=== PATIENT | male | born 1945 | race Caucasian/White ===

== ENCOUNTER → 2016-06-19 | Outpatient (CLI) | payer MEDICARE ==
--- NOTE | 2016-06-19 08:22 | US ---
EXAMINATION TYPE: US carotid duplex BILAT DATE OF EXAM: 06/19/2016 7:46 AM COMPARISON: NONE CLINICAL HISTORY: R55 Near Syncope. Patient states left neck pain EXAM MEASUREMENTS: RIGHT: Peak Systolic Velocity (PSV) cm/sec ----- Right CCA: 83.1 ----- Right ICA: 112.1 ----- Right ECA: 182.5* ICA/CCA ratio: 1.3 RIGHT: End Diastole cm/sec ----- Right CCA: 25.9 ----- Right ICA: 44.8 ----- Right ECA: 30.7 LEFT: Peak Systolic Velocity (PSV) cm/sec ----- Left CCA: 103.0 ----- Left ICA: 110.8 ----- Left ECA: 124.5 ICA/CCA ratio: 1.1 LEFT: End Diastole cm/sec ----- Left CCA: 31.8 ----- Left ICA: 31.8 ----- Left ECA: 27.0 VERTEBRALS (direction of flow): Right Vertebral: Antegrade Left Vertebral: Antegrade TECHNOLOGIST IMPRESSION: No significant stenosis seen, elevated right ECA velocity. Left sided nodes noted. Grayscale images show moderate eccentric plaque at right carotid bulb. There is mild eccentric plaque is seen at left carotid bulb. Velocity measurements and ratios in visualized portion of both interna l carotid arteries is within normal limits. IMPRESSION: Mild to moderate atherosclerotic change in carotid arteries, right greater than left wit hout hemodynamically significant stenosis clearly seen in either internal carotid artery Criteria for Assigning % of Stenosis / Diameter reduction (Estimation based on the indirect measurements of the internal carotid artery velocities (ICA PSV). 2. Less than 50% stenosis=ICA PSV < 125 cm/s: ratio < 2.0: ICA EDV<40 cm/s.
== END | disposition home or self-care (01) ==
LOC: RADUSWWP 07:21
PROVIDERS: ATTEND Family Medicine
DX: I65.23 Occlusion and stenosis of bilateral carotid arteries (principal)
CPT/HCPCS: 93880

== ENCOUNTER → 2016-06-22 | Outpatient (CLI) | payer MEDICARE ==
[2016-06-22 10:41] LABS: Blood Urea Nitrogen 18 mg/dL (9-20); Non-African American GFR(MDRD) >60 (>60 ml/min/1.73 sqM)
--- NOTE | 2016-06-22 13:18 | CT ---
EXAMINATION TYPE: CT chest w con DATE OF EXAM: 06/22/2016 11:48 AM COMPARISON: 03/19/2016, 09/14/2015, 06/24/2015 HISTORY: 70-year-old male solitary pulmonary nodule Solitary pulmonary nodule TECHNIQUE: Contiguous axial scanning of the chest after the administration of 100 ml mL of Omnipaque 300. Coronal/sagittal reconstructions performed. CT DLP: 519.50mGycm. Automatic exposure control utilized for a dose reduction. FINDINGS: The heart is normal size without pericardial effusion. Median sternotomy wires with post-CABG changes are present. Ascending aorta is ectatic at 3.7 cm. There is conventional arch vessel branching anatomy. Right tracheobronchial angle lymph node measures 1.0 cm versus 1.1 cm previously and 1.4 cm on 09/14/19 16. Right hilar lymph node measures 1.8 cm versus 2.1 cm on 03/19/2016; no new or progressive thoracic lymphadenopathy. Residual groundglass right perihilar midlung suggestive of scarring. 7 mm anterior right midlung pulm onary nodule axial image 23 and adjacent 5 mm pulmonary nodule are unchanged from 09/14/2015. There is mild centrilobular emphysema and some stable linear thickening along the posterior left base as niki red to 09/14/2015 suggestive of scarring. No consolidation or pleural effusion. Small hiatal hernia. Partially visualized cyst medial right kidney. Cholecystectomy clips. Bones: Endplate spondylosis midthoracic spine area no osseous destructive process. IMPRESSION: 1. A couple mildly enlarged mediastinal and right hilar lymph nodes measuring up to 1.8 cm show inter karina decreasing size suggesting a benign post infectious/inflammatory etiology. 2. A couple right-sided pulmonary nodules measuring up to 7 mm are stable from 09/14/2015. Continued fo llow-up to document 2 years of stability which would support a benign etiology is recommended. 3. COPD with mild emphysema and a small hiatal hernia.
== END | disposition home or self-care (01) ==
LOC: RADCTMAIN 10:13
PROVIDERS: ATTEND Internal Medicine Sleep Medicine
DX: R91.1 Solitary pulmonary nodule (principal); J43.9 Emphysema, unspecified; K44.9 Diaphragmatic hernia without obstruction or gangrene
CPT/HCPCS: 82565; 84520; 71260; 36415; Q9967

== ENCOUNTER 2017-06-09 12:16 | Inpatient (IN) | payer MEDICARE ==
--- NOTE | 2017-06-09 12:31 | ED ---
Chest Pain HPI - General Stated Complaint: PETER Time Seen by Provider: 06/09/17 12:16 Source: patient, EMS, RN notes reviewed Mode of arrival: EMS - History of Present Illness Initial Comments: This is a 71-year-old male who states he had the onset of shortness of breath when he woke up this morning his been having cold symptoms for last day or so he also had several episodes of sharp left-sided chest pain it lasted for perhaps 10-15 seconds each he denies any fevers chills nausea vomiting sweats she has had rhinorrhea and congestion however. Patient does have a history of a two-way coronary artery bypass 1997 she be thyroid disease and high cholesterol. Currently he is asymptomatic he has any chest pain or shortness of breath. MD Complaint: chest pain, other - Related Data Home Medications Medication Instructions Recorded Confirmed Aspirin 325 mg PO DAILY 01/05/14 06/09/17 Furosemide [Lasix] 20 mg PO DAILY 01/05/14 06/09/17 Quinapril HCl 40 mg PO DAILY 01/05/14 06/09/17 glipiZIDE [Glucotrol] 5 mg PO AC-BID 01/05/14 06/09/17 Levothyroxine Sodium [Synthroid] 75 mcg PO DAILY 06/09/17 06/09/17 Omeprazole 20 mg PO BID 06/09/17 06/09/17 Potassium Chloride [K-Tab ER] 10 meq PO DAILY 06/09/17 06/09/17 Repaglinide [Prandin] 1 mg PO TID 06/09/17 06/09/17 Simvastatin [Zocor] 20 mg PO HS 06/09/17 06/09/17 Tamsulosin HCl [Flomax] 0.4 mg PO DAILY 06/09/17 06/09/17 sitaGLIPtin [Januvia] 100 mg PO HS 06/09/17 06/09/17 Allergies Allergy/AdvReac Type Severity Reaction Status Date / Time levofloxacin [From Levaquin] Allergy Anaphylaxis Verified 06/09/17 12:41 Review of Systems ROS Statement: Those systems with pertinent positive or pertinent negative responses have been documented in the HPI. ROS Other: All systems not noted in ROS Statement are negative. EKG Findings - EKG Results: EKG: interpreted by RODRIGO, sinus rhythm (Sinus rhythm rate of 86. Interval 170 QRS duration 96 QT since QTC of 344/411 old inferior changes no acute ST-T wave changes nonspecific anterior changes.) Past Medical History Past Medical History: Coronary Artery Disease (CAD), Diabetes Mellitus, GERD/ Reflux, Hyperlipidemia, Hypertension, Osteoarthritis (OA), Pneumonia, Pulmonary Embolus (PE), Thyroid Disorder Additional Past Medical History / Comment(s): fx rt hand, carpal tunnel kisha. ? 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 Smoking Status: Former smoker (Quit 1996 at 3-1/2 packs per day since age 12) Past Alcohol Use History: Occasional Additional Past Alcohol Use History / Comment(s): started smoking age 12 worked up 3.5 ppd quit 1996 Past Drug Use History: None Reported - Past Family History Father Family Medical History: Myocardial Infarction ([place]) Additional Family Medical History / Comment(s): from [place] age 44 Mother Additional Family Medical History / Comment(s): age 86 from [facility] General Exam - General Exam Comments Initial Comments: This is a well-developed well-nourished awake alert oriented times 3 male General appearance: alert, in no apparent distress Head exam: Present: atraumatic, normocephalic, normal inspection Eye exam: Present: normal appearance, PERRL, EOMI. Absent: scleral icterus, conjunctival injection, periorbital swelling ENT exam: Present: normal exam, mucous membranes moist Neck exam: Present: normal inspection. Absent: tenderness, meningismus, lymphadenopathy Respiratory exam: Present: normal lung sounds bilaterally, chest wall tenderness (Some reproducible tenderness palpation along the left costochondral margin. No step-off no crepitation.). Absent: respiratory distress, wheezes, rales, rhonchi, stridor Cardiovascular Exam: Present: regular rate, normal rhythm, normal heart sounds. Absent: systolic murmur, diastolic murmur, rubs, gallop, clicks GI/Abdominal exam: Present: soft, normal bowel sounds. Absent: distended, tenderness, guarding, rebound, rigid Extremities exam: Present: normal inspection, full ROM, normal capillary refill. Absent: tenderness, pedal edema, joint swelling, calf tenderness Back exam: Present: normal inspection Neurological exam: Present: alert, oriented X3, CN II-XII intact Psychiatric exam: Present: normal affect, normal mood Skin exam: Present: warm, dry, intact, normal color. Absent: rash Course Vital Signs 06/09/17 06/09/17 06/09/17 12:22 12:27 13:10 Temperature 97.3 F L 101.3 F H Pulse Rate 89 85 Respiratory 20 24 22 Rate Blood Pressure 182/74 157/84 O2 Sat by Pulse 97 97 Oximetry 06/09/17 06/09/17 06/09/17 13:15 13:25 14:45 Temperature 100.5 F H Pulse Rate 95 94 90 Respiratory 18 Rate Blood Pressure 112/56 O2 Sat by Pulse 93 L Oximetry 06/09/17 06/09/17 15:35 16:35 Temperature 100.3 F H 97.8 F Pulse Rate 93 88 Respiratory 18 18 Rate Blood Pressure 148/78 126/56 O2 Sat by Pulse 96 97 Oximetry Chest Pain MDM - MDM I did evaluate the patient's imaging showing no evidence of acute findings. Patient was feeling better with respect to his breathing no more chest pain he has however been noted to be an out of bigeminy on his heart rhythm. He does not really feel lightheaded or dizzy with this is apparently a new event for him. I did discuss the case with him and family members as well as with Dr. Valle the patient will be admitted with cardiology consultation. Disposition Clinical Impression: Bigeminy, Acute exacerbation of chronic obstructive airways disease, Chest pain Disposition: ADMITTED IP TO THIS HOSP Condition: Stable Referrals: Osei Carcamo DO [Primary Care Provider] - 1-2 days
[2017-06-09] MEDS ORDERED: ACETAMINOPHEN TAB 325 MG TAB PO STA (13:01)
[2017-06-09] MEDS ORDERED: IPRATROPIUM-ALBUTEROL 3 ML NEB INHALATION STA (13:01)
[2017-06-09 13:29] LABS: Basophils % (A) 1 %; Eosinophils # (A) 0.2 k/uL (0-0.7); Eosinophils % (A) 3 %; HCT 40.8 % (39.0-53.0); HGB 13.6 gm/dL (13.0-17.5); Lymphocytes # (A) 0.2 k/uL (1.0-4.8); Lymphocytes % (A) 3 %; MCH 31.4 pg (25.0-35.0); MCHC 33.3 g/dL (31.0-37.0); MCV 94.4 fL (80.0-100.0); Mean Platelet Volume 8.3; Monocytes # (A) 0.2 k/uL (0-1.0); Monocytes % (A) 3 %; Neutrophils # (A) 5.7 k/uL (1.3-7.7); Neutrophils % (A) 90 %; Platelet Count 125 k/uL (150-450); RBC 4.32 m/uL (4.30-5.90); RDW 12.7 % (11.5-15.5); WBC 6.3 k/uL (3.8-10.6)
[2017-06-09 13:51] LABS: Creatine Kinase 98 U/L (55-170)
--- NOTE | 2017-06-09 13:55 | XR ---
EXAMINATION TYPE: XR chest 2V DATE OF EXAM: 06/09/2017 HISTORY: Chest Pain. REFERENCE: Previous study dated 07/21/2015. FINDINGS: There has been a midline sternotomy. The lungs are mildly overinflated. The lungs are clear . Pleural spaces are clear. The heart is not enlarged. IMPRESSION: COPD.
[2017-06-09 14:03] LABS: Creatine Kinase MB 1.1 ng/mL (0.0-2.4)
[2017-06-09 14:04] LABS: Troponin I <0.012 ng/mL (0.000-0.034)
[2017-06-09 14:05] LABS: D-Dimer 1.26 mg/L FEU (<0.60); Partial Thromboplastin Time 21.5 sec (22.0-30.0); Prothrombin Time 9.6 sec (9.0-12.0)
[2017-06-09 14:56] LABS: ALT 49 U/L (21-72); AST 42 U/L (17-59); Albumin 3.6 g/dL (3.5-5.0); Alkaline Phosphatase 76 U/L (38-126); Amylase 62 U/L (30-110); Anion Gap 11 mmol/L; Blood Urea Nitrogen 20 mg/dL (9-20); Calcium 8.6 mg/dL (8.4-10.2); Carbon Dioxide 20 mmol/L (22-30); Chloride 106 mmol/L (98-107); Glucose 207 mg/dL (74-99); Lipase 313 U/L (23-300); Magnesium 1.3 mg/dL (1.6-2.3); Sodium 137 mmol/L (137-145); Total Bilirubin 0.4 mg/dL (0.2-1.3); Total Protein 6.3 g/dL (6.3-8.2)
[2017-06-09] MEDS ORDERED: RX INFO: IV CONTRAST WAS GIVEN 1 EACH MISC MISCELLANE PRN (15:00)
--- NOTE | 2017-06-09 16:29 | CT ---
EXAMINATION TYPE: CT angio chest DATE OF EXAM: 06/09/2017 COMPARISON: NONE HISTORY: Left sided chest pain with shortness of breath CT DLP: 569.5 mGycm. Automated Exposure Control for Dose Reduction was Utilized. CONTRAST: CTA scan of the thorax is performed with IV Contrast, patient injected with 100 mL of Omnipaque 350, pulmonary embolism protocol. MIP Images are created on CT scanner and reviewed. FINDINGS: LUNGS: There is redemonstration of both a 7 and 5 mm right upper lobe pulmonary nodule. That are both unchanged from the exam of 09/14/2015. These are superimposed upon mild centrilobular background emphy sema. Probable area of scarring is also stable along the left lung base that is linear and elongated. Scattered subpleural blebs are also noted. Groundglass opacity along the interlobar fissure in the r ight upper lobe is also stable. No new focal consolidation or pleural effusion. No pneumothorax is se en. The tracheobronchial tree is patent. MEDIASTINUM: The exam is slightly suboptimal given bolus timing, however there is no central or segme ntal pulmonary bolus bilaterally and no suspected subsegmental emboli. Conglomeration of right hilar lymph nodes measures 3.6 x 1.8 cm and previously measured 1.8 cm on the exam of 06/22/2016. Right trac heobronchial angle node measures 1.1 cm in short axis as intervertebral 1.0 cm. These are similar. Ag ain the ascending thoracic aorta is upper limits of normal measuring 3.7 cm but does not measure crit eria for aneurysm. No cardiomegaly or pericardial effusion is seen. OTHER: Cholecystectomy clips are noted within the right upper quadrant. There is generalized hypoatte nuation of the hepatic parenchyma most commonly related to underlying hepatic steatosis. Left upper p ole probable renal cyst is again partially visualized. There is redemonstration of multilevel moderat e degenerative changes of the thoracic spine and an exaggerated thoracic kyphosis. There is a small h iatal hernia. IMPRESSION: 1. No evidence of central or segmental pulmonary embolus. No suspicion for subsegmental pulmonary emb olus although there is slightly suboptimal bolus timing. 2. Stable mediastinal adenopathy in comparison to exam of 06/22/2016 that it slightly decreased from t he prior exam of 03/19/2016. 3. Mild centrilobular emphysema. 4. Stable right sided pulmonary nodules dating back to 09/14/2015. Again continued follow-up is recomme nded to determine 2 years of stability. 5. Hepatic steatosis and small hiatal hernia.
[2017-06-09] MEDS ORDERED: MAGNESIUM SULFATE-D5W PMX 1 GM in DEXTROSE/WATER 1 100ML.BAG IVPB ONE (16:53)
[2017-06-09] MEDS ORDERED: NITROGLYCERIN SL TABS 0.4 MG TAB SUBLINGUAL PRN (17:03)
[2017-06-09] MEDS: SODIUM CHLORIDE 0.9% 1,000 ML IV SCH (18:00)
[2017-06-09] MEDS ORDERED: ACETAMINOPHEN TAB 325 MG TAB PO PRN (18:09)
[2017-06-09] MEDS: methylPREDNISolone SOD SUCCI 125 MG/2 ML VIAL IV SCH ×2 (18:42→23:28)
[2017-06-09] MEDS: glipiZIDE 5 MG TAB PO SCH (18:42)
[2017-06-09 18:51] LABS: Glucose,Whole Blood 177 mg/dL (75-99)
[2017-06-09] MEDS ORDERED: IPRATROPIUM-ALBUTEROL 3 ML NEB INHALATION SCH (20:00)
[2017-06-09 20:38] LABS: Creatine Kinase MB 0.5 ng/mL (0.0-2.4); Troponin I 0.014 ng/mL (0.000-0.034)
[2017-06-09] MEDS ORDERED: IPRATROPIUM-ALBUTEROL 3 ML NEB INHALATION PRN (20:56)
[2017-06-09] MEDS ORDERED: LINAGLIPTIN 5 MG TABLET PO SCH (21:00)
[2017-06-09 21:01] LABS: Glucose,Whole Blood 278 mg/dL (75-99)
[2017-06-09] MEDS: ATORVASTATIN 10 MG TAB PO SCH (23:27)
[2017-06-09] MEDS: REPAGLINIDE 1 MG TAB PO SCH (23:27)
[2017-06-09] MEDS: PANTOPRAZOLE 40 MG TABLET PO SCH (23:28)
[2017-06-10 02:38] LABS: Creatine Kinase 114 U/L (55-170)
[2017-06-10 02:52] LABS: Creatine Kinase MB 1.2 ng/mL (0.0-2.4); Troponin I <0.012 ng/mL (0.000-0.034)
[2017-06-10 06:10] LABS: Glucose,Whole Blood 478 mg/dL (75-99)
[2017-06-10] MEDS ORDERED: INSULIN ASPART 100 UNIT/ML 1 ML 10 ML VIAL SQ ONE (06:17)
[2017-06-10] MEDS: glipiZIDE 5 MG TAB PO SCH (06:27)
[2017-06-10] MEDS: methylPREDNISolone SOD SUCCI 125 MG/2 ML VIAL IV SCH ×2 (06:27→12:48)
[2017-06-10] MEDS: LEVOTHYROXINE 75 MCG TAB PO SCH (06:28)
[2017-06-10 06:49] LABS: ALT 68 U/L (21-72); AST 51 U/L (17-59); Albumin 3.7 g/dL (3.5-5.0); Alkaline Phosphatase 63 U/L (38-126); Anion Gap 16 mmol/L; Blood Urea Nitrogen 20 mg/dL (9-20); Calcium 8.8 mg/dL (8.4-10.2); Carbon Dioxide 18 mmol/L (22-30); Chloride 104 mmol/L (98-107); Cholesterol 170 mg/dL (<200); HDL Cholesterol 40 mg/dL (40-60); LDL Cholesterol,Calculated 97 mg/dL (0-99); Magnesium 1.8 mg/dL (1.6-2.3); Potassium 4.4 mmol/L (3.5-5.1); Sodium 138 mmol/L (137-145); Total Bilirubin 0.7 mg/dL (0.2-1.3); Total Protein 6.1 g/dL (6.3-8.2); Triglycerides 164 mg/dL (<150)
[2017-06-10 06:59] LABS: Glucose 458 mg/dL (74-99)
[2017-06-10] MEDS ORDERED: INSULIN ASPART 100 UNIT/ML 1 ML 10 ML VIAL SQ SCH (07:30)
[2017-06-10] MEDS: IPRATROPIUM-ALBUTEROL 3 ML NEB INHALATION SCH ×4 (08:05→19:32)
--- NOTE | 2017-06-10 08:20 | P.CRDCN ---
History of Present Illness Consult date: 06/10/17 Requesting physician: Varsha Valle Consult reason: chest pain, shortness of breath Chief complaint: Shortness of breath History of present illness: This is a 71-year-old gentleman with history of diabetes, hyperlipidemia, hypothyroidism, hypertension, coronary artery disease and prior bypass surgery, sleep apnea, nonsmoker, who presented to the hospital with a fairly sudden onset of shortness of breath. The patient he's been doing overall fairly well at home, he denies any fever or chills at home, no cough. He states that he went in to have a shower, became suddenly short of breath, he states he had a sharp pain in the center of his chest which lasted approximately 15 seconds, this did recur on one occasion following that, he had no other episodes of chest discomfort. The EMS was called and patient was brought to the emergency room for further evaluation. Temperature on arrival here 101.3. Afebrile this morning, blood pressure 112/50 with a heart rate in the 60s. White blood cell count 6.3, hemoglobin 13.6, platelet count 125. D- dimer 1.26, sodium 138, potassium 4.4, BUN 20, creatinine 0.8. Glucose on arrival 207, for 58 this morning. Magnesium level on arrival 1.3, 1.8 this morning. Opponents 0.012, 0.014, 0.012. Influenza A and B were negative. TSH normal. EKG on arrival here shows a normal sinus rhythm with inferior Q waves. Chest x-ray shows COPD. CTA of the chest was performed which did not reveal evidence of pulmonary embolism. Stable mediastinal adenopathy in comparison with prior exam from last year. Mild central lobar emphysema. Stable right sided pulmonary nodules. At the time of my examination this morning, patient is sitting up in bed, denies any shortness of breath, no chest discomfort, no cough. Past Medical History Past Medical History: Coronary Artery Disease (CAD), Diabetes Mellitus, GERD/ Reflux, Hyperlipidemia, Hypertension, Osteoarthritis (OA), Pneumonia, Pulmonary Embolus (PE), Thyroid Disorder Additional Past Medical History / Comment(s): fx rt hand, carpal tunnel kisha. ? 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 Smoking Status: Former smoker Past Alcohol Use History: Occasional Additional Past Alcohol Use History / Comment(s): started smoking age 12 worked up 3.5 ppd quit 1996 Past Drug Use History: None Reported - Past Family History Father Family Medical History: Myocardial Infarction ([place]) Additional Family Medical History / Comment(s): from [place] age 44 Mother Additional Family Medical History / Comment(s): age 86 from [facility] Medications and Allergies Home Medications Medication Instructions Recorded Confirmed Type Aspirin 325 mg PO DAILY 01/05/14 06/09/17 History Furosemide [Lasix] 20 mg PO DAILY 01/05/14 06/09/17 History Quinapril HCl 40 mg PO DAILY 01/05/14 06/09/17 History glipiZIDE [Glucotrol] 5 mg PO AC-BID 01/05/14 06/09/17 History Levothyroxine Sodium [Synthroid] 75 mcg PO DAILY 06/09/17 06/09/17 History Omeprazole 20 mg PO BID 06/09/17 06/09/17 History Potassium Chloride [K-Tab ER] 10 meq PO DAILY 06/09/17 06/09/17 History Repaglinide [Prandin] 1 mg PO TID 06/09/17 06/09/17 History Simvastatin [Zocor] 20 mg PO HS 06/09/17 06/09/17 History Tamsulosin HCl [Flomax] 0.4 mg PO DAILY 06/09/17 06/09/17 History sitaGLIPtin [Januvia] 100 mg PO HS 06/09/17 06/09/17 History Allergies Allergy/AdvReac Type Severity Reaction Status Date / Time levofloxacin [From Levaquin] Allergy Anaphylaxis Verified 06/09/17 12:41 Physical Exam Vitals: Vital Signs Temp Pulse Pulse Resp BP BP Pulse Ox 06/10/17 04:00 97.0 F L 63 18 112/56 96 06/10/17 00:00 97.2 F L 82 18 172/82 98 06/09/17 21:03 96 06/09/17 20:53 98 06/09/17 20:00 97.9 F 80 18 143/87 97 06/09/17 19:35 98.7 F 88 18 127/61 96 06/09/17 18:00 90 18 132/63 95 06/09/17 17:40 98.8 F 89 18 137/55 97 06/09/17 17:00 81 18 130/60 97 06/09/17 16:35 97.8 F 88 18 126/56 97 06/09/17 15:35 100.3 F H 93 18 148/78 96 06/09/17 14:45 100.5 F H 90 18 112/56 93 L 06/09/17 13:25 94 06/09/17 13:15 95 06/09/17 13:10 101.3 F H 85 22 157/84 97 06/09/17 12:27 24 06/09/17 12:22 97.3 F L 89 20 182/74 97 Intake and Output 06/09/17 06/10/17 06/10/17 22:59 06:59 14:59 Intake Total 200 Output Total 601 Balance 200 -601 Intake: Amount of Fluid Infused ( 200 ml) Output: Urine 601 Other: Voiding Method Urinal Urinal # Voids 1 450 Weight 108.86 kg 110.9 kg PHYSICAL EXAMINATION: HEENT: Head is atraumatic, normocephalic. Pupils equal, round. Neck is supple. There is no elevated jugular venous pressure. HEART EXAMINATION: Heart S1 S2 1 systolic murmur is heard. CHEST EXAMINATION: Lungs are clear to auscultation and precussion. No chest wall tenderness is noted on palpation or with deep breathing. ABDOMEN: Soft, obese, nontender. Bowel sounds are heard. No organomegaly noted. EXTREMITIES: 2+ peripheral pulses with trace evidence of peripheral edema and no calf tenderness noted. NEUROLOGIC patient is awake, alert and oriented -3. . Results 06/09/17 13:00 06/10/17 06:03 Cardiac Enzymes 06/09/17 06/09/17 06/09/17 Range/Units 13:00 14:13 19:37 AST 42 (17-59) U/L CK-MB (CK-2) 1.1 0.5 (0.0-2.4) ng/mL Troponin I <0.012 0.014 (0.000-0.034) ng/mL 06/10/17 06/10/17 Range/Units 01:52 06:03 AST 51 (17-59) U/L CK-MB (CK-2) 1.2 (0.0-2.4) ng/mL Troponin I <0.012 (0.000-0.034) ng/mL Coagulation 06/09/17 Range/Units 13:00 PT 9.6 (9.0-12.0) sec APTT 21.5 L (22.0-30.0) sec Lipids 06/10/17 Range/Units 06:03 Triglycerides 164 H (<150) mg/dL Cholesterol 170 (<200) mg/dL HDL Cholesterol 40 (40-60) mg/dL CBC 06/09/17 Range/Units 13:00 WBC 6.3 (3.8-10.6) k/uL RBC 4.32 (4.30-5.90) m/uL Hgb 13.6 (13.0-17.5) gm/dL Hct 40.8 (39.0-53.0) % Plt Count 125 L (150-450) k/uL Comprehensive Metabolic Panel 06/09/17 06/10/17 Range/Units 14:13 06:03 Sodium 137 138 (137-145) mmol/L Potassium 4.0 4.4 (3.5-5.1) mmol/L Chloride 106 104 (98-107) mmol/L Carbon Dioxide 20 L 18 L (22-30) mmol/L BUN 20 20 (9-20) mg/dL Creatinine 0.86 0.80 (0.66-1.25) mg/dL Glucose 207 H 458 H* (74-99) mg/dL Calcium 8.6 8.8 (8.4-10.2) mg/dL AST 42 51 (17-59) U/L ALT 49 68 (21-72) U/L Alkaline Phosphatase 76 63 (38-126) U/L Total Protein 6.3 6.1 L (6.3-8.2) g/dL Albumin 3.6 3.7 (3.5-5.0) g/dL Current Medications Generic Name Dose Route Start Last Admin Trade Name Freq PRN Reason Stop Dose Admin Acetaminophen 650 mg 06/09/17 18:09 06/09/17 18:42 Tylenol Tab PO 650 mg Q4HR PRN Administration Fever and/ or MILD Pain Albuterol/Ipratropium 3 ml 06/10/17 08:00 06/10/17 08:05 Duoneb 0.5 Mg-3 Mg/3 Ml Soln INHALATION 3 ml RT-QID MADDISON Administration Albuterol/Ipratropium 3 ml 06/09/17 20:56 Duoneb 0.5 Mg-3 Mg/3 Ml Soln INHALATION RT-Q2H PRN Shortness Of Breath Or Wheezing Aspirin 325 mg 06/10/17 09:00 Aspirin PO DAILY MADDISON Atorvastatin Calcium 10 mg 06/09/17 21:00 06/09/17 23:27 Lipitor PO 10 mg HS MADDISON Administration Furosemide 20 mg 06/10/17 09:00 Lasix PO DAILY MADDISON Glipizide 5 mg 06/09/17 17:30 06/10/17 06:27 Glucotrol PO 5 mg AC-BID MADDISON Administration Sodium Chloride 1,000 mls @ 20 mls/hr 06/09/17 17:00 06/09/17 18:00 Saline 0.9% IV 20 mls/hr .Q24H MADDISON Administration Insulin Aspart 0 unit 06/10/17 07:30 06/10/17 06:26 Novolog SQ 8 unit ACHS MADDISON Administration Protocol Levothyroxine Sodium 75 mcg 06/10/17 06:30 06/10/17 06:28 Synthroid PO 75 mcg 0630 MADDISON Administration Linagliptin 5 mg 06/09/17 21:00 06/09/17 23:28 Tradjenta PO 5 mg HS MADDISON Administration Lisinopril 40 mg 06/10/17 09:00 Zestril PO DAILY MADDISON Methylprednisolone Sodium Succinate 60 mg 06/09/17 18:00 06/10/17 06:27 Solu-Medrol IV 60 mg Q6HR MADDISON Administration Miscellaneous Information 1 each 06/09/17 15:00 06/09/17 16:26 Rx Info: Iv Contrast Was Given MISCELLANE 06/11/17 15:00 1 each DAILY PRN Administration Per Protocol Nitroglycerin 0.4 mg 02/25/18 17:03 Nitrostat SUBLINGUAL Q5M PRN Chest Pain Pantoprazole Sodium 40 mg 06/09/17 21:00 06/09/17 23:28 Protonix PO 40 mg BID MADDISON Administration Potassium Chloride 10 meq 06/10/17 09:00 K-Dur 10 PO DAILY MADDISON Repaglinide 1 mg 06/09/17 22:00 06/09/17 23:27 Prandin PO 1 mg TID MADDISON Administration Tamsulosin HCl 0.4 mg 06/10/17 09:00 Flomax PO DAILY MADDISON Intake and Output 06/09/17 06/10/17 06/10/17 22:59 06:59 14:59 Intake Total 200 Output Total 601 Balance 200 -601 Intake: Amount of Fluid Infused ( 200 ml) Output: Urine 601 Other: Voiding Method Urinal Urinal # Voids 1 450 Weight 108.86 kg 110.9 kg 06/09/17 13:00 06/10/17 06:03 EKG Interpretations (text) EKG shows a normal sinus rhythm with inferior Q waves, no acute changes noted. Assessment and Plan Plan: Assessment and plan #1 symptoms of sudden onset of shortness of breath, fever of 101.3 on admission. Chest x-ray shows COPD. BNP 419. Elevated d-dimer 1.26, CT of the chest does not reveal any pulmonary embolism. #2 atypical chest pain, troponins 0.012, 0.014, 0.012. EKG shows normal sinus rhythm with inferior Q waves, no acute changes noted. #3 known history of coronary artery disease with prior bypass surgery #4 hypertension #5 hyperlipidemia #6 diabetes #7 sleep apnea #8 hypothyroidism, TSH normal #9 hypomagnesemia Plan There is no evidence of congestive cardiac failure, BNP level is normal. Chest pain very atypical in nature. We will replace the magnesium. We will repeat an echocardiogram with Doppler study. Decrease aspirin to 81 mg daily, continue statin, DENISE inhibitor, further recommendations to follow. DNP note has been reviewed, I agree with a documented findings and plan of care. Patient was seen and examined.
[2017-06-10] MEDS ORDERED: ASPIRIN 325 MG TAB PO SCH (09:00)
[2017-06-10] MEDS: REPAGLINIDE 1 MG TAB PO SCH (10:21)
[2017-06-10] MEDS: ASPIRIN 81 MG PO SCH (10:21)
[2017-06-10] MEDS: PANTOPRAZOLE 40 MG TABLET PO SCH ×2 (10:22→21:07)
[2017-06-10] MEDS: LISINOPRIL 20 MG TAB PO SCH (10:22)
[2017-06-10] MEDS: POTASSIUM CHLORIDE ER 10 MEQ TAB.ER.PRT PO SCH (10:23)
[2017-06-10] MEDS: FUROSEMIDE 20 MG TAB PO SCH (10:23)
[2017-06-10] MEDS: TAMSULOSIN 0.4 MG CAP.ER.24H PO SCH (10:23)
--- NOTE | 2017-06-10 11:31 | ECHOF ---
Referral Reason:Chest pain, dyspnea, dysrhythmia MEASUREMENTS -------- HEIGHT: 175.3 cm WEIGHT: 110.7 kg BP: 112/56 RVIDd: 4.1 cm (< 3.3) IVSd: 1.5 cm (0.6 - 1.1) LVIDd: 4.2 cm (3.9 - 5.3) LVPWd: 1.2 cm (0.6 - 1.1) IVSs: 2.1 cm LVIDs: 3.1 cm LVPWs: 1.7 cm LAESV Index (A-L): 36.47 ml/m Ao Diam: 3.5 cm (2.0 - 3.7) AV Cusp: 2.3 cm (1.5 - 2.6) LA Diam: 4.3 cm (2.7 - 3.8) MV EXCURSION: 8.243 mm (> 18.000) MV EF SLOPE: 45 mm/s (70 - 150) EPSS: 1.5 cm MV E Herminio: 0.79 m/s MV DecT: 212 ms MV A Herminio: 0.83 m/s MV E/A Ratio: 0.96 RAP: 5.00 mmHg RVSP: 18.58 mmHg FINDINGS -------- Sinus rhythm with extra systolic beats. This was a technically adequate study. The left ventricular size is normal. There is moderate concentric left ventricular hypertrophy. O verall left ventricular systolic function is normal with, an EF between 55 - 60 %. The right ventricle is moderately enlarged. LA is moderately dilated 34-39 ml/m2 The right atrium was not well visualized. The aortic valve is trileaflet, and appears structurally normal. No aortic stenosis or regurgitation. The mitral valve is normal. Mild mitral regurgitation is present. Mild tricuspid regurgitation present. There is no evidence of pulmonary hypertension. The right v entricular systolic pressure, as measured by Doppler, is 18.58mmHg. Trace/mild (physiologic) pulmonic regurgitation. The aortic root size is normal. There is no pericardial effusion. CONCLUSIONS -------- 1. Sinus rhythm with extra systolic beats. 2. This was a technically adequate study. 3. The left ventricular size is normal. 4. There is moderate concentric left ventricular hypertrophy. 5. Overall left ventricular systolic function is normal with, an EF between 55 - 60 %. 6. The right ventricle is moderately enlarged. 7. LA is moderately dilated 34-39 ml/m2 8. The right atrium was not well visualized. 9. The aortic valve is trileaflet, and appears structurally normal. No aortic stenosis or regurgitati on. 10. Mild mitral regurgitation is present. 11. Mild tricuspid regurgitation present. 12. There is no evidence of pulmonary hypertension. 13. Trace/mild (physiologic) pulmonic regurgitation. 14. The aortic root size is normal. 15. There is no pericardial effusion. HAND I BLOCKER: Kaylee Burnham RDCS
[2017-06-10 12:01] LABS: Glucose,Whole Blood 510 mg/dL (75-99)
[2017-06-10 12:01] LABS: Glucose,Whole Blood 499 mg/dL (75-99)
[2017-06-10] MEDS ORDERED: INSULIN REGULAR BOLUS (FROM DRIP BAG) IV ONE (12:10)
[2017-06-10] MEDS: INSULIN ASPART 100 UNIT/ML 1 ML 10 ML VIAL SQ SCH ×2 (12:47→17:34)
[2017-06-10] MEDS: INSULIN REGULAR 100 UNIT in SODIUM CHLORIDE 0.9% 100 ML IV SCH ×3 (13:15→23:54)
[2017-06-10 14:12] LABS: Glucose,Whole Blood 503 mg/dL (75-99)
[2017-06-10 14:26] LABS: Glucose,Whole Blood 478 mg/dL (75-99)
[2017-06-10 14:49] LABS: Glucose,Whole Blood 420 mg/dL (75-99)
[2017-06-10 15:28] LABS: Glucose,Whole Blood 401 mg/dL (75-99)
[2017-06-10 15:48] LABS: Glucose,Whole Blood 372 mg/dL (75-99)
--- NOTE | 2017-06-10 16:26 | P.HPIM ---
History of Present Illness H&P Date: 06/10/17 Chief Complaint: SOB 71 years old male patient of Dr. Carcamo with past medical history of type 2 diabetes, coronary artery disease requiring CABG two-vessel disease in 1996, history of pulmonary embolism and subdural hematoma 1960 also has history of hyperlipidemia, hypertension, osteoarthritis, hypothyroidism, pulmonary nodule and mediastinal lymphadenopathy presents in with sudden onset of shortness of breath associated with substernal chest pain that started when he went for a shower. Chest pain lasted 15 seconds but improved by itself. Patient had a fever of 101 on arrival but otherwise vitals are stable. Labs done in the ER suggestive of CBC 6.3, d-dimer 1.26, UN creatinine 20/0.8, troponin 2 negative, influenza AB- chest x-ray was done which showed COPD. CTA was done for elevated d-dimer which was negative for pulmonary embolism but redemonstrated the stable mediastinal lymphadenopathy as well as pulmonary nodules stable since last year. On my evaluation patient was lying comfortably in bed without any significant shortness of breath or chest pain. Cardiology had already evaluated the patient and think patient's chest pain was atypical of cardiac nature. Pulmonary consulted for evaluation of COPD. Patient was placed on insulin drip for elevated glucose. Review of Systems Constitutional: Denies chills, Denies fever, Denies lethargy, Denies malaise, Denies poor appetite, Denies weakness, Denies weight loss Eyes: denies decreased vision, denies diplopia, denies discharge, denies pain Ears: deny: decreased hearing Ears, nose, mouth and throat: Denies dental pain, Denies headache, Denies nasal discharge, Denies nose pain Cardiovascular: Denies chest pain, Denies decreased exercise tolerance, Denies edema, Denies high blood pressure, Denies irregular heart beat, Denies palpitations, Denies paroxysmal nocturnal dyspnea, Denies rapid heart beat, Denies shortness of breath Respiratory: Denies congestion, Denies cough, Denies cough with sputum, Denies dyspnea, Denies home oxygen, Denies wheezing Gastrointestinal: Denies abdominal pain, Denies change in bowel habits, Denies coffee ground emesis, Denies early satiety, Denies excessive gas, Denies heartburn, Denies hematemesis, Denies hematochezia, Denies loss of appetite, Denies nausea, Denies vomiting Genitourinary: Denies dysuria, Denies flank pain, Denies kidney stones, Denies menorrhagia, Denies urgency, Denies urinary frequency Musculoskeletal: Denies gait dysfunction, Denies limitation of motion, Denies morning stiffness, Denies muscle cramps Integumentary: Denies rash, Denies wounds, Denies brittle nails, Denies change in hair/nails, Denies darkening of skin Neurological: Denies balance difficulties, Denies change in speech, Denies double vision, Denies gait dysfunction, Denies loss of vision, Denies motor disturbance, Denies numbness, Denies paralysis, Denies paresthesias, Denies seizures Psychiatric: Denies anxiety, Denies depression Endocrine: Denies excessive sweating, Denies excessive thirst, Denies high blood sugars, Denies palpitations Hematologic/Lymphatic: Denies easy bruising, Denies lymphadenopathy Past Medical History Past Medical History: Coronary Artery Disease (CAD), Diabetes Mellitus, GERD/ Reflux, Hyperlipidemia, Hypertension, Osteoarthritis (OA), Pneumonia, Thyroid Disorder Additional Past Medical History / Comment(s): fx rt hand, carpal tunnel kisha. ? murmur, sinus, kidney stone History of Any Multi-Drug Resistant Organisms: None Reported Past Surgical History: Appendectomy, Cholecystectomy, Coronary Bypass/CABG, Heart Catheterization, Hernia Repair Additional Past Surgical History / Comment(s): triple vessel cabg in 1996, hernia repair(triple per old hx) in 1959, ventral hernia 2006, colonoscopy.kisha cataracts-lens implants Past Anesthesia/Blood Transfusion Reactions: No Reported Reaction Past Psychological History: No Psychological Hx Reported Additional Psychological History / Comment(s): lives withh his , is indepenant. 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 Smoking Status: Former smoker Past Alcohol Use History: Occasional Additional Past Alcohol Use History / Comment(s): started smoking age 12 worked up 3.5 ppd quit 1996 Past Drug Use History: None Reported - Past Family History Father Family Medical History: Myocardial Infarction ([place]) Additional Family Medical History / Comment(s): from [place] age 44 Mother Additional Family Medical History / Comment(s): age 86 from [place] Medications and Allergies Home Medications Medication Instructions Recorded Confirmed Type Aspirin 325 mg PO DAILY 01/05/14 06/09/17 History Furosemide [Lasix] 20 mg PO DAILY 01/05/14 06/09/17 History Quinapril HCl 40 mg PO DAILY 01/05/14 06/09/17 History glipiZIDE [Glucotrol] 5 mg PO AC-BID 01/05/14 06/09/17 History Levothyroxine Sodium [Synthroid] 75 mcg PO DAILY 06/09/17 06/09/17 History Omeprazole 20 mg PO BID 06/09/17 06/09/17 History Potassium Chloride [K-Tab ER] 10 meq PO DAILY 06/09/17 06/09/17 History Repaglinide [Prandin] 1 mg PO TID 06/09/17 06/09/17 History Simvastatin [Zocor] 20 mg PO HS 06/09/17 06/09/17 History Tamsulosin HCl [Flomax] 0.4 mg PO DAILY 06/09/17 06/09/17 History sitaGLIPtin [Januvia] 100 mg PO HS 06/09/17 06/09/17 History Allergies Allergy/AdvReac Type Severity Reaction Status Date / Time levofloxacin [From Levaquin] Allergy Anaphylaxis Verified 06/09/17 12:41 Physical Exam Vitals: Vital Signs Temp Pulse Pulse Resp BP BP Pulse Ox 06/10/17 15:57 80 06/10/17 15:00 96.7 F L 78 18 129/68 95 06/10/17 12:50 81 18 144/81 97 06/10/17 12:08 80 06/10/17 11:58 86 06/10/17 08:30 97.6 F 63 18 145/66 97 06/10/17 08:26 84 06/10/17 08:18 80 97 06/10/17 04:00 97.0 F L 63 18 112/56 96 06/10/17 00:00 97.2 F L 82 18 172/82 98 06/09/17 21:03 96 06/09/17 20:53 98 06/09/17 20:00 97.9 F 80 18 143/87 97 06/09/17 19:35 98.7 F 88 18 127/61 96 06/09/17 18:00 90 18 132/63 95 06/09/17 17:40 98.8 F 89 18 137/55 97 06/09/17 17:00 81 18 130/60 97 06/09/17 16:35 97.8 F 88 18 126/56 97 Intake and Output 06/10/17 06/10/17 06/10/17 06:59 14:59 22:59 Intake Total 817.5 Output Total 601 Balance -601 817.5 Intake: Intake, IV Titration 217.5 Amount Insulin Regular 100 unit 17.5 In Sodium Chloride 0.9% 100 ml @ Titrate IV .Q0M MADDISON Rx#:[id number] Sodium Chloride 0.9% 1, 200 000 ml @ 20 mls/hr IV . Q24H MADDISON Rx#:[id number] Oral 600 Output: Urine 601 Other: Voiding Method Urinal # Voids 450 Weight 110.9 kg - Constitutional General appearance: cooperative, no acute distress, obese - EENT Eyes: anicteric sclerae, PERRLA, normal appearance ENT: hearing grossly normal - Neck Neck: no lymphadenopathy, normal ROM, no other, no rigidity, no stridor, no thyromegaly - Respiratory Respiratory: bilateral: diminished, negative for dullness, rales, rhonchi - Cardiovascular Rhythm: regular Heart sounds: normal: S1, S2 Abnormal Heart Sounds: no systolic murmur, no diastolic murmur, no rub, no S3 Gallop, no S4 Gallop, no click, no other - Gastrointestinal General gastrointestinal: normal bowel sounds, soft - Integumentary Integumentary: no rash - Neurologic Neurologic: CNII-XII intact - Musculoskeletal Musculoskeletal: gait normal, strength equal bilaterally - Psychiatric Psychiatric: A&O x's 3, appropriate affect Results CBC & Chem 7: 06/09/17 13:00 06/10/17 06:03 Labs: Abnormal Lab Results - Last 24 Hours (Table) 06/09/17 06/09/17 06/10/17 Range/Units 18:41 20:40 06:03 Carbon Dioxide 18 L (22-30) mmol/L Glucose 458 H* (74-99) mg/dL POC Glucose (mg/dL) 177 H 278 H (75-99) mg/dL Total Protein 6.1 L (6.3-8.2) g/dL Triglycerides 164 H (<150) mg/dL 06/10/17 06/10/17 06/10/17 Range/Units 06:09 11:43 11:45 Carbon Dioxide (22-30) mmol/L Glucose (74-99) mg/dL POC Glucose (mg/dL) 478 H 499 H 510 H (75-99) mg/dL Total Protein (6.3-8.2) g/dL Triglycerides (<150) mg/dL 06/10/17 06/10/17 06/10/17 Range/Units 13:49 14:16 14:47 Carbon Dioxide (22-30) mmol/L Glucose (74-99) mg/dL POC Glucose (mg/dL) 503 H 478 H 420 H (75-99) mg/dL Total Protein (6.3-8.2) g/dL Triglycerides (<150) mg/dL 06/10/17 06/10/17 Range/Units 15:27 15:46 Carbon Dioxide (22-30) mmol/L Glucose (74-99) mg/dL POC Glucose (mg/dL) 401 H 372 H (75-99) mg/dL Total Protein (6.3-8.2) g/dL Triglycerides (<150) mg/dL Microbiology - Last 24 Hours (Table) 06/09/17 13:00 Blood Culture - Preliminary Blood No Growth after 24 hours Thrombosis Risk Factor Assmnt - DVT/VTE Prophylaxis DVT/VTE Prophylaxis: Pharmacologic Prophylaxis ordered - Choose All That Apply Each Factor Represents 1 point: Abnormal pulmonary function (COPD) Each Risk Factor Represents 2 Points: Age 61-74 years Each Risk Factor Represents 3 Points: History of DVT/PE Thrombosis Risk Factor Assessment Total Risk Factor Score: 6 Thrombosis Risk Factor Assessment Level: High Risk Assessment and Plan Plan: 1. Sudden onset of shortness of breath likely secondary to COPD exacerbation, patient was placed on IV Solu-Medrol in the ER switch to prednisone due to improvement in breathing since yesterday. Continue Pulmicort 1 mg twice daily. Continue DuoNeb as needed for shortness of breath. Incentive spirometry 2. Acute atypical chest pain, resolved. Troponin negative 2. Q waves seen in the inferior leads but no acute changes seen. Continue aspirin, statin, lisinopril. Echo ordered. 3. CAD with prior CABG in 1996 2 vessel disease patient not on beta mayra due to history of bradycardia in the past. Continue quinapril, aspirin 81 mg daily 4. History of pulmonary emboli in 1959 5. Diabetes mellitus type 2 with hyperglycemia. Continues to be hyperglycemic due to ongoing steroids, patient to be placed on insulin drip for 24 hours . Home Glucotrol, prandin 1mg twice a day, Januvia on hold, willresume tomorrow 6. H/o Frequent PVCs with prolonged QT interval 7. Hypothyroidism on levothyroxine 75 mg po daily 8. Hyperlipidemia on Crestor 20 9. DVT prophylaxis and GI prophylaxis provided Protonix IV and subcutaneous heparin CODE STATUS full code Disposition patient may need an inpatient 1-2 nights.
[2017-06-10 16:38] LABS: Glucose,Whole Blood 376 mg/dL (75-99)
[2017-06-10 17:10] LABS: Glucose,Whole Blood 302 mg/dL (75-99)
[2017-06-10 17:30] LABS: Glucose,Whole Blood 297 mg/dL (75-99)
[2017-06-10] MEDS: SODIUM CHLORIDE 0.9% 1,000 ML IV SCH (17:34)
[2017-06-10 18:06] LABS: Glucose,Whole Blood 254 mg/dL (75-99)
[2017-06-10 18:14] LABS: Glucose,Whole Blood 261 mg/dL (75-99)
[2017-06-10 18:53] LABS: Glucose,Whole Blood 214 mg/dL (75-99)
[2017-06-10] MEDS: BUDESONIDE 1 MG/2 ML NEBU INHALATION SCH (20:16)
[2017-06-10 21:00] LABS: Glucose,Whole Blood 255 mg/dL (75-99)
[2017-06-10] MEDS: ATORVASTATIN 10 MG TAB PO SCH (21:07)
[2017-06-10] MEDS: HEPARIN SODIUM,PORCINE 5,000 UNIT/ML 1 ML VIAL SQ SCH (21:07)
[2017-06-10 21:17] LABS: Hemoglobin A1C 9.5 % (4.0-6.0)
[2017-06-10] MEDS: guaiFENesin 600 MG TABLET.ER PO SCH (21:54)
[2017-06-10 23:10] LABS: Glucose,Whole Blood 237 mg/dL (75-99)
[2017-06-11 01:00] LABS: Glucose,Whole Blood 220 mg/dL (75-99)
[2017-06-11 02:59] LABS: Glucose,Whole Blood 220 mg/dL (75-99)
[2017-06-11 05:08] LABS: Glucose,Whole Blood 252 mg/dL (75-99)
[2017-06-11] MEDS: LEVOTHYROXINE 75 MCG TAB PO SCH (06:30)
[2017-06-11 06:59] LABS: Glucose,Whole Blood 210 mg/dL (75-99)
[2017-06-11] MEDS ORDERED: PANTOPRAZOLE 40 MG TABLET PO SCH (07:30)
[2017-06-11] MEDS: IPRATROPIUM-ALBUTEROL 3 ML NEB INHALATION SCH ×4 (07:47→20:30)
[2017-06-11] MEDS: BUDESONIDE 1 MG/2 ML NEBU INHALATION SCH ×2 (07:47→20:30)
[2017-06-11] MEDS: FUROSEMIDE 20 MG TAB PO SCH (08:06)
[2017-06-11] MEDS: HEPARIN SODIUM,PORCINE 5,000 UNIT/ML 1 ML VIAL SQ SCH ×2 (08:06→21:24)
[2017-06-11] MEDS: POTASSIUM CHLORIDE ER 10 MEQ TAB.ER.PRT PO SCH (08:06)
[2017-06-11] MEDS: INSULIN ASPART 100 UNIT/ML 1 ML 10 ML VIAL SQ SCH ×3 (08:06→18:06)
[2017-06-11] MEDS: LISINOPRIL 20 MG TAB PO SCH (08:06)
[2017-06-11] MEDS: PANTOPRAZOLE 40 MG TABLET PO SCH ×2 (08:06→21:24)
[2017-06-11] MEDS: guaiFENesin 600 MG TABLET.ER PO SCH ×2 (08:06→21:24)
[2017-06-11] MEDS: ASPIRIN 81 MG PO SCH (08:06)
[2017-06-11] MEDS: predniSONE 50 MG TAB PO SCH (08:06)
[2017-06-11] MEDS: TAMSULOSIN 0.4 MG CAP.ER.24H PO SCH (08:12)
[2017-06-11 09:54] LABS: Glucose,Whole Blood 365 mg/dL (75-99)
[2017-06-11 11:18] LABS: Glucose,Whole Blood 302 mg/dL (75-99)
[2017-06-11 13:05] VITALS: BMI 35.1
[2017-06-11] MEDS: INSULIN REGULAR 100 UNIT in SODIUM CHLORIDE 0.9% 100 ML IV SCH (13:47)
[2017-06-11 14:14] LABS: Glucose,Whole Blood 213 mg/dL (75-99)
[2017-06-11 17:34] LABS: Glucose,Whole Blood 196 mg/dL (75-99)
[2017-06-11] MEDS: REPAGLINIDE 1 MG TAB PO SCH (18:07)
[2017-06-11] MEDS: SODIUM CHLORIDE 0.9% 1,000 ML IV SCH (18:09)
[2017-06-11 20:52] LABS: Glucose,Whole Blood 276 mg/dL (75-99)
[2017-06-11] MEDS: ATORVASTATIN 10 MG TAB PO SCH (21:24)
--- NOTE | 2017-06-11 22:26 | CONS ---
CONSULTATION DATE OF SERVICE: 06/11/2017 REASON FOR CONSULT: COPD. HISTORY OF PRESENTING ILLNESS: Mr. Rafat Mar is a 71-year-old male who was seen, evaluated and examined on the 4th floor. This patient has been admitted to the hospital from the emergency department with problems associated with chest tightness and pain which started one day prior to coming into the hospital. The pain was sharp, predominantly on the left side, with increased difficulty in breathing. The patient had initial relief, but due to recurrence of the symptoms, patient decided to come into the emergency department for further evaluation and subsequently was seen and evaluated in the emergency department. He has been admitted to the hospital. The patient was evaluated with a chest x-ray in the emergency department which is consistent with COPD. CT scan of the chest was performed on the same day at a later time to rule out pulmonary embolism. No central pulmonary embolism was seen; however, enlarged lymph nodes were noted. The right hilar lymph nodes measured about 3.8 x 1.8 cm; used to be 1.8 cm in size back in June 2016. Right tracheobronchial node was 1.1 cm. Overall, compared to prior CT scan, size of lymph node has improved. Extensive centrilobular emphysema is seen with stable right-sided pulmonary nodules. The patient was evaluated by Cardiovascular Service, who recommended an echocardiogram, which revealed ejection fraction of 55% to 60% with LVH of moderate size. Mild MR and TR were noted. MEDICATIONS: Medications while in the hospital include: 1. Tylenol as needed. 2. DuoNeb updraft 4 times a day and as needed. 3. Aspirin 81 mg daily. 4. Lipitor 10 mg daily. 5. Pulmicort 2 times a day via nebulizer. 6. Lasix 20 mg daily. 7. Glipizide 7.5 mg 2 times a day. 8. Guaifenesin as needed. 9. Heparin 5000 units. 10.Sliding scale insulin. 11.Synthroid. 12.Zestril. 13.Protonix. 14.Prednisone 50 mg daily. 15.Prandin 2 mg daily. 16.Flomax 0.4 mg daily. PAST SURGICAL HISTORY: 1. Fracture of right hand. 2. Carpal tunnel surgery. 3. History of renal calculi. 4. History of appendectomy. 5. Cholecystectomy. 6. CABG. 7. Heart catheterization. 8. Hernia repair. The patient had some fever up to 101; however, eventually it stabilized. LABORATORY DATA: Significant for hypomagnesemia. Blood cultures have been no growth so far. PHYSICAL EXAMINATION: Most recent vitals include blood pressure 121/51, respiratory rate 18, pulse 63, temperature 97, saturation 96% on room air. HEENT EXAMINATION: Atraumatic, normocephalic. Anicteric sclerae. Narrow pharyngeal opening is present. NECK: Supple without lymphadenopathy, jugular venous distention or carotid bruit. LUNGS: Bilateral good air entry is present without significant rales, rhonchi or rub. HEART: Regular rate, rhythm. S1, S2 audible. ABDOMEN: Soft. No rebound, rigidity. EXTREMITIES: Plus one peripheral pulses. NEUROLOGICAL EXAMINATION: Otherwise awake and alert. LABS: Reviewed. Medications reviewed. White cell count 6300. Rest of the CBC is normal except platelet count 125,000. PT/INR normal. D-dimer is 1.26. Chemistry normal. Glucose 207; went up to 458. Rest of the chemistry is normal. Lipase is 313, amylase 62, TSH 0.7. Influenza A and B negative. IMPRESSION: 1. SIRS-like process with unclear source. Suspect tracheobronchitis and COPD exacerbation. Low-grade pancreatitis cannot be excluded as well. I agree with steroids, breathing treatments and supportive care. Patient has been afebrile with stable white cell count. 2. Chest pain on the left side; appears to be atypical. Cardiovascular Service following. Cardiac enzymes are normal. 3. Mediastinal lymphadenopathy, chronic in nature. Overall stable. Will monitor and observe in outpatient setting. 4. Premature ventricular contractions with prolonged QT interval. 5. Electrolyte imbalance with hypomagnesemia. 6. History of hypothyroidism. 7. History of dyslipidemia. 8. History of coronary artery disease. PLAN: As above. Continue breathing treatment and steroids. Follow clinical course closely. Monitor the patient off of antibiotics for now. Further recommendations pending. Plan of care as per clinical response of the patient. Will follow. MMODL / IJN: [id number] /
[2017-06-12] MEDS: LEVOTHYROXINE 75 MCG TAB PO SCH (07:01)
[2017-06-12 07:12] LABS: Glucose,Whole Blood 164 mg/dL (75-99)
[2017-06-12] MEDS: INSULIN ASPART 100 UNIT/ML 1 ML 10 ML VIAL SQ SCH ×4 (07:50→12:19)
[2017-06-12] MEDS: IPRATROPIUM-ALBUTEROL 3 ML NEB INHALATION SCH ×2 (08:14→11:53)
[2017-06-12] MEDS: BUDESONIDE 1 MG/2 ML NEBU INHALATION SCH (08:14)
[2017-06-12] MEDS: HEPARIN SODIUM,PORCINE 5,000 UNIT/ML 1 ML VIAL SQ SCH (08:21)
[2017-06-12] MEDS: FUROSEMIDE 20 MG TAB PO SCH (08:22)
[2017-06-12] MEDS: REPAGLINIDE 1 MG TAB PO SCH ×2 (08:22→12:24)
[2017-06-12] MEDS: PANTOPRAZOLE 40 MG TABLET PO SCH (08:22)
[2017-06-12] MEDS: TAMSULOSIN 0.4 MG CAP.ER.24H PO SCH (08:22)
[2017-06-12] MEDS: LISINOPRIL 20 MG TAB PO SCH (08:23)
[2017-06-12] MEDS: predniSONE 50 MG TAB PO SCH (08:23)
[2017-06-12] MEDS: guaiFENesin 600 MG TABLET.ER PO SCH (08:23)
[2017-06-12] MEDS: POTASSIUM CHLORIDE ER 10 MEQ TAB.ER.PRT PO SCH (08:23)
[2017-06-12] MEDS: ASPIRIN 81 MG PO SCH (08:23)
[2017-06-12 11:47] LABS: Glucose,Whole Blood 266 mg/dL (75-99)
[2017-06-12] MEDS ORDERED: LINAGLIPTIN 5 MG TABLET PO SCH (12:45)
--- NOTE | 2017-06-12 12:49 | P.PN ---
Subjective Progress Note Date: 06/11/17 71 year old male patient of Dr. Carcamo with past medical history of type 2 diabetes, coronary artery disease requiring CABG two-vessel disease in 1996, history of pulmonary embolism and subdural hematoma 1960 also has history of hyperlipidemia, hypertension, osteoarthritis, hypothyroidism, pulmonary nodule and mediastinal lymphadenopathy presents in with sudden onset of shortness of breath associated with substernal chest pain that started when he went for a shower. Chest pain lasted 15 seconds but improved by itself. Patient had a fever of 101 on arrival but otherwise vitals are stable. Labs done in the ER suggestive of CBC 6.3, d-dimer 1.26, UN creatinine 20/0.8, troponin 2 negative, influenza AB- chest x-ray was done which showed COPD. CTA was done for elevated d-dimer which was negative for pulmonary embolism but redemonstrated the stable mediastinal lymphadenopathy as well as pulmonary nodules stable since last year. On my evaluation patient was lying comfortably in bed without any significant shortness of breath or chest pain. Cardiology had already evaluated the patient and think patient's chest pain was atypical of cardiac nature. Pulmonary consulted for evaluation of COPD. Patient was placed on insulin drip for elevated glucose. 06/11: Echocardiogram reveals EF between 55 and 60%, moderate concentric left ventricle hypertrophy, right ventricle moderately enlarged, LA 34-39, mild mitral regurgitation, mild tricuspid regurgitation, no pulmonary hypertension. Patient was started on insulin drip yesterday for blood sugar of 500. Patient is currently running in the 300s. He is now on prednisone 50 mg daily. Hemoglobin A1c is 9.5. Patient will be transitioned over to his oral diabetic medications but glipizide increased to 7.5 mg twice daily and Prandin was increased from 1 mg to 2 mg [address] Robertson is on consult. Objective - Vital Signs Vital signs: Vital Signs Temp 96.7 F L 06/11/17 07:00 Pulse 78 06/11/17 11:56 Resp 16 06/11/17 11:46 BP 112/53 06/11/17 07:00 Pulse Ox 94 L 06/11/17 07:00 Intake & Output 06/10/17 06/11/17 06/11/17 18:59 06:59 18:59 Intake Total 917.400 64.841 50.100 Output Total 650 Balance 917.400 -585.159 50.100 Weight 107.8 kg Intake: Intake, IV Titration 317.400 64.841 50.100 Amount Insulin Regular 100 unit 117.400 64.841 50.100 In Sodium Chloride 0.9% 100 ml @ Titrate IV .Q0M [facility]DISON Rx#:[id number] Sodium Chloride 0.9% 1, 200 000 ml @ 20 mls/hr IV . Q24H [facility]DISON Rx#:[id number] Oral 600 Output: Urine 650 Other: Voiding Method Urinal # Voids 1 - Exam General appearance: cooperative, no acute distress, obese - EENT Eyes: anicteric sclerae, PERRLA, normal appearance ENT: hearing grossly normal - Neck Neck: no lymphadenopathy, normal ROM, no other, no rigidity, no stridor, no thyromegaly - Respiratory Respiratory: bilateral: diminished, negative for dullness, rales, rhonchi - Cardiovascular Rhythm: regular Heart sounds: normal: S1, S2 Abnormal Heart Sounds: no systolic murmur, no diastolic murmur, no rub, no S3 Gallop, no S4 Gallop, no click, no other - Gastrointestinal General gastrointestinal: normal bowel sounds, soft - Integumentary Integumentary: no rash - Neurologic Neurologic: CNII-XII intact - Musculoskeletal Musculoskeletal: gait normal, strength equal bilaterally - Psychiatric Psychiatric: A&O x's 3, appropriate affect - Labs CBC & Chem 7: 06/09/17 13:00 06/10/17 06:03 Labs: Abnormal Lab Results - Last 24 Hours (Table) 06/10/17 06/10/17 06/10/17 Range/Units 06:03 13:49 14:16 POC Glucose (mg/dL) 503 H 478 H (75-99) mg/dL Hemoglobin A1c 9.5 H (4.0-6.0) % 06/10/17 06/10/17 06/10/17 Range/Units 14:47 15:27 15:46 POC Glucose (mg/dL) 420 H 401 H 372 H (75-99) mg/dL Hemoglobin A1c (4.0-6.0) % 06/10/17 06/10/17 06/10/17 Range/Units 16:19 16:49 17:13 POC Glucose (mg/dL) 376 H 302 H 297 H (75-99) mg/dL Hemoglobin A1c (4.0-6.0) % 06/10/17 06/10/17 06/10/17 Range/Units 17:45 18:12 18:50 POC Glucose (mg/dL) 254 H 261 H 214 H (75-99) mg/dL Hemoglobin A1c (4.0-6.0) % 06/10/17 06/10/17 06/11/17 Range/Units 20:58 23:09 00:57 POC Glucose (mg/dL) 255 H 237 H 220 H (75-99) mg/dL Hemoglobin A1c (4.0-6.0) % 06/11/17 06/11/17 06/11/17 Range/Units 02:56 05:04 06:55 POC Glucose (mg/dL) 220 H 252 H 210 H (75-99) mg/dL Hemoglobin A1c (4.0-6.0) % 06/11/17 06/11/17 Range/Units 09:53 11:17 POC Glucose (mg/dL) 365 H 302 H (75-99) mg/dL Hemoglobin A1c (4.0-6.0) % Microbiology - Last 24 Hours (Table) 06/09/17 13:00 Blood Culture - Preliminary Blood No Growth after 24 hours Assessment and Plan Plan: 1. Sudden onset of shortness of breath likely secondary to COPD exacerbation, patient was placed on IV Solu-Medrol in the ER switch to prednisone due to improvement in breathing since yesterday. Continue Pulmicort 1 mg twice daily. Continue DuoNeb as needed for shortness of breath. Incentive spirometry 2. Acute atypical chest pain, resolved. Troponin negative 2. Q waves seen in the inferior leads but no acute changes seen. Continue aspirin, statin, lisinopril. Echo ordered. 3. CAD with prior CABG in 1996 2 vessel disease patient not on beta mayra due to history of bradycardia in the past. Continue quinapril, aspirin 81 mg daily 4. History of pulmonary emboli in 1959 5. Diabetes mellitus type 2 with hyperglycemia. Continues to be hyperglycemic due to ongoing steroids, off insulin drip and home medications will be resumed at higher dosing. 6. H/o Frequent PVCs with prolonged QT interval 7. Hypothyroidism on levothyroxine 75 mg po daily 8. Hyperlipidemia on Crestor 20 9. DVT prophylaxis and GI prophylaxis provided Protonix IV and subcutaneous heparin CODE STATUS full code Discharge plan: Home Impression and plan of care have been directed as dictated by the signing physician. Greta Nava nurse practitioner acting as scribe for signing physician.
[2017-06-12 15:07] VITALS: BP 142/63; PULSE 67; RESP 16; TEMP 96.9
--- NOTE | 2017-06-12 15:21 | P.DS ---
Providers Date of admission: 06/09/17 16:57 Expected date of discharge: 06/12/17 Attending physician: Varsha Valle Consults: 06/09/17 17:03 Consult Physician Urgent Consulting Provider: Cornell Muñiz Consult Reason/Comments: Bigeminy, hypomagnesemia, chest pain Do you want consulting provider notified?: Yes 06/10/17 13:29 Consult Physician Routine Consulting Provider: Wes Robertson Consult Reason/Comments: COPD Do you want consulting provider notified?: Yes Primary care physician: Osei Carcamo [facility] Course: 71 year old male patient of Dr. Carcamo with past medical history of type 2 diabetes, coronary artery disease requiring CABG two-vessel disease in 1996, history of pulmonary embolism and subdural hematoma 1960 also has history of hyperlipidemia, hypertension, osteoarthritis, hypothyroidism, pulmonary nodule and mediastinal lymphadenopathy presents in with sudden onset of shortness of breath associated with substernal chest pain that started when he went for a shower. Chest pain lasted 15 seconds but improved by itself. Patient had a fever of 101 on arrival but otherwise vitals are stable. Labs done in the ER suggestive of CBC 6.3, d-dimer 1.26, UN creatinine 20/0.8, troponin 2 negative, influenza AB- chest x-ray was done which showed COPD. CTA was done for elevated d-dimer which was negative for pulmonary embolism but redemonstrated the stable mediastinal lymphadenopathy as well as pulmonary nodules stable since last year. On my evaluation patient was lying comfortably in bed without any significant shortness of breath or chest pain. Cardiology had already evaluated the patient and think patient's chest pain was atypical of cardiac nature. Pulmonary consulted for evaluation of COPD. Patient was placed on insulin drip for elevated glucose. 06/11: Echocardiogram reveals EF between 55 and 60%, moderate concentric left ventricle hypertrophy, right ventricle moderately enlarged, LA 34-39, mild mitral regurgitation, mild tricuspid regurgitation, no pulmonary hypertension. Patient was started on insulin drip yesterday for blood sugar of 500. Patient is currently running in the 300s. He is now on prednisone 50 mg daily. Hemoglobin A1c is 9.5. Patient will be transitioned over to his oral diabetic medications but glipizide increased to 7.5 mg twice daily and Prandin was increased from 1 mg to 2 mg [address] Robertson is on consult. 06/12: Patient's breathing status is improved and blood sugars are improved today as well. Patient will be discharged home in stable condition. Diabetic medications have been increased for home. Discharge diagnoses: 1. Sudden onset of shortness of breath likely secondary to COPD exacerbation 2. Acute atypical chest pain, resolved. 3. CAD with prior CABG in 1996 2 vessel disease 4. History of pulmonary emboli in 1959 5. Diabetes mellitus type 2 with hyperglycemia 6. H/o Frequent PVCs with prolonged QT interval 7. Hypothyroidism 8. Hyperlipidemia Discharge plan: Home Impression and plan of care have been directed as dictated by the signing physician. Greta Nava nurse practitioner acting as scribe for signing physician. Patient Condition at Discharge: Good Plan - Discharge Summary Discharge Rx Participant: No New Discharge Prescriptions: New glipiZIDE [Glucotrol] 7.5 mg PO AC-BID #180 tab guaiFENesin [Mucinex] 600 mg PO Q12HR tablet.er predniSONE 0 mg PO DIRECTED #30 tab Repaglinide [Prandin] 2 mg PO TID #90 tablet Furosemide [Lasix] 30 mg PO DAILY #45 tab Continue Quinapril HCl 40 mg PO DAILY Aspirin 325 mg PO DAILY sitaGLIPtin [Januvia] 100 mg PO HS Tamsulosin HCl [Flomax] 0.4 mg PO DAILY Simvastatin [Zocor] 20 mg PO HS Levothyroxine Sodium [Synthroid] 75 mcg PO DAILY Omeprazole 20 mg PO BID Changed Potassium Chloride [K-Tab ER] 10 meq PO BID #60 tablet.er Discontinued glipiZIDE [Glucotrol] 5 mg PO AC-BID Furosemide [Lasix] 20 mg PO DAILY Repaglinide [Prandin] 1 mg PO TID Discharge Medication List Aspirin 325 mg PO DAILY 01/05/14 [History] Quinapril HCl 40 mg PO DAILY 01/05/14 [History] Levothyroxine Sodium [Synthroid] 75 mcg PO DAILY 06/09/17 [History] Omeprazole 20 mg PO BID 06/09/17 [History] Simvastatin [Zocor] 20 mg PO HS 06/09/17 [History] Tamsulosin HCl [Flomax] 0.4 mg PO DAILY 06/09/17 [History] sitaGLIPtin [Januvia] 100 mg PO HS 06/09/17 [History] Furosemide [Lasix] 30 mg PO DAILY #45 tab 06/12/17 [Rx] Potassium Chloride [K-Tab ER] 10 meq PO BID #60 tablet.er 06/12/17 [Rx] Repaglinide [Prandin] 2 mg PO TID #90 tablet 06/12/17 [Rx] glipiZIDE [Glucotrol] 7.5 mg PO AC-BID #180 tab 06/12/17 [Rx] guaiFENesin [Mucinex] 600 mg PO Q12HR tablet.er 06/12/17 [Rx] predniSONE 0 mg PO DIRECTED #30 tab 06/12/17 [Rx] Follow up Appointment(s)/Referral(s): Osei Carcamo DO [Primary Care Provider] - 06/17/17 (Office currently closed , please call to schedule appointment. ) Wes Robertson MD [STAFF PHYSICIAN] - 1 Week (Office closed on Wednesdays, please call to schedule appointment. ) Patient Instructions/Handouts: Chronic Lung Disease and Infection Prevention ( [place]) Activity/Diet/Wound Care/Special Instructions: Cardiac, diabetic diet. Activity as tolerated.
--- NOTE | 2017-06-12 19:49 | P.PN ---
Subjective Progress Note Date: 06/12/17 Principal diagnosis: Acute COPD exacerbation, tracheobronchitis, low-grade pancreatitis, left-sided atypical chest pain, mediastinal lymphadenopathy chronic in nature, electrolyte imbalance with hypomagnesemia, hypothyroidism, dyslipidemia, coronary artery disease 06/12/2017, patient seen eval reexamined during the rounds overall respiratory status stable patient is breathing comfortably denies any chest pain denies any cough or sputum production breathing difficulty has improved significantly on the steroids and antibiotics Objective - Vital Signs Vital signs: Vital Signs Temp 96.9 F L 06/12/17 15:00 Pulse 67 06/12/17 15:00 Resp 16 06/12/17 15:00 BP 142/63 06/12/17 15:00 Pulse Ox 95 06/12/17 15:00 Intake & Output 06/12/17 06/12/17 06/13/17 06:59 18:59 06:59 Intake Total 1680 Balance 1680 Weight 107 kg Intake: Oral 1680 Other: Voiding Method Urinal Urinal # Voids 2 2 - Exam General appearance: cooperative, no acute distress, obese - EENT Eyes: anicteric sclerae, PERRLA, normal appearance ENT: hearing grossly normal - Neck Neck: no lymphadenopathy, normal ROM, no other, no rigidity, no stridor, no thyromegaly - Respiratory Respiratory: bilateral: diminished, negative for dullness, rales, rhonchi my improved significantly compared to yesterday exam - Cardiovascular Rhythm: regular Heart sounds: normal: S1, S2 Abnormal Heart Sounds: no systolic murmur, no diastolic murmur, no rub, no S3 Gallop, no S4 Gallop, no click, no other - Gastrointestinal General gastrointestinal: normal bowel sounds, soft - Integumentary Integumentary: no rash - Neurologic Neurologic: CNII-XII intact - Musculoskeletal Musculoskeletal: gait normal, strength equal bilaterally - Psychiatric Psychiatric: A&O x's 3, appropriate affect - Labs CBC & Chem 7: 06/09/17 13:00 06/10/17 06:03 Labs: Abnormal Lab Results - Last 24 Hours (Table) 06/11/17 06/12/17 06/12/17 Range/Units 20:50 07:09 11:45 POC Glucose (mg/dL) 276 H 164 H 266 H (75-99) mg/dL Microbiology - Last 24 Hours (Table) 06/09/17 13:00 Blood Culture - Preliminary Blood No Growth after 72 hours Assessment and Plan Assessment: Acute COPD exacerbation Mediastinal lymphadenopathy of unclear etiology further evaluation outpatient setting Atypical chest pain Uncontrolled diabetes and hyperglycemia Electrolyte imbalance with hypomagnesemia Dyslipidemia with hypertension hypertensive cardiovascular disease Coronary artery disease with history of prior CABG Plan: Continue antibiotics breathing treatments and steroids however can be switched to oral increase activity as tolerated patient can be discharged home from [facility] standpoint with follow-up in outpatient setting Time with Patient: Greater than 30
== END 2017-06-12 15:54 | disposition home or self-care (01) | DRG 190 ==
LOC: EC 12:16 → 6SEL 16:57 → 4MS4W 06-10 16:11
PROVIDERS: ADMIT Family Medicine; ATTEND Family Medicine
DX: J44.0 Chronic obstructive pulmonary disease with (acute) lower respiratory infection (principal); K85.90 Acute pancreatitis without necrosis or infection, unspecified; R65.10 Systemic inflammatory response syndrome (SIRS) of non-infectious origin without acute organ dysfunction; E11.65 Type 2 diabetes mellitus with hyperglycemia; I08.1 Rheumatic disorders of both mitral and tricuspid valves; E83.42 Hypomagnesemia; I11.9 Hypertensive heart disease without heart failure; J20.9 Acute bronchitis, unspecified; J44.1 Chronic obstructive pulmonary disease with (acute) exacerbation; R07.89 Other chest pain; E03.9 Hypothyroidism, unspecified; E78.5 Hyperlipidemia, unspecified; G47.30 Sleep apnea, unspecified; R91.1 Solitary pulmonary nodule; R59.0 Localized enlarged lymph nodes; I25.10 Atherosclerotic heart disease of native coronary artery without angina pectoris; M19.91 Primary osteoarthritis, unspecified site; K21.9 Gastro-esophageal reflux disease without esophagitis; Z79.82 Long term (current) use of aspirin; Z79.84 Long term (current) use of oral hypoglycemic drugs; Z79.899 Other long term (current) drug therapy; Z87.891 Personal history of nicotine dependence; Z87.820 Personal history of traumatic brain injury; Z95.1 Presence of aortocoronary bypass graft; Z87.442 Personal history of urinary calculi; Z90.49 Acquired absence of other specified parts of digestive tract; Z98.42 Cataract extraction status, left eye; Z86.711 Personal history of pulmonary embolism; Z98.41 Cataract extraction status, right eye; Z87.01 Personal history of pneumonia (recurrent); Z96.1 Presence of intraocular lens; Z88.1 Allergy status to other antibiotic agents
CPT/HCPCS: 36415; 71046; 71275; 80053; 80061; 82150; 82550; 82553; 83036; 83690; 83735; 83880; 84443; 84484; 85025; 85379; 85610; 85730; 87040; 87502; 93005; 93306; 94640; 94760; 96365; 96375; 99285

== ENCOUNTER → 2017-11-20 | Outpatient (CLI) | payer MEDICARE ==
--- NOTE | 2017-11-20 15:59 | XR ---
Lumbosacral spine HISTORY: Low back pain 5 views of lumbosacral spine, comparison prior exam 04/12/2011. Lumbar vertebral bodies show preserved height and bone mineralization. There are vascular calcificati ons noted in aortoiliac distribution. Minimal anterolisthesis grade 1 L4-5, retrolisthesis grade 1 L3 -4 Sclerosis present in the posterior elements of the lower lumbar spine. There is some mild disc hei ght loss at L4-5 and L5-S1. There is multilevel spondylosis. Surgical clips present in the right uppe r quadrant. No evident spondylolysis. IMPRESSION: Degenerative disc disease. Facet arthropathy. Lumbar MRI may be of benefit.
== END | disposition home or self-care (01) ==
LOC: RADXRMAIN 14:18
PROVIDERS: ATTEND Family Medicine
DX: M51.36 Other intervertebral disc degeneration, lumbar region (principal); M46.96 Unspecified inflammatory spondylopathy, lumbar region; M54.5 Low back pain; M79.661 Pain in right lower leg; M79.662 Pain in left lower leg
CPT/HCPCS: 36415; 72110; 85379

== ENCOUNTER → 2017-12-06 | Outpatient (CLI) | payer MEDICARE ==
--- NOTE | 2017-12-06 15:56 | EST ---
EXERCISE STRESS DATE OF SERVICE: 12/06/2017 AGE: 71 SEX: Male HT: 5'9" WT: 250 PROTOCOL: Donnie STAGE: I DURATION OF EXERCISE: 1 minutes 40 seconds HEART RATE REST: 54 BLOOD PRESSURE REST: 124/89 MAXIMUM HEART RATE ACHIEVED: 109 MAXIMUM BLOOD PRESSURE: 160/82 85% MPHR: 127 100% MPHR: 149 METS: 2.5 INDICATIONS: Abnormal EKG. CLINICAL INFORMATION: Baseline rhythm is sinus mechanism, rate of 54, normal axis and intervals, poor R progression. Baseline blood pressure 124/89 mmHg. Patient exercised on Donnie protocol for 1 minute 40 seconds reaching a peak rate of 109 beats per minute which is equal to 73% maximum predicted heart rate. Peak blood pressure 160/82 mmHg. Test was terminated secondary to fatigue. There was no chest pain. Electrocardiograph monitoring revealed occasional PVCs. There was no evidence of diagnostic ischemic ST deviation. CONCLUSION: 1. Poor exercise tolerance. 2. Nondiagnostic electrocardiograph stress testing secondary to inability to achieve 85% maximum predicted heart rate. 3. If clinically indicated a pharmacological stress testing will be helpful in further evaluating the coronary perfusion. MMODL / IJN: [id number] /
== END | disposition home or self-care (01) ==
LOC: RADNMMAIN 10:11
PROVIDERS: ATTEND Family Medicine
DX: R94.39 Abnormal result of other cardiovascular function study (principal); I82.409 Acute embolism and thrombosis of unspecified deep veins of unspecified lower extremity
CPT/HCPCS: 93017

== ENCOUNTER → 2017-12-19 | Outpatient (CLI) | payer MEDICARE ==
--- NOTE | 2017-12-20 09:58 | ECHOF ---
Referral Reason:I82.49 Deep vein thrombosis MEASUREMENTS -------- HEIGHT: 175.3 cm WEIGHT: 113.4 kg BP: RVIDd: 4.4 cm (< 3.3) IVSd: 1.2 cm (0.6 - 1.1) LVIDd: 3.2 cm (3.9 - 5.3) LVPWd: 1.3 cm (0.6 - 1.1) IVSs: 1.6 cm LVIDs: 2.3 cm LVPWs: 2.1 cm Ao Diam: 3.3 cm (2.0 - 3.7) AV Cusp: 1.7 cm (1.5 - 2.6) LA Diam: 4.7 cm (2.7 - 3.8) MV EXCURSION: 18.742 mm (> 18.000) MV EF SLOPE: 45 mm/s (70 - 150) EPSS: 1.1 cm MV E Herminio: 0.78 m/s MV DecT: 261 ms MV A Herminio: 0.80 m/s MV E/A Ratio: 0.97 RAP: 5.00 mmHg RVSP: 32.45 mmHg FINDINGS -------- Sinus rhythm. This was a technically difficult study with suboptimal views. The left ventricular size is normal. There is mild concentric left ventricular hypertrophy. Overa ll left ventricular systolic function is low-normal with, an EF between 50 - 55 %. The right ventricle is moderate to severely enlarged. The left atrium is normal in size. The right atrium is normal in size. Lumason was utilized for enhancement of images. The aortic valve is trileaflet, and appears structurally normal. No aortic stenosis or regurgitation. Mild mitral regurgitation is present. Mild tricuspid regurgitation present. The right ventricular systolic pressure, as measured by Doppl er, is 32.45mmHg. Pulmonic valve appears structurally normal. The aortic root size is normal. The pericardium is normal. CONCLUSIONS -------- 1. Sinus rhythm. 2. This was a technically difficult study with suboptimal views. 3. The left ventricular size is normal. 4. There is mild concentric left ventricular hypertrophy. 5. Overall left ventricular systolic function is low-normal with, an EF between 50 - 55 %. 6. The right ventricle is moderate to severely enlarged. 7. The left atrium is normal in size. 8. The right atrium is normal in size. 9. Lumason was utilized for enhancement of images. 10. The aortic valve is trileaflet, and appears structurally normal. No aortic stenosis or regurgitat ion. 11. Mild mitral regurgitation is present. 12. Mild tricuspid regurgitation present. 13. The right ventricular systolic pressure, as measured by Doppler, is 32.45mmHg. 14. Pulmonic valve appears structurally normal. 15. The aortic root size is normal. 16. The pericardium is normal. TOUCH UP CARVER: Kaylee Burnham RDCS
== END | disposition home or self-care (01) ==
LOC: RADECHMAIN 14:21
PROVIDERS: ATTEND Family Medicine
DX: I08.1 Rheumatic disorders of both mitral and tricuspid valves (principal)
CPT/HCPCS: 93306

== ENCOUNTER → 2018-01-02 | Outpatient (CLI) | payer MEDICARE ==
[~2018-01-02] MED LIST: REGADENOSON 0.4 MG/5 ML SYRINGE IV ONE
--- NOTE | 2018-01-02 11:35 | NM ---
EXAMINATION TYPE: NM stress lexiscan cardiolite DATE OF EXAM: 01/02/2018 COMPARISON: NONE HISTORY: Chest pain TECHNIQUE: After the intravenous administration of 10.87 mCi Tc 99m Sestamibi - Cardiolite resting S PECT images acquired 45 minutes post injection. The patient received 0.4mg Lexiscan, 25.2 mCi Tc 99m Sestamibi - Stress images obtained [address] injection FINDINGS: Review of stress and rest SPECT images demonstrates small khadijah- apical area of perfusion defect on stress images larger than perfusion images.. Gated analysis shows normal wall motion with an estimat ed left ventricular ejection fraction of 43 %. IMPRESSION: 1. Small area of stress-induced reversibility involving the anteroapical of the myocardium could be a rtifactual correlate clinically to assess for stress-induced ischemia in this distribution. 2. Ejection fraction 43%.
--- NOTE | 2018-01-02 13:26 | P.STRESS ---
- Stress Test Note Stress Test Results/Findings: Exam Performed: NM stress lexiscan cardiolite Exam Date: 01/02/18 Reason for Exam: SOB / ABNORMAL EKG Height: 5 ft 9 in Weight: 116.573 kg Protocol: LEXISCAN Stage: NA Duration of Exercise: NA Resting Heart Rate: 56 Resting Blood Pressure: 133/64 Maximum Achieved Heart Rate: 72 Maximum Achieved Blood Pressure: 133/64 85% PMHR: NA 100% PMHR: NA METS: NA Technologist Comment: Stress Test Results/Findings: This is a 72-year-old gentleman with history of hypertension, diabetes and family history of ischemic heart disease and hypercholesteremia being evaluated for cardiac status.. Stress data: Baseline EKG showed sinus rhythm with when necessary for constipation. Occasional PVCs were noted. A standard dose of Lexiscan was infused. EKGs taken during and after infusion did not reveal any changes of ischemia. Final impression: #1 negative elect scan stress test #2. Report of an echo images to be given by the radiologist
== END | disposition home or self-care (01) ==
LOC: RADNMMAIN 07:18
PROVIDERS: ATTEND Family Medicine
DX: R93.1 Abnormal findings on diagnostic imaging of heart and coronary circulation (principal)
CPT/HCPCS: 93017; 78452; A9500; J2785

== ENCOUNTER → 2018-08-14 | Outpatient (CLI) | payer MEDICARE ==
--- NOTE | 2018-08-14 16:36 | CT ---
EXAMINATION TYPE: CT brain wo/w con DATE OF EXAM: 08/14/2018 COMPARISON: None INDICATION: Vertigo and peripheral vascular disease DLP: 2380 mGycm, Automated exposure control for dose reduction was used. CONTRAST: 100 mL Isovue-300 CT of the brain is performed utilizing 3 mm thick sections through the posterior fossa and 3 mm thick sections through the remaining calvarium. Study is performed within 24 hours of arrival to the hosp [facility]. No abnormal hyperdensity is present to suggest an acute intracranial hemorrhage. No mass lesion is evident. No acute infarcts are evident. Ventricles and sulci are appropriate for the patient age. Following contrast administration, no abnormal enhancement is evident Paranasal sinuses and mastoid air cells within the [id number] are clear. IMPRESSIONS: 1. No suspicious acute changes pre and postcontrast CT brain.
== END ==
LOC: RADCTMAIN 14:49
PROVIDERS: ATTEND Family Medicine
DX: R42 Dizziness and giddiness (principal)
CPT/HCPCS: 82565; 84520; 70470; 36415; Q9967

== ENCOUNTER → 2018-08-15 | Outpatient (CLI) | payer MEDICARE ==
--- NOTE | 2018-08-15 10:11 | US ---
EXAMINATION TYPE: US venous doppler duplex LE DATE OF EXAM: 08/15/2018 9:06 AM COMPARISON: NONE CLINICAL HISTORY: R42 Vertigo, I73.9 Peripheral vascular disease. numbness in bilateral legs for year s, no h/o dvt SIDE PERFORMED: TECHNIQUE: The lower extremity deep venous system is examined utilizing real time linear array sonog selvin with graded compression, doppler sonography and color-flow sonography. VESSELS IMAGED: External Iliac Vein (EIV) Common Femoral Vein Deep Femoral Vein Greater Saphenous Vein * Femoral Vein Popliteal Vein Small Saphenous Vein * Proximal Calf Veins (* superficial vessels) Right Leg: Appears negative for dvt Left Leg: Appears negative for dvt IMPRESSION: No evidence for DVT at this time.
== END | disposition home or self-care (01) ==
LOC: RADUSWWP 08:21
PROVIDERS: ATTEND Family Medicine
DX: I73.9 Peripheral vascular disease, unspecified (principal)
CPT/HCPCS: 93923; 93970

== ENCOUNTER → 2018-10-27 | Outpatient (CLI) | payer MEDICARE ==
--- NOTE | 2018-10-27 18:26 | MR ---
EXAMINATION TYPE: MR lumbar spine wo con DATE OF EXAM: 10/27/2018 COMPARISON: None HISTORY: Low back pain CONTRAST: 0 mL intravenous Gadavist. TECHNIQUE: Multiplanar, multisequence images of the lumbar spine were acquired. FINDINGS: L5-S1: Mild disc bulge has anterior thecal sac contact. No spinal canal stenosis or neural foraminal stenosis is present. Minimal facet hypertrophy is present. L4-L5: There is severe spinal canal stenosis present due to mild facet hypertrophy with marked ligame ntum flavum laxity with posterior lateral thecal sac compression. Additionally, mild disc bulging has anterior thecal sac compression. Congenitally short pedicles are present. The residual AP diameter i s 0.4 cm. L3-L4: No significant disc bulge or disc herniation. No spinal canal stenosis. Facet hypertrophy is present. L2-L3: No significant disc bulge or disc herniation. No spinal canal stenosis. No foraminal stenosi s. . L1-L2: No significant disc bulge or disc herniation. No spinal canal stenosis. No foraminal stenosi s. . T12-L1: No significant disc bulge or disc herniation. No spinal canal stenosis. No foraminal stenos is. . There is a cyst on the left kidney. IMPRESSION: 1. 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 2. Mild disc bulge with anterior thecal sac contact L5-S1.
== END | disposition home or self-care (01) ==
LOC: RADMRIMAIN 13:06
PROVIDERS: ATTEND Family Medicine
DX: M48.061 Spinal stenosis, lumbar region without neurogenic claudication (principal); M51.16 Intervertebral disc disorders with radiculopathy, lumbar region; M24.28 Disorder of ligament, vertebrae; M53.3 Sacrococcygeal disorders, not elsewhere classified
CPT/HCPCS: 72148

== ENCOUNTER → 2018-11-04 | Outpatient (CLI) | payer MEDICARE ==
[2018-11-04 15:39] LABS: African American GFR (CKD) 77.3 (60.0-200.0); Albumin 4.5 g/dL (3.80-4.90); Albumin/Globulin Ratio 2.25 (1.60-3.17); Anion Gap 7.9 mmol/L (4.00-12.00); BUN/Creat Ratio 15.45 Ratio (12.00-20.00); Carbon Dioxide 27.1 mmol/L (21.6-31.8); Potassium 4.6 mmol/L (3.5-5.5); Total Bilirubin 0.4 mg/dL (0.3-1.2); Total Protein 6.5 g/dL (6.2-8.2)
[2018-11-04 16:43] LABS: Hemoglobin A1C 7.3 % (4.0-6.0)
== END | disposition home or self-care (01) ==
LOC: LABWHC1 11:26
PROVIDERS: ATTEND Internal Medicine Endocrinology, Diabetes & Metabolism
DX: E11.65 Type 2 diabetes mellitus with hyperglycemia (principal)
CPT/HCPCS: 36415; 80053; 80061; 82043; 82570; 83036; 84443

== ENCOUNTER → 2018-11-11 | Outpatient (CLI) | payer MEDICARE ==
[2018-11-11 16:00] LABS: Potassium 5.1 mmol/L (3.5-5.1)
[2018-11-11 16:19] LABS: Basophils # (A) 0.1 k/uL (0-0.2); Basophils % (A) 1 %; Eosinophils # (A) 0.3 k/uL (0-0.7); Eosinophils % (A) 4 %; HCT 41.7 % (39.0-53.0); HGB 13.7 gm/dL (13.0-17.5); Lymphocytes # (A) 1.6 k/uL (1.0-4.8); Lymphocytes % (A) 20 %; MCH 31.2 pg (25.0-35.0); MCV 94.7 fL (80.0-100.0); Mean Platelet Volume 8.4; Monocytes # (A) 0.4 k/uL (0-1.0); Monocytes % (A) 5 %; Neutrophils # (A) 5.3 k/uL (1.3-7.7); Neutrophils % (A) 68 %; Platelet Count 183 k/uL (150-450); RDW 14.2 % (11.5-15.5); WBC 7.8 k/uL (3.8-10.6)
== END | disposition home or self-care (01) ==
LOC: LABWHC1 14:41
PROVIDERS: ATTEND Surgery
DX: Z01.812 Encounter for preprocedural laboratory examination (principal); I74.3 Embolism and thrombosis of arteries of the lower extremities
CPT/HCPCS: 36415; 80051; 82565; 84520; 85025

== ENCOUNTER 2018-11-25 07:32 | Day surgery (SDC) | payer MEDICARE ==
[2018-11-19 14:03] VITALS: BMI 39.4
[~2018-11-25 07:32] MED LIST changes: +ALPRAZolam 0.25 MG TAB PO PRN; +ASPIRIN 325 MG TAB PO STA; -REGADENOSON 0.4 MG/5 ML SYRINGE IV ONE; +SODIUM CHLORIDE 0.9% 1,000 ML in EMPTY BAG 1 BAG IV ONE
[2018-11-25 08:02] LABS: Glucose,Whole Blood 150 mg/dL (75-99)
[2018-11-25 08:09] VITALS: PULSE 66; TEMP 97.5
[2018-11-25] MEDS ORDERED: fentaNYL (PF) 50 MCG/ML 2 ML AMP IV ONE (09:02)
[2018-11-25] MEDS ORDERED: MIDAZOLAM (PF) 2 MG/2 ML VIAL IV ONE (09:02)
[2018-11-25] MEDS ORDERED: LIDOCAINE 1% INJ 10MG/ML (20 ML MDV) SQ ONE (09:03)
[2018-11-25] MEDS ORDERED: IOPAMIDOL-250 100ML BTL INTRAARTER ONE (09:28)
--- NOTE | 2018-11-25 09:46 | P.OP ---
Date of Procedure: 11/25/18 Indications for Procedure: 72-year-old gentleman who presented to the office secondary to complaints of lower extremity pain with ambulation. Patient states he can ambulate approximately 60 feet before significant pain in his right thigh and calf region. He also complains of left lower extremity calf pain with ambulation usually around 60 feet. His arterial Dopplers demonstrated ABIs of 0.67 on the right and 0.70 on the left. He presents today for aortogram with runoff. 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 Bilateral renal arteries are patent without stenosis Iliacs: Bilateral common iliac, external iliac arteries are patent without significant Atherosclerotic disease or calcification or stenosis. The internal iliac artery on the right has approximately 60% stenosis. Femorals: Bilateral common femoral, profundus and superficial femoral arteries are patent. There are calcific atherosclerotic disease noted throughout the superficial femoral artery bilaterally with intermittent areas of stenosis with the worst being 50% on the right just after Jorje's canal. Popliteal: Patent with out significant atherosclerotic disease and no stenosis. Tibials: Bilateral tibioperoneal trunk is patent with atherosclerotic disease noted. The right anterior tibial artery is diseased with what appears to be occlusive areas with reconstitution with two-vessel runoff to the ankle. The left tibioperoneal trunk is also diseased with occlusion of the anterior tibial artery with reconstitution from the peroneal and posterior tibial artery. There is two-vessel runoff to the foot. Operative narrative: After written informed consent was obtained the patient all risks benefits competitions were described the patient is brought to the Proof Reader and laid in a supine position. The area of the left groin was prepped and draped in the usual sterile fashion. Local anesthesia with moderate sedation was performed with continuous pulse ox monitoring and EKG monitoring. Utilizing ultrasound the left common femoral artery was visualized and shown to be patent without any significant plaque. Utilizing a multipurpose needle under ultrasound guidance the artery was accessed. Guidewire was placed followed by 5-Azeri sheath. 035 Glidewire was then placed into the aorta followed by pigtail catheter. Angiogram was then obtained of the aorta. Catheter was then placed at the bifurcation and lower extremity runoffs were obtained. Once completed all guidewires, catheters and sheaths were removed and pressure was placed for hemostasis. Patient tolerated procedure well was sent to PACU for recovery. At this time we will continue medical management for his below knee occlusive disease. He will be continued on his walking program and aspirin, statin therapy. We will also discussed possible Pletal to help with his pain. Plan - Discharge Summary Discharge Rx Participant: No New Discharge Prescriptions: No Action Quinapril HCl 40 mg PO DAILY Levothyroxine Sodium [Synthroid] 75 mcg PO DAILY Omeprazole 20 mg PO BID Tamsulosin [Flomax] 0.4 mg PO DAILY Pioglitazone [Actos] 30 mg PO HS Insulin Glargine [Lantus] 18 unit SQ DAILY Aspirin [Adult Low Dose Aspirin EC] 81 mg PO DAILY Rosuvastatin [Crestor] 5 mg PO SUWESA glipiZIDE [Glucotrol] 15 mg PO AC-BID Potassium Chloride [K-Tab ER] 20 meq PO BID Furosemide [Lasix] 40 mg PO BID Discharge Medication List Quinapril HCl 40 mg PO DAILY 01/05/14 [History] Levothyroxine Sodium [Synthroid] 75 mcg PO DAILY 06/09/17 [History] Omeprazole 20 mg PO BID 06/09/17 [History] Aspirin [Adult Low Dose Aspirin EC] 81 mg PO DAILY 11/19/18 [History] Furosemide [Lasix] 40 mg PO BID 11/19/18 [History] Insulin Glargine [Lantus] 18 unit SQ DAILY 11/19/18 [History] Pioglitazone [Actos] 30 mg PO HS 11/19/18 [History] Potassium Chloride [K-Tab ER] 20 meq PO BID 11/19/18 [History] Rosuvastatin [Crestor] 5 mg PO SUWESA 11/19/18 [History] Tamsulosin [Flomax] 0.4 mg PO DAILY 11/19/18 [History] glipiZIDE [Glucotrol] 15 mg PO AC-BID 11/19/18 [History] Follow up Appointment(s)/Referral(s): Denny Torres DO [STAFF PHYSICIAN] - 2 Weeks Discharge Disposition: HOME SELF-CARE
[2018-11-25] MEDS ORDERED: ACETAMINOPHEN TAB 325 MG TAB ONE (10:04)
[2018-11-25 10:12] LABS: Glucose,Whole Blood 145 mg/dL (75-99)
[2018-11-25 17:19] VITALS: BP 107/68; RESP 20
== END 2018-11-25 17:15 | disposition home or self-care (01) ==
LOC: CATHCVL 07:32
PROVIDERS: ATTEND Surgery
DX: I70.213 Atherosclerosis of native arteries of extremities with intermittent claudication, bilateral legs (principal); I87.2 Venous insufficiency (chronic) (peripheral); I25.10 Atherosclerotic heart disease of native coronary artery without angina pectoris; Z87.891 Personal history of nicotine dependence; Z79.4 Long term (current) use of insulin; Z79.82 Long term (current) use of aspirin; Z79.890 Hormone replacement therapy; Z79.899 Other long term (current) drug therapy; Z90.49 Acquired absence of other specified parts of digestive tract; Z98.49 Cataract extraction status, unspecified eye; Z97.3 Presence of spectacles and contact lenses
CPT/HCPCS: 36200; 75625; 75716; 76937; C1769 ×3; C1894; J2001; J3010; Q9966; J2250

== ENCOUNTER → 2019-06-04 | Outpatient (CLI) | payer MEDICARE ==
[2019-06-04 16:00] LABS: African American GFR (CKD) 69.1 (60.0-200.0); Albumin 4.5 g/dL (3.80-4.90); Albumin/Globulin Ratio 2.65 (1.60-3.17); Anion Gap 6.1 mmol/L (4.00-12.00); BUN/Creat Ratio 16.67 Ratio (12.00-20.00); Calcium 9.1 mg/dL (8.7-10.3); Carbon Dioxide 25.9 mmol/L (21.6-31.8); Chol/HDL Ratio 6.13; Globulin 1.7 g/dL (1.6-3.3); LDL Cholesterol,Calculated 87.8 mg/dL (0.0-131.0); Non-African American GFR(CKD) 59.6 (60.0-200.0); Potassium 5.1 mmol/L (3.5-5.5); Total Bilirubin 0.5 mg/dL (0.3-1.2); Total Protein 6.2 g/dL (6.2-8.2); VLDL Calculation 76.2 mg/dL (5.00-40.00)
[2019-06-04 17:34] LABS: Hemoglobin A1C 7.1 % (4.0-6.0)
[2019-06-04 18:00] LABS: Microalbumin Creatinine Ratio <30 mg/g Creat (0-30); Urine Creatinine 16.4 mg/dL
== END | disposition home or self-care (01) ==
LOC: LABWHC1 10:42
PROVIDERS: ATTEND Internal Medicine Endocrinology, Diabetes & Metabolism
DX: E11.65 Type 2 diabetes mellitus with hyperglycemia (principal)
CPT/HCPCS: 36415; 80053; 80061; 82043; 82570; 83036; 84443

== ENCOUNTER → 2019-12-29 | Outpatient (CLI) | payer MEDICARE ==
[2019-12-29 12:41] LABS: HCT 41.4 % (39.0-53.0); HGB 13.1 gm/dL (13.0-17.5); Hypochromasia Slight; MCHC 31.6 g/dL (31.0-37.0); MCV 97.9 fL (80.0-100.0); Mean Platelet Volume 8.3; Platelet Count 207 k/uL (150-450); RBC 4.23 m/uL (4.30-5.90); RDW 13.3 % (11.5-15.5)
[2019-12-29 18:53] LABS: Anion Gap 8.7 mmol/L (4.00-12.00); BUN/Creat Ratio 20.91 Ratio (12.00-20.00); Carbon Dioxide 27.3 mmol/L (21.6-31.8); Non-African American GFR(CKD) 65.8 (60.0-200.0); Potassium 4.7 mmol/L (3.5-5.5)
[2019-12-29 18:54] LABS: African American GFR (CKD) 76.2 (60.0-200.0); Calcium 9.2 mg/dL (8.7-10.3)
== END | disposition home or self-care (01) ==
LOC: LABWHC1 10:21
PROVIDERS: ATTEND Internal Medicine Interventional Cardiology
DX: I10 Essential (primary) hypertension (principal); E11.9 Type 2 diabetes mellitus without complications; I25.10 Atherosclerotic heart disease of native coronary artery without angina pectoris
CPT/HCPCS: 36415; 80048; 85027

== ENCOUNTER 2020-01-04 05:52 | Inpatient (IN) | payer MEDICARE ==
[2019-12-30 16:27] VITALS: BMI 41.3
[2020-01-04] MEDS ORDERED: SODIUM CHLORIDE 0.9% 1,000 ML in EMPTY BAG 1 BAG IV ONE (05:57)
[2020-01-04] MEDS ORDERED: NITROGLYCERIN SL TABS 0.4 MG TAB SUBLINGUAL PRN (05:57)
[2020-01-04] MEDS ORDERED: ALPRAZolam 0.25 MG TAB PO PRN (05:57)
[2020-01-04] MEDS ORDERED: ALPRAZolam 0.5 MG TAB PO PRN (05:57)
[2020-01-04] MEDS ORDERED: SODIUM CHLORIDE 0.9% 1,000 ML IV ONE (06:18)
[2020-01-04] MEDS ORDERED: ASPIRIN 81 MG ONE (06:20)
[2020-01-04 06:41] LABS: Glucose,Whole Blood 130 mg/dL (75-99)
[2020-01-04] MEDS ORDERED: ATORVASTATIN 80 MG TAB PO ONE (07:00)
[2020-01-04] MEDS ORDERED: ASPIRIN 325 MG TAB PO ONE (07:00)
[2020-01-04] MEDS: MIDAZOLAM 2 MG/2 ML VIAL IV ONE ×2 (07:47→09:18)
[2020-01-04] MEDS ORDERED: LIDOCAINE 1% INJ 10MG/ML (20 ML MDV) SQ ONE (07:47)
[2020-01-04] MEDS: fentaNYL (PF) 50 MCG/ML 2 ML AMP IV ONE ×3 (08:40→09:18)
[2020-01-04] MEDS ORDERED: IOPAMIDOL-370 100ML BTL INJ ONE ×2 (08:55→09:21)
[2020-01-04] MEDS ORDERED: IOPAMIDOL-250 100ML BTL INTRAARTER ONE (09:42)
[2020-01-04] MEDS ORDERED: CLOPIDOGREL 75 MG TAB PO ONE (10:10)
[2020-01-04] MEDS ORDERED: PROTAMINE SULFATE 10 MG/ML 5 ML VIAL IV ONE (10:10)
[2020-01-04 10:43] LABS: Glucose,Whole Blood 242 mg/dL (75-99)
[2020-01-04] MEDS ORDERED: NALOXONE 0.4 MG/ML 1 ML VIAL IV PRN (11:09)
[2020-01-04 12:22] LABS: Basophils % (A) 0 %; Eosinophils # (A) 0.1 k/uL (0-0.7); Eosinophils % (A) 1 %; HCT 35.9 % (39.0-53.0); HGB 10.9 gm/dL (13.0-17.5); Lymphocytes # (A) 0.9 k/uL (1.0-4.8); Lymphocytes % (A) 8 %; MCH 29.4 pg (25.0-35.0); MCHC 30.5 g/dL (31.0-37.0); MCV 96.5 fL (80.0-100.0); Mean Platelet Volume 8.5; Monocytes # (A) 0.5 k/uL (0-1.0); Monocytes % (A) 4 %; Neutrophils % (A) 86 %; Platelet Count 208 k/uL (150-450); RBC 3.72 m/uL (4.30-5.90); RDW 13.5 % (11.5-15.5); WBC 11.6 k/uL (3.8-10.6)
--- NOTE | 2020-01-04 12:32 | P.GSCN ---
<Sharon Bautista - Last Filed: 01/04/20 14:29> History of Present Illness Consult date: 01/04/20 Reason for Consult: PAD, unable to obtain doppler right foot s/p stent placement History of present illness: This is a 74-year-old pleasant male with a past medical history that includes coronary artery disease, peripheral arterial disease, hypertension, hyperlipidemia, diabetes mellitus, hypothyroidism and history of PE. He was scheduled today for a cardiac stent, he is status post Impella stent via right femoral access. Vascular surgery was consulted regarding increased bleeding and hematoma, requiring FemoStop as well as unable to obtain Doppler signals of the PT and DP of the right foot. The patient also has a history of peripheral arterial disease of bilateral lower extremity with disabling claudication and [place] classification 3. He is status post aortogram with bilateral lower extremity runoffs in November [address] Torres. He had bilateral lower extremity [id number] tibial occlusive disease. The patient states he's seeing Dr. Torres in the office last week and had further arterial studies which he states he had up to 50% of his blood flow to bilateral lower extremities. He currently denies any shortness of breath or chest pain, he denies any pain to the right lower extremity however he does state he is having a difficult time moving his right foot and toes. Review of Systems 14 point review systems was completed and all pertinent positives and negatives as stated in the HPI. Past Medical History Past Medical History: Coronary Artery Disease (CAD), Diabetes Mellitus, GERD/Reflux, Hyperlipidemia, Hypertension, Osteoarthritis (OA), Pneumonia, Pulmonary Embolus (PE), Thyroid Disorder Additional Past Medical History / Comment(s): carpal tunnel kisha. hx kidney stone. 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 History of Any Multi-Drug Resistant Organisms: None Reported Past Surgical History: Appendectomy, Cholecystectomy, Coronary Bypass/CABG, Heart Catheterization, Hernia Repair Additional Past Surgical History / Comment(s): triple vessel cabg in 1996, hernia repair(triple per old hx) in 1959, ventral hernia 2006, colonoscopy.kisha cataracts-lens implants Past Anesthesia/Blood Transfusion Reactions: No Reported Reaction Smoking Status: Former smoker - Past Family History Father Family Medical History: Myocardial Infarction ([place]) Additional Family Medical History / Comment(s): from [place] age 44 Mother Additional Family Medical History / Comment(s): age 86 from [facility] Medications and Allergies Home Medications Medication Instructions Recorded Confirmed Type Quinapril HCl 40 mg PO DAILY 01/05/14 01/04/20 History Levothyroxine Sodium [Synthroid] 75 mcg PO DAILY 06/09/17 01/04/20 History Omeprazole 20 mg PO BID 06/09/17 01/04/20 History Aspirin [Adult Low Dose Aspirin EC] 81 mg PO DAILY 11/19/18 01/04/20 History Furosemide [Lasix] 40 mg PO QAM 11/19/18 01/04/20 History Insulin Glargine [Lantus] 24 unit SQ QAM 11/19/18 01/04/20 History Pioglitazone [Actos] 30 mg PO HS 11/19/18 01/04/20 History Rosuvastatin [Crestor] 5 mg PO SUWESA 11/19/18 01/04/20 History Tamsulosin [Flomax] 0.4 mg PO DAILY 11/19/18 01/04/20 History glipiZIDE [Glucotrol] 15 mg PO AC-BID 11/19/18 01/04/20 History Acetaminophen/Diphenhydramine 1 tab PO HS PRN 12/30/19 01/04/20 History [Tylenol Pm Ex-Strength Caplet] Furosemide [Lasix] 20 mg PO PC-LUNCH 12/30/19 01/04/20 History Isosorbide Mononitrate ER [Imdur] 30 mg PO DAILY 12/30/19 01/04/20 History Metoprolol Tartrate 25 mg PO QAM 12/30/19 01/04/20 History Allergies Allergy/AdvReac Type Severity Reaction Status Date / Time levofloxacin [From Levaquin] Allergy Anaphylaxis Verified 01/04/20 06:19 metformin Allergy Rash/Hives Verified 01/04/20 06:19 Surgical - Exam Vital Signs Temp Pulse 98.4 F 68 01/04/20 06:45 01/04/20 06:45 General appearance: The patient is alert, oriented, in no acute distress. Lying flat 30 incline. HET: Head is normocephalic and atraumatic. Neck: Supple without lymphadenopathy. Trachea midline. Heart: S1 S2. Regular rate and rhythm. Lungs: No crackles or wheezes are heard. Abdomen: Soft, nontender, nondistended with bowel sounds. No palpable organomegaly or masses. Extremities: Right groin with them stop in place, no active bleeding seen. No palpable PT or DP pulses. Unable to obtain any DP or PT Doppler signal. Right lower extremity cool to the touch, foot is mottled. Left lower extremity with palpable DP, warm to the touch. Able to wiggle bilateral toes. Neurological: No focal deficits. Sensory-motor intact bilaterally Results - Labs 01/04/20 11:58 Abnormal Lab Results - Last 24 Hours (Table) 01/04/20 01/04/20 Range/Units 06:30 10:42 POC Glucose (mg/dL) 130 H 242 H (75-99) mg/dL Assessment and Plan Assessment: 1. Cold foot right lower extremity 2. Coronary artery disease, status post stent placement today 3. Peripheral arterial disease, yan[place] classification 3 status post aortogram with bilateral runoff 11/2018 4. Diabetes mellitus 5. Hypertension 6. Hyperlipidemia 7. History of pulmonary embolism 8. Hypothyroid Plan: Dr. Torres notified and aware of patient, he was actually evaluated by Dr. Torres in the research lab assistant status post stent placement. Agree hold anticoagulation at this time. Keep patient flat with a more than a 30 head of bed elevation. Monitor CBC and vital signs closely. ICU for medical management. Recommend discontinuation of Fem-stop. Further recommendations to follow. Thank you for this kind referral and the opportunity to participate in the care of your patient. This consultation was discussed with Dr. Torres. The impression and plan of care have been directed as dictated. <Denny Torres - Last Filed: 01/04/20 16:47> Surgical - Exam Vital Signs Temp Pulse 98.4 F 68 01/04/20 06:45 01/04/20 06:45 Results - Labs 01/04/20 11:58 Abnormal Lab Results - Last 24 Hours (Table) 01/04/20 01/04/20 01/04/20 Range/Units 06:30 10:42 11:58 WBC 11.6 H (3.8-10.6) k/uL RBC 3.72 L (4.30-5.90) m/uL Hgb 10.9 L (13.0-17.5) gm/dL Hct 35.9 L (39.0-53.0) % MCHC 30.5 L (31.0-37.0) g/dL Neutrophils # 10.0 H (1.3-7.7) k/uL Lymphocytes # 0.9 L (1.0-4.8) k/uL POC Glucose (mg/dL) 130 H 242 H (75-99) mg/dL 01/04/20 Range/Units 12:33 WBC (3.8-10.6) k/uL RBC (4.30-5.90) m/uL Hgb (13.0-17.5) gm/dL Hct (39.0-53.0) % MCHC (31.0-37.0) g/dL Neutrophils # (1.3-7.7) k/uL Lymphocytes # (1.0-4.8) k/uL POC Glucose (mg/dL) 198 H (75-99) mg/dL Assessment and Plan Plan: Patient states pain is similar to prior to heart cath and still can move his foot and ankle. There is capillary refill but it is slowed. Femstop is in place and was decreased to 40mmHg. We will continue to monitor the foot and motor function.
[2020-01-04 12:34] LABS: Glucose,Whole Blood 198 mg/dL (75-99)
[2020-01-04] MEDS: INSULIN ASPART (NovoLOG) 100 UNIT/ML VIAL SQ SCH ×3 (12:58→20:07)
[2020-01-04] MEDS: SODIUM CHLORIDE 0.9% 1,000 ML IV SCH (13:00)
--- NOTE | 2020-01-04 14:43 | P.CNPUL ---
History of Present Illness Consult date: 01/04/20 Requesting physician: Cornell Muñiz Reason for consult: other (ICU management) Chief complaint: cold right foot History of present illness: This is a 74-year-old white male with history of multiple medical problems including coronary artery disease, previous CABG in 1996, history of type 2 d iabetes, hypertension, degenerative joint disease, history of pulmonary embolism, peripheral vessel occlusive disease, hypothyroidism, patient underwent cardiac stenting by cardiology today, and at the end of the procedure the patient developed a right groin hematoma, patient was also noted to have right cold foot, and lost pulses in the right foot. 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 Patient was seen by vascular surgery for his cold right foot, transferred to the ICU with FemoStop placed in the right groin, and he will be reevaluated again by vascular surgery may require surgical intervention. In the meantime I saw the patient in the ICU, he is on room air, denies any shortness of breath, denies any chest pain, no cough, no wheezing, no nausea, no vomiting, and no abdominal pain. Review of Systems Constitutional: Negative Ears, nose, mouth and throat: Negative Cardiovascular: Negative Integumentary: Negative Neurological: Negative Hematologic/Lymphatic: Negative Allergic/Immunologic: Negative Pulmonary: Denies any cough wheezing shortness of breath Psychiatric: Denies any symptoms of active depression. Endocrine: Negative GI: Negative Genitourinary: Negative Past Medical History Past Medical History: Coronary Artery Disease (CAD), Diabetes Mellitus, AYE D/Reflux, Hyperlipidemia, Hypertension, Osteoarthritis (OA), Pneumonia, Pulmonary Embolus (PE), Thyroid Disorder Additional Past Medical History / Comment(s): carpal tunnel kisha. hx kidney stone. 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 History of Any Multi-Drug Resistant Organisms: None Reported Past Surgical History: Appendectomy, Cholecystectomy, Coronary Bypass/CABG, Heart Catheterization, Hernia Repair Additional Past Surgical History / Comment(s): triple vessel cabg in 1996, hernia repair(triple per old hx) in 1959, ventral hernia 2006, colonoscopy.kisha cataracts-lens implants Past Anesthesia/Blood Transfusion Reactions: No Reported Reaction Smoking Status: Former smoker - Past Family History Father Family Medical History: Myocardial Infarction ([place]) Additional Family Medical History / Comment(s): from [place] age 44 Mother Additional Family Medical History / Comment(s): age 86 from [facility] Medications and Allergies Home Medications Medication Instructions Recorded Confirmed Type Quinapril HCl 40 mg PO DAILY 01/05/14 01/04/20 History Levothyroxine Sodium [Synthroid] 75 mcg PO DAILY 06/09/17 01/04/20 History Omeprazole 20 mg PO BID 06/09/17 01/04/20 History Aspirin [Adult Low Dose Aspirin EC] 81 mg PO DAILY 11/19/18 01/04/20 History Furosemide [Lasix] 40 mg PO QAM 11/19/18 01/04/20 History Insulin Glargine [Lantus] 24 unit SQ QAM 11/19/18 01/04/20 History Pioglitazone [Actos] 30 mg PO HS 11/19/18 01/04/20 History Rosuvastatin [Crestor] 5 mg PO SUWESA 11/19/18 01/04/20 History Tamsulosin [Flomax] 0.4 mg PO DAILY 11/19/18 01/04/20 History glipiZIDE [Glucotrol] 15 mg PO AC-BID 11/19/18 01/04/20 History Acetaminophen/Diphenhydramine 1 tab PO HS PRN 12/30/19 01/04/20 History [Tylenol Pm Ex-Strength Caplet] Furosemide [Lasix] 20 mg PO PC-LUNCH 12/30/19 01/04/20 History Isosorbide Mononitrate ER [Imdur] 30 mg PO DAILY 12/30/19 01/04/20 History Metoprolol Tartrate 25 mg PO QAM 12/30/19 01/04/20 History Allergies Allergy/AdvReac Type Severity Reaction Status Date / Time levofloxacin [From Levaquin] Allergy Anaphylaxis Verified 01/04/20 06:19 metformin Allergy Rash/Hives Verified 01/04/20 06:19 Physical Exam Vitals: Vital Signs Temp Pulse Pulse Resp BP Pulse Ox 01/04/20 12:15 57 L 14 108/67 95 01/04/20 12:00 97.5 F L 58 L 10 L 111/61 94 L 01/04/20 11:45 49 L 16 113/56 97 01/04/20 11:30 51 L 13 102/65 96 01/04/20 11:15 49 L 16 102/65 97 01/04/20 11:00 53 L 16 102/65 97 01/04/20 10:45 48 L 12 102/65 01/04/20 06:45 98.4 F 68 Intake and Output 01/03/20 01/04/20 01/04/20 22:59 06:59 14:59 Intake Total 100 75 Balance 100 75 Intake: IV 100 75 Sodium Chloride 0.9% 1, 75 000 ml @ 75 mls/hr IV . [id number] [facility] Rx#:[id number] Other: Voiding Method Urinal Weight 125.8 kg - Constitutional Revealed 74-year-old white male, obese, in no distress. - EENT Eyes: anicteric sclerae, PERRLA, normal appearance ENT: hearing grossly normal - Neck Neck: no lymphadenopathy, normal ROM, no other, no rigidity, no stridor, no thyromegaly - Respiratory Respiratory: bilateral: diminished, negative for dullness, rales, rhonchi - Cardiovascular Rhythm: regular Heart sounds: normal: S1, S2 Abnormal Heart Sounds: no systolic murmur, no diastolic murmur, no rub, no S3 Gallop, no S4 Gallop, no click, no other - Gastrointestinal General gastrointestinal: normal bowel sounds, soft - Integumentary Integumentary: no rash - Neurologic Neurologic: CNII-XII intact - Musculoskeletal Musculoskeletal: gait normal, strength equal bilaterally - Psychiatric Psychiatric: A&O x's 3, appropriate affect Extremities A right groin femstop in place. No palpable posterior tibial or dorsalis pedis pulses right lower extremity is cool to touch. Foot is mottled.Left lower extremity with palpable DP, warm to the touch. Able to wiggle bilateral toes. Results - Laboratory Findings CBC and BMP: 01/04/20 11:58 Abnormal lab findings: Abnormal Labs 01/04/20 01/04/20 01/04/20 06:30 10:42 11:58 WBC 11.6 H RBC 3.72 L Hgb 10.9 L Hct 35.9 L MCHC 30.5 L Neutrophils # 10.0 H Lymphocytes # 0.9 L POC Glucose (mg/dL) 130 H 242 H 01/04/20 12:33 WBC RBC Hgb Hct MCHC Neutrophils # Lymphocytes # POC Glucose (mg/dL) 198 H Assessment and Plan Assessment: Impression: Cold right foot, ischemic in nature Iatrogenic right groin hematoma, status post cardiac catheterization and stent placement Coronary artery disease, status post stent placement today and previous CABG in 1996. History of peripheral vessel occlusive disease and previous aortogram with bilateral runoff 11/2018 Hypertension History of pulmonary embolism History of hypothyroidism Dyslipidemia Type 2 diabetes. History of mild COPD. Recommendation: Continue present supportive care measures. Continue femstop in place. Vascular surgery to reevaluate and possibly consider surgical intervention Resume home meds. Incentive spirometry. GI and DVT prophylaxis. We'll continue to follow. Time with Patient: Greater than 30
[2020-01-04 19:01] LABS: Basophils # (A) 0.1 k/uL (0-0.2); Basophils % (A) 0 %; Eosinophils # (A) 0.1 k/uL (0-0.7); Eosinophils % (A) 1 %; HCT 35.1 % (39.0-53.0); Hypochromasia Moderate; Lymphocytes % (A) 9 %; MCH 31.3 pg (25.0-35.0); MCHC 31.4 g/dL (31.0-37.0); MCV 99.6 fL (80.0-100.0); Mean Platelet Volume 8.2; Monocytes # (A) 0.5 k/uL (0-1.0); Monocytes % (A) 4 %; Neutrophils # (A) 9.6 k/uL (1.3-7.7); Neutrophils % (A) 85 %; Platelet Count 163 k/uL (150-450); RBC 3.53 m/uL (4.30-5.90); RDW 13.2 % (11.5-15.5); WBC 11.3 k/uL (3.8-10.6)
--- NOTE | 2020-01-04 19:58 | PN ---
PROGRESS NOTE Mr. Mar underwent a complex multivessel stenting with Impella support today from the right femoral approach using a single access technique with a 14-Macedonian introducer. Following the procedure, I had difficulty securing hemostasis with a Perclose and Angio- Seal combination. Manual compression was used to secure hemostasis. Femstop was applied and patient was brought to the ICU. He had transient hypotension, but he is doing remarkably well. Blood pressure is 108/60, pulse rate is 64 per minute. Right groin is clean and dry. There will be a hematoma, but at this time I do not see any large hematoma. Distal pulse is palpable by Doppler only. He has known peripheral artery disease with an OCTAVIO of 0.76 in the past on the right and much lower on the left. He has had previous aortogram by Dr. Torres, who also saw him in consultation after the procedure today. I am recommending that we watch him closely. Femstop has been taken off. There is good hemostasis. We will follow his hemoglobins closely. I expect the hemoglobin to drop significantly because of the bleeding after the procedure. He had excellent angiographic result. We will observe him closely and keep him in the hospital for 48 hours. Serial hemoglobins will be performed and electrolytes also will be checked. I saw the patient again this evening, reviewed with the patient and son the plan, which will include serial hemoglobins, continued observation and same medical regimen. Overall prognosis remains guarded for this patient. He has multiple comorbid conditions, including type 2 diabetes, obesity, hypertension, CAD with prior bypass surgery, hyperlipidemia, and also peripheral arterial disease. I also spoke to the patient's son at length today. We will follow him closely. MMODL / IJN: [id number] /
[2020-01-04 20:03] LABS: Glucose,Whole Blood 217 mg/dL (75-99)
--- NOTE | 2020-01-04 20:28 | PTCA ---
PERCUTANEOUSTRANS CORORONARY ANGIOGRAPHY DATE OF SERVICE: 01/04/2020. PROCEDURES: 1. Heart pump Impella placement from right femoral approach under fluoroscopic guidance. 2. Percutaneous transluminal coronary angioplasty and stenting of first obtuse marginal branch of circumflex with a drug-eluting stent. 3. Percutaneous transluminal coronary angioplasty and stenting of mid circumflex coronary artery with a drug-eluting stent. 4. Percutaneous transluminal coronary angioplasty and stenting of left anterior descending coronary artery beyond the insertion of the left internal mammary artery through the internal mammary artery with a drug-eluting stent. PERFORMED BY: Dr. Rudi Muñiz. Moderate conscious sedation time was 160 minutes. The patient was administered Versed and fentanyl. Oxygen saturation, hemodynamics and EKG were monitored closely. CLINICAL INFORMATION: Mr. Rafat Mar is a 74-year-old gentleman who underwent aortocoronary bypass surgery more than 20 years ago with a ALAS to LAD, a free radial artery graft to the PDA branch of RCA. His circumflex was not grafted. He has been having symptoms of angina with a positive stress test in the anterolateral wall of the left ventricle. He had a cardiac catheterization that was performed sometime in late November which revealed that he had a significant lesion in the LAD after the insertion of the ALAS, and the ALAS was quite tortuous. He also had a tight 80% to 90% lesion in the circumflex marginal as well as mid circumflex, which was a nondominant vessel. RCA was grafted and the free radial artery graft to the PDA of RCA was patent. He was advised intervention after seeking a surgical opinion. It was felt that he is better off to have percutaneous intervention, given the diffuse nature of disease in the LAD. Because of a significant amount of myocardium in jeopardy, and given his significant comorbid conditions, including LV dysfunction, mitral and tricuspid regurgitation, he was advised to have the procedure performed with Impella support. The patient also has peripheral arterial disease, and OCTAVIO in the right lower extremity was 0.76. It was explained to him and his son that the procedure would be high risk, and he was brought in for the procedure electively. PROCEDURE NOTE: Under local anesthesia and strict aseptic precautions, a 6-Mosotho introducer was placed in the right femoral artery just above the bifurcation. The common femoral as well as superficial femoral and profunda were fairly calcified. I placed a 6-Mosotho introducer and gradually advanced to an 8-Mosotho introducer. I placed two Perclose devices in the 2:00 and 10:00 positions as a pre-closing and had it ready. I then advanced under fluoroscopic guidance a 10-Mosotho introducer and then a 14-Mosotho sheath. Through the 14-Mosotho sheath under fluoroscopic guidance a pigtail catheter was advanced with a wire, and the pigtail catheter was left in the left ventricle, and this wire was exchanged for an 0.018 wire. Over the 0.018 wire Impella device was advanced and positioned. Good position and waveforms were obtained. Cardiac output was 2.4 to 2.5 L. The patient had a lot of calcification in the iliac artery system and I had to use a stiff Amplatz wire to be able to advance the sheath. After securing good functionality with the Impella, I used a left JL 3.5 guide catheter of 6-Mosotho caliber to cannulate the left coronary artery. A run-through wire was used to cross the lesion. Wire was kept in the distal portion of the obtuse marginal. A 2.5 caliber 12 mm NC balloon was used to pre-dilate the lesion and a 2.75 caliber 12 mm long Xience stent was deployed at 13 atmospheres. Excellent angiographic result was achieved. I tried to advance the same wire without success into the main circumflex artery. I then switched over to a Whisper wire with a steep curve. With this I kept the wire distally. Predilatation was performed with the same 2.5, 12 mm NC balloon, and then I deployed a 2.75 caliber 12 mm Xience stent at the lesion in the mid circumflex which was after the groove branch. The lesion started right at the groove branch, but I had the stent just below it. There was excellent flow noted. Excellent angiographic result was achieved. I then turned my attention to the ALAS. The JL3.5 catheter was taken out. The patient received heparin as required and his ACT was about 270 or so. The guide catheter was exchanged over a wire and I used a Raymon guide catheter. With this, I got access and got a decent guide support into the left internal mammary artery graft. I used a long 0.014 run-through wire, and this wire was kept in the distal aspect of the LAD. A 2.25 caliber 12 mm NC balloon was used to pre-dilate the lesion, which was within the LAD after the insertion of the graft. I then deployed a 23 mm long 2.5 caliber Xience stent at 13 atmospheres. Patient did not have any chest pain or new EKG changes. He had an excellent angiographic result at the site of the stent deployment but distal to it. The entire LAD has diffuse disease. I did not persist with further dilatation. There was an increase in flow noted. The diagonal branch was also very well perfused. I was happy with the revascularization. Under fluoroscopic guidance, the Impella was taken out. I then tried to pre-close by taking out the 14-Mosotho sheath, but both the Perclose sutures were broken and I was unable to advance an 8-Mosotho Angio-Seal successfully. I therefore held manual pressure for nearly 30 minutes. I gave 20 mg of protamine intravenously. Subsequently I used manual compression followed by Femstop, and hemostasis was secured. Patient had transient hypotension. However, excellent hemostasis was secured. Patient was hemodynamically stable. He was transferred to the ICU and will be observed very closely. Angiographically, result was excellent. I am, however, concerned about the right lower extremity vasculature. I requested consult from Dr. Torres, who came in and saw the patient and advised conservative management but to release the pressure of the Femstop a little sooner. Patient was sent to the ICU in stable condition. Findings and details of the procedural issues with the right femoral access and bleeding were discussed with the patient and his son in great detail. Patient will be observed very closely. Overall prognosis remains guarded. I will be seeing the patient very closely in the ICU as well. MMODL / IJN: [id number] /
--- NOTE | 2020-01-04 23:24 | P.HPIM ---
History of Present Illness H&P Date: 01/04/20 Chief Complaint: Cold right foot, post PCI and stent placement, CAD, GERD, h istory of PE and 74-year-old [place] overweight male one of Dr. Carcamo patient who apparently had an abnormal heart cath back in November showed 2 vessel disease require an angioplasty and stent placement of the first obtuse marginal branch of the circumflex with drug-eluting stent along with percutaneous transluminal coronary angioplasty and stenting of the mid circumflex coronary artery with drug-eluting stent also percutaneous transluminal coronary angioplasty and stenting of the LAD beyond the insertion of the left internal mammary artery through the internal mammary artery with drug-eluting stent. Toward the end of procedure has taken the catheter out patient developed to have large hematoma in the groin area also noted to have right cold foot and he lost the pulse. Patient is known to have significant PAD of the lower extremity. Patient was seen by vascular surgery was transferred to the ICU with FemoStop place of the right groin and he will be reevaluated again by vascular surgery over the next 24 hours. Otherwise patient is stable medically and pain is well controlled. Review of Systems CONSTITUTIONAL: Well-developed no acute respiratory distress. EYES: No icterus sclerae, no conjunctivitis. EARS, NOSE, MOUTH, THROAT, and FACE: No sore throat, lymphadenopathy, carotid bruits or deformity. RESPIRATORY: Mild shortness of breath no cough or wheezes. CARDIOVASCULAR: Positive PND orthopnea palpitations and angina. GASTROINTESTINAL: No Abd pain, Nausea or vomiting, no Diarrhea or constipation, No GI Bleed, no distention or masses. GENITOURINARY: Negative for Hematuria or UTI, no kidney stones. INTEGUMENT/BREAST: Significant discomfort in the right groin area with large hematoma from the catheter site. HEMATOLOGIC/LYMPHATIC: Negative for bleed or purpura. MUSCULOSKELTAL: Negative for Myalgia or arthralgia. NEURLOGICAL: No LOC, Sz or syncope, blurred vision dizziness or abnormality.. BEHAVIORAL/PSYCH: Negative. ENDOCRINE: Negative. Past Medical History Past Medical History: Coronary Artery Disease (CAD), Diabetes Mellitus, GERD/Reflux, Hyperlipidemia, Hypertension, Osteoarthritis (OA), Pneumonia, Pulmonary Embolus (PE), Thyroid Disorder Additional Past Medical History / Comment(s): carpal tunnel kisha. hx kidney stone. 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 History of Any Multi-Drug Resistant Organisms: None Reported Past Surgical History: Appendectomy, Cholecystectomy, Coronary Bypass/CABG, Heart Catheterization, Hernia Repair Additional Past Surgical History / Comment(s): triple vessel cabg in 1996, hernia repair(triple per old hx) in 1959, ventral hernia 2006, colonoscopy.kisha cataracts-lens implants Past Anesthesia/Blood Transfusion Reactions: No Reported Reaction Smoking Status: Former smoker - Past Family History Father Family Medical History: Myocardial Infarction ([place]) Additional Family Medical History / Comment(s): from [place] age 44 Mother Additional Family Medical History / Comment(s): age 86 from [facility] Medications and Allergies Home Medications Medication Instructions Recorded Confirmed Type Quinapril HCl 40 mg PO DAILY 01/05/14 01/04/20 History Levothyroxine Sodium [Synthroid] 75 mcg PO DAILY 06/09/17 01/04/20 History Omeprazole 20 mg PO BID 06/09/17 01/04/20 History Aspirin [Adult Low Dose Aspirin EC] 81 mg PO DAILY 11/19/18 01/04/20 History Furosemide [Lasix] 40 mg PO QAM 11/19/18 01/04/20 History Insulin Glargine [Lantus] 24 unit SQ QAM 11/19/18 01/04/20 History Pioglitazone [Actos] 30 mg PO HS 11/19/18 01/04/20 History Rosuvastatin [Crestor] 5 mg PO SUWESA 11/19/18 01/04/20 History Tamsulosin [Flomax] 0.4 mg PO DAILY 11/19/18 01/04/20 History glipiZIDE [Glucotrol] 15 mg PO AC-BID 11/19/18 01/04/20 History Acetaminophen/Diphenhydramine 1 tab PO HS PRN 12/30/19 01/04/20 History [Tylenol Pm Ex-Strength Caplet] Furosemide [Lasix] 20 mg PO PC-LUNCH 12/30/19 01/04/20 History Isosorbide Mononitrate ER [Imdur] 30 mg PO DAILY 12/30/19 01/04/20 History Metoprolol Tartrate 25 mg PO QAM 12/30/19 01/04/20 History Allergies Allergy/AdvReac Type Severity Reaction Status Date / Time levofloxacin [From Levaquin] Allergy Anaphylaxis Verified 01/04/20 06:19 metformin Allergy Rash/Hives Verified 01/04/20 06:19 Physical Exam Vitals: Vital Signs Temp Pulse Pulse Resp BP Pulse Ox 01/04/20 19:00 73 19 97/46 96 01/04/20 18:15 73 18 116/58 98 01/04/20 18:00 75 18 107/50 96 01/04/20 17:45 73 19 107/50 86 L 01/04/20 17:30 59 L 14 106/57 98 01/04/20 17:15 69 14 106/57 95 01/04/20 17:00 70 10 L 98 01/04/20 16:45 55 L 14 109/49 96 01/04/20 16:30 54 L 34 H 103/47 97 01/04/20 16:15 56 L 16 103/47 97 01/04/20 16:00 97.9 F 52 L 13 109/49 97 01/04/20 15:45 54 L 19 99/49 97 01/04/20 15:30 58 L 24 89/51 98 01/04/20 15:15 56 L 17 98/55 98 01/04/20 15:00 57 L 26 H 80/51 96 01/04/20 14:45 61 15 84/51 96 01/04/20 14:30 58 L 5 L 92/51 97 01/04/20 14:15 56 L 15 109/55 98 01/04/20 14:00 62 14 111/91 98 01/04/20 13:45 55 L 16 111/52 98 01/04/20 13:30 60 11 L 111/56 98 01/04/20 13:15 59 L 16 114/61 98 01/04/20 13:00 58 L 12 98/53 98 01/04/20 12:45 54 L 16 109/55 98 01/04/20 12:30 58 L 16 108/67 95 01/04/20 12:15 57 L 14 108/67 95 01/04/20 12:00 97.5 F L 58 L 10 L 111/61 94 L 01/04/20 11:45 49 L 16 113/56 97 01/04/20 11:30 51 L 13 102/65 96 01/04/20 11:15 49 L 16 102/65 97 01/04/20 11:00 53 L 16 102/65 97 01/04/20 10:45 48 L 12 102/65 01/04/20 06:45 98.4 F 68 Intake and Output 01/04/20 01/04/20 01/04/20 06:59 14:59 22:59 Intake Total 100 225 375 Output Total 225 150 Balance 100 0 225 Intake: IV 100 225 375 Sodium Chloride 0.9% 1, 225 375 000 ml @ 75 mls/hr IV . [id number] [facility] Rx#:[id number] Output: Urine 225 150 Other: Voiding Method Urinal Urinal Weight 125.8 kg General Appearance: Alert, cooperative, no distress, appears stated age. Significantly overweight Neck HEENT: Supple, no lymphadenopathy, no thyroid enlargement, no carotid bruits. Lungs: Decreased breath some bilaterally far on kind no crackles pulmonary expect wheezes. Chest Wall: Decrease expansion with deep inspiration no tenderness and no deformity was found on exam, no costochondral pain or discomfort. Heart: Regular rate and rhythm, S1, S2 normal, no murmur, rub or gallop. Back: Symmetric, no curvature, ROM normal, no CVA tenderness. Abdomen: Soft, non-tender, bowel sounds active all four quadrants, no masses, no organomegaly. Extremities: Extremities normal, atraumatic, no cyanosis or edema. Pulses: 2+ and symmetric. Skin: Skin color, texture, tugor normal, no rashes or lesions. Neurologic: Alert oriented x3 cranial nerves II through XII intact, no motor deficit, no abnormal balance or gait. Results CBC & Chem 7: 01/04/20 18:40 Labs: Abnormal Lab Results - Last 24 Hours (Table) 01/04/20 01/04/20 01/04/20 Range/Units 06:30 10:42 11:58 WBC 11.6 H (3.8-10.6) k/uL RBC 3.72 L (4.30-5.90) m/uL Hgb 10.9 L (13.0-17.5) gm/dL Hct 35.9 L (39.0-53.0) % MCHC 30.5 L (31.0-37.0) g/dL Neutrophils # 10.0 H (1.3-7.7) k/uL Lymphocytes # 0.9 L (1.0-4.8) k/uL POC Glucose (mg/dL) 130 H 242 H (75-99) mg/dL 01/04/20 01/04/20 Range/Units 12:33 18:40 WBC 11.3 H (3.8-10.6) k/uL RBC 3.53 L (4.30-5.90) m/uL Hgb 11.0 L (13.0-17.5) gm/dL Hct 35.1 L (39.0-53.0) % MCHC (31.0-37.0) g/dL Neutrophils # 9.6 H (1.3-7.7) k/uL Lymphocytes # (1.0-4.8) k/uL POC Glucose (mg/dL) 198 H (75-99) mg/dL Thrombosis Risk Factor Assmnt - DVT/VTE Prophylaxis DVT/VTE Prophylaxis: Mechanical Prophylaxis ordered Assessment and Plan Assessment: 1 advanced CAD: Post angioplasty and stent placement [address] Muñiz continue secondary prevention watch for any further complication after procedure. 2 large hematoma in the right groin area status post cardiac catheter and stent placement patient was seen vascular no need for any intervention at this point keep watching for any further bleed. 3 type 2 diabetes: Patient remain on Actos, glipizide, Lantus and NovoLog, continue Accu-Chek sliding scales coverage. 4 BPH: Watch for any urinary retention. 5 hypertension: Remain on a quinapril 40 mg a day along with metoprolol titrate 25 mg in a.m. and isosorbide 30 mg daily. 5 hypothyroidism: Continue patient on levothyroxine 75 g daily. 6 severe GERD: Still on omeprazole 20 mg twice a day. 7 hyperlipidemia: Remain on Crestor. 8 DVT prophylaxis: Knee-high BARRERA hose no anticoagulation at this point. 11 GI prophylaxis: Continue omeprazole. Admit patient to the inpatient service more than 2 night stay.
[2020-01-05 06:56] LABS: Glucose,Whole Blood 117 mg/dL (75-99)
[2020-01-05] MEDS: INSULIN ASPART (NovoLOG) 100 UNIT/ML VIAL SQ SCH ×4 (06:59→20:26)
[2020-01-05] MEDS: SODIUM CHLORIDE 0.9% 1,000 ML IV SCH (07:02)
[2020-01-05] MEDS: LEVOTHYROXINE 75 MCG TAB PO SCH (07:02)
[2020-01-05] MEDS: PANTOPRAZOLE 40 MG TABLET PO SCH (07:02)
[2020-01-05] MEDS: glipiZIDE 5 MG TAB PO SCH ×2 (07:02→17:09)
[2020-01-05 07:23] LABS: Basophils % (A) 0 %; Eosinophils # (A) 0.2 k/uL (0-0.7); Eosinophils % (A) 2 %; HCT 31.5 % (39.0-53.0); Lymphocytes # (A) 1.1 k/uL (1.0-4.8); Lymphocytes % (A) 14 %; MCH 30.3 pg (25.0-35.0); MCHC 31.7 g/dL (31.0-37.0); MCV 95.6 fL (80.0-100.0); Mean Platelet Volume 8.1; Monocytes # (A) 0.4 k/uL (0-1.0); Monocytes % (A) 5 %; Neutrophils # (A) 6.1 k/uL (1.3-7.7); Neutrophils % (A) 78 %; Platelet Count 146 k/uL (150-450); RBC 3.29 m/uL (4.30-5.90); RDW 13.2 % (11.5-15.5); WBC 7.8 k/uL (3.8-10.6)
[2020-01-05 07:29] LABS: ALT 14 U/L (4-49); AST 21 U/L (17-59); African American GFR (CKD) >90 (>60 ml/min/1.73 sqM); Albumin 3.1 g/dL (3.5-5.0); Alkaline Phosphatase 62 U/L (38-126); Anion Gap 5 mmol/L; Blood Urea Nitrogen 22 mg/dL (9-20); Calcium 8.1 mg/dL (8.4-10.2); Carbon Dioxide 25 mmol/L (22-30); Chloride 110 mmol/L (98-107); Glucose 108 mg/dL (74-99); Non-African American GFR(CKD) 82 (>60 ml/min/1.73 sqM); Potassium 4.1 mmol/L (3.5-5.1); Sodium 140 mmol/L (137-145); Total Bilirubin 0.6 mg/dL (0.2-1.3); Total Protein 5.5 g/dL (6.3-8.2)
--- NOTE | 2020-01-05 08:27 | P.PN ---
Subjective Progress Note Date: 01/05/20 Principal diagnosis: Coronary artery disease This is a 74-year-old gentleman who sees Dr. Muñiz in the office on regular basis with coronary artery disease as well as hypertension and dyslipidemia who underwent yesterday successful percutaneous coronary intervention of the LAD as well as left circumflex coronary artery with adjunctive use of Impella with the procedure was complicated with right groin hematoma required manual compression. Vascular surgery was consulted to see the patient as well. The patient was seen this morning. He is asymptomatic from a cardiovascular standpoint of view. The right groin is tender but there is a small discrete hematoma only. The right foot is warm and I can feel very diminished posterior tibial pulse. He is on dual antiplatelet therapy along with high intensity statin. Objective - Vital Signs Vital signs: Vital Signs Temp 97.8 F 01/05/20 04:00 Pulse 58 L 01/05/20 07:00 Resp 15 01/05/20 07:00 BP 131/61 01/05/20 07:00 Pulse Ox 96 01/05/20 07:00 Intake & Output 01/04/20 01/05/20 01/05/20 18:59 06:59 18:59 Intake Total 525 900 75 Output Total 375 615 Balance 150 285 75 Weight 130.8 kg Intake: IV 525 900 75 Sodium Chloride 0.9% 1, 525 900 75 000 ml @ 75 mls/hr IV . [id number] [facility] Rx#:[id number] Output: Urine 375 615 Other: Voiding Method Urinal Urinal # Bowel Movements 1 - Constitutional General appearance: Present: no acute distress - Respiratory Respiratory: bilateral: CTA - Cardiovascular Rhythm: regular Heart sounds: normal: S1, S2 - Labs CBC & Chem 7: 01/05/20 06:26 01/05/20 06:26 Labs: Abnormal Lab Results - Last 24 Hours (Table) 01/04/20 01/04/20 01/04/20 Range/Units 10:42 11:58 12:33 WBC 11.6 H (3.8-10.6) k/uL RBC 3.72 L (4.30-5.90) m/uL Hgb 10.9 L (13.0-17.5) gm/dL Hct 35.9 L (39.0-53.0) % MCHC 30.5 L (31.0-37.0) g/dL Plt Count (150-450) k/uL Neutrophils # 10.0 H (1.3-7.7) k/uL Lymphocytes # 0.9 L (1.0-4.8) k/uL Chloride (98-107) mmol/L BUN (9-20) mg/dL Glucose (74-99) mg/dL POC Glucose (mg/dL) 242 H 198 H (75-99) mg/dL Calcium (8.4-10.2) mg/dL Total Protein (6.3-8.2) g/dL Albumin (3.5-5.0) g/dL 01/04/20 01/04/20 01/05/20 Range/Units 18:40 20:01 06:26 WBC 11.3 H (3.8-10.6) k/uL RBC 3.53 L 3.29 L (4.30-5.90) m/uL Hgb 11.0 L 10.0 L (13.0-17.5) gm/dL Hct 35.1 L 31.5 L (39.0-53.0) % MCHC (31.0-37.0) g/dL Plt Count 146 L (150-450) k/uL Neutrophils # 9.6 H (1.3-7.7) k/uL Lymphocytes # (1.0-4.8) k/uL Chloride (98-107) mmol/L BUN (9-20) mg/dL Glucose (74-99) mg/dL POC Glucose (mg/dL) 217 H (75-99) mg/dL Calcium (8.4-10.2) mg/dL Total Protein (6.3-8.2) g/dL Albumin (3.5-5.0) g/dL 01/05/20 01/05/20 Range/Units 06:26 06:54 WBC (3.8-10.6) k/uL RBC (4.30-5.90) m/uL Hgb (13.0-17.5) gm/dL Hct (39.0-53.0) % MCHC (31.0-37.0) g/dL Plt Count (150-450) k/uL Neutrophils # (1.3-7.7) k/uL Lymphocytes # (1.0-4.8) k/uL Chloride 110 H (98-107) mmol/L BUN 22 H (9-20) mg/dL Glucose 108 H (74-99) mg/dL POC Glucose (mg/dL) 117 H (75-99) mg/dL Calcium 8.1 L (8.4-10.2) mg/dL Total Protein 5.5 L (6.3-8.2) g/dL Albumin 3.1 L (3.5-5.0) g/dL Assessment and Plan Assessment: Assessment #1 coronary artery disease and status post PCI of the LAD and LCx #2 right groin hematoma which has resolved #3 severe peripheral arterial disease #4 multiple comorbid conditions Plan #1 continue the current medical regimen #2 continue dual antiplatelet therapy #3 continue monitor the groin #4 continue monitor the hemoglobin #5 follow-up with the patient
[2020-01-05] MEDS ORDERED: METOPROLOL TARTRATE 25 MG TAB PO SCH (09:00)
[2020-01-05] MEDS ORDERED: lisinopriL 20 MG TAB PO SCH (09:00)
[2020-01-05] MEDS ORDERED: LEVOTHYROXINE 75 MCG TAB PO SCH (09:00)
[2020-01-05] MEDS: ATORVASTATIN 80 MG TAB PO SCH (10:01)
[2020-01-05] MEDS: ASPIRIN 81 MG PO SCH (10:01)
[2020-01-05] MEDS: CLOPIDOGREL 75 MG TAB PO SCH (10:01)
[2020-01-05] MEDS: INSULIN DETEMIR (LEVEMIR) 100 UNIT/ML SYR SQ SCH (10:02)
[2020-01-05] MEDS: METOPROLOL TARTRATE 25 MG TAB PO SCH (10:02)
[2020-01-05] MEDS: ISOSORBIDE MONONITRATE ER 30 MG TAB.ER.24H PO SCH (10:02)
[2020-01-05] MEDS: lisinopriL 5 MG TAB PO SCH (10:02)
[2020-01-05] MEDS: FUROSEMIDE 40 MG TAB PO SCH (10:02)
[2020-01-05] MEDS: TAMSULOSIN 0.4 MG CAP.ER.24H PO SCH (10:03)
--- NOTE | 2020-01-05 10:28 | P.PN ---
Subjective Progress Note Date: 01/05/20 The patient was seen and examined at the bedside in the ICU. He is status post stent placement with access through the right groin. Patient is able to move bilateral lower extremities. He denies any pain to the lower extremities. Patient states he is currently without shortness of breath or chest pain. He is tolerating a regular breakfast and voiding without difficulty. He denies any fevers through the night or active bleeding from the right groin. His hemoglobin is stable this morning at 10.0. Objective - Vital Signs Vital signs: Vital Signs Temp 97.8 F 01/05/20 04:00 Pulse 58 L 01/05/20 07:00 Resp 15 01/05/20 07:00 BP 131/61 01/05/20 07:00 Pulse Ox 96 01/05/20 07:00 Intake & Output 01/04/20 01/05/20 01/05/20 18:59 06:59 18:59 Intake Total 525 900 75 Output Total 375 615 Balance 150 285 75 Weight 130.8 kg Intake: IV 525 900 75 Sodium Chloride 0.9% 1, 525 900 75 000 ml @ 75 mls/hr IV . [id number] [facility] Rx#:[id number] Output: Urine 375 615 Other: Voiding Method Urinal Urinal # Bowel Movements 1 - Exam General appearance: The patient is alert, oriented, in no acute distress. HET: Head is normocephalic and atraumatic. Neck: Supple without lymphadenopathy. Trachea midline. Heart: S1 S2. Regular rate and rhythm. Lungs: No crackles or wheezes are heard. Abdomen: Soft, nontender, nondistended with bowel sounds. Extremities: Ecchymosis noted at the right groin which wraps around to the right flank. No active bleeding noted. Right lower extremity cool to touch however warm within yesterday. No mottling noted. Monophasic Doppler signal obtained. Patient able to freely move bilateral lower extremities. Neurological: No focal deficits. Strength and sensation are grossly intact. - Labs CBC & Chem 7: 01/05/20 06:26 01/05/20 06:26 Labs: Abnormal Lab Results - Last 24 Hours (Table) 01/04/20 01/04/20 01/04/20 Range/Units 10:42 11:58 12:33 WBC 11.6 H (3.8-10.6) k/uL RBC 3.72 L (4.30-5.90) m/uL Hgb 10.9 L (13.0-17.5) gm/dL Hct 35.9 L (39.0-53.0) % MCHC 30.5 L (31.0-37.0) g/dL Plt Count (150-450) k/uL Neutrophils # 10.0 H (1.3-7.7) k/uL Lymphocytes # 0.9 L (1.0-4.8) k/uL Chloride (98-107) mmol/L BUN (9-20) mg/dL Glucose (74-99) mg/dL POC Glucose (mg/dL) 242 H 198 H (75-99) mg/dL Calcium (8.4-10.2) mg/dL Total Protein (6.3-8.2) g/dL Albumin (3.5-5.0) g/dL 01/04/20 01/04/20 01/05/20 Range/Units 18:40 20:01 06:26 WBC 11.3 H (3.8-10.6) k/uL RBC 3.53 L 3.29 L (4.30-5.90) m/uL Hgb 11.0 L 10.0 L (13.0-17.5) gm/dL Hct 35.1 L 31.5 L (39.0-53.0) % MCHC (31.0-37.0) g/dL Plt Count 146 L (150-450) k/uL Neutrophils # 9.6 H (1.3-7.7) k/uL Lymphocytes # (1.0-4.8) k/uL Chloride (98-107) mmol/L BUN (9-20) mg/dL Glucose (74-99) mg/dL POC Glucose (mg/dL) 217 H (75-99) mg/dL Calcium (8.4-10.2) mg/dL Total Protein (6.3-8.2) g/dL Albumin (3.5-5.0) g/dL 01/05/20 01/05/20 Range/Units 06:26 06:54 WBC (3.8-10.6) k/uL RBC (4.30-5.90) m/uL Hgb (13.0-17.5) gm/dL Hct (39.0-53.0) % MCHC (31.0-37.0) g/dL Plt Count (150-450) k/uL Neutrophils # (1.3-7.7) k/uL Lymphocytes # (1.0-4.8) k/uL Chloride 110 H (98-107) mmol/L BUN 22 H (9-20) mg/dL Glucose 108 H (74-99) mg/dL POC Glucose (mg/dL) 117 H (75-99) mg/dL Calcium 8.1 L (8.4-10.2) mg/dL Total Protein 5.5 L (6.3-8.2) g/dL Albumin 3.1 L (3.5-5.0) g/dL Assessment and Plan Assessment: 1. Cold foot right lower extremity 2. Coronary artery disease, status post stent placement today 3. Peripheral arterial disease, yanely classification 3 status post aortogram with bilateral runoff 11/2018 4. Diabetes mellitus 5. Hypertension 6. Hyperlipidemia 7. History of pulmonary embolism 8. Hypothyroid Plan: Continue to monitor daily CBC. Continue to monitor for bleeding and hematoma in right groin. Recommend compression stockings to bilateral lower extremities. Patient to follow-up as an outpatient with Dr. Torres in 4 weeks. We will sign off at this time, please don't hesitate to callus with any questions or concerns. The above dictated assessment and findings were discussed with Dr. Torres. The impression and plan of care have been directed as dictated.
[2020-01-05] MEDS ORDERED: Magnesium Replacement Protocol 1 EACH MISC MISCELLANE PRN (10:48)
[2020-01-05] MEDS: MAGNESIUM SULFATE-D5W PMX 1 GM in DEXTROSE/WATER 1 100ML.BAG IVPB SCH ×2 (11:21→12:35)
[2020-01-05 12:03] LABS: Glucose,Whole Blood 136 mg/dL (75-99)
--- NOTE | 2020-01-05 13:20 | P.PN ---
Subjective Progress Note Date: 01/05/20 HISTORY OF PRESENT ILLNESS 74-year-old morbidly obese male patient of Dr. Carcamo patient who apparently had an abnormal heart cath back in November showed 2 vessel disease require an angioplasty and stent placement of the first obtuse marginal branch of the circumflex with drug-eluting stent along with percutaneous transluminal coronary angioplasty and stenting of the mid circumflex coronary artery with drug-eluting stent also percutaneous transluminal coronary angioplasty and stenting of the LAD beyond the insertion of the left internal mammary artery through the internal mammary artery with drug-eluting stent. Toward the end of procedure has taken the catheter out patient developed to have large hematoma in the groin area also noted to have right cold foot and he lost the pulse. Patient is known to have significant PAD of the lower extremity. Patient was seen by vascular surgery was transferred to the ICU with FemoStop place of the right groin and he will be reevaluated again by vascular surgery over the next 24 hours. Otherwise patient is stable medically and pain is well controlled. 01/04: shunt is seen again today in the intensive care unit and has been cleared for transfer to the cardiac stepdown unit. he denies any chest pain or shortness of breath. Mild lower extremity edema and BARRERA hose added. Physical therapy added. Patient states his son Eduardo lives with them and helps.discharge plan will be to return home with homecare. Repeat hemoglobin this morning is 10. Blood sugars running between 108 and 217. Patient has been afebrile, heart rate 53, blood pressure 116/45, pulse ox 92% on room air. REVIEW OF SYSTEMS Constitutional: No fever, no chills, no night sweats. No weakness, fatigue or lethargy. EENT: No headache. No blurred vision no dizziness. No nasal drainage or congestion. No epistaxis. No sore throat. Lungs: No shortness of breath, cough, no sputum production. No wheezing. Cardiovascular: No chest pain, no lower extremity edema. No palpitations. No paroxysmal nocturnal dyspnea. No orthopnea. No lightheadedness or dizziness. Abdominal: No abdominal pain. No nausea, vomiting. No diarrhea. No constipation. No bloody or tarry stools. No loss of appetite. Genitourinary: No dysuria, increased frequency, urgency. No urinary retention. Musculoskeletal: No myalgias. No muscle weakness, no gait dysfunction, no frequent falls. No back pain. No neck pain. Integumentary: right groin hematoma. No rash or pruritus. No unusual bruising. No change in hair or nails. Neurologic: No aphasia. No facial droop. No change in mentation. No head injury. No headache. No paralysis. No paresthesia. Psychiatric: No depression. No anxiety. No mood swings. Endocrine: No abnormal blood sugars. No weight change. No excessive sweating or thirst. No cold intolerance. PHYSICAL EXAMINATION Gen: This is morbidly obese 74-year-old male. He is resting in ICU bed and appears to be comfortable and in no acute distress. HEENT: Head is atraumatic, normocephalic. Pupils equal, round. Sclerae is anicteric. NECK: Supple. No JVD. No lymphadenopathy. No thyromegaly. LUNGS: Clear to auscultation. No wheezes or rhonchi. No intercostal retractions. HEART: Regular rate and rhythm. No murmur. ABDOMEN: Soft. Bowel sounds are present. No masses. No tenderness. EXTREMITIES: No pedal edema. No calf tenderness. NEUROLOGICAL: Patient is awake, alert and oriented x3. Cranial nerves 2 through 12 are grossly intact. ASSESSMENT AND PLAN 1. Advance coronary artery disease status post angioplasty and stent placement [address] Muñiz. Continue secondary prevention. continue aspirin 81 mg daily, Lipitor 80 mg daily, Plavix 75 mg daily, Lopressor 25 mg daily, Imdur 30 mg daily. Transfer to cardiac stepdown unit. 2. Large hematoma to the right groin status post cardiac catheterization stent placement. Vascular surgery has signed off. 3. Diabetes mellitus type 2. Continue Levemir 24 units in the morning and NovoLog scale, glipizide 15 mg twice daily. 4. Benign prostatic hypertrophy. Continue Flomax 0.4 mg daily. 5. Hypertension. continue Lasix 40 mg in the morning, 20 at lunch, lisinopril 5 mg daily, Lopressor. 6. Hyperlipidemia. Continue statin. 7. Hypothyroidism. Continue levothyroxine 75 g daily. 8. GERD. Continue omeprazole. 9. DVT prophylaxis. Barrera garcia. Discharge plan: home with [facility]. Home on Saturday. Impression and plan of care have been directed as dictated by the signing physician. Greta Nava nurse practitioner acting as scribe for signing slick blanton. Objective - Vital Signs Vital signs: Vital Signs Temp 97.8 F 01/05/20 04:00 Pulse 58 L 01/05/20 07:00 Resp 15 01/05/20 07:00 BP 131/61 01/05/20 07:00 Pulse Ox 96 01/05/20 07:00 Intake & Output 01/04/20 01/05/20 01/05/20 18:59 06:59 18:59 Intake Total 525 900 75 Output Total 375 615 Balance 150 285 75 Weight 130.8 kg Intake: IV 525 900 75 Sodium Chloride 0.9% 1, 525 900 75 000 ml @ 75 mls/hr IV . [id number] [facility] Rx#:[id number] Output: Urine 375 615 Other: Voiding Method Urinal Urinal # Bowel Movements 1 - Labs CBC & Chem 7: 01/05/20 06:26 01/05/20 06:26 Labs: Abnormal Lab Results - Last 24 Hours (Table) 01/04/20 01/04/20 01/04/20 Range/Units 10:42 11:58 12:33 WBC 11.6 H (3.8-10.6) k/uL RBC 3.72 L (4.30-5.90) m/uL Hgb 10.9 L (13.0-17.5) gm/dL Hct 35.9 L (39.0-53.0) % MCHC 30.5 L (31.0-37.0) g/dL Plt Count (150-450) k/uL Neutrophils # 10.0 H (1.3-7.7) k/uL Lymphocytes # 0.9 L (1.0-4.8) k/uL Chloride (98-107) mmol/L BUN (9-20) mg/dL Glucose (74-99) mg/dL POC Glucose (mg/dL) 242 H 198 H (75-99) mg/dL Calcium (8.4-10.2) mg/dL Total Protein (6.3-8.2) g/dL Albumin (3.5-5.0) g/dL 01/04/20 01/04/20 01/05/20 Range/Units 18:40 20:01 06:26 WBC 11.3 H (3.8-10.6) k/uL RBC 3.53 L 3.29 L (4.30-5.90) m/uL Hgb 11.0 L 10.0 L (13.0-17.5) gm/dL Hct 35.1 L 31.5 L (39.0-53.0) % MCHC (31.0-37.0) g/dL Plt Count 146 L (150-450) k/uL Neutrophils # 9.6 H (1.3-7.7) k/uL Lymphocytes # (1.0-4.8) k/uL Chloride (98-107) mmol/L BUN (9-20) mg/dL Glucose (74-99) mg/dL POC Glucose (mg/dL) 217 H (75-99) mg/dL Calcium (8.4-10.2) mg/dL Total Protein (6.3-8.2) g/dL Albumin (3.5-5.0) g/dL 01/05/20 01/05/20 Range/Units 06:26 06:54 WBC (3.8-10.6) k/uL RBC (4.30-5.90) m/uL Hgb (13.0-17.5) gm/dL Hct (39.0-53.0) % MCHC (31.0-37.0) g/dL Plt Count (150-450) k/uL Neutrophils # (1.3-7.7) k/uL Lymphocytes # (1.0-4.8) k/uL Chloride 110 H (98-107) mmol/L BUN 22 H (9-20) mg/dL Glucose 108 H (74-99) mg/dL POC Glucose (mg/dL) 117 H (75-99) mg/dL Calcium 8.1 L (8.4-10.2) mg/dL Total Protein 5.5 L (6.3-8.2) g/dL Albumin 3.1 L (3.5-5.0) g/dL
[2020-01-05] MEDS ORDERED: FUROSEMIDE 20 MG TAB PO SCH (13:30)
--- NOTE | 2020-01-05 14:24 | P.PN ---
Subjective Progress Note Date: 01/05/20 Principal diagnosis: Right foot ischemia, post cardiac catheterization and stent placement This is a 74-year-old white male with history of multiple medical problems including coronary artery disease, previous CABG in 1996, history of type 2 diabetes, hypertension, degenerative joint disease, history of pulmonary embolism, peripheral vessel occlusive disease, hypothyroidism, patient underwent cardiac stenting by cardiology today, and at the end of the procedure the patient developed a right groin hematoma, patient was also noted to have right cold foot, and lost pulses in the right foot. 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 Patient was seen by vascular surgery for his cold right foot, transferred to the ICU with FemoStop placed in the right groin, and he will be reevaluated again by vascular surgery may require surgical intervention. In the meantime I saw the patient in the ICU, he is on room air, denies any shortness of breath, denies any chest pain, no cough, no wheezing, no nausea, no vomiting, and no abdominal pain. Patient was reevaluated today on 01/05/20, patient is feeling much better today, able to move bilateral lower extremities, denies any pain in both feet. Denies any shortness of breath denies any chest pain, and his hemoglobin is stable at 10.0 this morning. Patient is basically asymptomatic, continues to have tenderness in the right caballero and there is a small discrete hematoma. Right foot is warm, he had diminished posterior tibial pulse, and he is now on anti-platelet therapY, and on statins Objective - Vital Signs Vital signs: Vital Signs Temp 98.6 F 01/05/20 12:00 Pulse 53 L 01/05/20 12:00 Resp 17 01/05/20 12:00 BP 116/45 01/05/20 12:00 Pulse Ox 92 L 01/05/20 12:00 Intake & Output 01/04/20 01/05/20 01/05/20 18:59 06:59 18:59 Intake Total 900 467 7636 Output Total 375 615 550 Balance 150 285 450 Weight 130.8 kg Intake: IV 525 900 300 Sodium Chloride 0.9% 1, 525 900 300 000 ml @ 75 mls/hr IV . [id number] [facility] Rx#:[id number] Intake, IV Titration 200 Amount Magnesium Sulfate-D5w Pmx 200 1 gm In Dextrose/Water 1 100ml.bag @ 100 mls/hr IVPB Q1H [facility] Rx#: [id number] Oral 500 Output: Urine 375 615 550 Other: Voiding Method Urinal Urinal # Voids 1 # Bowel Movements 1 1 - Exam General appearance: Revealed a 74-year-old wHead is normocephalic and atrahite male, pleasant, in no distress. Head: Atraumatic, normocephalic. Neck: Supple without lymphadenopathy. No neck masses, no JVD, no stridor. Heart: Normal S1 and S2, no S3 gallop. Lungs: Diminished breath sounds at the bases no crackles or rhonchi or wheezes. Abdomen: Obese, soft, nontender, no megaly no rebound.. Extremities: Ecchymosis noted at the right groin. Right lower extremity warm to touch including warm foot, no evidence of cyanosis Neurological: No focal deficits. Strength and sensation are grossly intact. Psychiatric: Normal mood affect and normal mental status examination. Skin: No rashes - Labs CBC & Chem 7: 01/05/20 06:26 01/05/20 06:26 Labs: Abnormal Lab Results - Last 24 Hours (Table) 01/04/20 01/04/20 01/05/20 Range/Units 18:40 20:01 06:26 WBC 11.3 H (3.8-10.6) k/uL RBC 3.53 L 3.29 L (4.30-5.90) m/uL Hgb 11.0 L 10.0 L (13.0-17.5) gm/dL Hct 35.1 L 31.5 L (39.0-53.0) % Plt Count 146 L (150-450) k/uL Neutrophils # 9.6 H (1.3-7.7) k/uL Chloride (98-107) mmol/L BUN (9-20) mg/dL Glucose (74-99) mg/dL POC Glucose (mg/dL) 217 H (75-99) mg/dL Calcium (8.4-10.2) mg/dL Total Protein (6.3-8.2) g/dL Albumin (3.5-5.0) g/dL 01/05/20 01/05/20 01/05/20 Range/Units 06:26 06:54 12:02 WBC (3.8-10.6) k/uL RBC (4.30-5.90) m/uL Hgb (13.0-17.5) gm/dL Hct (39.0-53.0) % Plt Count (150-450) k/uL Neutrophils # (1.3-7.7) k/uL Chloride 110 H (98-107) mmol/L BUN 22 H (9-20) mg/dL Glucose 108 H (74-99) mg/dL POC Glucose (mg/dL) 117 H 136 H (75-99) mg/dL Calcium 8.1 L (8.4-10.2) mg/dL Total Protein 5.5 L (6.3-8.2) g/dL Albumin 3.1 L (3.5-5.0) g/dL Assessment and Plan Assessment: Impression: Cold right foot, ischemic in nature, resolved and significantly improved compared to yesterday. Iatrogenic right groin hematoma, status post cardiac catheterization and stent placement Coronary artery disease, status post stent placement today and previous CABG in 1996. History of peripheral vessel occlusive disease and previous aortogram with bilateral runoff 11/2018 Hypertension History of pulmonary embolism History of hypothyroidism Dyslipidemia Type 2 diabetes. History of mild COPD. Recommendation: Continue present supportive care measures. Resume home meds. Transfer to a monitor bed on selective Discharge home when cleared by cardiology and vascular surgery. Incentive spirometry. We'll continue to follow. Time with Patient: Less than 30
--- NOTE | 2020-01-05 14:24 | CDI ---
Documentation Clarification Form Date: 01/05/2020 CDS: Corina Chapa RN, CCDS Admit Date: 01/04/2020 Patient Name: ATTENTION: The Clinical Documentation Specialists (CDI) and [facility] Coding Staff appreciate your assistance in clarifying documentation. Please respond to the clarification below the line at the bottom and electronically sign. The CDI & [facility] Coding staff will review the response and follow-up if needed. Please note: Queries are made part of the Legal Health Record. If you have any questions, please contact the author of this message via ITS. Dr. Cornell Muñiz MD Iatrogenic right groin hematoma, status post cardiac catheterization and stent placement. Documented Critical Care consult 01/03 Patients Admitting Diagnosis: Coronary Artery Disease with symptoms of angina and positive stress test Post-Operative Diagnosis: Percutaneous transluminal coronary angioplasty and stenting of first obtuse marginal branch of circumflex with a drug eluting stent. Mid circumflex with a drug eluting stent. Left internal mammary artery through the internal mammary artery with a drug eluting stent. Procedure performed: PTCA with Impella support. History/Risk Factors: 74-year-old male presents to [facility] for elective PTCA after positive stress test. Medical History: HTN; DM2; Hypothyroidism; HLD, CAD and history of Triple vessel CABG in 1996 Clinical Indicators: Per procedure note Under fluoroscopic guidance, the Impella was taken out. I then tired to preclose by taking out the 14-Frenc sheath, but both the Perclose sutures were broken and I was unable to advance an 8-Czech Angio-Seal successfully. I therefore held manual pressure for nearly 30 minutes. I gave 20 mg of protamine intravenously. Subsequently I used manual compression followed by Femstop, and hemostasis was secured. Treatment: Portamine 20mg Iv 01/03 Vascular Sx consult: Hold anticoagulation at his time, recommend discontinuation of Fem-stop. In order to accurately reflect this patients severity of illness, please clarify if the Iatrogenic groin hematoma: -has been ruled out -is a complication of surgical procedure -is an expected outcome of the surgical procedure -is related to co-morbid condition(s) of -Other please specify -Unable to determine (Last Revision: May 2019)is an expected outcome of the surgical procedure MTDD
[2020-01-05 16:51] LABS: Glucose,Whole Blood 154 mg/dL (75-99)
[2020-01-05 17:35] LABS: Hemoglobin A1C 6.6 % (4.0-6.0)
[2020-01-05 20:24] LABS: Glucose,Whole Blood 153 mg/dL (75-99)
[2020-01-06 06:34] LABS: Glucose,Whole Blood 100 mg/dL (75-99)
[2020-01-06] MEDS: INSULIN ASPART (NovoLOG) 100 UNIT/ML VIAL SQ SCH ×4 (06:35→20:12)
[2020-01-06] MEDS: glipiZIDE 5 MG TAB PO SCH ×2 (06:37→17:17)
[2020-01-06] MEDS: LEVOTHYROXINE 75 MCG TAB PO SCH (06:37)
[2020-01-06] MEDS: PANTOPRAZOLE 40 MG TABLET PO SCH (06:37)
[2020-01-06 06:58] LABS: HCT 30.1 % (39.0-53.0); HGB 9.6 gm/dL (13.0-17.5); MCH 30.5 pg (25.0-35.0); MCHC 31.9 g/dL (31.0-37.0); MCV 95.8 fL (80.0-100.0); Mean Platelet Volume 8.3; Platelet Count 144 k/uL (150-450); RBC 3.15 m/uL (4.30-5.90); RDW 13.2 % (11.5-15.5); WBC 8.3 k/uL (3.8-10.6)
[2020-01-06 07:04] LABS: Calcium 8.2 mg/dL (8.4-10.2); Magnesium 1.9 mg/dL (1.6-2.3); Potassium 4.1 mmol/L (3.5-5.1)
--- NOTE | 2020-01-06 07:52 | P.PN ---
Subjective Progress Note Date: 01/06/20 Principal diagnosis: Coronary artery disease This is a 74-year-old gentleman who sees Dr. Muñiz in the office on regular basis with coronary artery disease as well as hypertension and dyslipidemia who underwent yesterday successful percutaneous coronary intervention of the LAD as well as left circumflex coronary artery with adjunctive use of Impella with the procedure was complicated with right groin hematoma required manual compression. Vascular surgery was consulted to see the patient as well. The patient was seen today January [id number]. He continues to be a sympt omatically O standpoint of view with the right groin is soft with mild tenderness and some bruises but no discrete hematoma. He is on dual antiplatelet therapy. From O standpoint of view, the patient can be transferred out of the ICU Objective - Vital Signs Vital signs: Vital Signs Temp 97.9 F 01/06/20 04:00 Pulse 63 01/06/20 04:00 Resp 16 01/06/20 04:00 BP 134/58 01/06/20 04:00 Pulse Ox 96 01/06/20 04:00 Intake & Output 01/05/20 01/06/20 01/06/20 18:59 06:59 18:59 Intake Total 1000 Output Total 550 0 500 Balance 450 0 -500 Weight 131.134 kg Intake: IV 300 Sodium Chloride 0.9% 1, 300 000 ml @ 75 mls/hr IV . [id number] [facility] Rx#:[id number] Intake, IV Titration 200 Amount Magnesium Sulfate-D5w Pmx 200 1 gm In Dextrose/Water 1 100ml.bag @ 100 mls/hr IVPB Q1H [facility] Rx#: [id number] Oral 500 Output: Urine 550 0 500 Other: Voiding Method Urinal # Voids 1 1 # Bowel Movements 1 - Constitutional General appearance: Present: no acute distress - Respiratory Respiratory: bilateral: CTA - Cardiovascular Rhythm: regular Heart sounds: normal: S1, S2 - Labs CBC & Chem 7: 01/06/20 06:26 01/06/20 06:26 Labs: Abnormal Lab Results - Last 24 Hours (Table) 01/05/20 01/05/20 01/05/20 Range/Units 06:26 12:02 16:49 RBC (4.30-5.90) m/uL Hgb (13.0-17.5) gm/dL Hct (39.0-53.0) % Plt Count (150-450) k/uL Chloride (98-107) mmol/L POC Glucose (mg/dL) 136 H 154 H (75-99) mg/dL Hemoglobin A1c 6.6 H (4.0-6.0) % Calcium (8.4-10.2) mg/dL Triglycerides (<150) mg/dL HDL Cholesterol (40-60) mg/dL 01/05/20 01/06/20 01/06/20 Range/Units 20:22 06:26 06:26 RBC 3.15 L (4.30-5.90) m/uL Hgb 9.6 L (13.0-17.5) gm/dL Hct 30.1 L (39.0-53.0) % Plt Count 144 L (150-450) k/uL Chloride 110 H (98-107) mmol/L POC Glucose (mg/dL) 153 H (75-99) mg/dL Hemoglobin A1c (4.0-6.0) % Calcium 8.2 L (8.4-10.2) mg/dL Triglycerides 182 H (<150) mg/dL HDL Cholesterol 31 L (40-60) mg/dL 01/06/20 Range/Units 06:33 RBC (4.30-5.90) m/uL Hgb (13.0-17.5) gm/dL Hct (39.0-53.0) % Plt Count (150-450) k/uL Chloride (98-107) mmol/L POC Glucose (mg/dL) 100 H (75-99) mg/dL Hemoglobin A1c (4.0-6.0) % Calcium (8.4-10.2) mg/dL Triglycerides (<150) mg/dL HDL Cholesterol (40-60) mg/dL Assessment and Plan Assessment: Assessment #1 coronary artery disease and status post PCI of the LAD and LCx #2 right groin hematoma which has resolved #3 severe peripheral arterial disease #4 multiple comorbid conditions Plan #1 continue the current medical regimen #2 the patient can be transferred out of the ICU
[2020-01-06] MEDS: ISOSORBIDE MONONITRATE ER 30 MG TAB.ER.24H PO SCH (08:18)
[2020-01-06] MEDS: MAGNESIUM SULFATE-D5W PMX 1 GM in DEXTROSE/WATER 1 100ML.BAG IVPB SCH ×2 (08:18→10:28)
[2020-01-06] MEDS: INSULIN DETEMIR (LEVEMIR) 100 UNIT/ML SYR SQ SCH (08:18)
[2020-01-06] MEDS: CLOPIDOGREL 75 MG TAB PO SCH (08:18)
[2020-01-06] MEDS: METOPROLOL TARTRATE 25 MG TAB PO SCH (08:18)
[2020-01-06] MEDS: ASPIRIN 81 MG PO SCH (08:18)
[2020-01-06] MEDS: FUROSEMIDE 40 MG TAB PO SCH (08:18)
[2020-01-06] MEDS: TAMSULOSIN 0.4 MG CAP.ER.24H PO SCH (08:18)
[2020-01-06] MEDS: ATORVASTATIN 80 MG TAB PO SCH (08:18)
[2020-01-06] MEDS: lisinopriL 5 MG TAB PO SCH (08:18)
[2020-01-06] MEDS ORDERED: ATORVASTATIN 10 MG TAB PO SCH (09:00)
--- NOTE | 2020-01-06 11:47 | P.PN ---
Subjective Progress Note Date: 01/06/20 HISTORY OF PRESENT ILLNESS 74-year-old morbidly obese male patient of Dr. Carcamo patient who apparently had an abnormal heart cath back in November showed 2 vessel disease require an angioplasty and stent placement of the first obtuse marginal branch of the circumflex with drug-eluting stent along with percutaneous transluminal coronary angioplasty and stenting of the mid circumflex coronary artery with drug-eluting stent also percutaneous transluminal coronary angioplasty and stenting of the LAD beyond the insertion of the left internal mammary artery through the internal mammary artery with drug-eluting stent. Toward the end of procedure has taken the catheter out patient developed to have large hematoma in the groin area also noted to have right cold foot and he lost the pulse. Patient is known to have significant PAD of the lower extremity. Patient was seen by vascular surgery was transferred to the ICU with FemoStop place of the right groin and he will be reevaluated again by vascular surgery over the next 24 hours. Otherwise patient is stable medically and pain is well controlled. 01/04: shunt is seen again today in the intensive care unit and has been cleared for transfer to the cardiac stepdown unit. he denies any chest pain or shortness of breath. Mild lower extremity edema and BARRERA hose added. Physical therapy added. Patient states his son Eduardo lives with them and helps.discharge plan will be to return home with homecare. Repeat hemoglobin this morning is 10. Blood sugars running between 108 and 217. Patient has been afebrile, heart rate 53, blood pressure 116/45, pulse ox 92% on room air. 01/05: Patient remains in the intensive care unit waiting for bed on cardiac stepdown unit. He states his groin is a little sore but otherwise he denies any new issues. He is complaining of pain in his feet possibly related to swelling but improved. Magnesium has been replaced. Patient has been afebrile, heart rate 80, blood pressure 136/80, pulse ox 94% on room air. Repeat blood work reveals hemoglobin 9.6. Magnesium 1.9. Triglycerides 182, cholesterol 156, LDL 89, HDL 31. Blood sugars are running between 93 and 153. We'll plan to monitor patient overnight and possible discharge tomorrow. PT has recommended home. call center manager has arranged for [facility] home care. REVIEW OF SYSTEMS Constitutional: No fever, no chills, no night sweats. EENT: No headache. No blurred vision no dizziness. No nasal drainage or congestion. No epistaxis. No sore throat. Lungs: No shortness of breath, cough, no sputum production. No wheezing. Cardiovascular: No chest pain, no lower extremity edema. No palpitations. No paroxysmal nocturnal dyspnea. No orthopnea. No lightheadedness or dizziness. Abdominal: No abdominal pain. No nausea, vomiting. No diarrhea. No constipation. No bloody or tarry stools. No loss of appetite. Genitourinary: No dysuria, increased frequency, urgency. No urinary retention. Musculoskeletal: No myalgias. No muscle weakness, no gait dysfunction, no frequent falls. No back pain. No neck pain. Integumentary: right groin hematoma. No rash or pruritus. No unusual bruising. No change in hair or nails. Neurologic: No aphasia. No facial droop. No change in mentation. No head injury. No headache. No paralysis. No paresthesia. Psychiatric: No depression. No anxiety. No mood swings. Endocrine: No abnormal blood sugars. No weight change. No excessive sweating or thirst. No cold intolerance. PHYSICAL EXAMINATION Gen: This is morbidly obese 74-year-old male. He is resting in chair and appears to be comfortable and in no acute distress. HEENT: Head is atraumatic, normocephalic. Pupils equal, round. Sclerae is anicteric. NECK: Supple. No JVD. No lymphadenopathy. No thyromegaly. LUNGS: Clear to auscultation. No wheezes or rhonchi. No intercostal retractions. HEART: Regular rate and rhythm. No murmur. ABDOMEN: Soft. Bowel sounds are present. No masses. No tenderness. EXTREMITIES: No pedal edema. No calf tenderness. NEUROLOGICAL: Patient is awake, alert and oriented x3. Cranial nerves 2 through 12 are grossly intact. ASSESSMENT AND PLAN 1. Advance coronary artery disease status post angioplasty and stent placement [address] Muñiz. Continue secondary prevention. continue aspirin 81 mg daily, Lipitor 80 mg daily, Plavix 75 mg daily, Lopressor 25 mg daily, Imdur 30 mg daily. Transfer to cardiac stepdown unit is pending. 2. Large hematoma to the right groin status post cardiac catheterization stent placement. Vascular surgery has signed off. 3. Diabetes mellitus type 2. Continue Levemir 24 units in the morning and NovoLog scale, glipizide 15 mg twice daily. 4. Benign prostatic hypertrophy. Continue Flomax 0.4 mg daily. 5. Hypertension. continue Lasix 40 mg in the morning, 20 at lunch, lisinopril 5 mg daily, Lopressor. 6. Hyperlipidemia. Continue statin. 7. Hypothyroidism. Continue levothyroxine 75 g daily. 8. GERD. Continue omeprazole. 9. DVT prophylaxis. Barrera garcia. Discharge plan: home with [facility] on . Impression and plan of care have been directed as dictated by the signing physician. Greta Nava nurse practitioner acting as scribe for signing physician. Objective - Vital Signs Vital signs: Vital Signs Temp 98.4 F 01/06/20 08:00 Pulse 57 L 01/06/20 10:00 Resp 15 01/06/20 10:00 BP 136/80 01/06/20 08:00 Pulse Ox 94 L 01/06/20 08:00 Intake & Output 01/05/20 01/06/20 01/06/20 18:59 06:59 18:59 Intake Total 1000 100 Output Total 550 0 500 Balance 450 0 -400 Weight 131.134 kg Intake: IV 300 Sodium Chloride 0.9% 1, 300 000 ml @ 75 mls/hr IV . [id number] [facility] Rx#:[id number] Intake, IV Titration 200 100 Amount Magnesium Sulfate-D5w Pmx 200 1 gm In Dextrose/Water 1 100ml.bag @ 100 mls/hr IVPB Q1H [facility] Rx#: [id number] Magnesium Sulfate-D5w Pmx 100 1 gm In Dextrose/Water 1 100ml.bag @ 100 mls/hr IVPB Q1H [facility] Rx#: [id number] Oral 500 Output: Urine 550 0 500 Other: Voiding Method Urinal # Voids 1 1 1 # Bowel Movements 1 - Labs CBC & Chem 7: 01/06/20 06:26 01/06/20 06:26 Labs: Abnormal Lab Results - Last 24 Hours (Table) 01/05/20 01/05/20 01/05/20 Range/Units 06:26 12:02 16:49 RBC (4.30-5.90) m/uL Hgb (13.0-17.5) gm/dL Hct (39.0-53.0) % Plt Count (150-450) k/uL Chloride (98-107) mmol/L POC Glucose (mg/dL) 136 H 154 H (75-99) mg/dL Hemoglobin A1c 6.6 H (4.0-6.0) % Calcium (8.4-10.2) mg/dL Triglycerides (<150) mg/dL HDL Cholesterol (40-60) mg/dL 01/05/20 01/06/20 01/06/20 Range/Units 20: 06:26 06:26 RBC 3.15 L (4.30-5.90) m/uL Hgb 9.6 L (13.0-17.5) gm/dL Hct 30.1 L (39.0-53.0) % Plt Count 144 L (150-450) k/uL Chloride 110 H (98-107) mmol/L POC Glucose (mg/dL) 153 H (75-99) mg/dL Hemoglobin A1c (4.0-6.0) % Calcium 8.2 L (8.4-10.2) mg/dL Triglycerides 182 H (<150) mg/dL HDL Cholesterol 31 L (40-60) mg/dL 01/06/20 Range/Units 06:33 RBC (4.30-5.90) m/uL Hgb (13.0-17.5) gm/dL Hct (39.0-53.0) % Plt Count (150-450) k/uL Chloride (98-107) mmol/L POC Glucose (mg/dL) 100 H (75-99) mg/dL Hemoglobin A1c (4.0-6.0) % Calcium (8.4-10.2) mg/dL Triglycerides (<150) mg/dL HDL Cholesterol (40-60) mg/dL
[2020-01-06 12:18] LABS: Glucose,Whole Blood 233 mg/dL (75-99)
--- NOTE | 2020-01-06 15:10 | P.PN ---
Subjective Progress Note Date: 01/06/20 Principal diagnosis: Right foot ischemia, post cardiac catheterization and stent placement This is a 74-year-old white male with history of multiple medical problems including coronary artery disease, previous CABG in 1996, history of type 2 diabetes, hypertension, degenerative joint disease, history of pulmonary embolism, peripheral vessel occlusive disease, hypothyroidism, patient underwent cardiac stenting by cardiology today, and at the end of the procedure the patient developed a right groin hematoma, patient was also noted to have right cold foot, and lost pulses in the right foot. 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 Patient was seen by vascular surgery for his cold right foot, transferred to the ICU with FemoStop placed in the right groin, and he will be reevaluated again by vascular surgery may require surgical intervention. In the meantime I saw the patient in the ICU, he is on room air, denies any shortness of breath, denies any chest pain, no cough, no wheezing, no nausea, no vomiting, and no abdominal pain. Patient was reevaluated today on 01/05/20, patient is feeling much better today, able to move bilateral lower extremities, denies any pain in both feet. Denies any shortness of breath denies any chest pain, and his hemoglobin is stable at 10.0 this morning. Patient is basically asymptomatic, continues to have tenderness in the right caballero and there is a small discrete hematoma. Right foot is warm, he had diminished posterior tibial pulse, and he is now on anti-platelet therapY, and on statins Patient was reevaluated today on 01/06/20, patient is presently on overflow in the ICU, doing fairly well, relatively asymptomatic, the pain and swelling in the right foot has significantly improved. Patient is hemodynamically stable, denies any cough no wheezing no shortness of breath. Patient will likely be discharged home in the next 24 hours. Objective - Vital Signs Vital signs: Vital Signs Temp 98.4 F 01/06/20 08:00 Pulse 55 L 01/06/20 11:30 Resp 15 01/06/20 10:00 BP 123/54 01/06/20 11:30 Pulse Ox 94 L 01/06/20 08:00 Intake & Output 01/05/20 01/06/20 01/06/20 18:59 06:59 18:59 Intake Total 1000 200 Output Total 550 0 500 Balance 450 0 -300 Weight 131.134 kg Intake: IV 300 Sodium Chloride 0.9% 1, 300 000 ml @ 75 mls/hr IV . [id number] [facility] Rx#:[id number] Intake, IV Titration 200 200 Amount Magnesium Sulfate-D5w Pmx 200 1 gm In Dextrose/Water 1 100ml.bag @ 100 mls/hr IVPB Q1H [facility] Rx#: [id number] Magnesium Sulfate-D5w Pmx 200 1 gm In Dextrose/Water 1 100ml.bag @ 100 mls/hr IVPB Q1H [facility] Rx#: [id number] Oral 500 Output: Urine 550 0 500 Other: Voiding Method Urinal # Voids 1 1 1 # Bowel Movements 1 - Exam General appearance: Revealed a 74-year-old , very pleasant, in no distress. Head: Atraumatic, normocephalic. Neck: Supple without lymphadenopathy. No neck masses, no JVD, no stridor. Heart: Normal S1 and S2, no S3 gallop. Lungs: Diminished breath sounds at the bases no crackles or rhonchi or wheezes. Abdomen: Obese, soft, nontender, no megaly no rebound.. Extremities: Ecchymosis noted at the right groin. Right lower extremity warm to touch including warm foot, no evidence of cyanosis Neurological: No focal deficits. Strength and sensation are grossly intact. Psychiatric: Normal mood affect and normal mental status examination. Skin: No rashes - Labs CBC & Chem 7: 01/06/20 06:26 01/06/20 06:26 Labs: Abnormal Lab Results - Last 24 Hours (Table) 01/05/20 01/05/20 01/05/20 Range/Units 06:26 16:49 20:22 RBC (4.30-5.90) m/uL Hgb (13.0-17.5) gm/dL Hct (39.0-53.0) % Plt Count (150-450) k/uL Chloride (98-107) mmol/L POC Glucose (mg/dL) 154 H 153 H (75-99) mg/dL Hemoglobin A1c 6.6 H (4.0-6.0) % Calcium (8.4-10.2) mg/dL Triglycerides (<150) mg/dL HDL Cholesterol (40-60) mg/dL 09/01/06/20 01/06/20 Range/Units 06:26 06:26 06:33 RBC 3.15 L (4.30-5.90) m/uL Hgb 9.6 L (13.0-17.5) gm/dL Hct 30.1 L (39.0-53.0) % Plt Count 144 L (150-450) k/uL Chloride 110 H (98-107) mmol/L POC Glucose (mg/dL) 100 H (75-99) mg/dL Hemoglobin A1c (4.0-6.0) % Calcium 8.2 L (8.4-10.2) mg/dL Triglycerides 182 H (<150) mg/dL HDL Cholesterol 31 L (40-60) mg/dL 01/06/20 Range/Units 12:15 RBC (4.30-5.90) m/uL Hgb (13.0-17.5) gm/dL Hct (39.0-53.0) % Plt Count (150-450) k/uL Chloride (98-107) mmol/L POC Glucose (mg/dL) 233 H (75-99) mg/dL Hemoglobin A1c (4.0-6.0) % Calcium (8.4-10.2) mg/dL Triglycerides (<150) mg/dL HDL Cholesterol (40-60) mg/dL Assessment and Plan Assessment: Impression: Cold right foot, ischemic in nature, resolved. Iatrogenic right groin hematoma, status post cardiac catheterization and stent placement, resolving. Coronary artery disease, status post stent placement today and previous CABG in 1996. History of peripheral vessel occlusive disease and previous aortogram with bilateral runoff 11/2018 Hypertension History of pulmonary embolism History of hypothyroidism Dyslipidemia Type 2 diabetes. History of mild COPD. Recommendation: Continue present supportive care measures. Continue incentive spirometry Discharge home when cleared by cardiology and vascular surgery. Time with Patient: Less than 30
[2020-01-06 16:54] LABS: Glucose,Whole Blood 113 mg/dL (75-99)
[2020-01-06 20:09] LABS: Glucose,Whole Blood 266 mg/dL (75-99)
[2020-01-07 06:40] LABS: Glucose,Whole Blood 99 mg/dL (75-99)
[2020-01-07] MEDS: PANTOPRAZOLE 40 MG TABLET PO SCH (06:46)
[2020-01-07] MEDS: LEVOTHYROXINE 75 MCG TAB PO SCH (06:46)
[2020-01-07] MEDS: glipiZIDE 5 MG TAB PO SCH (06:46)
[2020-01-07] MEDS: INSULIN ASPART (NovoLOG) 100 UNIT/ML VIAL SQ SCH ×2 (06:47→11:52)
[2020-01-07 07:02] LABS: HCT 30.2 % (39.0-53.0); MCH 31.6 pg (25.0-35.0); MCHC 33.1 g/dL (31.0-37.0); MCV 95.4 fL (80.0-100.0); Mean Platelet Volume 8.3; Platelet Count 157 k/uL (150-450); RBC 3.16 m/uL (4.30-5.90); RDW 13.5 % (11.5-15.5); WBC 9.2 k/uL (3.8-10.6)
--- NOTE | 2020-01-07 08:05 | P.DS ---
Providers Date of admission: 01/04/20 05:52 Expected date of discharge: 01/07/20 Attending physician: Eduardo Haynes Consults: 01/04/20 10:42 Consult Physician Routine Consulting Provider: Denny Torres Consult Reason/Comments: PAD Do you want consulting provider notified?: Already Contacted Placement Type Exists?: Yes 01/04/20 11:09 Consult Physician Stat Consulting Provider: Marcelo Bar Consult Reason/Comments: icu manaement Do you want consulting provider notified?: Yes 01/04/20 11:26 Consult Physician Routine Consulting Provider: Cornell Muñiz Consult Reason/Comments: heart cath Do you want consulting provider notified?: Already Contacted Primary care physician: [facility] Course: HISTORY OF PRESENT ILLNESS 74-year-old morbidly obese male patient of Dr. Carcamo patient who apparently had an abnormal heart cath back in November showed 2 vessel disease require an angioplasty and stent placement of the first obtuse marginal branch of the circumflex with drug-eluting stent along with percutaneous transluminal coronary angioplasty and stenting of the mid circumflex coronary artery with drug-eluting stent also percutaneous transluminal coronary angioplasty and stenting of the LAD beyond the insertion of the left internal mammary artery through the internal mammary artery with drug-eluting stent. Toward the end of procedure has taken the catheter out patient developed to have large hematoma in the groin area also noted to have right cold foot and he lost the pulse. Patient is known to have significant PAD of the lower extremity. Patient was seen by vascular surgery was transferred to the ICU with FemoStop place of the right groin and he will be reevaluated again by vascular surgery over the next 24 hours. Otherwise patient is stable medically and pain is well controlled. 01/04: shunt is seen again today in the intensive care unit and has been cleared for transfer to the cardiac stepdown unit. he denies any chest pain or shortness of breath. Mild lower extremity edema and BARRERA hose added. Physical therapy added. Patient states his son Eduardo lives with them and helps.discharge plan will be to return home with homecare. Repeat hemoglobin this morning is 10. Blood sugars running between 108 and 217. Patient has been afebrile, heart rate 53, blood pressure 116/45, pulse ox 92% on room air. 01/05: Patient remains in the intensive care unit waiting for bed on cardiac stepdown unit. He states his groin is a little sore but otherwise he denies any new issues. He is complaining of pain in his feet possibly related to swelling but improved. Magnesium has been replaced. Patient has been afebrile, heart rate 80, blood pressure 136/80, pulse ox 94% on room air. Repeat blood work reveals hemoglobin 9.6. Magnesium 1.9. Triglycerides 182, cholesterol 156, LDL 89, HDL 31. Blood sugars are running between 93 and 153. We'll plan to monitor patient overnight and possible discharge tomorrow. PT has recommended home. global implementation manager has arranged for [facility] care. 01/06: Patient remains in the [facility]. His main concern today is that he broke a tooth during the night. Patient will need follow-up with dentist. He denies having any chest pain or shortness of breath. Patient has been seen by cardiology and cleared for discharge. Patient has been afebrile, heart rate 73, blood pressure 149/68, pulse ox 97% on room air. WBC 9.2, hemoglobin 10, platelet count 157. Blood sugars running between 99 and 266. Patient will be discharged home today in stable condition. ASSESSMENT AND PLAN 1. Advance coronary artery disease status post angioplasty and stent placement [address] Muñiz. 2. Large hematoma to the right groin status post cardiac catheterization stent placement. 3. Diabetes mellitus type 2. 4. Benign prostatic hypertrophy. 5. Hypertension. 6. Hyperlipidemia. 7. Hypothyroidism. Discharge plan: home with [facility] Impression and plan of care have been directed as dictated by the signing physician. Greta Nava nurse practitioner acting as scribe for signing physician. Patient Condition at Discharge: Good Plan - Discharge Summary Discharge Rx Participant: No New Discharge Prescriptions: New Atorvastatin [Lipitor] 80 mg PO DAILY #30 tab Nitroglycerin Sl Tabs [Nitrostat] 0.4 mg SUBLINGUAL Q5M PRN #25 tab PRN Reason: Chest Pain Clopidogrel [Plavix] 75 mg PO DAILY #30 tab Lisinopril [Prinivil] 10 mg PO DAILY #30 tab Continue Levothyroxine Sodium [Synthroid] 75 mcg PO DAILY Omeprazole 20 mg PO BID Tamsulosin [Flomax] 0.4 mg PO DAILY Pioglitazone [Actos] 30 mg PO HS Insulin Glargine [Lantus] 24 unit SQ QAM Aspirin [Adult Low Dose Aspirin EC] 81 mg PO DAILY glipiZIDE [Glucotrol] 15 mg PO AC-BID Furosemide [Lasix] 40 mg PO QAM Metoprolol Tartrate 25 mg PO QAM Acetaminophen/Diphenhydramine [Tylenol Pm Ex-Strength Caplet] 1 tab PO HS PRN PRN Reason: Insomnia Discontinued Quinapril HCl 40 mg PO DAILY Rosuvastatin [Crestor] 5 mg PO SUWESA Isosorbide Mononitrate ER [Imdur] 30 mg PO DAILY Furosemide [Lasix] 20 mg PO PC-LUNCH Discharge Medication List Levothyroxine Sodium [Synthroid] 75 mcg PO DAILY 06/09/17 [History] Omeprazole 20 mg PO BID 06/09/17 [History] Aspirin [Adult Low Dose Aspirin EC] 81 mg PO DAILY 11/19/18 [History] Furosemide [Lasix] 40 mg PO QAM 11/19/18 [History] Insulin Glargine [Lantus] 24 unit SQ QAM 11/19/18 [History] Pioglitazone [Actos] 30 mg PO HS 11/19/18 [History] Tamsulosin [Flomax] 0.4 mg PO DAILY 11/19/18 [History] glipiZIDE [Glucotrol] 15 mg PO AC-BID 11/19/18 [History] Acetaminophen/Diphenhydramine [Tylenol Pm Ex-Strength Caplet] 1 tab PO HS PRN 12/30/19 [History] Metoprolol Tartrate 25 mg PO QAM 12/30/19 [History] Atorvastatin [Lipitor] 80 mg PO DAILY #30 tab 01/07/20 [Rx] Clopidogrel [Plavix] 75 mg PO DAILY #30 tab 01/07/20 [Rx] Lisinopril [Prinivil] 10 mg PO DAILY #30 tab 01/07/20 [Rx] Nitroglycerin Sl Tabs [Nitrostat] 0.4 mg SUBLINGUAL Q5M PRN #25 tab 01/07/20 [Rx] Follow up Appointment(s)/Referral(s): Cornell Muñiz MD [STAFF PHYSICIAN] - 01/11/20 4:00 pm [facility], [NON-STAFF] - Osei Carcamo DO [STAFF PHYSICIAN] - 01/14/20 3:00 pm Patient Instructions/Handouts: Heart Healthy Diet (DC), Heart Catheterization (DC) Discharge Disposition: HOME WITH HOME HEALTH SERVICES
--- NOTE | 2020-01-07 08:11 | P.PN ---
Subjective Progress Note Date: 01/07/20 Principal diagnosis: Coronary artery disease This is a 74-year-old gentleman who sees Dr. Muñiz in the office on regular basis with coronary artery disease as well as hypertension and dyslipidemia who underwent yesterday successful percutaneous coronary intervention of the LAD as well as left circumflex coronary artery with adjunctive use of Impella with the procedure was complicated with right groin hematoma required manual compression. Vascular surgery was consulted to see the patient as well. The patient was seen today January [id number]. He is asymptomatic from a cardiovascular standpoint of view. He denies any symptoms of chest pain or chest discomfort or shortness of breath. He is on maximize medical treatment including dual antiplatelet therapy. From the cardiovascular standpoint of view, the patient can be discharged home Objective - Vital Signs Vital signs: Vital Signs Temp 97.7 F 01/07/20 04:00 Pulse 54 L 01/07/20 04:00 Resp 14 01/07/20 04:00 BP 136/63 01/07/20 04:00 Pulse Ox 95 01/06/20 20:00 Intake & Output 01/06/20 01/07/20 01/07/20 18:59 06:59 18:59 Intake Total 200 Output Total 500 1100 300 Balance -300 -1100 -300 Weight 129.6 kg Intake: Intake, IV Titration 200 Amount Magnesium Sulfate-D5w Pmx 200 1 gm In Dextrose/Water 1 100ml.bag @ 100 mls/hr IVPB Q1H [facility] Rx#: [id number] Output: Urine 500 1100 300 Other: Voiding Method Toilet Urinal # Voids 0 1 # Bowel Movements 1 - Constitutional General appearance: Present: no acute distress - Respiratory Respiratory: bilateral: CTA - Cardiovascular Rhythm: regular Heart sounds: normal: S1, S2 - Labs CBC & Chem 7: 01/07/20 06:20 01/06/20 06:26 Labs: Abnormal Lab Results - Last 24 Hours (Table) 01/06/20 01/06/20 01/06/20 Range/Units 12:15 16:52 20:08 RBC (4.30-5.90) m/uL Hgb (13.0-17.5) gm/dL Hct (39.0-53.0) % POC Glucose (mg/dL) 233 H 113 H 266 H (75-99) mg/dL 09/24/20 Range/Units 06:20 RBC 3.16 L (4.30-5.90) m/uL Hgb 10.0 L (13.0-17.5) gm/dL Hct 30.2 L (39.0-53.0) % POC Glucose (mg/dL) (75-99) mg/dL Assessment and Plan Assessment: Assessment #1 coronary artery disease and status post PCI of the LAD and LCx #2 right groin hematoma which has resolved #3 severe peripheral arterial disease #4 multiple comorbid conditions Plan #1 continue the current medical regimen #2 the patient can be discharged home
[2020-01-07] MEDS: INSULIN DETEMIR (LEVEMIR) 100 UNIT/ML SYR SQ SCH (08:41)
[2020-01-07] MEDS: METOPROLOL TARTRATE 25 MG TAB PO SCH (08:43)
[2020-01-07] MEDS: ATORVASTATIN 80 MG TAB PO SCH (08:43)
[2020-01-07] MEDS: ASPIRIN 81 MG PO SCH (08:44)
[2020-01-07] MEDS: CLOPIDOGREL 75 MG TAB PO SCH (08:44)
[2020-01-07] MEDS: TAMSULOSIN 0.4 MG CAP.ER.24H PO SCH (08:44)
[2020-01-07] MEDS ORDERED: FUROSEMIDE 20 MG TAB PO SCH (09:00)
[2020-01-07 11:50] LABS: Glucose,Whole Blood 220 mg/dL (75-99)
--- NOTE | 2020-01-07 12:32 | P.PN ---
Subjective Progress Note Date: 01/07/20 Principal diagnosis: Right foot ischemia, post cardiac catheterization and stent placement This is a 74-year-old white male with history of multiple medical problems including coronary artery disease, previous CABG in 1996, history of type 2 diabetes, hypertension, degenerative joint disease, history of pulmonary embolism, peripheral vessel occlusive disease, hypothyroidism, patient underwent cardiac stenting by cardiology today, and at the end of the procedure the patient developed a right groin hematoma, patient was also noted to have right cold foot, and lost pulses in the right foot. 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 Patient was seen by vascular surgery for his cold right foot, transferred to the ICU with FemoStop placed in the right groin, and he will be reevaluated again by vascular surgery may require surgical intervention. In the meantime I saw the patient in the ICU, he is on room air, denies any shortness of breath, denies any chest pain, no cough, no wheezing, no nausea, no vomiting, and no abdominal pain. Patient was reevaluated today on 01/05/20, patient is feeling much better today, able to move bilateral lower extremities, denies any pain in both feet. Denies any shortness of breath denies any chest pain, and his hemoglobin is stable at 10.0 this morning. Patient is basically asymptomatic, continues to have tenderness in the right caballero and there is a small discrete hematoma. Right foot is warm, he had diminished posterior tibial pulse, and he is now on anti-platelet therapY, and on statins Patient was reevaluated today on 01/06/20, patient is presently on overflow in the ICU, doing fairly well, relatively asymptomatic, the pain and swelling in the right foot has significantly improved. Patient is hemodynamically stable, denies any cough no wheezing no shortness of breath. Patient will likely be discharged home in the next 24 hours. Reevaluated today on 01/03/20, patient is doing great, sitting in a bedside chair, denies any shortness of breath no chest pain no cough no wheezing. Patient is on maximal therapy for his coronary artery disease. And he was cleared by different consultants to be discharged home today. No active pulmonary symptoms, he is hemodynamically stable. Objective - Vital Signs Vital signs: Vital Signs Temp 97.6 F 01/07/20 08:00 Pulse 55 L 01/07/20 12:00 Resp 15 01/07/20 12:00 BP 149/68 01/07/20 08:00 Pulse Ox 97 01/07/20 08:00 Intake & Output 01/06/20 01/07/20 01/07/20 18:59 06:59 18:59 Intake Total 200 Output Total 500 1100 300 Balance -300 -1100 -300 Weight 129.6 kg Intake: Intake, IV Titration 200 Amount Magnesium Sulfate-D5w Pmx 200 1 gm In Dextrose/Water 1 100ml.bag @ 100 mls/hr IVPB Q1H [facility] Rx#: [id number] Output: Urine 500 1100 300 Other: Voiding Method Toilet Toilet Urinal Urinal # Voids 0 1 1 # Bowel Movements 1 1 - Exam General appearance: Revealed a 74-year-old , very pleasant, in no distress. Head: Atraumatic, normocephalic. Neck: Supple without lymphadenopathy. No neck masses, no JVD, no stridor. Heart: Normal S1 and S2, no S3 gallop. Lungs: Diminished breath sounds at the bases no crackles or rhonchi or wheezes. Abdomen: Obese, soft, nontender, no megaly no rebound.. Extremities: Ecchymosis noted at the right groin. Right lower extremity warm to touch including warm foot, no evidence of cyanosis Neurological: No focal deficits. Strength and sensation are grossly intact. Psychiatric: Normal mood affect and normal mental status examination. Skin: No rashes - Labs CBC & Chem 7: 01/07/20 06:20 01/06/20 06:26 Labs: Abnormal Lab Results - Last 24 Hours (Table) 01/06/20 01/06/20 01/07/20 Range/Units 16:52 20:08 06:20 RBC 3.16 L (4.30-5.90) m/uL Hgb 10.0 L (13.0-17.5) gm/dL Hct 30.2 L (39.0-53.0) % POC Glucose (mg/dL) 113 H 266 H (75-99) mg/dL 01/07/20 Range/Units 11:49 RBC (4.30-5.90) m/uL Hgb (13.0-17.5) gm/dL Hct (39.0-53.0) % POC Glucose (mg/dL) 220 H (75-99) mg/dL Assessment and Plan Assessment: Impression: Cold right foot, ischemic in nature, resolved. Iatrogenic right groin hematoma, status post cardiac catheterization and stent placement, resolving. Coronary artery disease, status post stent placement today and previous CABG in 1996. History of peripheral vessel occlusive disease and previous aortogram with bilateral runoff 11/2018 Hypertension History of pulmonary embolism History of hypothyroidism Dyslipidemia Type 2 diabetes. History of mild COPD. Recommendation: Clearance from pulmonary to be discharged home today. Patient was clearance, and he was also cleared by cardiology Time with Patient: Less than 30
[2020-01-07 12:35] VITALS: PULSE 58; RESP 18; TEMP 97.8
[2020-01-07 12:38] VITALS: BP 113/71
== END 2020-01-07 13:12 | disposition home health service (06) | DRG 215 ==
LOC: 2CATHESU 05:52 → EDSTATUS 07:30 → 2SICU 10:25
PROVIDERS: ADMIT Internal Medicine Geriatric Medicine; ATTEND Internal Medicine Geriatric Medicine
PROC: 02HA3RJ Insertion of Short-term External Heart Assist System into Heart, Intraoperative, Percutaneous Approach (ICD-10-PCS; principal; 2020-01-04 07:30)
PROC: 027236Z Dilation of Coronary Artery, Three Arteries with Three Drug-eluting Intraluminal Devices, Percutaneous Approach (ICD-10-PCS; principal; 2020-01-04 07:30)
PROC: 5A0221D Assistance with Cardiac Output using Impeller Pump, Continuous (ICD-10-PCS; principal; 2020-01-04 07:30)
DX: I25.10 Atherosclerotic heart disease of native coronary artery without angina pectoris (principal); Z68.41 Body mass index [BMI] 40.0-44.9, adult; E11.51 Type 2 diabetes mellitus with diabetic peripheral angiopathy without gangrene; E66.01 Morbid (severe) obesity due to excess calories; J44.9 Chronic obstructive pulmonary disease, unspecified; Z95.1 Presence of aortocoronary bypass graft; Z79.4 Long term (current) use of insulin; E78.5 Hyperlipidemia, unspecified; E03.9 Hypothyroidism, unspecified; I08.1 Rheumatic disorders of both mitral and tricuspid valves; I10 Essential (primary) hypertension; K21.9 Gastro-esophageal reflux disease without esophagitis; N40.0 Benign prostatic hyperplasia without lower urinary tract symptoms; M19.90 Unspecified osteoarthritis, unspecified site; D49.2 Neoplasm of unspecified behavior of bone, soft tissue, and skin; Z79.82 Long term (current) use of aspirin; Z79.890 Hormone replacement therapy; Z79.899 Other long term (current) drug therapy; Z86.711 Personal history of pulmonary embolism; Z87.891 Personal history of nicotine dependence; Z96.1 Presence of intraocular lens; S30.1XXA Contusion of abdominal wall, initial encounter; Z98.42 Cataract extraction status, left eye; Z98.41 Cataract extraction status, right eye; Z98.890 Other specified postprocedural states; Z87.19 Personal history of other diseases of the digestive system; Z90.49 Acquired absence of other specified parts of digestive tract; Z88.1 Allergy status to other antibiotic agents; Z88.8 Allergy status to other drugs, medicaments and biological substances; Z87.01 Personal history of pneumonia (recurrent); Z87.442 Personal history of urinary calculi; Z82.49 Family history of ischemic heart disease and other diseases of the circulatory system
CPT/HCPCS: 80048; 80053; 80061; 83036; 83735; 85025; 85027; 85347

== ENCOUNTER → 2020-01-22 | Outpatient (CLI) | payer MEDICARE ==
[2020-01-22 17:35] LABS: African American GFR (CKD) 97.2 (60.0-200.0); Albumin 3.9 g/dL (3.80-4.90); Albumin/Globulin Ratio 1.86 (1.60-3.17); Anion Gap 5.6 mmol/L (4.00-12.00); BUN/Creat Ratio 14.44 Ratio (12.00-20.00); Calcium 8.5 mg/dL (8.7-10.3); Carbon Dioxide 28.4 mmol/L (21.6-31.8); Chol/HDL Ratio 3.93; Globulin 2.1 g/dL (1.6-3.3); Non-African American GFR(CKD) 83.8 (60.0-200.0); Potassium 3.4 mmol/L (3.5-5.5); Total Bilirubin 0.5 mg/dL (0.3-1.2)
[2020-01-22 19:06] LABS: Hemoglobin A1C 6.4 % (4.0-6.0)
[2020-01-22 22:23] LABS: Urine Creatinine 35.2 mg/dL
== END | disposition home or self-care (01) ==
LOC: LABWHC1 09:53
PROVIDERS: ATTEND Internal Medicine Endocrinology, Diabetes & Metabolism
DX: E11.65 Type 2 diabetes mellitus with hyperglycemia (principal)
CPT/HCPCS: 36415; 80053; 80061; 82043; 82570; 83036; 84443

== ENCOUNTER → 2020-07-08 | Outpatient (CLI) | payer MEDICARE ==
--- NOTE | 2020-07-08 09:17 | CT ---
EXAMINATION TYPE: CT brain wo/w con DATE OF EXAM: 07/08/2020 COMPARISON: 08/14/2018 HISTORY: Sudden headaches CT DLP: 2128.60mGycm CONTRAST: CT scan of the head is performed without and with IV Contrast, patient injected with 100 ml mL of Iso melina 300. Unenhanced followed by contrast enhanced CT of the brain is submitted for evaluation. Mild generalize d atrophic change redemonstrated. The ventricles are midline. There is no evidence for intracranial hemorrhage or extra-axial collection. No mass effects are identified. Visualized bony calvarium is intact. Contrast is administered and no enhancing lesions are detected. No pathologic enhancement i s identified. If symptoms persist consider MRI. IMPRESSION: Age-related atrophic and chronic small vessel ischemic change without evidence for enhanc ing lesion.
== END | disposition home or self-care (01) ==
LOC: RADCTMAIN 07:50
PROVIDERS: ATTEND Family Medicine
DX: I67.82 Cerebral ischemia (principal); R51.9 Headache, unspecified
CPT/HCPCS: 82565; 84520; 70470; 36415; Q9967

== ENCOUNTER → 2020-09-01 | Outpatient (CLI) | payer MEDICARE ==
[2020-09-01 19:05] LABS: African American GFR (CKD) 68.6 (60.0-200.0); Albumin 4.4 g/dL (3.80-4.90); Anion Gap 8.3 mmol/L (4.00-12.00); BUN/Creat Ratio 20.83 Ratio (12.00-20.00); Calcium 9.4 mg/dL (8.7-10.3); Carbon Dioxide 25.7 mmol/L (21.6-31.8); Chol/HDL Ratio 4.71; Globulin 2.2 g/dL (1.6-3.3); LDL Cholesterol,Calculated 79.2 mg/dL (0.0-131.0); Non-African American GFR(CKD) 59.2 (60.0-200.0); Total Bilirubin 0.6 mg/dL (0.3-1.2); Total Protein 6.6 g/dL (6.2-8.2); VLDL Calculation 35.8 mg/dL (5.00-40.00)
[2020-09-01 22:30] LABS: Hemoglobin A1C 7.8 % (4.0-6.0)
[2020-09-02 00:53] LABS: Urine Creatinine 61.3 mg/dL
== END | disposition home or self-care (01) ==
LOC: LABWHC1 12:16
PROVIDERS: ATTEND Internal Medicine Endocrinology, Diabetes & Metabolism
DX: E11.65 Type 2 diabetes mellitus with hyperglycemia (principal)
CPT/HCPCS: 36415; 80053; 80061; 82043; 82570; 83036; 84443

== ENCOUNTER → 2021-02-21 | Outpatient (CLI) | payer MEDICARE ==
[2021-02-21 20:58] LABS: Albumin 3.9 g/dL (3.8-4.9); Albumin/Globulin Ratio 1.63 (1.60-3.17); Anion Gap 13.6 mmol/L (4.00-12.00); BUN/Creat Ratio 12.8 Ratio (12.00-20.00); Blood Urea Nitrogen 12.8 mg/dL (9.0-27.0); Calcium 8.8 mg/dL (8.7-10.3); Carbon Dioxide 25.4 mmol/L (21.6-31.8); Chol/HDL Ratio 5.02 Ratio; Globulin 2.4 g/dL (1.6-3.3); HDL Cholesterol 27.9 mg/dL (40.00-60.00); LDL Cholesterol,Calculated 70.3 mg/dL (0.0-131.0); Non-African American GFR(CKD) 73.3 (60.0-200.0); Potassium 4.4 mmol/L (3.5-5.5); Total Bilirubin 0.6 mg/dL (0.30-1.20); Total Protein 6.3 g/dL (6.2-8.2); VLDL Calculation 41.8 mg/dL (5.00-40.00)
[2021-02-22 10:03] LABS: Urine Creatinine 31.4 mg/dL (39.0-259.0)
== END | disposition home or self-care (01) ==
LOC: LABWHC1 13:11
PROVIDERS: ATTEND Internal Medicine Endocrinology, Diabetes & Metabolism
DX: E11.65 Type 2 diabetes mellitus with hyperglycemia (principal)
CPT/HCPCS: 36415; 80053; 80061; 82043; 82570; 83036; 84443

== ENCOUNTER 2021-03-06 11:43 | Emergency (ER) | payer MEDICARE ==
[2021-03-06 11:57] VITALS: TEMP 98
[2021-03-06] MEDS ORDERED: KETOROLAC 30 MG/ML 1 ML VIAL IVP STA (12:56)
[2021-03-06] MEDS ORDERED: SODIUM CHLORIDE 0.9% 500 ML 500 ML IV STA (12:56)
[2021-03-06] MEDS ORDERED: MECLIZINE 25 MG TAB PO STA (12:56)
[2021-03-06 13:14] LABS: Basophils % (A) 0 %; Eosinophils # (A) 0.3 k/uL (0-0.7); Eosinophils % (A) 4 %; HCT 37.2 % (39.0-53.0); HGB 12.1 gm/dL (13.0-17.5); Lymphocytes # (A) 0.7 k/uL (1.0-4.8); Lymphocytes % (A) 10 %; MCH 30.1 pg (25.0-35.0); MCHC 32.6 g/dL (31.0-37.0); MCV 92.3 fL (80.0-100.0); Mean Platelet Volume 9.3; Monocytes # (A) 0.3 k/uL (0-1.0); Monocytes % (A) 5 %; Neutrophils % (A) 79 %; Platelet Count 134 k/uL (150-450); RBC 4.03 m/uL (4.30-5.90); RDW 14.2 % (11.5-15.5); WBC 6.3 k/uL (3.8-10.6)
--- NOTE | 2021-03-06 13:18 | ED ---
General Adult HPI - General Chief complaint: Dizziness Stated complaint: dizziness Time Seen by Provider: 03/06/21 12:00 Source: patient, RN notes reviewed, old records reviewed Mode of arrival: ambulatory Limitations: no limitations - History of Present Illness Initial comments: This is a 75-year-old male who presents emergency department stating that he woke up this morning when he went to get up the whole room was spinning it was difficult for him to walk. Patient states had grab onto thinks to continue to walk. Patient states he also has a mild headache. Patient also complains of right trapezius muscle pain. Patient denies any numbness weakness. Patient denies any near syncopal episode. Patient denies any nausea or vomiting. Patient states movement doesn't seem to make it worse however moving his head doesn't seem to change while he sitting in bed. Patient states she's had similar symptoms in the past. Patient denies any recent fever or chills. Patient denies any chest pain difficulty breathing. - Related Data Home Medications Medication Instructions Recorded Confirmed Levothyroxine Sodium [Synthroid] 75 mcg PO DAILY 06/09/17 03/06/21 Omeprazole 20 mg PO DAILY 06/09/17 03/06/21 Furosemide [Lasix] 40 mg PO DAILY 11/19/18 03/06/21 Pioglitazone [Actos] 30 mg PO DAILY 11/19/18 03/06/21 Tamsulosin [Flomax] 0.4 mg PO DAILY 11/19/18 03/06/21 Metoprolol Tartrate 25 mg PO DAILY 12/30/19 03/06/21 Atorvastatin [Lipitor] 80 mg PO HS 03/06/21 03/06/21 Furosemide [Lasix] 20 mg PO DAILY@1400 03/06/21 03/06/21 Insulin Degludec [Tresiba 22 units SQ DAILY 03/06/21 03/06/21 Flextouch U-100 Pen] Metoprolol Tartrate [Lopressor] 12.5 mg PO HS 03/06/21 03/06/21 glipiZIDE [Glucotrol] 10 mg PO TID 03/06/21 03/06/21 Previous Rx's Medication Instructions Recorded Clopidogrel [Plavix] 75 mg PO DAILY #30 tab 01/07/20 Lisinopril [Prinivil] 10 mg PO DAILY #30 tab 01/07/20 Meclizine [Antivert] 25 mg PO TID #20 tab 03/06/21 Allergies Allergy/AdvReac Type Severity Reaction Status Date / Time levofloxacin [From Levaquin] Allergy Anaphylaxis Verified 03/06/21 14:11 metformin Allergy Rash/Hives Verified 03/06/21 14:11 Review of Systems ROS Statement: Those systems with pertinent positive or pertinent negative responses have been documented in the HPI. ROS Other: All systems not noted in ROS Statement are negative. Past Medical History Past Medical History: Coronary Artery Disease (CAD), Diabetes Mellitus, GERD/Reflux, Hyperlipidemia, Hypertension, Osteoarthritis (OA), Pneumonia, Pulmonary Embolus (PE), Thyroid Disorder Additional Past Medical History / Comment(s): fx rt hand, carpal tunnel kisha. ?murmur, sinus, kidney stone History of Any Multi-Drug Resistant Organisms: None Reported Past Surgical History: Appendectomy, Cholecystectomy, Coronary Bypass/CABG, Heart Catheterization, Heart Catheterization With Stent, Hernia Repair Additional Past Surgical History / Comment(s): triple vessel cabg in 1996, hernia repair(triple per old hx) in 1959, ventral hernia 2006, colonoscopy.kisha cataracts-lens implants Past Anesthesia/Blood Transfusion Reactions: No Reported Reaction Past Psychological History: Depression Smoking Status: Never smoker Past Alcohol Use History: Occasional Past Drug Use History: None Reported - Past Family History Father Family Medical History: Myocardial Infarction (MS) Additional Family Medical History / Comment(s): from [place] age 44 Mother Additional Family Medical History / Comment(s): age 86 from [facility] General Exam - General Exam Comments Initial Comments: GENERAL: Patient is well-developed and well-nourished. Patient is nontoxic and well- hydrated and is in mild distress. ENT: Neck is soft and supple. No significant lymphadenopathy is noted. Oropharynx is clear. Moist mucous membranes. Patient does have full range of motion of the neck however when he looks to the left he does have some right trapezius pain. Patient's right trapezius muscle is tender to palpation. EYES: The sclera were anicteric and conjunctiva were pink and moist. Extraocular movements were intact and pupils were equal round and reactive to light. E yelids were unremarkable. PULMONARY: Unlabored respirations. Good breath sounds bilaterally. No audible rales rhonchi or wheezing was noted. CARDIOVASCULAR: There is a regular rate and rhythm without any murmurs gallops or rubs. ABDOMEN: Soft and nontender with normal bowel sounds. SKIN: Skin is clear with no lesions or rashes and otherwise unremarkable. NEUROLOGIC: Patient is alert and oriented x3. Cranial nerves II through XII are grossly intact. Motor and sensory are also intact. Normal speech, volume and content. Symmetrical smile. Finger to nose testing bilaterally was normal. MUSCULOSKELETAL: Normal extremities with adequate strength and full range of motion. LYMPHATICS: No significant lymphadenopathy is noted PSYCHIATRIC: Normal psychiatric evaluation. Limitations: no limitations Course Vital Signs 03/06/21 03/06/21 03/06/21 11:52 12:14 13:00 Temperature 98 F Pulse Rate 51 L 45 L 48 L Respiratory 18 18 16 Rate Blood Pressure 98/71 114/61 132/50 O2 Sat by Pulse 95 97 97 Oximetry 03/06/21 15:00 Temperature Pulse Rate 43 L Respiratory 18 Rate Blood Pressure 122/57 O2 Sat by Pulse 96 Oximetry Medical Decision Making - Medical Decision Making EKG shows sinus bradycardia with frequent PVCs at 65 bpm UT interval is 208 QRS is 96 QT interval 472 QTC is 490. Patient's EKG shows no ST segment elevation or depression. Patient's EKG shows Q waves in II, III, and F aVF. Patient received Toradol and Antivert. I will back into reevaluate the patient patient's trapezius muscle was no longer tender and he stated he can move his neck with full range of motion without pain. Chest x-ray showed no acute abnormality. CT of the brain shows no acute abnormality. Patient was able to ambulate without problem and he felt comfortable going home. Patient will be given Antivert on discharge - Lab Data Result diagrams: 03/06/21 12:59 03/06/21 12:59 Lab Results 03/06/21 03/06/21 03/06/21 Range/Units 12:59 12:59 12:59 WBC 6.3 (3.8-10.6) k/uL RBC 4.03 L (4.30-5.90) m/uL Hgb 12.1 L (13.0-17.5) gm/dL Hct 37.2 L (39.0-53.0) % MCV 92.3 (80.0-100.0) fL MCH 30.1 (25.0-35.0) pg MCHC 32.6 (31.0-37.0) g/dL RDW 14.2 (11.5-15.5) % Plt Count 134 L (150-450) k/uL MPV 9.3 Neutrophils % 79 % Lymphocytes % 10 % Monocytes % 5 % Eosinophils % 4 % Basophils % 0 % Neutrophils # 5.0 (1.3-7.7) k/uL Lymphocytes # 0.7 L (1.0-4.8) k/uL Monocytes # 0.3 (0-1.0) k/uL Eosinophils # 0.3 (0-0.7) k/uL Basophils # 0.0 (0-0.2) k/uL PT 10.1 (9.0-12.0) sec INR 0.9 (<1.2) APTT 23.8 (22.0-30.0) sec Sodium 138 (137-145) mmol/L Potassium 4.0 (3.5-5.1) mmol/L Chloride 109 H (98-107) mmol/L Carbon Dioxide 18 L (22-30) mmol/L Anion Gap 11 mmol/L BUN 27 H (9-20) mg/dL Creatinine 1.38 H (0.66-1.25) mg/dL Est GFR (CKD-EPI)AfAm 58 (>60 ml/min/1.73 sqM) Est GFR (CKD-EPI)NonAf 50 (>60 ml/min/1.73 sqM) Glucose 133 H (74-99) mg/dL Calcium 8.3 L (8.4-10.2) mg/dL Magnesium 1.4 L (1.6-2.3) mg/dL Total Bilirubin 1.0 (0.2-1.3) mg/dL AST 56 (17-59) U/L ALT 39 (4-49) U/L Alkaline Phosphatase 155 H (38-126) U/L Troponin I (0.000-0.034) ng/mL Total Protein 6.5 (6.3-8.2) g/dL Albumin 3.6 (3.5-5.0) g/dL 03/06/21 Range/Units 12:59 WBC (3.8-10.6) k/uL RBC (4.30-5.90) m/uL Hgb (13.0-17.5) gm/dL Hct (39.0-53.0) % MCV (80.0-100.0) fL MCH (25.0-35.0) pg MCHC (31.0-37.0) g/dL RDW (11.5-15.5) % Plt Count (150-450) k/uL MPV Neutrophils % % Lymphocytes % % Monocytes % % Eosinophils % % Basophils % % Neutrophils # (1.3-7.7) k/uL Lymphocytes # (1.0-4.8) k/uL Monocytes # (0-1.0) k/uL Eosinophils # (0-0.7) k/uL Basophils # (0-0.2) k/uL PT (9.0-12.0) sec INR (<1.2) APTT (22.0-30.0) sec Sodium (137-145) mmol/L Potassium (3.5-5.1) mmol/L Chloride (98-107) mmol/L Carbon Dioxide (22-30) mmol/L Anion Gap mmol/L BUN (9-20) mg/dL Creatinine (0.66-1.25) mg/dL Est GFR (CKD-EPI)AfAm (>60 ml/min/1.73 sqM) Est GFR (CKD-EPI)NonAf (>60 ml/min/1.73 sqM) Glucose (74-99) mg/dL Calcium (8.4-10.2) mg/dL Magnesium (1.6-2.3) mg/dL Total Bilirubin (0.2-1.3) mg/dL AST (17-59) U/L ALT (4-49) U/L Alkaline Phosphatase (38-126) U/L Troponin I 0.018 (0.000-0.034) ng/mL Total Protein (6.3-8.2) g/dL Albumin (3.5-5.0) g/dL Disposition Clinical Impression: Vertigo, Renal insufficiency Disposition: HOME SELF-CARE Condition: Good Instructions (If sedation given, give patient instructions): Vertigo (ED) Prescriptions: Meclizine [Antivert] 25 mg PO TID #20 tab Is patient prescribed a controlled substance at d/c from ED?: No Referrals: Osei Carcamo DO [Primary Care Provider] - 1-2 days Time of Disposition: 15:08
[2021-03-06 13:27] LABS: INR 0.9 (<1.2); Partial Thromboplastin Time 23.8 sec (22.0-30.0); Prothrombin Time 10.1 sec (9.0-12.0)
[2021-03-06 13:37] LABS: Albumin 3.6 g/dL (3.5-5.0); Calcium 8.3 mg/dL (8.4-10.2); Magnesium 1.4 mg/dL (1.6-2.3); Total Protein 6.5 g/dL (6.3-8.2)
--- NOTE | 2021-03-06 13:40 | XR ---
EXAMINATION TYPE: XR chest 2V DATE OF EXAM: 03/06/2021 COMPARISON: Chest x-ray 06/09/2017, CT chest 06/09/2017 HISTORY: Chest pain, dizziness TECHNIQUE: Frontal and lateral views of the chest are obtained. FINDINGS: There is no focal air space opacity, pleural effusion, or pneumothorax seen. The cardiac silhouette size is enlarged, patient rotated. Interstitium is increased. There are overlying artifact s. Patient is post median sternotomy. The osseous structures are intact. IMPRESSION: Cardiomegaly may be accentuated by technique. There is some underlying interstitial burton ges within the lungs. Emphysema.
--- NOTE | 2021-03-06 14:58 | CT ---
EXAMINATION TYPE: CT brain wo con DATE OF EXAM: 03/06/2021 COMPARISON: CT brain 07/08/2020 HISTORY: Weakness and dizziness. CT DLP: 1232.4 mGycm Automated exposure control for dose reduction was used. Helical imaging through the brain. FINDINGS: There is cortical atrophy. No hemorrhage or hydrocephalus is noted. There is cerebral vascular calcif ications present. Some artifact is noted of the exam. Calvarium is intact. Paranasal sinuses are well aerated as visualized. Periventricular white matter shows patchy low attenuation similar to prior ex am, findings likely represent chronic small vessel ischemic change. IMPRESSION: NO ACUTE ABNORMALITY.
[2021-03-06 15:03] VITALS: BP 122/57; PULSE 43; RESP 18
== END 2021-03-06 15:18 | disposition home or self-care (01) ==
LOC: EC 11:43
DX: R42 Dizziness and giddiness (principal); N28.9 Disorder of kidney and ureter, unspecified; I10 Essential (primary) hypertension; E78.5 Hyperlipidemia, unspecified; K21.9 Gastro-esophageal reflux disease without esophagitis; E11.9 Type 2 diabetes mellitus without complications; M19.90 Unspecified osteoarthritis, unspecified site; E07.9 Disorder of thyroid, unspecified; I25.10 Atherosclerotic heart disease of native coronary artery without angina pectoris; Z88.8 Allergy status to other drugs, medicaments and biological substances; Z88.1 Allergy status to other antibiotic agents; Z79.890 Hormone replacement therapy; Z79.899 Other long term (current) drug therapy; Z79.84 Long term (current) use of oral hypoglycemic drugs; Z79.4 Long term (current) use of insulin
CPT/HCPCS: 36415; 93005; 80053; 83735; 84484; 85025; 85610; 85730; 71046; 70450; 99284; 96374; 96361; J1885

== ENCOUNTER → 2022-01-23 | Outpatient (CLI) | payer MEDICARE ==
--- NOTE | 2022-01-23 14:16 | XR ---
EXAMINATION TYPE: XR humerus LT DATE OF EXAM: 01/23/2022 COMPARISON: NONE HISTORY: Pain TECHNIQUE: 2 views submitted. FINDINGS: The osseous structures are intact and there is diffuse osteopenia. There is severe AC joint arthropat hy.. IMPRESSION: 1. Diffuse osteopenia and severe AC joint arthropathy.
== END | disposition home or self-care (01) ==
LOC: RADXRMAIN 13:20
PROVIDERS: ATTEND Family Medicine
DX: M19.042 Primary osteoarthritis, left hand (principal); M85.872 Other specified disorders of bone density and structure, left ankle and foot

== ENCOUNTER 2022-02-11 01:49 | Observation (INO) | payer MEDICARE ==
[2022-02-11] MEDS ORDERED: DEXTROSE 5%-0.45% NACL 1,000 ML IV ONE (02:47)
--- NOTE | 2022-02-11 02:47 | ED ---
Recheck HPI - General Chief Complaint: Recheck/Abnormal Lab/Rx Stated Complaint: Diabetic Complications Time Seen by Provider: 02/11/22 01:54 Source: EMS, RN notes reviewed, old records reviewed Mode of arrival: EMS Limitations: no limitations - History of Present Illness Initial Comments: This is a 76-year-old male to the emergency department for evaluation patient presents today for evaluation regards to low blood sugar significantly low blood sugar, patient is on oral hypoglycemics patient is a diabetic. No insulin. Patient blood sugar was low, he feels lightheaded dizzy and weak all symptoms are mildly improved after being administered MD Complaint: abnormal lab (Low blood sugar) -: minutes(s) Returns Today for: Called Because of Abnormal Lab/Test Symptoms Since Prior Visit: no new symptoms Context: called for abnormal lab result Associated Symptoms: malaise Treatments Prior to Arrival: other (0) - Related Data Home Medications Medication Instructions Recorded Confirmed Levothyroxine Sodium [Synthroid] 75 mcg PO DAILY 06/09/17 03/06/21 Omeprazole 20 mg PO DAILY 06/09/17 03/06/21 Furosemide [Lasix] 40 mg PO DAILY 11/19/18 03/06/21 Pioglitazone [Actos] 30 mg PO DAILY 11/19/18 03/06/21 Tamsulosin [Flomax] 0.4 mg PO DAILY 11/19/18 03/06/21 Metoprolol Tartrate 25 mg PO DAILY 12/30/19 03/06/21 Atorvastatin [Lipitor] 80 mg PO HS 03/06/21 03/06/21 Furosemide [Lasix] 20 mg PO DAILY@1400 03/06/21 03/06/21 Insulin Degludec [Tresiba 22 units SQ DAILY 03/06/21 03/06/21 Flextouch U-100 Pen] Metoprolol Tartrate [Lopressor] 12.5 mg PO HS 03/06/21 03/06/21 glipiZIDE [Glucotrol] 10 mg PO TID 03/06/21 03/06/21 Previous Rx's Medication Instructions Recorded Clopidogrel [Plavix] 75 mg PO DAILY #30 tab 01/07/20 lisinopriL [Prinivil] 10 mg PO DAILY #30 tab 01/07/20 Meclizine [Antivert] 25 mg PO TID #20 tab 03/06/21 Allergies Allergy/AdvReac Type Severity Reaction Status Date / Time levofloxacin [From Levaquin] Allergy Anaphylaxis Verified 02/11/22 02:00 metformin Allergy Rash/Hives Verified 02/11/22 02:00 Review of Systems ROS Statement: Those systems with pertinent positive or pertinent negative responses have been documented in the HPI. ROS Other: All systems not noted in ROS Statement are negative. Past Medical History Past Medical History: Coronary Artery Disease (CAD), Diabetes Mellitus, GERD/Reflux, Hyperlipidemia, Hypertension, Osteoarthritis (OA), Pneumonia, Pulmonary Embolus (PE), Thyroid Disorder Additional Past Medical History / Comment(s): fx rt hand, carpal tunnel kisha. ?murmur, sinus, kidney stone History of Any Multi-Drug Resistant Organisms: None Reported Past Surgical History: Appendectomy, Cholecystectomy, Coronary Bypass/CABG, Heart Catheterization, Heart Catheterization With Stent, Hernia Repair Additional Past Surgical History / Comment(s): triple vessel cabg in 1996, hernia repair(triple per old hx) in 1959, ventral hernia 2006, colonoscopy.kisha cataracts-lens implants Past Anesthesia/Blood Transfusion Reactions: No Reported Reaction Past Psychological History: Depression Smoking Status: Never smoker Past Alcohol Use History: Occasional Past Drug Use History: None Reported - Past Family History Father Family Medical History: Myocardial Infarction ([place]) Additional Family Medical History / Comment(s): from [place] age 44 Mother Additional Family Medical History / Comment(s): age 86 from [facility] General Exam Limitations: no limitations General appearance: alert, in no apparent distress Head exam: Present: atraumatic, normocephalic, normal inspection Eye exam: Present: normal appearance, PERRL, EOMI. Absent: scleral icterus, conjunctival injection, periorbital swelling ENT exam: Present: normal exam, mucous membranes moist Neck exam: Present: normal inspection. Absent: tenderness, meningismus, lymphadenopathy Respiratory exam: Present: normal lung sounds bilaterally. Absent: respiratory distress, wheezes, rales, rhonchi, stridor Cardiovascular Exam: Present: regular rate, normal rhythm, normal heart sounds. Absent: systolic murmur, diastolic murmur, rubs, gallop, clicks GI/Abdominal exam: Present: soft, normal bowel sounds. Absent: distended, tenderness, guarding, rebound, rigid Extremities exam: Present: normal inspection, full ROM, normal capillary refill. Absent: tenderness, pedal edema, joint swelling, calf tenderness Back exam: Present: normal inspection Neurological exam: Present: alert, oriented X3, CN II-XII intact Psychiatric exam: Present: normal affect, normal mood Skin exam: Present: warm, dry, intact, normal color. Absent: rash Course Vital Signs 02/11/22 02/11/22 02:03 03:18 Temperature 98.4 F Pulse Rate 60 59 L Respiratory 15 15 Rate Blood Pressure 148/98 139/74 O2 Sat by Pulse 100 100 Oximetry - Reevaluation(s) Reevaluation #1: 02/11/22 03:19 Record is reviewed Reevaluation #2: 02/11/22 03:19 Patient informed results and questions answered Medical Decision Making - Medical Decision Making 76 male DF for evaluation patient has low blood sugar significantly low blood sugar on oral anti-hyperglycemic or diabetic medications. Patient will be placed in observation for monitoring of blood sugar - Lab Data Result diagrams: 02/11/22 02:57 02/11/22 02:57 - EKG Data -: EKG Interpreted by Me (EKG sinus 60. 218 QRS 123 QTc 447) Disposition Clinical Impression: Hypoglycemia Narrative: Recurrent Hypoglycemia Disposition: ADMITTED IP TO THIS [facility] Condition: Good Is patient prescribed a controlled substance at d/c from ED?: No Time of Disposition: 03:20
[2022-02-11 02:55] LABS: Glucose,Whole Blood 79 mg/dL (70-110)
[2022-02-11 03:08] LABS: Basophils % (A) 1 %; Eosinophils # (A) 0.1 k/uL (0-0.7); Eosinophils % (A) 2 %; HCT 37.4 % (39.0-53.0); HGB 12.9 gm/dL (13.0-17.5); Lymphocytes # (A) 0.3 k/uL (1.0-4.8); Lymphocytes % (A) 8 %; MCH 30.8 pg (25.0-35.0); MCHC 34.5 g/dL (31.0-37.0); MCV 89.3 fL (80.0-100.0); Mean Platelet Volume 8.9; Monocytes # (A) 0.2 k/uL (0-1.0); Monocytes % (A) 5 %; Neutrophils # (A) 3.3 k/uL (1.3-7.7); Neutrophils % (A) 83 %; Platelet Count 124 k/uL (150-450); RBC 4.19 m/uL (4.30-5.90); RDW 14.2 % (11.5-15.5); WBC 3.9 k/uL (3.8-10.6)
[2022-02-11 03:19] LABS: ALT 33 U/L (4-49); AST 45 U/L (17-59); African American GFR (CKD) 60 (>60 ml/min/1.73 sqM); Albumin 3.7 g/dL (3.5-5.0); Alkaline Phosphatase 110 U/L (38-126); Anion Gap 12 mmol/L; Blood Urea Nitrogen 24 mg/dL (9-20); Calcium 8.8 mg/dL (8.4-10.2); Carbon Dioxide 22 mmol/L (22-30); Chloride 101 mmol/L (98-107); Glucose 81 mg/dL (74-99); Magnesium 1.5 mg/dL (1.6-2.3); Non-African American GFR(CKD) 52 (>60 ml/min/1.73 sqM); Potassium 4.9 mmol/L (3.5-5.1); Sodium 135 mmol/L (137-145); Total Bilirubin 0.7 mg/dL (0.2-1.3); Total Protein 6.4 g/dL (6.3-8.2)
[2022-02-11 03:43] LABS: Appearance,Urine Clear (Clear); Bilirubin,Urine Negative (Negative); Blood,Urine Trace (Negative); Color,Urine Colorless; Glucose,Urine (UA) Negative (Negative); Ketones,Urine Negative (Negative); Leukocyte Esterase,Urine Negative (Negative); Nitrite,Urine Negative (Negative); Protein,Urine Negative (Negative); RBC,Urine <1 /hpf (0-5); Specific Gravity,Urine 1.005 (1.001-1.035); Urobilinogen,Urine <2.0 mg/dL (<2.0); WBC,Urine 1 /hpf (0-5)
[2022-02-11 05:23] LABS: Glucose,Whole Blood 61 mg/dL (70-110)
[2022-02-11 05:45] LABS: Glucose,Whole Blood 66 mg/dL (70-110)
[2022-02-11 06:14] LABS: Glucose,Whole Blood 82 mg/dL (70-110)
[2022-02-11 08:02] LABS: Glucose,Whole Blood 107 mg/dL (70-110)
[2022-02-11 09:29] LABS: Glucose,Whole Blood 120 mg/dL (70-110)
[2022-02-11 11:27] LABS: Glucose,Whole Blood 107 mg/dL (70-110)
[2022-02-11] MEDS ORDERED: TRIAMCINOLONE 0.1% CREAM 80 GM TUBE TOPICAL PRN (13:01)
--- NOTE | 2022-02-11 13:18 | P.HPIM ---
History of Present Illness 76-year-old male came in with the complaints of low blood sugar patient was having lightheadedness and dizziness and found to have low blood sugars. Patient was on D5 half-normal saline here. Patient is not a great historian and unable to tell me why he is an antibiotic the patient appears to be in Bactrim patient has elevated creatinine of 1.4 baseline around 0.9. Patient does have history of coronary artery disease and had a history had history of CABG doesn't have any history of a congestive heart failure chest x-ray did not show any CHF findings patient also is on Lasix at home which is being held as well because of elevated creatinine and dizziness may be related to dehydration. Patient had an EKG which showed a sinus bradycardia and first degree heart block with the 50s patient is on a very low-dose of beta mayra. Because of his coronary artery disease. REVIEW OF SYSTEMS: CONSTITUTIONAL: No fever, no malaise, no fatigue. HEENT: No recent visual problems or hearing problems. Denied any sore throat. CARDIOVASCULAR: No chest pain, orthopnea, PND, no palpitations, no syncope. PULMONARY: No shortness of breath, no cough, no hemoptysis. GASTROINTESTINAL: No diarrhea, no nausea, no vomiting, no abdominal pain. NEUROLOGICAL: No headaches, no weakness, no numbness. HEMATOLOGICAL: Denies any bleeding or petechiae. GENITOURINARY: Denies any burning micturition, frequency, or urgency. MUSCULOSKELETAL/RHEUMATOLOGICAL: Denies any joint pain, swelling, or any muscle pain. ENDOCRINE: Denies any polyuria or polydipsia. The rest of the 14-point review of systems is negative. PHYSICAL EXAMINATION: GENERAL: The patient is alert and oriented x3, not in any acute distress. Well developed, well nourished. HEENT: Pupils are round and equally reacting to light. EOMI. No scleral icterus. No conjunctival pallor. Normocephalic, atraumatic. No pharyngeal erythema. No thyromegaly. CARDIOVASCULAR: S1 and S2 present. No murmurs, rubs, or gallops. PULMONARY: Chest is clear to auscultation, no wheezing or crackles. ABDOMEN: Soft, nontender, nondistended, normoactive bowel sounds. No palpable organomegaly. MUSCULOSKELETAL: No joint swelling or deformity. EXTREMITIES: No cyanosis, clubbing, or pedal edema. NEUROLOGICAL: Gross neurological examination did not reveal any focal deficits. SKIN: No rashes. Assessment and plan -Dizziness and near syncope: Most probably related to intravascular volume depletion are hypoglycemia, will monitor patient without to D5, hold off oral hypoglycemic agents as well as insulin. -Acute renal failure, dehydration and intravascular depletion: Secondary to probable Lasix as well as some false elevation from Bactrim Bactrim will be held and patient will be started on some gentle hydration Lasix will be held and patient doesn't have any history of congestive heart failure we will obtain a BNP -Type 2 diabetes mellitus holding off medications because of above-mentioned reasons -hypothyroidism: Currently with levothyroxine, obtain TSH -Coronary artery disease -Hypertension -Benign prostatic hypertrophy for which patient is on tamsulosin which will be continued DVT prophylaxis:. Ambulation Past Medical History Past Medical History: Coronary Artery Disease (CAD), Diabetes Mellitus, GERD/Reflux, Hyperlipidemia, Hypertension, Osteoarthritis (OA), Pneumonia, Pulmonary Embolus (PE), Thyroid Disorder Additional Past Medical History / Comment(s): fx rt hand, carpal tunnel kisha. ?murmur, sinus, kidney stone History of Any Multi-Drug Resistant Organisms: None Reported Past Surgical History: Appendectomy, Cholecystectomy, Coronary Bypass/CABG, Heart Catheterization, Heart Catheterization With Stent, Hernia Repair Additional Past Surgical History / Comment(s): triple vessel cabg in 1996, hernia repair(triple per old hx) in 1959, ventral hernia 2006, colonoscopy.kisha cataracts-lens implants Past Anesthesia/Blood Transfusion Reactions: No Reported Reaction Date of Last Stent Placement:: dec 2019 Past Psychological History: Depression Smoking Status: Never smoker Past Alcohol Use History: Occasional Past Drug Use History: None Reported - Past Family History Father Family Medical History: Myocardial Infarction ([place]) Additional Family Medical History / Comment(s): from [place] age 44 Mother Additional Family Medical History / Comment(s): age 86 from [facility] Medications and Allergies Home Medications Medication Instructions Recorded Confirmed Type Levothyroxine Sodium [Synthroid] 75 mcg PO DAILY 06/09/17 02/11/22 History Omeprazole 20 mg PO DAILY 06/09/17 02/11/22 History Furosemide [Lasix] 40 mg PO BID 11/19/18 02/11/22 History Pioglitazone [Actos] 30 mg PO DAILY 11/19/18 02/11/22 History Tamsulosin [Flomax] 0.4 mg PO DAILY 11/19/18 02/11/22 History Metoprolol Tartrate 25 mg PO DAILY 12/30/19 02/11/22 History Clopidogrel [Plavix] 75 mg PO DAILY #30 tab 01/07/20 02/11/22 Rx lisinopriL [Prinivil] 10 mg PO DAILY #30 tab 01/07/20 02/11/22 Rx Atorvastatin [Lipitor] 80 mg PO HS 03/06/21 02/11/22 History Insulin Degludec [Tresiba 22 units SQ DAILY 03/06/21 02/11/22 History Flextouch U-100 Pen] Metoprolol Tartrate [Lopressor] 12.5 mg PO HS 03/06/21 02/11/22 History glipiZIDE [Glucotrol] 15 mg PO BID 03/06/21 02/11/22 History Aspirin EC [Ecotrin Low Dose] 81 mg PO DAILY 02/11/22 02/11/22 History Potassium Chloride ER [K-Dur 20] 40 meq PO DIRECTED 02/11/22 02/11/22 History Sulfamethox-Tmp 800-160Mg [Bactrim 1 tab PO Q12HR 02/11/22 02/11/22 History DS 800-160 mg] Triamcinolone 0.1% Lotion [Kenalog 1 applic TOPICAL BID PRN 02/11/22 02/11/22 History 0.1% Lotion] Allergies Allergy/AdvReac Type Severity Reaction Status Date / Time levofloxacin [From Levaquin] Allergy Anaphylaxis Verified 02/11/22 11:42 metformin Allergy Rash/Hives Verified 02/11/22 11:42 Physical Exam Vitals: Vital Signs Temp Pulse Pulse Resp BP BP BP 02/11/22 07:00 98.3 F 50 L 18 121/78 02/11/22 04:29 97.7 F 53 L 19 148/72 02/11/22 03:18 59 L 15 139/74 02/11/22 02:03 98.4 F 60 15 148/98 Pulse Ox 02/11/22 07:00 94 L 02/11/22 04:29 97 02/11/22 03:18 100 02/11/22 02:03 100 Intake and Output 02/10/22 02/11/22 02/11/22 22:59 06:59 14:59 Intake Total 361 Balance 361 Intake: Oral 361 Other: # Voids 1 Weight 113.398 kg Results CBC & Chem 7: 02/11/22 02:57 02/11/22 02:57 Labs: Abnormal Lab Results - Last 24 Hours (Table) 02/11/22 02/11/22 02/11/22 Range/Units 02:57 02:57 03:17 RBC 4.19 L (4.30-5.90) m/uL Hgb 12.9 L (13.0-17.5) gm/dL Hct 37.4 L (39.0-53.0) % Plt Count 124 L (150-450) k/uL Lymphocytes # 0.3 L (1.0-4.8) k/uL Sodium 135 L (137-145) mmol/L BUN 24 H (9-20) mg/dL Creatinine 1.32 H (0.66-1.25) mg/dL POC Glucose (mg/dL) (70-110) mg/dL Magnesium 1.5 L (1.6-2.3) mg/dL Urine Blood Trace H (Negative) 02/11/22 02/11/22 02/11/22 Range/Units 05:22 05:43 09:27 RBC (4.30-5.90) m/uL Hgb (13.0-17.5) gm/dL Hct (39.0-53.0) % Plt Count (150-450) k/uL Lymphocytes # (1.0-4.8) k/uL Sodium (137-145) mmol/L BUN (9-20) mg/dL Creatinine (0.66-1.25) mg/dL POC Glucose (mg/dL) 61 L 66 L 120 H (70-110) mg/dL Magnesium (1.6-2.3) mg/dL Urine Blood (Negative) Thrombosis Risk Factor Assmnt - Choose All That Apply Any of the Below Risk Factors Present?: Yes Each Factor Represents 1 point: Obesity (BMI >25), Swollen legs (current) Other Risk Factors: Yes Each Risk Factor Represents 3 Points: Age 75 years or older Thrombosis Risk Factor Assessment Total Risk Factor Score: 5 Thrombosis Risk Factor Assessment Level: High Risk
[2022-02-11 13:26] LABS: Glucose,Whole Blood 51 mg/dL (70-110)
[2022-02-11] MEDS: MAGNESIUM SULFATE-D5W PMX 1 GM in DEXTROSE/WATER 1 100ML.BAG IVPB SCH ×2 (13:31→14:23)
[2022-02-11] MEDS: SODIUM CHLORIDE 0.9% 1,000 ML IV SCH (13:33)
[2022-02-11 13:46] LABS: Glucose,Whole Blood 67 mg/dL (70-110)
[2022-02-11 14:04] LABS: Glucose,Whole Blood 78 mg/dL (70-110)
[2022-02-11 15:07] LABS: Glucose,Whole Blood 134 mg/dL (70-110)
[2022-02-11 17:14] LABS: Glucose,Whole Blood 165 mg/dL (70-110)
[2022-02-11 19:19] LABS: Glucose,Whole Blood 146 mg/dL (70-110)
[2022-02-11] MEDS ORDERED: ATORVASTATIN 80 MG TAB PO SCH (21:00)
[2022-02-11 21:19] LABS: Glucose,Whole Blood 169 mg/dL (70-110)
[2022-02-12 00:20] LABS: Glucose,Whole Blood 152 mg/dL (70-110)
[2022-02-12 01:23] LABS: Glucose,Whole Blood 162 mg/dL (70-110)
[2022-02-12 04:40] LABS: Glucose,Whole Blood 171 mg/dL (70-110)
[2022-02-12 06:13] LABS: Glucose,Whole Blood 168 mg/dL (70-110)
[2022-02-12] MEDS: SODIUM CHLORIDE 0.9% 1,000 ML IV SCH (06:29)
[2022-02-12] MEDS ORDERED: LEVOTHYROXINE 75 MCG TAB PO SCH (06:30)
[2022-02-12] MEDS ORDERED: PANTOPRAZOLE 40 MG TABLET PO SCH (07:30)
[2022-02-12 08:04] LABS: Glucose,Whole Blood 166 mg/dL (70-110)
[2022-02-12 08:15] VITALS: RESP 16
[2022-02-12] MEDS ORDERED: CLOPIDOGREL 75 MG TAB PO SCH (09:00)
[2022-02-12] MEDS ORDERED: ASPIRIN 81 MG PO SCH (09:00)
[2022-02-12] MEDS ORDERED: lisinopriL 10 MG TAB PO SCH (09:00)
[2022-02-12] MEDS ORDERED: TAMSULOSIN 0.4 MG CAP.ER.24H PO SCH (09:00)
[2022-02-12 09:39] LABS: African American GFR (CKD) 84.4 (60.0-200.0); Anion Gap 10.1 mmol/L (10.00-18.00); BUN/Creat Ratio 18.7 Ratio (12.00-20.00); Blood Urea Nitrogen 18.7 mg/dL (9.0-27.0); Calcium 8.5 mg/dL (8.7-10.3); Carbon Dioxide 22.9 mmol/L (20.0-27.5); Non-African American GFR(CKD) 72.8 (60.0-200.0); Potassium 4.6 mmol/L (3.5-5.5)
[2022-02-12 10:03] LABS: Glucose,Whole Blood 240 mg/dL (70-110)
[2022-02-12 12:00] LABS: Glucose,Whole Blood 306 mg/dL (70-110)
[2022-02-12 13:42] VITALS: BP 179/61; PULSE 55; TEMP 97.4
[2022-02-12] MEDS ORDERED: INSULIN DETEMIR (LEVEMIR) 100 UNIT/ML SYR SQ SCH (13:45)
[2022-02-12 14:10] LABS: Glucose,Whole Blood 295 mg/dL (70-110)
--- NOTE | 2022-02-14 14:43 | P.DS ---
Providers Date of admission: 02/11/22 02:47 Expected date of discharge: 02/12/22 Attending physician: Jossue Mar Primary care physician: Osei Carcamo [facility] Course: Final diagnosis Dizziness and near syncope, most likely related to intravascular volume depletion and hypoglycemia Acute renal failure secondary to dehydration and intravascular depletion. Possibly due to diuretic use as well as Bactrim the patient was recently pr escribed on Type 2 diabetes mellitus, insulin and oral diabetic agents outpatient, uncontrolled with hypoglycemia Hypothyroidism history Coronary artery disease hypertension BPH history DVT prophylaxis Discharge disposition Patient is being discharged in a stable condition with guarded prognosis to home. Patient will follow-up with Dr. Carcamo in the outpatient setting upon discharge. Patient is to continue with monitoring blood sugars closely and recommending holding oral diabetic agents until follow-up with thermoforming operator and continue with insulin. Total time taken is greater than 35 minutes. Hospital course This is a 76-year-old male who was recently admitted with dizziness, abnormal blood sugars, dehydration with elevated creatinine and was being closely monitored. Patient was recently on Bactrim for lower extremity cellulitis from PCP which may have contributed to some of his kidney functions being abnormal. Patient's blood sugars have been off and lower than normal and patient is on 2 oral diabetic agents along with insulin. Instructed the patient to continue to monitor Accu-Cheks before meals and at bedtime and keep a diary of all readings and also hold oral diabetic agents for now until follow-up with PCP and endocrine. Patient may need Actos once blood sugars are more controlled. Patient is asking when he can go home. Currently no reports of chest pain, shortness of breath, or palpitations. Patient is afebrile. No reports of nausea or vomiting and patient is tolerating diet. Patient will be discharged home today . Physical exam: Gen: This is a 76-year-old male awake, alert and oriented 3, well-developed, well-nourished, obese HEENT: Head is atraumatic, normocephalic. Pupils equal, round. Sclerae is anicteric. NECK: Supple. No JVD. No lymphadenopathy. No thyromegaly. LUNGS: Clear to auscultation. No wheezes or rhonchi. No intercostal retractions. HEART: Regular rate and rhythm. No murmur. ABDOMEN: Soft. Bowel sounds are present. No masses. No tenderness. EXTREMITIES: No pedal edema. No calf tenderness. Right lower extremity with some appears to be chronic dermatitis with no redness and some swelling noted intact skin as well. NEUROLOGICAL: Patient is awake, alert and oriented x3. Cranial nerves 2 through 12 are grossly intact. Please refer to medication reconciliation sheet for a list of medications. The impression and plan of care has been dictated by Jocelyn Macias, Nurse Practitioner as directed. Dr. Rachna MD I have performed a history and examination and MDM of this patient, discussed the same with the dictator, and agree with the dictator's assessment and plan as written ,documented as a scribe. Based on total visit time, I have performed more than 50% of the visit. Patient Condition at Discharge: Good Plan - Discharge Summary New Discharge Prescriptions: Continue Levothyroxine Sodium [Synthroid] 75 mcg PO DAILY Omeprazole 20 mg PO DAILY Tamsulosin [Flomax] 0.4 mg PO DAILY Furosemide [Lasix] 40 mg PO BID Clopidogrel [Plavix] 75 mg PO DAILY #30 tab lisinopriL [Prinivil] 10 mg PO DAILY #30 tab Insulin Degludec [Tresiba Flextouch U-100 Pen] 22 units SQ DAILY Atorvastatin [Lipitor] 80 mg PO HS Metoprolol Tartrate [Lopressor] 12.5 mg PO HS Aspirin EC [Ecotrin Low Dose] 81 mg PO DAILY Triamcinolone 0.1% Lotion [Kenalog 0.1% Lotion] 1 applic TOPICAL BID PRN PRN Reason: Rash Potassium Chloride ER [K-Dur 20] 20 meq PO BID Discontinued Pioglitazone [Actos] 30 mg PO DAILY Metoprolol Tartrate 25 mg PO DAILY glipiZIDE [Glucotrol] 15 mg PO BID Sulfamethox-Tmp 800-160Mg [Bactrim DS 800-160 mg] 1 tab PO Q12HR Discharge Medication List Levothyroxine Sodium [Synthroid] 75 mcg PO DAILY 06/09/17 [History] Omeprazole 20 mg PO DAILY 06/09/17 [History] Furosemide [Lasix] 40 mg PO BID 11/19/18 [History] Tamsulosin [Flomax] 0.4 mg PO DAILY 11/19/18 [History] Clopidogrel [Plavix] 75 mg PO DAILY #30 tab 01/07/20 [Rx] lisinopriL [Prinivil] 10 mg PO DAILY #30 tab 01/07/20 [Rx] Atorvastatin [Lipitor] 80 mg PO HS 03/06/21 [History] Insulin Degludec [Tresiba Flextouch U-100 Pen] 22 units SQ DAILY 03/06/21 [History] Metoprolol Tartrate [Lopressor] 12.5 mg PO HS 03/06/21 [History] Aspirin EC [Ecotrin Low Dose] 81 mg PO DAILY 02/11/22 [History] Potassium Chloride ER [K-Dur 20] 20 meq PO BID 02/11/22 [History] Triamcinolone 0.1% Lotion [Kenalog 0.1% Lotion] 1 applic TOPICAL BID PRN 02/11/22 [History] Follow up Appointment(s)/Referral(s): Osei Carcamo DO [Primary Care Provider] - 1-2 days (CALL TO SCHEDULE APPOINTMENT. ) Lilly Robertson MD [STAFF PHYSICIAN] - 1 Week (NO ANSWER, PLEASE CALL FOR APPOINTMENT) Patient Instructions/Handouts: Hypoglycemia in a Person with Diabetes (DC) Activity/Diet/Wound Care/Special Instructions: Activity Limited until follow-up Follow-up with primary care provider this week Continue with your Lasix twice daily Continue insulin daily@22 units and hold oral diabetic agents Continue monitoring blood sugars 2-3 times daily and keep a diary of all readings especially at night for primary care follow-up Follow-up with endocrine outpatient Avoid Bactrim Discharge Disposition: HOME SELF-CARE
== END 2022-02-12 14:55 | disposition home or self-care (01) ==
LOC: EC 01:49 → 6NMEDSUR 02:47
PROVIDERS: ADMIT Hospitalist; ATTEND Hospitalist
DX: R55 Syncope and collapse (principal); E11.649 Type 2 diabetes mellitus with hypoglycemia without coma; E86.0 Dehydration; N17.9 Acute kidney failure, unspecified; N40.0 Benign prostatic hyperplasia without lower urinary tract symptoms; I10 Essential (primary) hypertension; I25.10 Atherosclerotic heart disease of native coronary artery without angina pectoris; E78.5 Hyperlipidemia, unspecified; K21.9 Gastro-esophageal reflux disease without esophagitis; F32.A Depression, unspecified; I44.0 Atrioventricular block, first degree; E03.9 Hypothyroidism, unspecified; R00.1 Bradycardia, unspecified; E66.9 Obesity, unspecified; Z79.890 Hormone replacement therapy; Z79.899 Other long term (current) drug therapy; Z79.84 Long term (current) use of oral hypoglycemic drugs; Z79.4 Long term (current) use of insulin; Z79.02 Long term (current) use of antithrombotics/antiplatelets; Z88.8 Allergy status to other drugs, medicaments and biological substances; Z86.711 Personal history of pulmonary embolism; Z90.49 Acquired absence of other specified parts of digestive tract; Z95.1 Presence of aortocoronary bypass graft; Z98.42 Cataract extraction status, left eye; Z98.41 Cataract extraction status, right eye; Z96.1 Presence of intraocular lens; Z82.49 Family history of ischemic heart disease and other diseases of the circulatory system; Z79.82 Long term (current) use of aspirin; Z68.33 Body mass index [BMI] 33.0-33.9, adult
CPT/HCPCS: 96365; 96366; 99285; 36415; 93005; 83880; 80053; 80048; 84443; 82009; 83735 ×2; 84100; 84484; 85025; 81001; 83036; G0378 ×2; J3475

== ENCOUNTER → 2022-03-14 | Outpatient (CLI) | payer MEDICARE | END | disposition home or self-care (01) | LOC: LABWHC1 14:35 | PROVIDERS: ATTEND Family Medicine | DX: M79.661 Pain in right lower leg (principal); M79.662 Pain in left lower leg | CPT/HCPCS: 36415; 85379 ==

== ENCOUNTER → 2022-03-15 | Outpatient (CLI) | payer MEDICARE ==
--- NOTE | 2022-03-15 15:36 | US ---
EXAMINATION TYPE: US venous doppler duplex LE BI DATE OF EXAM: 03/15/2022 3:13 PM COMPARISON: NONE CLINICAL HISTORY: R79.1 ABNORMAL COAGULATION PROFILE. Elevated ddimer. No redness or swelling. Hear t disease. On blood thinners. Calf pain. SIDE PERFORMED: Bilateral TECHNIQUE: The lower extremity deep venous system is examined utilizing real time linear array sonog selvin with graded compression, doppler sonography and color-flow sonography. VESSELS IMAGED: Common Femoral Vein Deep Femoral Vein Greater Saphenous Vein * Femoral Vein Popliteal Vein Small Saphenous Vein * Proximal Calf Veins (* superficial vessels) Right Leg: Negative for DVT Left Leg: Negative for DVT IMPRESSION: No evidence of DVT at this time.
== END | disposition home or self-care (01) ==
LOC: RADUSWWP 14:15
PROVIDERS: ATTEND Family Medicine
DX: R79.1 Abnormal coagulation profile (principal); R79.89 Other specified abnormal findings of blood chemistry; Z79.01 Long term (current) use of anticoagulants
CPT/HCPCS: 93970

== ENCOUNTER 2022-07-06 06:21 | Inpatient (IN) | payer MEDICARE ==
[2022-07-06] MEDS ORDERED: NITROGLYCERIN SL TABS 0.4 MG TAB SUBLINGUAL STA (06:33)
--- NOTE | 2022-07-06 06:59 | XR ---
EXAMINATION TYPE: XR chest 1V DATE OF EXAM: 03/06/2021 COMPARISON: NONE HISTORY: Short of breath TECHNIQUE: Single view FINDINGS: Heart is enlarged. There is patchy airspace infiltrates in the right lung. There are sterna l wires. There is slight increased interstitial density in the left lung. Trachea is midline. No pleu ral effusion. IMPRESSION: There is some patchy right-sided pneumonia which is mostly new compared to old exam. Card iomegaly. No definite heart failure.
--- NOTE | 2022-07-06 07:01 | ED ---
General Adult HPI - General Chief complaint: Shortness of Breath Stated complaint: heavy chest,sob Time Seen by Provider: 07/06/22 06:22 Source: patient, EMS, RN notes reviewed Mode of arrival: EMS Limitations: no limitations - History of Present Illness Initial comments: This a 76-year-old male presents emergency Department with chief complaint of shortness of breath. Patient states he always short of breath around 3 AM he woke up with chest discomfort, significant dyspnea. Patient states he does have history of COPD, CHF, CABG. Patient said Plavix, aspirin. Patient did receive aspirin by EMS and which has helped his chest discomfort. Patient states he does have leg swelling chronically but may be worsened usual. He does not weigh himself daily. Patient is placed on supplement oxygen by EMS but continued to be significantly short of breath. Patient has no fevers or chills denies nausea vomiting. - Related Data Home Medications Medication Instructions Recorded Confirmed Levothyroxine Sodium [Synthroid] 75 mcg PO AC-BRKFST 06/09/17 07/06/22 Omeprazole 20 mg PO DAILY 06/09/17 07/06/22 Tamsulosin [Flomax] 0.4 mg PO DAILY 11/19/18 07/06/22 Atorvastatin [Lipitor] 80 mg PO W/SUPPER 03/06/21 07/06/22 Metoprolol Tartrate [Lopressor] 12.5 mg PO HS 03/06/21 07/06/22 Clopidogrel [Plavix] 75 mg PO DAILY@1100 07/06/22 07/06/22 Empagliflozin [Jardiance] 25 mg PO DAILY 07/06/22 07/06/22 Furosemide [Lasix] 40 mg PO DAILY 07/06/22 07/06/22 Metoprolol Tartrate [Lopressor] 25 mg PO DAILY 07/06/22 07/06/22 Pioglitazone [Actos] 30 mg PO HS 07/06/22 07/06/22 glipiZIDE [Glucotrol] 10 mg PO W/SUPPER 07/06/22 07/06/22 Previous Rx's Medication Instructions Recorded lisinopriL [Prinivil] 10 mg PO DAILY #30 tab 01/07/20 Allergies Allergy/AdvReac Type Severity Reaction Status Date / Time levofloxacin [From Levaquin] Allergy Anaphylaxis Verified 07/06/22 09:37 metformin Allergy Rash/Hives Verified 07/06/22 09:37 Review of Systems ROS Statement: Those systems with pertinent positive or pertinent negative responses have been documented in the HPI. ROS Other: All systems not noted in ROS Statement are negative. Past Medical History Past Medical History: Coronary Artery Disease (CAD), Diabetes Mellitus, GERD/Reflux, Hyperlipidemia, Hypertension, Osteoarthritis (OA), Pneumonia, Pulmonary Embolus (PE), Thyroid Disorder Additional Past Medical History / Comment(s): fx rt hand, carpal tunnel kisha. ?murmur, sinus, kidney stone History of Any Multi-Drug Resistant Organisms: None Reported Past Surgical History: Appendectomy, Cholecystectomy, Coronary Bypass/CABG, Heart Catheterization, Heart Catheterization With Stent, Hernia Repair Additional Past Surgical History / Comment(s): triple vessel cabg in 1996, hernia repair(triple per old hx) in 1959, ventral hernia 2006, colonoscopy.kisha cataracts-lens implants Past Anesthesia/Blood Transfusion Reactions: No Reported Reaction Date of Last Stent Placement:: dec 2019 Past Psychological History: Depression Smoking Status: Never smoker Past Alcohol Use History: Occasional Past Drug Use History: None Reported - Past Family History Father Family Medical History: Myocardial Infarction ([place]) Additional Family Medical History / Comment(s): from [place] age 44 Mother Additional Family Medical History / Comment(s): age 86 from [facility] General Exam Limitations: no limitations General appearance: alert, in distress Head exam: Present: atraumatic, normocephalic, normal inspection Eye exam: Present: normal appearance, PERRL, EOMI. Absent: scleral icterus, conjunctival injection, periorbital swelling ENT exam: Present: normal exam, normal oropharynx, mucous membranes moist Neck exam: Present: normal inspection, full ROM. Absent: tenderness, meningismus, lymphadenopathy Respiratory exam: Present: respiratory distress, wheezes, rales, accessory muscle use, decreased breath sounds. Absent: normal lung sounds bilaterally, rhonchi, stridor Cardiovascular Exam: Present: regular rate, normal rhythm, normal heart sounds. Absent: systolic murmur, diastolic murmur, rubs, gallop, clicks GI/Abdominal exam: Present: soft, normal bowel sounds. Absent: distended, tenderness, guarding, rebound, rigid Extremities exam: Present: pedal edema Course Vital Signs 07/06/22 07/06/22 07/06/22 06:25 06:41 06:42 Temperature 98.0 F Pulse Rate 97 89 Respiratory 22 20 Rate Blood Pressure 205/108 140/75 O2 Sat by Pulse 94 L 100 Oximetry Fraction of 100 Inspired Oxygen (FIO2) 07/06/22 07/06/22 06:56 08:00 Temperature Pulse Rate 76 46 L Respiratory 20 20 Rate Blood Pressure 118/60 126/66 O2 Sat by Pulse 100 100 Oximetry Fraction of Inspired Oxygen (FIO2) EKG Findings - EKG Comments: EKG Findings:: EKG performed at 6:43 sinus rhythm with first-degree block rate of a 6 UT 233 QRS 107 QT/QTC 342/386 - EKG Results: EKG: interpreted by RODRIGO Medical Decision Making - Medical Decision Making Was pt. sent in by a medical professional or institution (, PA, AUDIOVISUAL LEAD TECHNICIAN, urgent care, hospital, or jail...) When possible be specific @ -No Did you speak to anyone other than the patient for history (EMS, parent, family, police, friend...)? What history was obtained from this source @ -EMS regarding prehospital treatment, care and complaint Did you review nursing and triage notes (agree or disagree)? Why? @ -I reviewed and agree with nursing and triage notes Were old charts reviewed (outside hosp., previous admission, EMS record, old EKG, old radiological studies, urgent care reports/EKG's, jail records)? Report findings @ -Review prior x-rays, laboratory studies Differential Diagnosis (chest pain, altered mental status, abdominal pain women, abdominal pain men, vaginal bleeding, weakness, fever, dyspnea, syncope, headache, dizziness, GI bleed, back pain, seizure, CVA, palpatations, mental health, musculoskeletal)? @ -Differential Dyspnea: Coronary syndrome, arrhythmia, tamponade, asthma, COPD, pulmonary embolism, pneumonia, pneumothorax, pulmonary effusion, anaphylaxis, diabetic ketoacidosis, flailed chest, pulmonary contusion, diaphragmatic rupture, anemia, neuromuscular, this is not meant to be an all-inclusive list. le EKG interpreted by me (3pts min.). @ -As above X-rays interpreted by me (1pt min.). @ -Chest x-ray shows right-sided pulmonary infiltrates, possible edema CT interpreted by me (1pt min.). @ -CT of the chest shows no evidence of PE, evidence of pneumonia in the right lung U/S interpreted by me (1pt. min.). @ -None done What testing was considered but not performed or refused? (CT, X-rays, U/S, labs)? Why? @ -None What meds were considered but not given or refused? Why? @ -None Did you discuss the management of the patient with other professionals (professionals i.e. , PA, AUDIOVISUAL LEAD TECHNICIAN, lab, RT, psych nurse, social services analyst, threat monitoring analyst, teacher, zoology technical officer, caseworker protective services)? Give summary @ -[Discussed the case with admitting provider, consult pulmonology Was smoking cessation discussed for >3mins.? @ -No Was critical care preformed (if so, how long)? @ -35 Were there social determinants of health that impacted care today? How? (Homelessness, low income, unemployed, alcoholism, drug addiction, transportation, low edu. Level, literacy, decrease access to med. care, custodial, rehab)? @ -No Was there de-escalation of care discussed even if they declined (Discuss DNR or withdrawal of care, Hospice)? DNR status @ -No What co-morbidities impacted this encounter? (DM, HTN, Smoking, COPD, CAD, Cancer, CVA, ARF, Chemo, Hep., AIDS, mental health diagnosis, sleep apnea, morbid obesity)? @ -COPD, CABG, CHF, Was patient admitted / discharged? Hospital course, mention meds given and route, prescriptions, significant lab abnormalities, going to OR and other pertinent info. @ -Admitted patient had significant respiratory distress patient was immediately placed on BiPAP, given nitro symptoms greatly improved. Patient has evidence of pneumonia, underlying CHF, CAD. Patient's BNP was moderately elevated patient will be admitted for IV antibiotics, pulmonary evaluation. Undiagnosed new problem with uncertain prognosis? @ -No Drug Therapy requiring intensive monitoring for toxicity (Heparin, Nitro, Insulin, Cardizem)? @ -No Were any procedures done? @ -[No] Diagnosis/symptom? @ -[Pneumonia, acute respiratory distress] Acute, or Chronic, or Acute on Chronic? @ -[Acute] Uncomplicated (without systemic symptoms) or Complicated (systemic symptoms)? @ -[Complicated] Side effects of treatment? @ -[No] Exacerbation, Progression, or Severe Exacerbation? @ -[No] Poses a threat to life or bodily function? How? (Chest pain, [place], [place], pneumonia, PE, COPD, DKA, ARF, appy, cholecystitis, CVA, Diverticulitis, Homicidal, Suicidal, threat to staff... and all critical care pts) @ -[Yes this poses a threat as patient has respiratory distress, may lead to respiratory failure - Lab Data Result diagrams: 07/06/22 06:42 07/06/22 06:42 Lab Results 07/06/22 07/06/22 07/06/22 Range/Units 06:42 06:42 06:42 WBC 13.9 H (3.8-10.6) k/uL RBC 4.31 (4.30-5.90) m/uL Hgb 14.0 (13.0-17.5) gm/dL Hct 42.4 (39.0-53.0) % MCV 98.4 (80.0-100.0) fL MCH 32.4 (25.0-35.0) pg MCHC 32.9 (31.0-37.0) g/dL RDW 13.6 (11.5-15.5) % Plt Count 171 (150-450) k/uL MPV 9.8 Neutrophils % 87 % Lymphocytes % 8 % Monocytes % 3 % Eosinophils % 1 % Basophils % 0 % Neutrophils # 12.0 H (1.3-7.7) k/uL Lymphocytes # 1.1 (1.0-4.8) k/uL Monocytes # 0.5 (0-1.0) k/uL Eosinophils # 0.2 (0-0.7) k/uL Basophils # 0.0 (0-0.2) k/uL Hypochromasia Slight PT 10.7 (9.0-12.0) sec INR 1.0 (<1.2) APTT 21.8 L (22.0-30.0) sec D-Dimer 0.97 H (<0.60) mg/L FEU Sodium 144 (137-145) mmol/L Potassium 4.7 (3.5-5.1) mmol/L Chloride 107 (98-107) mmol/L Carbon Dioxide 26 (22-30) mmol/L Anion Gap 11 mmol/L BUN 27 H (9-20) mg/dL Creatinine 1.29 H (0.66-1.25) mg/dL Est GFR (CKD-EPI)AfAm 62 (>60 ml/min/1.73 sqM) Est GFR (CKD-EPI)NonAf 54 (>60 ml/min/1.73 sqM) Glucose 228 H (74-99) mg/dL Plasma Lactic Acid Efraín (0.7-2.0) mmol/L Calcium 8.8 (8.4-10.2) mg/dL Magnesium 1.9 (1.6-2.3) mg/dL Total Bilirubin 0.7 (0.2-1.3) mg/dL AST 24 (17-59) U/L ALT 25 (4-49) U/L Alkaline Phosphatase 143 H (38-126) U/L Troponin I (0.000-0.034) ng/mL NT-Pro-B Natriuret Pep pg/mL Total Protein 7.4 (6.3-8.2) g/dL Albumin 4.4 (3.5-5.0) g/dL 07/06/22 07/06/22 07/06/22 Range/Units 06:42 06:42 06:42 WBC (3.8-10.6) k/uL RBC (4.30-5.90) m/uL Hgb (13.0-17.5) gm/dL Hct (39.0-53.0) % MCV (80.0-100.0) fL MCH (25.0-35.0) pg MCHC (31.0-37.0) g/dL RDW (11.5-15.5) % Plt Count (150-450) k/uL MPV Neutrophils % % Lymphocytes % % Monocytes % % Eosinophils % % Basophils % % Neutrophils # (1.3-7.7) k/uL Lymphocytes # (1.0-4.8) k/uL Monocytes # (0-1.0) k/uL Eosinophils # (0-0.7) k/uL Basophils # (0-0.2) k/uL Hypochromasia PT (9.0-12.0) sec INR (<1.2) APTT (22.0-30.0) sec D-Dimer (<0.60) mg/L FEU Sodium (137-145) mmol/L Potassium (3.5-5.1) mmol/L Chloride (98-107) mmol/L Carbon Dioxide (22-30) mmol/L Anion Gap mmol/L BUN (9-20) mg/dL Creatinine (0.66-1.25) mg/dL Est GFR (CKD-EPI)AfAm (>60 ml/min/1.73 sqM) Est GFR (CKD-EPI)NonAf (>60 ml/min/1.73 sqM) Glucose (74-99) mg/dL Plasma Lactic Acid Efraín 3.2 H* (0.7-2.0) mmol/L Calcium (8.4-10.2) mg/dL Magnesium (1.6-2.3) mg/dL Total Bilirubin (0.2-1.3) mg/dL AST (17-59) U/L ALT (4-49) U/L Alkaline Phosphatase (38-126) U/L Troponin I <0.012 (0.000-0.034) ng/mL NT-Pro-B Natriuret Pep 4210 pg/mL Total Protein (6.3-8.2) g/dL Albumin (3.5-5.0) g/dL Disposition Clinical Impression: COPD (chronic obstructive pulmonary disease), Hx of CABG, Pneumonia, Acute respiratory distress Disposition: ADMITTED IP TO THIS HOSP Condition: Poor Referrals: None,Stated [REFERRING] - 1-2 days Time of Disposition: 09:41
[2022-07-06 07:03] LABS: Basophils % (A) 0 %; Eosinophils # (A) 0.2 k/uL (0-0.7); Eosinophils % (A) 1 %; HCT 42.4 % (39.0-53.0); Hypochromasia Slight; Lymphocytes # (A) 1.1 k/uL (1.0-4.8); Lymphocytes % (A) 8 %; MCH 32.4 pg (25.0-35.0); MCHC 32.9 g/dL (31.0-37.0); MCV 98.4 fL (80.0-100.0); Mean Platelet Volume 9.8; Monocytes # (A) 0.5 k/uL (0-1.0); Monocytes % (A) 3 %; Neutrophils % (A) 87 %; Platelet Count 171 k/uL (150-450); RBC 4.31 m/uL (4.30-5.90); RDW 13.6 % (11.5-15.5); WBC 13.9 k/uL (3.8-10.6)
[2022-07-06] MEDS ORDERED: methylPREDNISolone SOD SUCCI 125 MG/2 ML VIAL IV STA (07:18)
[2022-07-06 07:28] LABS: Albumin 4.4 g/dL (3.5-5.0); Calcium 8.8 mg/dL (8.4-10.2); Magnesium 1.9 mg/dL (1.6-2.3); Potassium 4.7 mmol/L (3.5-5.1); Total Bilirubin 0.7 mg/dL (0.2-1.3); Total Protein 7.4 g/dL (6.3-8.2)
[2022-07-06 07:38] LABS: Partial Thromboplastin Time 21.8 sec (22.0-30.0); Prothrombin Time 10.7 sec (9.0-12.0)
--- NOTE | 2022-07-06 09:20 | CT ---
EXAMINATION TYPE: CT chest angio for PE CT DLP: 822.2 mGycm, Automated exposure control for dose reduction was used. DATE OF EXAM: 07/06/2022 9:08 AM COMPARISON: CTA chest 06/09/2017. Chest radiograph from same day. CLINICAL INDICATION:Male, 76 years old with history of sob; Short of breath, PETER, elevated d-dimer TECHNIQUE/CONTRAST: CTA scan of the thorax is performed with IV Contrast, patient injected with 80 mL of Isovue 370, pulm onary embolism protocol. MIP images are created and reviewed. FINDINGS: Respiration motion artifact limits evaluation. Pulmonary Artery: There is no evidence for a central filling defect within the pulmonary vasculature to suggest acute pulmonary embolism. Limited evaluation of the segmental and subsegmental branches se condary to bolus timing. The pulmonary artery is enlarged measuring up to 4.1 cm. Reflux of contrast into the IVC and hepatic veins. Lungs/Pleura: No pleural effusion or pneumothorax. Similar left lower lobe linear scarring. Patchy no dular opacities demonstrated throughout the right lung with more consolidative opacity within the rig ht middle lobe. Patchy groundglass opacities within the posterior aspect of the right lower lobe. Lef t lower lobe pleural calcifications redemonstrated. Correlation with asbestosis exposure is recommend ed. Airway: Large airways are patent. Heart: The heart is moderately enlarged. No pericardial effusion. Post CABG changes.. Vasculature: No evidence of aortic aneurysm. Mediastinum: Enlarged right paratracheal and right hilar lymph nodes with largest measuring up to 2.1 cm (series 401, image 58). Musculoskeletal: No acute osseous abnormalities. Median sternotomy wires. Flowing anterior osteophyto sis of the thoracic spine consistent with DISH. Soft Tissues: Unremarkable. Lower neck: No significant findings. Upper Abdomen: Small hiatal hernia with eccentric wall thickening identified measuring up to 1.2 cm. Postcholecystectomy changes.. IMPRESSION: 1. No evidence of central pulmonary embolism. Limited evaluation of the segmental and subsegmental br anches. 2. Patchy nodular opacities and consolidation with groundglass opacities throughout the right lung. F indings concerning for pneumonia. Continued follow-up is recommended. 3. Enlarged right paratracheal and right hilar lymph nodes likely reactive to #2. 4. Cardiomegaly. 5. Dilatation main pulmonary artery which likely represents pulmonary arterial hypertension. 6. Small hiatal hernia with eccentric wall thickening. Direct visualization is recommended to exclude malignancy.
[2022-07-06] MEDS ORDERED: AZITHROMYCIN 500 MG in SODIUM CHLORIDE 0.9% 250 ML IVPB STA (09:55)
[2022-07-06] MEDS ORDERED: IPRATROPIUM-ALBUTEROL 3 ML NEB INHALATION PRN ×2 (09:55→14:47)
[2022-07-06] MEDS ORDERED: PNEUMONIA PROTOCOL UTILIZED 1 EACH MISC PO PRN (09:55)
[2022-07-06] MEDS ORDERED: ALBUTEROL NEBULIZED 2.5 MG/3 ML INHALATION PRN ×2 (10:03→15:00)
[2022-07-06] MEDS ORDERED: IPRATROPIUM 0.5 MG/2.5 ML NEBU INHALATION PRN ×2 (10:03→15:00)
[2022-07-06] MEDS ORDERED: IPRATROPIUM 0.5 MG/2.5 ML NEBU INHALATION SCH (12:00)
[2022-07-06] MEDS ORDERED: IPRATROPIUM-ALBUTEROL 3 ML NEB INHALATION SCH ×2 (12:00→20:00)
[2022-07-06] MEDS ORDERED: ALBUTEROL NEBULIZED 2.5 MG/3 ML INHALATION SCH (12:00)
--- NOTE | 2022-07-06 14:47 | P.CNPUL ---
History of Present Illness Consult date: 07/06/22 Requesting physician: Osei Carcamo Reason for consult: dyspnea, cough, COPD, hypoxemia, pneumonia, abnormal CXR/CT Chief complaint: Shortness of breath. History of present illness: Pulmonary consultation dated 07/06/2022. 76-year-old male brought into the emergency room on July 06, at 620 1 in the morning, complaining of shortness of breath, and chest heaviness. The patient is seen today, in the ER, room 23. He's currently on 4 L of oxygen. He is feeling a bit better today than he did when he first came in. His chest x-ray was consistent with either CHF and/or pneumonia. A CT angiogram was negative for pulmonary embolism. His N-terminal proBNP was 4210. He's currently not re ceiving any IV fluids. His primary care provider is Dr. Carcamo. He also sees Dr. Muñiz for his heart, Dr. Robertson the facilities technician for his diabetes, and one of the vascular surgeon. His medical history includes coronary disease, status post triple vessel bypass grafting, 1996, diabetes, diabetic neuropathy, GERD, hyperlipidemia, hypertension, pulmonary embolism, and hypothyroidism. The patient has also had previous PCI with stent placement. White count 13.9, with a normal hemoglobin, hematocrit, and platelet count. D-dimer was 0.97. Sodium 144, potassium 4.7, chloride 107, CO2 26, BUN 27, creatinine 1.29. Lactic acid initially was 3.2. Repeat was 2.0. Testing for caballero virus was negative. Troponin was normal. Chest x-ray my opinion showed bilateral airspace disease more so on the right side, which could be consistent with asymmetric pulmonary edema, or pneumonia, right lung. There is cardiomegaly. CT angiogram was negative for pulmonary embolism. The CT was consistent with possible right- sided pneumonia, and right paratracheal and right hilar reactive adenopathy. Review of Systems REVIEW OF SYSTEMS: CONSTITUTIONAL: [Negative.] NEUROLOGIC: [ Negative.] HEENT: [ Negative.] CARDIAC: Chest heaviness, lower extremity edema. PULMONARY: Shortness of breath, chest congestion, and hemoptysis. GI: [Negative.] : [Negative.] RHEUMATOLOGIC: [ Negative.] IMMUNOLOGIC: [ Negative.] ENDOCRINE: [Negative. ] DERMATOLOGIC: [Negative.] Past Medical History Past Medical History: Coronary Artery Disease (CAD), Diabetes Mellitus, GERD/Reflux, Hyperlipidemia, Hypertension, Osteoarthritis (OA), Pneumonia, Pulmonary Embolus (PE), Thyroid Disorder Additional Past Medical History / Comment(s): fx rt hand, carpal tunnel kisha. ?murmur, sinus, kidney stone History of Any Multi-Drug Resistant Organisms: None Reported Past Surgical History: Appendectomy, Cholecystectomy, Coronary Bypass/CABG, Heart Catheterization, Heart Catheterization With Stent, Hernia Repair Additional Past Surgical History / Comment(s): triple vessel cabg in 1996, hernia repair(triple per old hx) in 1959, ventral hernia 2006, colonoscopy.kisha cataracts-lens implants Past Anesthesia/Blood Transfusion Reactions: No Reported Reaction Date of Last Stent Placement:: dec 2019 Past Psychological History: Depression Smoking Status: Never smoker Past Alcohol Use History: Occasional Past Drug Use History: None Reported - Past Family History Father Family Medical History: Myocardial Infarction ([place]) Additional Family Medical History / Comment(s): from [place] age 44 Mother Additional Family Medical History / Comment(s): age 86 from [facility] Medications and Allergies Home Medications Medication Instructions Recorded Confirmed Type Levothyroxine Sodium [Synthroid] 75 mcg PO AC-BRKFST 06/09/17 07/06/22 History Omeprazole 20 mg PO DAILY 06/09/17 07/06/22 History Tamsulosin [Flomax] 0.4 mg PO DAILY 11/19/18 07/06/22 History lisinopriL [Prinivil] 10 mg PO DAILY #30 tab 01/07/20 07/06/22 Rx Atorvastatin [Lipitor] 80 mg PO W/SUPPER 03/06/21 07/06/22 History Metoprolol Tartrate [Lopressor] 12.5 mg PO HS 03/06/21 07/06/22 History Clopidogrel [Plavix] 75 mg PO DAILY@1100 07/06/22 07/06/22 History Empagliflozin [Jardiance] 25 mg PO DAILY 07/06/22 07/06/22 History Furosemide [Lasix] 40 mg PO DAILY 07/06/22 07/06/22 History Metoprolol Tartrate [Lopressor] 25 mg PO DAILY 07/06/22 07/06/22 History Pioglitazone [Actos] 30 mg PO HS 07/06/22 07/06/22 History glipiZIDE [Glucotrol] 10 mg PO W/SUPPER 07/06/22 07/06/22 History Allergies Allergy/AdvReac Type Severity Reaction Status Date / Time levofloxacin [From Levaquin] Allergy Anaphylaxis Verified 07/06/22 09:37 metformin Allergy Rash/Hives Verified 07/06/22 09:37 Physical Exam Osteopathic Statement: *. No significant issues noted on an osteopathic structural exam other than those noted in the History and Physical/Consult. Vitals: Vital Signs Temp Pulse Resp BP Pulse Ox FiO2 07/06/22 11:38 60 07/06/22 11:28 60 07/06/22 08:00 46 L 20 126/66 100 07/06/22 06:56 76 20 118/60 100 07/06/22 06:42 89 20 140/75 100 07/06/22 06:41 100 07/06/22 06:25 98.0 F 97 22 205/108 94 L Intake and Output 07/05/22 07/06/22 07/06/22 22:59 06:59 14:59 Other: Weight 117.934 kg No acute distress, oriented 3. Currently sitting in a chair next to his bed. The patient is on 4 L of oxygen. No respiratory distress, conversational dyspnea, or use of accessory muscles. There is a pocket on the bed, containing some blood, which he says he coughed up. HEENT examination is grossly unremarkable. Neck supple. Full range of motion. No adenopathy thyromegaly or neck vein distention. Cardiovascular examination reveals regular rhythm rate. S1-S2 normal. No S3 or S4. No discernible murmur noted. Heart sounds are distant. Heart rate 60 bpm. Lungs reveal scattered bilateral rhonchi. Breath sounds equal bilaterally. No wheezes. No crackles. Abdomen obese, soft, without tenderness. Extremities are intact. No cyanosis or clubbing. The patient has significant bilateral lower extremity edema. Skin is without rash or lesion. Neurologic examination is brief but nonfocal. Results - Laboratory Findings CBC and BMP: 07/06/22 06:42 07/06/22 06:42 PT/INR, D-dimer PT 10.7 sec (9.0-12.0) 07/06/22 06:42 INR 1.0 (<1.2) 07/06/22 06:42 D-Dimer 0.97 mg/L FEU (<0.60) H 07/06/22 06:42 Abnormal lab findings: Abnormal Labs 07/06/22 07/06/22 07/06/22 06:42 06:42 06:42 WBC 13.9 H Neutrophils # 12.0 H APTT 21.8 L D-Dimer 0.97 H BUN 27 H Creatinine 1.29 H Glucose 228 H Plasma Lactic Acid Efraín Alkaline Phosphatase 143 H 07/06/22 06:42 WBC Neutrophils # APTT D-Dimer BUN Creatinine Glucose Plasma Lactic Acid Efraín 3.2 H* Alkaline Phosphatase - Diagnostic Findings Chest x-ray: image reviewed CT scan - chest: image reviewed Assessment and Plan Assessment: Acute hypoxemic respiratory failure, likely multifactorial, in part related to pneumonia, right lung, possible asymmetric pulmonary edema, as well as possible COPD exacerbation. Hemoptysis, possibly related to underlying pneumonia. CABG, 1996. Diabetes with diabetic neuropathy. History of hypertension. 40 years of tobacco use, rule out COPD. History of hyperlipidemia. Hypothyroidism. Previous history of PCI with stent placement. Osteoarthritis. Gastroesophageal reflux disease. Morbid obesity. Plan: Plan dated 07/06/2022. The patient is seen today in room 23, and the emergency department. The patient will get some breathing treatments, and antibiotics. In addition, we'll give the patient some corticosteroids as well. We will continue to follow the patient and make recommendations along the way. I don't believe that we have seen the patient in the office. He does remember from when he had open heart surgery back in 1996. I also take care of his sister, who has lung cancer, and lives up in the [facility]. Time with Patient: Greater than 30
[2022-07-06] MEDS: ATORVASTATIN 80 MG TAB PO SCH (17:59)
[2022-07-06] MEDS: glipiZIDE 10 MG TAB PO SCH (17:59)
[2022-07-06] MEDS: methylPREDNISolone SOD SUCCI 40 MG/ML 1 ML VIAL IV SCH ×2 (17:59→23:06)
[2022-07-06 19:59] LABS: Glucose,Whole Blood 420 mg/dL (70-110)
[2022-07-06] MEDS: SYMBICORT 160-4.5 MCG INHALER INHALATION SCH (20:51)
[2022-07-06] MEDS: ALBUTEROL NEBULIZED 2.5 MG/3 ML INHALATION SCH (20:51)
[2022-07-06] MEDS: IPRATROPIUM 0.5 MG/2.5 ML NEBU INHALATION SCH (20:51)
[2022-07-06] MEDS: METOPROLOL TARTRATE 12.5 MG TAB PO SCH (22:04)
[2022-07-06] MEDS: PIOGLITAZONE 30 MG TAB PO SCH (23:05)
[2022-07-06] MEDS: INSULIN DETEMIR (LEVEMIR) 100 UNIT/ML SYR SQ SCH (23:06)
[2022-07-06] MEDS: INSULIN ASPART (NovoLOG) 100 UNIT/ML VIAL SQ SCH (23:06)
[2022-07-07 01:27] LABS: Glucose,Whole Blood 432 mg/dL (70-110)
[2022-07-07] MEDS ORDERED: DEXTROSE 50% SYRINGE 50 ML IVP PRN ×2 (02:19)
[2022-07-07 06:46] LABS: Glucose,Whole Blood 393 mg/dL (70-110)
[2022-07-07] MEDS: LEVOTHYROXINE 75 MCG TAB PO SCH (06:53)
[2022-07-07] MEDS ORDERED: ACETAMINOPHEN TAB 325 MG TAB PO PRN (06:53)
[2022-07-07] MEDS: INSULIN DETEMIR (LEVEMIR) 100 UNIT/ML SYR SQ SCH ×2 (06:54→20:58)
[2022-07-07] MEDS: methylPREDNISolone SOD SUCCI 40 MG/ML 1 ML VIAL IV SCH ×2 (06:54→18:15)
[2022-07-07] MEDS: INSULIN ASPART (NovoLOG) 100 UNIT/ML VIAL SQ SCH ×7 (06:54→20:58)
[2022-07-07] MEDS: ALBUTEROL NEBULIZED 2.5 MG/3 ML INHALATION SCH ×3 (07:50→20:57)
[2022-07-07] MEDS: SYMBICORT 160-4.5 MCG INHALER INHALATION SCH ×2 (07:51→20:57)
[2022-07-07] MEDS: IPRATROPIUM 0.5 MG/2.5 ML NEBU INHALATION SCH ×3 (07:51→20:57)
[2022-07-07] MEDS ORDERED: AZITHROMYCIN 500 MG in SODIUM CHLORIDE 0.9% 250 ML IVPB SCH (09:00)
[2022-07-07] MEDS ORDERED: FUROSEMIDE 40 MG TAB PO SCH (09:00)
[2022-07-07] MEDS ORDERED: lisinopriL 10 MG TAB PO SCH (09:00)
[2022-07-07 09:15] LABS: Glucose,Whole Blood 453 mg/dL (70-110)
[2022-07-07] MEDS: PANTOPRAZOLE 40 MG TABLET PO SCH (09:25)
[2022-07-07] MEDS: DAPAGLIFLOZIN PROPANEDIOL 10 MG TABLET PO SCH (09:25)
[2022-07-07] MEDS: TAMSULOSIN 0.4 MG CAP.ER.24H PO SCH (09:25)
[2022-07-07] MEDS: METOPROLOL TARTRATE 25 MG TAB PO SCH (09:26)
[2022-07-07] MEDS: CLOPIDOGREL 75 MG TAB PO SCH (09:26)
[2022-07-07] MEDS ORDERED: INSULIN ASPART (NovoLOG) 100 UNIT/ML VIAL SQ ONE (10:00)
[2022-07-07 10:35] LABS: African American GFR (CKD) 60 (>60 ml/min/1.73 sqM); Anion Gap 13 mmol/L; Blood Urea Nitrogen 36 mg/dL (9-20); Calcium 8.3 mg/dL (8.4-10.2); Carbon Dioxide 18 mmol/L (22-30); Chloride 108 mmol/L (98-107); Glucose 412 mg/dL (74-99); Non-African American GFR(CKD) 52 (>60 ml/min/1.73 sqM); Potassium 4.5 mmol/L (3.5-5.1); Sodium 139 mmol/L (137-145)
[2022-07-07 11:50] LABS: Glucose,Whole Blood 463 mg/dL (70-110)
[2022-07-07 12:36] LABS: Appearance,Urine Clear (Clear); Bilirubin,Urine Negative (Negative); Blood,Urine Negative (Negative); Color,Urine Light Yellow; Glucose,Urine (UA) 4+ (Negative); Ketones,Urine Negative (Negative); Leukocyte Esterase,Urine Negative (Negative); Nitrite,Urine Negative (Negative); Protein,Urine Negative (Negative); Specific Gravity,Urine 1.031 (1.001-1.035); Urobilinogen,Urine <2.0 mg/dL (<2.0)
--- NOTE | 2022-07-07 12:43 | XR ---
EXAMINATION TYPE: XR chest 1V portable DATE OF EXAM: 07/07/2022 COMPARISON: 07/06/2022 INDICATION: Pneumonia TECHNIQUE: Single frontal view of the chest is obtained. FINDINGS: The heart size is mildly prominent. The pulmonary vasculature is normal. Mild bibasilar infiltrates remain present. This is improved from comparison. IMPRESSION: 1. Improving bibasilar infiltrates. Residual remains. Continued follow-up is recommended.
--- NOTE | 2022-07-07 12:49 | P.PN ---
Subjective Progress Note Date: 07/07/22 76-year-old male brought into the emergency room on July 06, at 620 1 in the morning, complaining of shortness of breath, and chest heaviness. The patient is seen today, in the ER, room 23. He's currently on 4 L of oxygen. He is feeling a bit better today than he did when he first came in. His chest x-ray was consistent with either CHF and/or pneumonia. A CT angiogram was negative for pulmonary embolism. His N-terminal proBNP was 4210. He's currently not receiving any IV fluids. His primary care provider is Dr. Carcamo. He also sees Dr. Muñiz for his heart, Dr. Robertson the process safety engineer for his diabetes, and one of the vascular surgeon. His medical history includes coronary disease, sta tus post triple vessel bypass grafting, 1996, diabetes, diabetic neuropathy, GERD, hyperlipidemia, hypertension, pulmonary embolism, and hypothyroidism. The patient has also had previous PCI with stent placement. White count 13.9, with a normal hemoglobin, hematocrit, and platelet count. D-dimer was 0.97. Sodium 144, potassium 4.7, chloride 107, CO2 26, BUN 27, creatinine 1.29. Lactic acid initially was 3.2. Repeat was 2.0. Testing for caballero virus was negative. Troponin was normal. Chest x-ray my opinion showed bilateral airspace disease more so on the right side, which could be consistent with asymmetric pulmonary edema, or pneumonia, right lung. There is cardiomegaly. CT angiogram was negative for pulmonary embolism. The CT was consistent with possible right- sided pneumonia, and right paratracheal and right hilar reactive adenopathy. The patient is seen today 07/07/2022 on the regular medical floor. He is currently sitting up in a chair at the bedside. Awake and alert in no acute distress. Breathing a bit easier today compared to yesterday. Maintaining good O2 saturations in the 90s on 4 L/m per nasal cannula. Still with some significant lower extremity edema. Chest x-ray shows improving bibasilar infiltrates. Blood cultures revealing no growth to date. Sputum culture pending. Sodium 139. Potassium 4.5. Bicarb 18. BUN 36. Creatinine 1.33. Glucose 412. Hemoglobin A1c 7.9. Urinalysis negative. Pro-calcitonin 0.41. ProBNP 4210. Legionella antigen negative. He is continued on Symbicort, albuterol, IV Solu-Medrol. On oral diuretics. Antibiotics in the form of ceftriaxone and azithromycin. Objective - Vital Signs Vital signs: Vital Signs Temp 97.5 F L 07/07/22 07:11 Pulse 74 07/07/22 12:10 Resp 18 07/07/22 07:11 BP 105/70 07/07/22 07:11 Pulse Ox 93 L 07/07/22 07:50 FiO2 100 07/06/22 06:41 Intake & Output 07/06/22 07/07/22 07/07/22 18:59 06:59 18:59 Weight 117.934 kg Other: Voiding Method Toilet Toilet # Voids 2 - Exam GENERAL EXAM: Alert, active, obese, pleasant 76-year-old male, up in a chair at the bedside, on 4 L nasal cannula, comfortable in no apparent distress. HEAD: Normocephalic. EYES: Normal reaction of pupils, equal size. NOSE: Clear with pink turbinates. THROAT: No erythema or exudates. NECK: No masses, no JVD. CHEST: No chest wall deformity. LUNGS: Equal air entry with faint end expiratory wheeze, crackles in the left lung base. CVS: S1 and S2 normal with no audible murmur, regular rhythm. ABDOMEN: No hepatosplenomegaly, normal bowel sounds, no guarding or rigidity. SPINE: No scoliosis or deformity SKIN: No rashes CENTRAL NERVOUS SYSTEM: No focal deficits, tone is normal in all 4 extremities. EXTREMITIES: There is 2+ peripheral edema with changes of chronic venous stasis. No clubbing, no cyanosis. Peripheral pulses are intact. - Labs CBC & Chem 7: 07/06/22 06:42 07/07/22 06:05 Labs: Abnormal Lab Results - Last 24 Hours (Table) 07/06/22 07/06/22 07/07/22 Range/Units 15:08 19:58 01:26 Chloride (98-107) mmol/L Carbon Dioxide (22-30) mmol/L BUN (9-20) mg/dL Creatinine (0.66-1.25) mg/dL Glucose (74-99) mg/dL POC Glucose (mg/dL) 420 H 432 H (70-110) mg/dL Hemoglobin A1c (0.0-6.0) % Calcium (8.4-10.2) mg/dL Procalcitonin 0.41 H (0.02-0.09) ng/mL Urine Glucose (UA) (Negative) 07/07/22 07/07/22 07/07/22 Range/Units 06:05 06:05 06:44 Chloride 108 H (98-107) mmol/L Carbon Dioxide 18 L (22-30) mmol/L BUN 36 H (9-20) mg/dL Creatinine 1.33 H (0.66-1.25) mg/dL Glucose 412 H (74-99) mg/dL POC Glucose (mg/dL) 393 H (70-110) mg/dL Hemoglobin A1c 7.9 H (0.0-6.0) % Calcium 8.3 L (8.4-10.2) mg/dL Procalcitonin (0.02-0.09) ng/mL Urine Glucose (UA) (Negative) 07/07/22 07/07/22 07/07/22 Range/Units 09:13 11:25 11:45 Chloride (98-107) mmol/L Carbon Dioxide (22-30) mmol/L BUN (9-20) mg/dL Creatinine (0.66-1.25) mg/dL Glucose (74-99) mg/dL POC Glucose (mg/dL) 453 H 463 H (70-110) mg/dL Hemoglobin A1c (0.0-6.0) % Calcium (8.4-10.2) mg/dL Procalcitonin (0.02-0.09) ng/mL Urine Glucose (UA) 4+ H (Negative) Microbiology - Last 24 Hours (Table) 07/06/22 20:58 Sputum Culture - Preliminary Sputum 07/06/22 07:45 Blood Culture - Preliminary Blood No Growth after 24 hours 07/06/22 07:44 Blood Culture - Preliminary Blood No Growth after 24 hours Assessment and Plan Assessment: Acute hypoxemic respiratory failure, likely multifactorial, in part related to pneumonia, right lung, possible asymmetric pulmonary edema, as well as possible COPD exacerbation. Hemoptysis, possibly related to underlying pneumonia. CABG, 1996. Diabetes with diabetic neuropathy. History of hypertension. 40 years of tobacco use, rule out COPD. History of hyperlipidemia. Hypothyroidism. Previous history of PCI with stent placement. Osteoarthritis. Gastroesophageal reflux disease. Morbid obesity. Plan: The patient was seen and evaluated Chest x-ray, labs and medications reviewed Continue antibiotics Continue bronchodilators, IV Solu-Medrol Continue diuretics Titrate the FiO2 as tolerated Increase his activity as tolerated We'll continue to follow I have personally seen and examined the patient, performed the documentation and the assessment and plan as written. Number of minutes spent on the visit: 10.
[2022-07-07 13:41] LABS: Glucose,Whole Blood 364 mg/dL (70-110)
[2022-07-07 16:54] LABS: Glucose,Whole Blood 224 mg/dL (70-110)
--- NOTE | 2022-07-07 17:40 | P.HPIM ---
History of Present Illness H&P Date: 07/07/22 This is a pleasant 76 year old male with medical history of coronary artery disease with prior PCI, CABG, diabetes, hypertension, pulmonary embolism, gerd, copd, former smoker. Patient presents to the emergency room with shortness of breath and left sided shoulder pain with acute onset. Patient does not wear oxygen at home and is currently requiring oxygen via nasal cannula at 4L. Patient denies fever/chills. Denies cough at this time. Currently no reports of chest pain, shoulder pain. He reported pain about 9/10 with acute onset in the left shoulder blade with radiation to the back. No associated diaphoresis, no palpitations, no dizziness or lightheadedness. Pain is gone. Patient also report s increase in peripheral edema states he is supposed to be taking lasix twice a day currently on daily. Initial work up reveals white count of 13.9, D-Dimer of 0.97, creatinine is mildly elevated at 1.29. Lactic acid of 3.2. Patient has elevated blood glucose in the 400s. Had procalcitonin of 0.41. Chest CT angiography was done and showing no central pulmonary embolism. There is limited evaluation of the segmental and subsegmental branches. There is evidence of patchy nodular opacities and consolidation with groundglass opacities throughout the right lung findings concerning for pneumonia. There is enlarged right paratracheal and right hilar lymph nodes likely reactive. Cardiomegaly. Dila tion of the main pulmonary artery which likely represents pulmonary arterial hypertension. There is a small hiatal hernia with eccentric wall thickening. Direct visualization is recommended to exclude malignancy. Legionella atigen and covid are negative. Patient is admitted to the medical floor with pulmonary on consultation. Patient has been started on steroids IV ceftriaxone IV azithromycin. Sputum culture is pending at this time. Patient was noted to have heart rate in the 40s overnight with 1st degree AV block EKG is done showing prolonged QT interval of 544. This will be monitored closely and all QT prolonging medications will be dcd including azithromycin. REVIEW OF SYSTEMS: CONSTITUTIONAL: No fever, no malaise, no fatigue. HEENT: No recent visual problems or hearing problems. Denied any sore throat. CARDIOVASCULAR: No chest pain, orthopnea, PND, no palpitations, no syncope. PULMONARY: Reports shortness of breath, no cough, no hemoptysis. GASTROINTESTINAL: No diarrhea, no nausea, no vomiting, no abdominal pain. NEUROLOGICAL: No headaches, no weakness, no numbness. HEMATOLOGICAL: Denies any bleeding or petechiae. GENITOURINARY: Denies any burning micturition, frequency, or urgency. MUSCULOSKELETAL/RHEUMATOLOGICAL: Denies any joint pain, swelling, or any muscle pain. ENDOCRINE: Denies any polyuria or polydipsia. The rest of the 14-point review of systems is negative. PHYSICAL EXAMINATION: GENERAL: The patient is alert and oriented x3, not in any acute distress. Well developed, well nourished. Obese. on 4L nasal cannula. HEENT: Pupils are round and equally reacting to light. EOMI. No scleral icterus. No conjunctival pallor. Normocephalic, atraumatic. No pharyngeal erythema. No thyromegaly. CARDIOVASCULAR: S1 and S2 present. No murmurs, rubs, or gallops. PULMONARY: Chest is clear to auscultation, no wheezing or crackles. ABDOMEN: Soft, nontender, nondistended, normoactive bowel sounds. No palpable organomegaly. MUSCULOSKELETAL: No joint swelling or deformity. EXTREMITIES: No cyanosis, clubbing, or pedal edema. +2 non pitting peripheral edema NEUROLOGICAL: Gross neurological examination did not reveal any focal deficits. SKIN: No rashes. Assessment and Plan Assessment Acute hypoxic respiratory failure likely from acute COPD exacerbation and possible right lung pneumonia. Component of volume overload/pulmonary edema. Lactic acidosis resolved Elevated D-Dimer with no pulmonary embolism Sinus bradycardia with 1 degree AV block/sinus arrythmia with prolonged QT interval of 544. Acute kidney injury Pulmonary hypertension Steroid induced hyperglycemia Hiatal hernia with wall thickening History of hypertension Diabetes mellitus type 2 History of pulmonary embolism Coronary artery disease with prior PCI, CABG Diabetic neuropathy Obesity Former smoker GI Prophylaxis DVT Prophylaxis Plan Metoprolol held/EKG done continue on telemetry monitoring Azithromycin discontinued and follow up burr sander QT interval Decrease steroids Continue insulin and monitor blood glucose ACHS Titrate oxygen as tolerated IV lasix 40 Q12 with strict intake and output monitoring Pulmonary consultation AM labs The impression and plan of care has been dictated by Aundrea Gilliland, Nurse Practitioner as directed. Dr. Rachna MD I have performed a history and physical examination and medical decision making of this patient, discussed the same with the dictator, and agree with the dictators assessment and plan as written, documented as a scribe. Based on total visit time, I have performed more than 50% of this visit. Past Medical History Past Medical History: Coronary Artery Disease (CAD), Diabetes Mellitus, GERD/Reflux, Hyperlipidemia, Hypertension, Osteoarthritis (OA), Pneumonia, Pulmonary Embolus (PE), Thyroid Disorder Additional Past Medical History / Comment(s): fx rt hand, carpal tunnel kisha. ?murmur, sinus, kidney stone History of Any Multi-Drug Resistant Organisms: None Reported Past Surgical History: Appendectomy, Cholecystectomy, Coronary Bypass/CABG, Heart Catheterization, Heart Catheterization With Stent, Hernia Repair Additional Past Surgical History / Comment(s): triple vessel cabg in 1996, hernia repair(triple per old hx) in 1959, ventral hernia 2006, colonoscopy.kisha cataracts-lens implants Past Anesthesia/Blood Transfusion Reactions: No Reported Reaction Date of Last Stent Placement:: dec 2019 Past Psychological History: Depression Additional Psychological History / Comment(s): since 2017, lives with son ector. 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 Smoking Status: Never smoker Past Alcohol Use History: Occasional Additional Past Alcohol Use History / Comment(s): started smoking age 12 worked up 3.5 ppd quit 1996 Past Drug Use History: None Reported - Past Family History Father Family Medical History: Myocardial Infarction (DE) Additional Family Medical History / Comment(s): from [place] age 44 Mother Additional Family Medical History / Comment(s): age 86 from [place] Medications and Allergies Home Medications Medication Instructions Recorded Confirmed Type Levothyroxine Sodium [Synthroid] 75 mcg PO [id number] 06/09/17 07/06/22 History Omeprazole 20 mg PO DAILY 06/09/17 07/06/22 History Tamsulosin [Flomax] 0.4 mg PO DAILY 11/19/18 07/06/22 History lisinopriL [Prinivil] 10 mg PO DAILY #30 tab 01/07/20 07/06/22 Rx Atorvastatin [Lipitor] 80 mg PO W/SUPPER 03/06/21 07/06/22 History Metoprolol Tartrate [Lopressor] 12.5 mg PO HS 03/06/21 07/06/22 History Clopidogrel [Plavix] 75 mg PO DAILY@1100 07/06/22 07/06/22 History Empagliflozin [Jardiance] 25 mg PO DAILY 07/06/22 07/06/22 History Furosemide [Lasix] 40 mg PO DAILY 07/06/22 07/06/22 History Metoprolol Tartrate [Lopressor] 25 mg PO DAILY 07/06/22 07/06/22 History Pioglitazone [Actos] 30 mg PO HS 07/06/22 07/06/22 History glipiZIDE [Glucotrol] 10 mg PO W/SUPPER 07/06/22 07/06/22 History Allergies Allergy/AdvReac Type Severity Reaction Status Date / Time levofloxacin [From Levaquin] Allergy Anaphylaxis Verified 07/06/22 09:37 metformin Allergy Rash/Hives Verified 07/06/22 09:37 Physical Exam Vitals: Vital Signs Temp Pulse Pulse Resp BP BP BP 07/07/22 08:10 80 07/07/22 07:50 84 07/07/22 07:11 97.5 F L 115 H 18 105/70 07/07/22 02:00 97.5 F L 119 H 19 109/73 07/06/22 21:15 72 07/06/22 20:54 72 07/06/22 20:00 96.8 F L 53 L 22 149/60 07/06/22 18:52 97.7 F 51 L 18 99/61 07/06/22 14:46 97.8 F 58 L 18 97/60 07/06/22 11:38 60 07/06/22 11:28 60 Pulse Ox 07/07/22 08:10 07/07/22 07:50 93 L 07/07/22 07:11 100 07/07/22 02:00 98 07/06/22 21:15 07/06/22 20:54 07/06/22 20:00 97 07/06/22 18:52 97 07/06/22 14:46 98 07/06/22 11:38 07/06/22 11:28 Intake and Output 07/06/22 07/07/22 07/07/22 22:59 06:59 14:59 Other: Voiding Method Toilet # Voids 2 Weight 117.934 kg Results CBC & Chem 7: 07/06/22 06:42 07/07/22 06:05 Labs: Abnormal Lab Results - Last 24 Hours (Table) 07/06/22 07/06/22 07/07/22 Range/Units 15:08 19:58 01:26 POC Glucose (mg/dL) 420 H 432 H (70-110) mg/dL Hemoglobin A1c (0.0-6.0) % Procalcitonin 0.41 H (0.02-0.09) ng/mL 07/07/22 07/07/22 07/07/22 Range/Units 06:05 06:44 09:13 POC Glucose (mg/dL) 393 H 453 H (70-110) mg/dL Hemoglobin A1c 7.9 H (0.0-6.0) % Procalcitonin (0.02-0.09) ng/mL Thrombosis Risk Factor Assmnt - Choose All That Apply Any of the Below Risk Factors Present?: Yes Each Factor Represents 1 point: Obesity (BMI >25), Swollen legs (current) Each Risk Factor Represents 3 Points: Age 75 years or older Thrombosis Risk Factor Assessment Total Risk Factor Score: 5 Thrombosis Risk Factor Assessment Level: High Risk Assessment and Plan Time with Patient: Greater than 30
[2022-07-07] MEDS: ATORVASTATIN 80 MG TAB PO SCH (18:01)
[2022-07-07] MEDS: glipiZIDE 10 MG TAB PO SCH (18:01)
[2022-07-07] MEDS: FUROSEMIDE 10 MG/ML 4 ML VIAL IV SCH (18:04)
[2022-07-07 20:13] LABS: Glucose,Whole Blood 230 mg/dL (70-110)
[2022-07-07] MEDS: METOPROLOL TARTRATE 12.5 MG TAB PO SCH (20:58)
[2022-07-07] MEDS: PIOGLITAZONE 30 MG TAB PO SCH (20:58)
[2022-07-07] MEDS ORDERED: INSULIN ASPART (NovoLOG) 100 UNIT/ML VIAL SQ SCH (22:07)
[2022-07-08] MEDS: FUROSEMIDE 10 MG/ML 4 ML VIAL IV SCH ×2 (06:06→17:40)
[2022-07-08] MEDS: LEVOTHYROXINE 75 MCG TAB PO SCH (06:06)
[2022-07-08 07:00] LABS: Glucose,Whole Blood 134 mg/dL (70-110)
[2022-07-08] MEDS: INSULIN ASPART (NovoLOG) 100 UNIT/ML VIAL SQ SCH ×7 (07:00→20:37)
[2022-07-08] MEDS: INSULIN DETEMIR (LEVEMIR) 100 UNIT/ML SYR SQ SCH ×2 (07:42→20:36)
[2022-07-08] MEDS: ALBUTEROL NEBULIZED 2.5 MG/3 ML INHALATION SCH ×3 (08:05→20:46)
[2022-07-08] MEDS: SYMBICORT 160-4.5 MCG INHALER INHALATION SCH ×2 (08:06→20:46)
[2022-07-08] MEDS: IPRATROPIUM 0.5 MG/2.5 ML NEBU INHALATION SCH ×3 (08:06→20:46)
[2022-07-08 09:21] LABS: African American GFR (CKD) 56.7 (60.0-200.0); BUN/Creat Ratio 28.2 Ratio (12.00-20.00); Blood Urea Nitrogen 39.2 mg/dL (9.0-27.0); Calcium 8.7 mg/dL (8.7-10.3); Carbon Dioxide 21.9 mmol/L (20.0-27.5); Magnesium 2.1 mg/dL (1.5-2.4); Non-African American GFR(CKD) 48.9 (60.0-200.0); Potassium 4.5 mmol/L (3.5-5.5)
[2022-07-08] MEDS: CLOPIDOGREL 75 MG TAB PO SCH (09:32)
[2022-07-08] MEDS: DAPAGLIFLOZIN PROPANEDIOL 10 MG TABLET PO SCH (09:32)
[2022-07-08] MEDS: PANTOPRAZOLE 40 MG TABLET PO SCH (09:32)
[2022-07-08] MEDS: METOPROLOL TARTRATE 25 MG TAB PO SCH (09:32)
[2022-07-08] MEDS: TAMSULOSIN 0.4 MG CAP.ER.24H PO SCH (09:33)
[2022-07-08] MEDS: predniSONE 20 MG TAB PO SCH (09:33)
[2022-07-08 11:06] LABS: Glucose,Whole Blood 186 mg/dL (70-110)
--- NOTE | 2022-07-08 12:08 | P.PN ---
Subjective Progress Note Date: 07/08/22 76-year-old male brought into the emergency room on July 06, at 620 1 in the morning, complaining of shortness of breath, and chest heaviness. The patient is seen today, in the ER, room 23. He's currently on 4 L of oxygen. He is feeling a bit better today than he did when he first came in. His chest x-ray was consistent with either CHF and/or pneumonia. A CT angiogram was negative for pulmonary embolism. His N-terminal proBNP was 4210. He's currently not receiving any IV fluids. His primary care provider is Dr. Carcamo. He also sees Dr. Muñiz for his heart, Dr. Robertson the power house engineer for his diabetes, and one of the vascular surgeon. His medical history includes coronary disease, sta tus post triple vessel bypass grafting, 1996, diabetes, diabetic neuropathy, GERD, hyperlipidemia, hypertension, pulmonary embolism, and hypothyroidism. The patient has also had previous PCI with stent placement. White count 13.9, with a normal hemoglobin, hematocrit, and platelet count. D-dimer was 0.97. Sodium 144, potassium 4.7, chloride 107, CO2 26, BUN 27, creatinine 1.29. Lactic acid initially was 3.2. Repeat was 2.0. Testing for caballero virus was negative. Troponin was normal. Chest x-ray my opinion showed bilateral airspace disease more so on the right side, which could be consistent with asymmetric pulmonary edema, or pneumonia, right lung. There is cardiomegaly. CT angiogram was negative for pulmonary embolism. The CT was consistent with possible right- sided pneumonia, and right paratracheal and right hilar reactive adenopathy. The patient is seen today 07/07/2022 on the regular medical floor. He is currently sitting up in a chair at the bedside. Awake and alert in no acute distress. Breathing a bit easier today compared to yesterday. Maintaining good O2 saturations in the 90s on 4 L/m per nasal cannula. Still with some significant lower extremity edema. Chest x-ray shows improving bibasilar infiltrates. Blood cultures revealing no growth to date. Sputum culture pending. Sodium 139. Potassium 4.5. Bicarb 18. BUN 36. Creatinine 1.33. Glucose 412. Hemoglobin A1c 7.9. Urinalysis negative. Pro-calcitonin 0.41. ProBNP 4210. Legionella antigen negative. He is continued on Symbicort, albuterol, IV Solu-Medrol. On oral diuretics. Antibiotics in the form of ceftriaxone and azithromycin. The patient is seen today 07/08/2022 in follow-up on the regular medical floor. He is awake and alert in no acute distress. She at the bedside. Breathing better today compared to yesterday. No worsening shortness of breath, cough or congestion. Maintaining good O2 saturations in the 90s on 3 L/m per nasal cannula. Afebrile. Hemodynamically stable. Blood cultures revealed no growth. Sputum culture revealed no growth. Sodium 139. Potassium 4.5. BUN 39. Creatinine 1.4. Glucose 134. He is continued on ceftriaxone. Remains on bronchodilators. Remains on IV diuretics. No accurate I&O. Objective - Vital Signs Vital signs: Vital Signs Temp 97.8 F 07/08/22 08:00 Pulse 62 07/08/22 11:34 Resp 18 07/08/22 08:00 BP 133/77 07/08/22 08:00 Pulse Ox 98 07/08/22 08:07 FiO2 100 07/06/22 06:41 Intake & Output 07/07/22 07/08/22 07/08/22 18:59 06:59 18:59 Weight 121.5 kg Other: Voiding Method Toilet Toilet Toilet # Voids 3 3 - Exam GENERAL EXAM: Alert, obese, 76-year-old male, up in a chair at the bedside, on 4 L nasal cannula, comfortable in no apparent distress. HEAD: Normocephalic. EYES: Normal reaction of pupils, equal size. NOSE: Clear with pink turbinates. THROAT: No erythema or exudates. NECK: No masses, no JVD. CHEST: No chest wall deformity. LUNGS: Equal air entry with faint end expiratory wheeze, crackles in the left lung base. CVS: S1 and S2 normal with no audible murmur, regular rhythm. ABDOMEN: No hepatosplenomegaly, normal bowel sounds, no guarding or rigidity. SPINE: No scoliosis or deformity SKIN: No rashes CENTRAL NERVOUS SYSTEM: No focal deficits, tone is normal in all 4 extremities. EXTREMITIES: There is 2+ peripheral edema with changes of chronic venous stasis. No clubbing, no cyanosis. Peripheral pulses are intact. - Labs CBC & Chem 7: 03/24/23 06:42 07/08/22 05:43 Labs: Abnormal Lab Results - Last 24 Hours (Table) 07/07/22 07/07/22 07/07/22 Range/Units 11:25 13:40 16:52 BUN (9.0-27.0) mg/dL Est GFR (CKD-EPI)AfAm (60.0-200.0) Est GFR (CKD-EPI)NonAf (60.0-200.0) BUN/Creatinine Ratio (12.00-20.00) Ratio Glucose (70-110) mg/dL POC Glucose (mg/dL) 364 H 224 H (70-110) mg/dL Urine Glucose (UA) 4+ H (Negative) 07/07/22 07/08/22 07/08/22 Range/Units 20:12 05:43 06:58 BUN 39.2 H (9.0-27.0) mg/dL Est GFR (CKD-EPI)AfAm 56.7 L (60.0-200.0) Est GFR (CKD-EPI)NonAf 48.9 L (60.0-200.0) BUN/Creatinine Ratio 28.20 H (12.00-20.00) Ratio Glucose 134 H (70-110) mg/dL POC Glucose (mg/dL) 230 H 134 H (70-110) mg/dL Urine Glucose (UA) (Negative) 07/08/22 Range/Units 11:05 BUN (9.0-27.0) mg/dL Est GFR (CKD-EPI)AfAm (60.0-200.0) Est GFR (CKD-EPI)NonAf (60.0-200.0) BUN/Creatinine Ratio (12.00-20.00) Ratio Glucose (70-110) mg/dL POC Glucose (mg/dL) 186 H (70-110) mg/dL Urine Glucose (UA) (Negative) Microbiology - Last 24 Hours (Table) 07/06/22 07:45 Blood Culture - Preliminary Blood No Growth after 48 hours 07/06/22 07:44 Blood Culture - Preliminary Blood No Growth after 48 hours 07/06/22 20:58 Gram Stain - Preliminary Sputum Sputum Culture - Preliminary Assessment and Plan Assessment: Acute hypoxemic respiratory failure, likely multifactorial, in part related to pneumonia, right lung, possible asymmetric pulmonary edema, as well as possible COPD exacerbation. Procalcitonin 0.41. ProBNP 4210. Remains on antibiotics and diuretics. Hemoptysis, possibly related to underlying pneumonia. Recovered. CABG, 1996. Diabetes with diabetic neuropathy. History of hypertension. 40 years of tobacco use, rule out COPD. History of hyperlipidemia. Hypothyroidism. Previous history of PCI with stent placement. Osteoarthritis. Gastroesophageal reflux disease. Morbid obesity. Plan: The patient was seen and evaluated Labs and medications reviewed Continue the current treatment plan Titrate the FiO2 as tolerated Increase his activity as tolerated Probable discharge in the a.m. We'll continue to follow I have personally seen and examined the patient, performed the documentation and the assessment and plan as written. Number of minutes spent on the visit: 10.
--- NOTE | 2022-07-08 13:29 | P.PN ---
Subjective Progress Note Date: 07/08/22 This is a pleasant 76 year old male with medical history of coronary artery disease with prior PCI, CABG, diabetes, hypertension, pulmonary embolism, gerd, copd, former smoker. Patient presents to the emergency room with shortness of breath and left sided shoulder pain with acute onset. Patient does not wear oxygen at home and is currently requiring oxygen via nasal cannula at 4L. Patient denies fever/chills. Denies cough at this time. Currently no reports of chest pain, shoulder pain. He reported pain about 9/10 with acute onset in the left shoulder blade with radiation to the back. No associated diaphoresis, no palpitations, no dizziness or lightheadedness. Pain is gone. Patient also reports increase in peripheral edema states he is supposed to be taking lasix twice a day currently on daily. Initial work up reveals white count of 13.9, D- Dimer of 0.97, creatinine is mildly elevated at 1.29. Lactic acid of 3.2. Patient has elevated blood glucose in the 400s. Had procalcitonin of 0.41. Chest CT angiography was done and showing no central pulmonary embolism. There is limited evaluation of the segmental and subsegmental branches. There is evidence of patchy nodular opacities and consolidation with groundglass opacities throughout the right lung findings concerning for pneumonia. There is enlarged right paratracheal and right hilar lymph nodes likely reactive. Cardiomegaly. Dilation of the main pulmonary artery which likely represents pulmonary arterial hypertension. There is a small hiatal hernia with eccentric wall thickening. Direct visualization is recommended to exclude malignancy. Legionella atigen and covid are negative. Patient is admitted to the medical floor with pulmonary on consultation. Patient has been started on steroids IV ceftriaxone IV azithromycin. Sputum culture is pending at this time. Patient was noted to have heart rate in the 40s overnight with 1st degree AV block EKG is done showing prolonged QT interval of 544. This will be monitored closely and all QT prolonging medications will be dcd including azithromycin. 07/08/2022 Patient evaluated today on the medical floor. Sitting up in chair no acute events overnight. Blood glucose down to 100s. Insulin is decreased. Now on oral steroids and continues on updrafts. Continues to require oxygen at 2 to 3L. Lung sounds are diminished. No wheezing noted on exam. On IV lasix and continues with lower extremity edema. Recommend to elevate while sitting. Continues on IV ceftriaxone. EKG done today and QT/QTc 516/484, continue holding metoprolol. Sputum culture pending. Review of Systems Constitutional: Denied any fatigue denied any fever. Cardio vascular: denied any chest pain, palpitations Gastrointestinal: denied any nausea, vomiting, diarrhea Pulmonary: Denied any shortness of breath cough Neurologic denied any new focal deficits All inpatient medications were reviewed and appropriate changes in these medications as dictated in the interval history and assessment and plan. PHYSICAL EXAMINATION: GENERAL: The patient is alert and oriented x3, not in any acute distress. Well developed, well nourished. Obese. on 4L nasal cannula. HEENT: Pupils are round and equally reacting to light. EOMI. No scleral icterus. No conjunctival pallor. Normocephalic, atraumatic. No pharyngeal erythema. No thyromegaly. CARDIOVASCULAR: S1 and S2 present. No murmurs, rubs, or gallops. PULMONARY: Chest is clear to auscultation, no wheezing or crackles. Diminished. ABDOMEN: Soft, nontender, nondistended, normoactive bowel sounds. No palpable organomegaly. MUSCULOSKELETAL: No joint swelling or deformity. EXTREMITIES: No cyanosis, clubbing, or pedal edema. +2 non pitting peripheral edema NEUROLOGICAL: Gross neurological examination did not reveal any focal deficits. SKIN: No rashes. Assessment and Plan Assessment Acute hypoxic respiratory failure likely from acute COPD exacerbation and possible right lung pneumonia. Component of volume overload/pulmonary edema. Lactic acidosis resolved Elevated D-Dimer with no pulmonary embolism Sinus bradycardia with 1 degree AV block/sinus arrythmia with prolonged QT interval of 544. Acute kidney injury Pulmonary hypertension Steroid induced hyperglycemia Hiatal hernia with wall thickening History of hypertension Diabetes mellitus type 2 History of pulmonary embolism Coronary artery disease with prior PCI, CABG Diabetic neuropathy Obesity Former smoker GI Prophylaxis DVT Prophylaxis Plan Metoprolol held/EKG done continue on telemetry monitoring Azithromycin discontinued and follow up front desk monitor QT interval Decrease steroids Insulin decreased. Titrate oxygen as tolerated IV lasix 40 Q12 with strict intake and output monitoring Pulmonary consultation AM labs The impression and plan of care has been dictated by Aundrea Gilliland, Nurse Practitioner as directed. Dr. Rachna MD I have performed a history and physical examination and medical decision making of this patient, discussed the same with the dictator, and agree with the dictators assessment and plan as written, documented as a scribe. Based on total visit time, I have performed more than 50% of this visit. Objective - Vital Signs Vital signs: Vital Signs Temp 97.8 F 07/08/22 08:00 Pulse 62 07/08/22 11:34 Resp 18 07/08/22 08:00 BP 133/77 07/08/22 08:00 Pulse Ox 98 07/08/22 08:07 FiO2 100 07/06/22 06:41 Intake & Output 07/07/22 07/08/22 07/08/22 18:59 06:59 18:59 Weight 121.5 kg Other: Voiding Method Toilet Toilet Toilet # Voids 3 3 - Labs CBC & Chem 7: 07/06/22 06:42 07/08/22 05:43 Labs: Abnormal Lab Results - Last 24 Hours (Table) 07/07/22 07/07/22 07/07/22 Range/Units 13:40 16:52 20:12 BUN (9.0-27.0) mg/dL Est GFR (CKD-EPI)AfAm (60.0-200.0) Est GFR (CKD-EPI)NonAf (60.0-200.0) BUN/Creatinine Ratio (12.00-20.00) Ratio Glucose (70-110) mg/dL POC Glucose (mg/dL) 364 H 224 H 230 H (70-110) mg/dL 07/08/22 07/08/22 07/08/22 Range/Units 05:43 06:58 11:05 BUN 39.2 H (9.0-27.0) mg/dL Est GFR (CKD-EPI)AfAm 56.7 L (60.0-200.0) Est GFR (CKD-EPI)NonAf 48.9 L (60.0-200.0) BUN/Creatinine Ratio 28.20 H (12.00-20.00) Ratio Glucose 134 H (70-110) mg/dL POC Glucose (mg/dL) 134 H 186 H (70-110) mg/dL Microbiology - Last 24 Hours (Table) 07/06/22 07:45 Blood Culture - Preliminary Blood No Growth after 48 hours 07/06/22 07:44 Blood Culture - Preliminary Blood No Growth after 48 hours 07/06/22 20:58 Gram Stain - Preliminary Sputum Sputum Culture - Preliminary Assessment and Plan Time with Patient: Less than 30
[2022-07-08 16:21] LABS: Glucose,Whole Blood 249 mg/dL (70-110)
[2022-07-08] MEDS: ATORVASTATIN 80 MG TAB PO SCH (17:38)
[2022-07-08] MEDS: glipiZIDE 10 MG TAB PO SCH (17:38)
[2022-07-08 19:52] LABS: Glucose,Whole Blood 205 mg/dL (70-110)
[2022-07-08] MEDS: PIOGLITAZONE 30 MG TAB PO SCH (20:36)
[2022-07-09 06:05] LABS: Glucose,Whole Blood 133 mg/dL (70-110)
[2022-07-09] MEDS: INSULIN ASPART (NovoLOG) 100 UNIT/ML VIAL SQ SCH ×7 (06:56→20:45)
[2022-07-09] MEDS: LEVOTHYROXINE 75 MCG TAB PO SCH (07:00)
[2022-07-09] MEDS: FUROSEMIDE 10 MG/ML 4 ML VIAL IV SCH ×2 (07:00→17:43)
[2022-07-09] MEDS: ALBUTEROL NEBULIZED 2.5 MG/3 ML INHALATION SCH ×3 (09:19→20:08)
[2022-07-09] MEDS: IPRATROPIUM 0.5 MG/2.5 ML NEBU INHALATION SCH ×3 (09:19→20:08)
[2022-07-09] MEDS: SYMBICORT 160-4.5 MCG INHALER INHALATION SCH ×2 (09:19→20:08)
[2022-07-09 09:33] LABS: African American GFR (CKD) 67.7 (60.0-200.0); Anion Gap 9.4 mmol/L (10.00-18.00); BUN/Creat Ratio 33.58 Ratio (12.00-20.00); Blood Urea Nitrogen 40.3 mg/dL (9.0-27.0); Calcium 8.9 mg/dL (8.7-10.3); Carbon Dioxide 25.6 mmol/L (20.0-27.5); Non-African American GFR(CKD) 58.4 (60.0-200.0); Potassium 4.6 mmol/L (3.5-5.5)
[2022-07-09] MEDS: predniSONE 20 MG TAB PO SCH (10:24)
[2022-07-09] MEDS: CLOPIDOGREL 75 MG TAB PO SCH (10:25)
[2022-07-09] MEDS: PANTOPRAZOLE 40 MG TABLET PO SCH (10:25)
[2022-07-09] MEDS: TAMSULOSIN 0.4 MG CAP.ER.24H PO SCH (10:25)
[2022-07-09] MEDS: DAPAGLIFLOZIN PROPANEDIOL 10 MG TABLET PO SCH (10:25)
[2022-07-09 11:31] LABS: Glucose,Whole Blood 137 mg/dL (70-110)
--- NOTE | 2022-07-09 14:15 | P.PN ---
Subjective Progress Note Date: 07/09/22 76-year-old male brought into the emergency room on July 06, at 620 1 in the morning, complaining of shortness of breath, and chest heaviness. The patient is seen today, in the ER, room 23. He's currently on 4 L of oxygen. He is feeling a bit better today than he did when he first came in. His chest x-ray was consistent with either CHF and/or pneumonia. A CT angiogram was negative for pulmonary embolism. His N-terminal proBNP was 4210. He's currently not receiving any IV fluids. His primary care provider is Dr. Carcamo. He also sees Dr. Muñiz for his heart, Dr. Robertson the solar installation foreman for his diabetes, and one of the vascular surgeon. His medical history includes coronary disease, st atus post triple vessel bypass grafting, 1996, diabetes, diabetic neuropathy, GERD, hyperlipidemia, hypertension, pulmonary embolism, and hypothyroidism. The patient has also had previous PCI with stent placement. White count 13.9, with a normal hemoglobin, hematocrit, and platelet count. D-dimer was 0.97. Sodium 144, potassium 4.7, chloride 107, CO2 26, BUN 27, creatinine 1.29. Lactic acid initially was 3.2. Repeat was 2.0. Testing for caballero virus was negative. Troponin was normal. Chest x-ray my opinion showed bilateral airspace disease more so on the right side, which could be consistent with asymmetric pulmonary edema, or pneumonia, right lung. There is cardiomegaly. CT angiogram was negative for pulmonary embolism. The CT was consistent with possible right- sided pneumonia, and right paratracheal and right hilar reactive adenopathy. The patient is seen today 07/07/2022 on the regular medical floor. He is currently sitting up in a chair at the bedside. Awake and alert in no acute distress. Breathing a bit easier today compared to yesterday. Maintaining good O2 saturations in the 90s on 4 L/m per nasal cannula. Still with some significant lower extremity edema. Chest x-ray shows improving bibasilar infiltrates. Blood cultures revealing no growth to date. Sputum culture pending. Sodium 139. Potassium 4.5. Bicarb 18. BUN 36. Creatinine 1.33. Glucose 412. Hemoglobin A1c 7.9. Urinalysis negative. Pro-calcitonin 0.41. ProBNP 4210. Legionella antigen negative. He is continued on Symbicort, albuterol, IV Solu-Medrol. On oral diuretics. Antibiotics in the form of ceftriaxone and azithromycin. The patient is seen today 07/08/2022 in follow-up on the regular medical floor. He is awake and alert in no acute distress. She at the bedside. Breathing better today compared to yesterday. No worsening shortness of breath, cough or congestion. Maintaining good O2 saturations in the 90s on 3 L/m per nasal cannula. Afebrile. Hemodynamically stable. Blood cultures revealed no growth. Sputum culture revealed no growth. Sodium 139. Potassium 4.5. BUN 39. Creatinine 1.4. Glucose 134. He is continued on ceftriaxone. Remains on bronchodilators. Remains on IV diuretics. No accurate I&O. On today's evaluation 07/09/2022, the patient is being seen for a follow-up. Patient is feeling well. The patient is currently on 5 L of oxygen by nasal cannula. The patient is on bronchodilators with albuterol updrafts [id number] every 4 hours, Symbicort 2 puffs twice a day. The patient on Lasix 40 mg IV every 12 hours and the patient is also on IV Rocephin as an empiric antibiotic coverage. Blood work from today shows a sodium level of 138 with a potassium level of 4.6, BUN is at 40 with a creatinine of 1.2. Glucose at 137. Mother the patient an elevated proBNP level at time of admission at 4210 and the pro calcitonin level was at 0.41. Objective - Vital Signs Vital signs: Vital Signs Temp 97.6 F 07/09/22 06:55 Pulse 66 07/09/22 09:35 Resp 18 07/09/22 06:55 BP 153/73 07/09/22 06:55 Pulse Ox 100 07/09/22 06:55 FiO2 100 07/06/22 06:41 Intake & Output 07/08/22 07/09/22 07/09/22 18:59 06:59 18:59 Weight 120.5 kg Other: Voiding Method Toilet Toilet # Voids 4 # Bowel Movements 1 - Exam GENERAL EXAM: Alert, obese, 76-year-old male, up in a chair at the bedside, on 5 L nasal cannula, comfortable in no apparent distress. HEAD: Normocephalic. EYES: Normal reaction of pupils, equal size. NOSE: Clear with pink turbinates. THROAT: No erythema or exudates. NECK: No masses, no JVD. CHEST: No chest wall deformity. LUNGS: Equal air entry with faint end expiratory wheeze, crackles in the left lung base. CVS: S1 and S2 normal with no audible murmur, regular rhythm. ABDOMEN: No hepatosplenomegaly, normal bowel sounds, no guarding or rigidity. SPINE: No scoliosis or deformity SKIN: No rashes CENTRAL NERVOUS SYSTEM: No focal deficits, tone is normal in all 4 extremities. EXTREMITIES: There is 2+ peripheral edema with changes of chronic venous stasis. No clubbing, no cyanosis. Peripheral pulses are intact. - Labs CBC & Chem 7: 07/06/22 06:42 07/09/22 05:36 Labs: Abnormal Lab Results - Last 24 Hours (Table) 07/08/22 07/08/22 07/09/22 Range/Units 16:19 19:50 05:36 Anion Gap 9.40 L (10.00-18.00) mmol/L BUN 40.3 H (9.0-27.0) mg/dL Est GFR (CKD-EPI)NonAf 58.4 L (60.0-200.0) BUN/Creatinine Ratio 33.58 H (12.00-20.00) Ratio Glucose 125 H (70-110) mg/dL POC Glucose (mg/dL) 249 H 205 H (70-110) mg/dL 07/09/22 07/09/22 Range/Units 06:04 11:29 Anion Gap (10.00-18.00) mmol/L BUN (9.0-27.0) mg/dL Est GFR (CKD-EPI)NonAf (60.0-200.0) BUN/Creatinine Ratio (12.00-20.00) Ratio Glucose (70-110) mg/dL POC Glucose (mg/dL) 133 H 137 H (70-110) mg/dL Microbiology - Last 24 Hours (Table) 07/06/22 20:58 Gram Stain - Final Sputum Sputum Culture - Final 07/06/22 07:45 Blood Culture - Preliminary Blood No Growth after 72 hours 07/06/22 07:44 Blood Culture - Preliminary Blood No Growth after 72 hours Assessment and Plan Plan: Acute hypoxemic respiratory failure, likely multifactorial, in part related to pneumonia, right lung, possible asymmetric pulmonary edema, as well as possible COPD exacerbation. Procalcitonin 0.41. ProBNP 4210. Remains on antibiotics and diuretics. Hemoptysis, possibly related to underlying pneumonia. Recovered. CABG, 1996. Diabetes with diabetic neuropathy. History of hypertension. 40 years of tobacco use, rule out COPD. History of hyperlipidemia. Hypothyroidism. Previous history of PCI with stent placement. Osteoarthritis. Gastroesophageal reflux disease. Morbid obesity. Plan: Continue the current antibiotic regimen Clinically improving Continue the current treatment plan Titrate the FiO2 as tolerated Increase his activity as tolerated We'll continue to follow
[2022-07-09 16:36] LABS: Glucose,Whole Blood 183 mg/dL (70-110)
[2022-07-09] MEDS: glipiZIDE 10 MG TAB PO SCH (17:42)
[2022-07-09] MEDS: ATORVASTATIN 80 MG TAB PO SCH (17:42)
[2022-07-09 19:56] LABS: Glucose,Whole Blood 240 mg/dL (70-110)
[2022-07-09] MEDS: INSULIN DETEMIR (LEVEMIR) 100 UNIT/ML SYR SQ SCH (20:45)
[2022-07-09] MEDS: PIOGLITAZONE 30 MG TAB PO SCH (20:45)
--- NOTE | 2022-07-10 00:17 | P.PN ---
Subjective Progress Note Date: 07/09/22 This is a pleasant 76 year old male with medical history of coronary artery disease with prior PCI, CABG, diabetes, hypertension, pulmonary embolism, gerd, copd, former smoker. Patient presents to the emergency room with shortness of breath and left sided shoulder pain with acute onset. Patient does not wear oxygen at home and is currently requiring oxygen via nasal cannula at 4L. Patient denies fever/chills. Denies cough at this time. Currently no reports of chest pain, shoulder pain. He reported pain about 9/10 with acute onset in the left shoulder blade with radiation to the back. No associated diaphoresis, no palpitations, no dizziness or lightheadedness. Pain is gone. Patient also reports increase in peripheral edema states he is supposed to be taking lasix twice a day currently on daily. Initial work up reveals white count of 13.9, D- Dimer of 0.97, creatinine is mildly elevated at 1.29. Lactic acid of 3.2. Patient has elevated blood glucose in the 400s. Had procalcitonin of 0.41. Chest CT angiography was done and showing no central pulmonary embolism. There is limited evaluation of the segmental and subsegmental branches. There is evidence of patchy nodular opacities and consolidation with groundglass opacities throughout the right lung findings concerning for pneumonia. There is enlarged right paratracheal and right hilar lymph nodes likely reactive. Cardiomegaly. Dilation of the main pulmonary artery which likely represents pulmonary arterial hypertension. There is a small hiatal hernia with eccentric wall thickening. Direct visualization is recommended to exclude malignancy. Legionella atigen and covid are negative. Patient is admitted to the medical floor with pulmonary on consultation. Patient has been started on steroids IV ceftriaxone IV azithromycin. Sputum culture is pending at this time. Patient was noted to have heart rate in the 40s overnight with 1st degree AV block EKG is done showing prolonged QT interval of 544. This will be monitored closely and all QT prolonging medications will be dcd including azithromycin. 07/08/2022 Patient evaluated today on the medical floor. Sitting up in chair no acute events overnight. Blood glucose down to 100s. Insulin is decreased. Now on oral steroids and continues on updrafts. Continues to require oxygen at 2 to 3L. Lung sounds are diminished. No wheezing noted on exam. On IV lasix and continues with lower extremity edema. Recommend to elevate while sitting. Continues on IV ceftriaxone. EKG done today and QT/QTc 516/484, continue holding metoprolol. Sputum culture pending. 07/09/2022 Patient is continued on nasal cannula requiring 3L of oxygen. He reports improvement in breathing however continues to report blood tinged sputum. Patient has been started on IV lasix 40 Q12 which continues. Creatinine has improved to 1.2. Continues with extensive bilateral lower extremity edema. Patient has been taken off metoprolol and repeat EKG has been done showing sinus bradycardia with 1 degree AV block. Prolonged QT. Cardiology has been consulted. Review of Systems Constitutional: Denied any fatigue denied any fever. Cardio vascular: denied any chest pain, palpitations Gastrointestinal: denied any nausea, vomiting, diarrhea Pulmonary: Denied any shortness of breath cough Neurologic denied any new focal deficits All inpatient medications were reviewed and appropriate changes in these medications as dictated in the interval history and assessment and plan. PHYSICAL EXAMINATION: GENERAL: The patient is alert and oriented x3, not in any acute distress. Well developed, well nourished. Obese. on 4L nasal cannula. HEENT: Pupils are round and equally reacting to light. EOMI. No scleral icterus. No conjunctival pallor. Normocephalic, atraumatic. No pharyngeal erythema. No thyromegaly. CARDIOVASCULAR: S1 and S2 present. No murmurs, rubs, or gallops. PULMONARY: Chest is clear to auscultation, no wheezing or crackles. Diminished. ABDOMEN: Soft, nontender, nondistended, normoactive bowel sounds. No palpable organomegaly. MUSCULOSKELETAL: No joint swelling or deformity. EXTREMITIES: No cyanosis, clubbing, or pedal edema. +2 non pitting peripheral edema NEUROLOGICAL: Gross neurological examination did not reveal any focal deficits. SKIN: No rashes. Assessment and Plan Assessment Acute hypoxic respiratory failure likely from acute COPD exacerbation and possible right lung pneumonia. Component of volume overload/pulmonary edema. Lactic acidosis resolved Elevated D-Dimer with no pulmonary embolism Sinus bradycardia with 1 degree AV block/sinus arrythmia with prolonged QT i nterval Acute kidney injury improved Pulmonary hypertension Steroid induced hyperglycemia improved Hiatal hernia with wall thickening recommend direct visualization for further evaluation History of hypertension Diabetes mellitus type 2 History of pulmonary embolism Coronary artery disease with prior PCI, CABG Diabetic neuropathy Obesity Former smoker GI Prophylaxis DVT Prophylaxis Plan Metoprolol held/EKG done continue on telemetry monitoring Azithromycin discontinued and follow up geospatial information technologist QT interval Cardiology consultation Echocardiogram ordered Titrate oxygen as tolerated IV lasix 40 Q12 with strict intake and output monitoring Pulmonary consultation AM labs The impression and plan of care has been dictated by Aundrea Gilliland, Nurse Practitioner as directed. Dr. Rachna MD I have performed a history and physical examination and medical decision making of this patient, discussed the same with the dictator, and agree with the dictators assessment and plan as written, documented as a scribe. Based on total visit time, I have performed more than 50% of this visit. Objective - Vital Signs Vital signs: Vital Signs Temp 97.6 F 07/09/22 06:55 Pulse 66 07/09/22 09:35 Resp 18 07/09/22 06:55 BP 153/73 07/09/22 06:55 Pulse Ox 100 07/09/22 06:55 FiO2 100 07/06/22 06:41 Intake & Output 07/08/22 07/09/22 07/09/22 18:59 06:59 18:59 Weight 120.5 kg Other: Voiding Method Toilet Toilet # Voids 4 # Bowel Movements 1 - Labs CBC & Chem 7: 07/06/22 06:42 07/09/22 05:36 Labs: Abnormal Lab Results - Last 24 Hours (Table) 07/08/22 07/08/22 07/09/22 Range/Units 16:19 19:50 05:36 Anion Gap 9.40 L (10.00-18.00) mmol/L BUN 40.3 H (9.0-27.0) mg/dL Est GFR (CKD-EPI)NonAf 58.4 L (60.0-200.0) BUN/Creatinine Ratio 33.58 H (12.00-20.00) Ratio Glucose 125 H (70-110) mg/dL POC Glucose (mg/dL) 249 H 205 H (70-110) mg/dL 07/09/22 07/09/22 Range/Units 06:04 11:29 Anion Gap (10.00-18.00) mmol/L BUN (9.0-27.0) mg/dL Est GFR (CKD-EPI)NonAf (60.0-200.0) BUN/Creatinine Ratio (12.00-20.00) Ratio Glucose (70-110) mg/dL POC Glucose (mg/dL) 133 H 137 H (70-110) mg/dL Microbiology - Last 24 Hours (Table) 07/06/22 20:58 Gram Stain - Final Sputum Sputum Culture - Final 07/06/22 07:45 Blood Culture - Preliminary Blood No Growth after 72 hours 07/06/22 07:44 Blood Culture - Preliminary Blood No Growth after 72 hours Assessment and Plan Time with Patient: Less than 30
[2022-07-10 05:58] LABS: Glucose,Whole Blood 148 mg/dL (70-110)
[2022-07-10] MEDS: INSULIN ASPART (NovoLOG) 100 UNIT/ML VIAL SQ SCH ×8 (06:04→21:27)
[2022-07-10] MEDS: FUROSEMIDE 10 MG/ML 4 ML VIAL IV SCH ×2 (06:12→17:34)
[2022-07-10] MEDS: LEVOTHYROXINE 75 MCG TAB PO SCH (06:12)
[2022-07-10] MEDS: IPRATROPIUM 0.5 MG/2.5 ML NEBU INHALATION SCH ×3 (07:39→20:31)
[2022-07-10] MEDS: ALBUTEROL NEBULIZED 2.5 MG/3 ML INHALATION SCH ×3 (07:39→20:31)
[2022-07-10] MEDS: SYMBICORT 160-4.5 MCG INHALER INHALATION SCH ×2 (07:40→20:31)
[2022-07-10] MEDS: DAPAGLIFLOZIN PROPANEDIOL 10 MG TABLET PO SCH (08:50)
[2022-07-10] MEDS: predniSONE 20 MG TAB PO SCH (08:50)
[2022-07-10] MEDS: TAMSULOSIN 0.4 MG CAP.ER.24H PO SCH (08:51)
[2022-07-10] MEDS: PANTOPRAZOLE 40 MG TABLET PO SCH (08:51)
[2022-07-10] MEDS: CLOPIDOGREL 75 MG TAB PO SCH (09:01)
--- NOTE | 2022-07-10 09:25 | CA ---
Transthoracic Echo Report Name: Rafat Mar Age: 76 Gender: M : 1945 Exam Date: 07/10/2022 07:50 Exam Location: [facility] Ht (in): 69 Wt (lb): 266 Ordering Physician: Aundrea Gilliland Attending/Referring Phys: Talat YUNG Hog Ribber Helen Taylor, ADRIANA Procedure CPT: Indications: chf Cardiac Hx: Hx of CABG Technical Quality: Technically difficult study Contrast 1: Lumason Total Dose (mL): 3 Contrast 2: Total Dose (mL): MEASUREMENTS (Male / Female) Normal Values 2D ECHO LV Diastolic Diameter PLAX 6.0 cm 4.2 - 5.9 / 3.9 - 5.3 cm LV Systolic Diameter PLAX 4.6 cm IVS Diastolic Thickness 1.4 cm 0.6 - 1.0 / 0.6 - 0.9 cm LVPW Diastolic Thickness 1.5 cm 0.6 - 1.0 / 0.6 - 0.9 cm LV Relative Wall Thickness 0.5 RV Internal Dim ED PLAX 4.9 cm LA Systolic Diameter LX 4.9 cm 3.0 - 4.0 / 2.7 - 3.8 cm LV Diastolic Volume MOD BP 99.2 cm??? 67 - 155 / 56 - 104 cm??? LV Systolic Volume MOD BP 42.0 cm??? 22 - 58 / 19 - 49 cm??? LV Ejection Fraction MOD BP 57.6 % >= 55 % LV Diastolic Volume MOD 4C 113.0 cm??? LV Systolic Volume MOD 4C 53.2 cm??? LV Ejection Fraction MOD 4C 52.9 % LV Diastolic Length 4C 8.6 cm LV Systolic Length 4C 7.9 cm LV Diastolic Volume MOD 2C 87.8 cm??? LV Systolic Volume MOD 2C 30.0 cm??? LV Ejection Fraction MOD 2C 65.8 % LV Diastolic Length 2C 8.6 cm LV Systolic Length 2C 6.8 cm LA Volume 88.8 cm??? 18 - 58 / 22 - 52 cm??? M-MODE Aortic Root Diameter MM 3.6 cm MV E Point Septal Separation 1.9 cm AV Cusp Separation MM 2.0 cm DOPPLER AV Peak Velocity 162.0 cm/s AV Peak Gradient 10.5 mmHg MV Area PHT 4.1 cm??? Mitral E Point Velocity 130.6 cm/s Mitral A Point Velocity 85.3 cm/s Mitral E to A Ratio 1.5 MV Deceleration Time 187.3 ms TR Peak Velocity 334.3 cm/s TR Peak Gradient 44.7 mmHg Right Ventricular Systolic Press 49.4 mmHg FINDINGS Left Ventricle Left ventricular ejection fraction is estimated at 50-55 %. Mild left ventricular dilatation. Moderate concentric left ventricular hypertrophy. Right Ventricle Moderate to severe right ventricular dilatation. Moderate pulmonary hypertension. Mild right ventricular hypokinesis Right Atrium Normal right atrial size. Left Atrium Moderately increased left atrial diameter. Severely increased left atrial volume. Mildly increased left atrial area. Mitral Valve Structurally normal mitral valve. Mild mitral regurgitation. Aortic Valve Trileaflet aortic valve. Thickened aortic valve without stenosis. Tricuspid Valve Structurally normal tricuspid valve. [id number] tricuspid regurgitation. Pulmonic Valve Structurally normal pulmonic valve. [id number] pulmonic regurgitation. Pericardium Normal pericardium. No pericardial effusion. Aorta Normal size aortic root and proximal ascending aorta. CONCLUSIONS Left ventricular ejection fraction 50-55% Moderate increased left ventricular wall thickness RVSP 49 Moderate to severe right ventricular dilation with mild right ventricular hypokinesis Moderately dilated left atrium Mild mitral regurgitation Mild to moderate tricuspid regurgitation No pericardial effusion Previewed by: Dr. Jose Muhammad DO (Electronically Signed) Final Date: 10 July 2022 09:24
[2022-07-10 09:47] LABS: African American GFR (CKD) 84.4 (60.0-200.0); Anion Gap 12.9 mmol/L (10.00-18.00); BUN/Creat Ratio 34.5 Ratio (12.00-20.00); Blood Urea Nitrogen 34.5 mg/dL (9.0-27.0); Calcium 8.8 mg/dL (8.7-10.3); Carbon Dioxide 23.1 mmol/L (20.0-27.5); Non-African American GFR(CKD) 72.8 (60.0-200.0)
--- NOTE | 2022-07-10 10:41 | P.CRDCN ---
History of Present Illness Consult date: 07/10/22 History of present illness: HISTORY OF PRESENT ILLNESS: This is a 76-year-old male with a past medical history significant for coronary artery disease with previous 2 vessel CABG and subsequent stenting, hypertension, hyperlipidemia, diabetes, sleep apnea and morbid obesity. Patient follows in the office with Dr. Muñiz. We have been asked to see the patient in consultation for prolonged QT, bradycardia, and CHF. Patient examined this morning. he is sitting up in the chair. Patient states he presented to the hospital because he began having shortness of breath on Saturday. Patient is being treated for pneumonia and COPD exacerbation. Patient currently denies any chest pain or pressure. He reports improvement in his shortness of breath since coming to the hospital. The patient is receiving IV Lasix 40 mg every 12 hours. He continues to have lower extremity edema. Per nursing, the patient is refusing Rashid wraps to his lower extremities. Telemetry reveals sinus mechanism. EKG performed yesterday revealed sinus bradycardia with borderline prolonged QT. The patient's metoprolol was discontinued per primary medicine. The patien t denies any dizziness or lightheadedness. He denies any episodes of syncope. * EKG reveals sinus mechanism with no signs of acute ischemia. Borderline prolonged QT interval. Previous EKG reveals sinus mechanism with ventricular ectopy * Chest xray from July 07 reveals improving bibasilar infiltrates * Laboratory data: WBC 13.9. Hemoglobin 14.0. Platelet count 171. Sodium 138. Potassium 4.0. BUN 34. Creatinine 1.0. ProBNP 4210. * Current home cardiac medications include lisinopril 10 mg daily, metoprolol tartrate 25 mg in the morning and 12.5 mg at night, Lasix 40 mg daily, Plavix 75 mg daily, and Lipitor 80 mg at night * Most recent echocardiogram obtained in June 2022 revealed ejection fraction 50-55%, moderate to severe right ventricular dilation with mild right ventricular hypokinesis, RVSP 49. Moderately dilated left atrium, mild MR, [id number] TR, no pericardial effusion. * Cardiac catheterization history: December 2019 with stenting of first obtuse marginal branch of circumflex, stenting of the mid circumflex, and stenting of LAD. Patient also underwent Implella placement. REVIEW OF SYSTEMS: At the time of my exam: CONSTITUTIONAL: Denies fever or chills. HEENT: Denies blurred vision, vision changes, or eye pain. Denies hemoptysis CARDIOVASCULAR: Denies chest pain. Denies orthopnea. Denies PND. Denies palpitations RESPIRATORY: Denies shortness of breath. GASTROINTESTINAL: Denies abdominal pain. Denies nausea or vomiting. HEMATOLOGIC: Denies bleeding disorders. GENITOURINARY: Denies any blood in urine. SKIN: Denies pruitis. Denies rash. PHYSICAL EXAM: VITAL SIGNS: Reviewed. GENERAL: Well-developed in no acute distress. HEENT: Head is normocephalic. Pupils are equal, round. Sclerae anicteric. Mucous membranes of the mouth are moist. Neck supple. No JVD or thyromegaly LUNGS: Respirations even and unlabored. Lungs essentially clear to auscultation bilaterally. HEART: Regular rate and rhythm. S1 and S2 heard. ABDOMEN: Soft. Nondistended. Nontender. EXTREMITIES: Normal range of motion. No clubbing or cyanosis. Peripheral pulses intact. 2+ bilateral lower extremity edema NEUROLOGIC: Awake and alert. Oriented x 3. ASSESSMENT: Shortness of breath Pneumonia Sinus bradycardia with borderline prolonged QT, asymptomatic coronary artery disease with previous 2 vessel CABG and subsequent stenting Hypertension Hyperlipidemia Diabetes Sleep apnea Chronic lower extremity edema, suspect secondary to venous insufficiency PLAN: Continue current cardiac medications Resume metoprolol given patient is asymptomatic and his cardiac history Continue telemetry monitoring Avoid QT prolonging medications Continue IV lasix for lower extremity edema Further recommendations pending patient course Nurse practitioner note has been reviewed by physician. Signing provider agrees with the documented findings, assessment, and plan of care. Past Medical History Past Medical History: Coronary Artery Disease (CAD), Diabetes Mellitus, GERD/Reflux, Hyperlipidemia, Hypertension, Osteoarthritis (OA), Pneumonia, Pulmonary Embolus (PE), Thyroid Disorder Additional Past Medical History / Comment(s): fx rt hand, carpal tunnel kisha. ?murmur, sinus, kidney stone History of Any Multi-Drug Resistant Organisms: None Reported Past Surgical History: Appendectomy, Cholecystectomy, Coronary Bypass/CABG, Heart Catheterization, Heart Catheterization With Stent, Hernia Repair Additional Past Surgical History / Comment(s): triple vessel cabg in 1996, hernia repair(triple per old hx) in 1959, ventral hernia 2006, colonoscopy.kisha cataracts-lens implants Past Anesthesia/Blood Transfusion Reactions: No Reported Reaction Date of Last Stent Placement:: dec 2019 Past Psychological History: Depression Additional Psychological History / Comment(s): since 2018, lives with son ector. 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 Smoking Status: Never smoker Past Alcohol Use History: Occasional Additional Past Alcohol Use History / Comment(s): started smoking age 12 worked up 3.5 ppd quit 1996 Past Drug Use History: None Reported - Past Family History Father Family Medical History: Myocardial Infarction ([place]) Additional Family Medical History / Comment(s): from [place] age 44 Mother Additional Family Medical History / Comment(s): age 86 from [place] Medications and Allergies Home Medications Medication Instructions Recorded Confirmed Type Levothyroxine Sodium [Synthroid] 75 mcg PO AC-BRKFST 06/09/17 07/06/22 History Omeprazole 20 mg PO DAILY 06/09/17 07/06/22 History Tamsulosin [Flomax] 0.4 mg PO DAILY 11/19/18 07/06/22 History lisinopriL [Prinivil] 10 mg PO DAILY #30 tab 01/07/20 07/06/22 Rx Atorvastatin [Lipitor] 80 mg PO W/SUPPER 03/06/21 07/06/22 History Metoprolol Tartrate [Lopressor] 12.5 mg PO HS 03/06/21 07/06/22 History Clopidogrel [Plavix] 75 mg PO DAILY@1100 07/06/22 07/06/22 History Empagliflozin [Jardiance] 25 mg PO DAILY 07/06/22 07/06/22 History Furosemide [Lasix] 40 mg PO DAILY 07/06/22 07/06/22 History Metoprolol Tartrate [Lopressor] 25 mg PO DAILY 07/06/22 07/06/22 History Pioglitazone [Actos] 30 mg PO HS 07/06/22 07/06/22 History glipiZIDE [Glucotrol] 10 mg PO W/SUPPER 07/06/22 07/06/22 History Allergies Allergy/AdvReac Type Severity Reaction Status Date / Time levofloxacin [From Levaquin] Allergy Anaphylaxis Verified 07/06/22 09:37 metformin Allergy Rash/Hives Verified 07/06/22 09:37 Physical Exam Vitals: Vital Signs Temp Pulse Pulse Resp BP Pulse Ox 07/10/22 07:55 57 L 07/10/22 07:39 70 97 07/10/22 06:50 98.6 F 57 L 19 146/78 98 07/10/22 01:44 97.6 F 72 18 147/70 97 07/09/22 20:09 68 07/09/22 19:08 97.5 F L 79 20 137/76 96 07/09/22 14:00 58 L 18 128/57 100 Intake and Output 07/09/22 07/10/22 07/10/22 22:59 06:59 14:59 Intake Total 480 50 Output Total 1875 350 Balance -1395 -300 Intake: Intake, IV Titration 50 Amount cefTRIAXone 2 gm In 50 Sodium Chloride 0.9% 50 ml @ 100 mls/hr IVPB Q24HR [facility] Rx#:[id number] Oral 480 Output: Urine 1875 350 Other: Weight 120.7 kg Results 07/06/22 06:42 07/10/22 05:56 Comprehensive Metabolic Panel 07/10/22 Range/Units 05:56 Sodium 138 (135-145) mmol/L Potassium 4.0 (3.5-5.5) mmol/L Chloride 102 (96-109) mmol/L Carbon Dioxide 23.1 (20.0-27.5) mmol/L BUN 34.5 H (9.0-27.0) mg/dL Creatinine 1.0 (0.6-1.5) mg/dL Glucose 145 H (70-110) mg/dL Calcium 8.8 (8.7-10.3) mg/dL Current Medications Generic Name Dose Route Start Last Admin Trade Name Freq PRN Reason Stop Dose Admin Acetaminophen 650 mg 07/07/22 06:53 07/07/22 06:59 Acetaminophen Tab 325 Mg Tab PO 650 mg Q6HR PRN Administration Fever and/ or Pain Albuterol Sulfate 2.5 mg 07/06/22 20:00 07/10/22 07:39 Albuterol Nebulized 2.5 Mg/3 Ml INHALATION 2.5 mg RT-TID MADDISON Administration Albuterol Sulfate 2.5 mg 07/06/22 15:00 Albuterol Nebulized 2.5 Mg/3 Ml INHALATION RT-Q2H PRN Shortness Of Breath Or Wheezing Atorvastatin Calcium 80 mg 07/06/22 17:30 07/09/22 17:42 Atorvastatin 80 Mg Tab PO 80 mg W/SUPPER MADDISON Administration Budesonide/Formoterol Fumarate 2 puff 07/06/22 20:00 07/10/22 07:40 Symbicort 160-4.5 Mcg Inhaler INHALATION 2 puff RT-BID MADDISON Administration Clopidogrel Bisulfate 75 mg 07/07/22 10:00 07/10/22 09:01 Clopidogrel 75 Mg Tab PO 75 mg DAILY MADDISON Administration Dapagliflozin 10 mg 07/07/22 09:00 07/10/22 08:50 Dapagliflozin Propanediol 10 Mg Tablet PO 10 mg DAILY MADDISON Administration Dextrose/Water 25 ml 07/07/22 02:19 Dextrose 50% Syringe 50 Ml IVP PER PROTOCOL PRN Hypoglycemia Protocol Dextrose/Water 50 ml 07/07/22 02:19 Dextrose 50% Syringe 50 Ml IVP PER PROTOCOL PRN Hypoglycemia Protocol Furosemide 40 mg 07/07/22 18:00 07/10/22 06:12 Furosemide 10 Mg/Ml 4 Ml Vial IV 40 mg Q12H MADDISON Administration Glipizide 10 mg 07/06/22 17:30 07/09/22 17:42 Glipizide 10 Mg Tab PO 10 mg W/SUPPER MADDISON Administration Insulin Aspart 0 unit 07/06/22 22:45 07/10/22 06:04 Insulin Aspart (Novolog) 100 Unit/Ml Vial SQ Not Given ACHS [facility] Protocol Insulin Aspart 3 unit 07/08/22 12:30 07/10/22 09:36 Insulin Aspart (Novolog) 100 Unit/Ml Vial SQ Not Given AC-TID [facility] Insulin Detemir 10 unit 07/08/22 21:00 07/09/22 20:45 Insulin Detemir (Levemir) 100 Unit/Ml Syr SQ 10 unit HS MADDISON Administration Ipratropium [place] 0.5 mg 07/06/22 20:00 07/10/22 07:39 Ipratropium 0.5 Mg/2.5 Ml Nebu INHALATION 0.5 mg RT-TID MADDISON Administration Ipratropium [place] 0.5 mg 07/06/22 15:00 Ipratropium 0.5 Mg/2.5 Ml Nebu INHALATION RT-Q2H PRN Shortness Of Breath Or Wheezing Levothyroxine Sodium 75 mcg 07/07/22 06:30 07/10/22 06:12 Levothyroxine 75 Mcg Tab PO 75 mcg 0630 MADDISON Administration Metoprolol Tartrate 25 mg 07/10/22 09:15 Metoprolol Tartrate 25 Mg Tab PO DAILY MADDISON Metoprolol Tartrate 12.5 mg 07/10/22 21:00 Metoprolol Tartrate 12.5 Mg Tab PO HS [facility] Miscellaneous Information 1 each 07/06/22 09:55 Pneumonia Protocol Utilized 1 Each Misc PO ONCE PRN Per Protocol Pantoprazole Sodium 40 mg 07/07/22 09:00 07/10/22 08:51 Pantoprazole 40 Mg Tablet PO 40 mg DAILY MADDISON Administration Pioglitazone HCl 30 mg 07/06/22 21:00 07/09/22 20:45 Pioglitazone 30 Mg Tab PO 30 mg HS MADDISON Administration Prednisone 40 mg 07/08/22 09:00 07/10/22 08:50 Prednisone 20 Mg Tab PO 40 mg DAILY MADDISON Administration Tamsulosin HCl 0.4 mg 07/07/22 09:00 07/10/22 08:51 Tamsulosin 0.4 Mg Cap.Er.24h PO 0.4 mg DAILY MADDISON Administration Intake and Output 07/09/22 07/10/22 07/10/22 22:59 06:59 14:59 Intake Total 480 50 Output Total 1875 350 Balance -1395 -300 Intake: Intake, IV Titration 50 Amount cefTRIAXone 2 gm In 50 Sodium Chloride 0.9% 50 ml @ 100 mls/hr IVPB Q24HR [facility] Rx#:[id number] Oral 480 Output: Urine 1875 350 Other: Weight 120.7 kg 07/06/22 06:42 07/10/22 05:56
--- NOTE | 2022-07-10 11:01 | P.PN ---
Subjective Progress Note Date: 07/10/22 76-year-old male brought into the emergency room on July 06, at 620 1 in the morning, complaining of shortness of breath, and chest heaviness. The patient is seen today, in the ER, room 23. He's currently on 4 L of oxygen. He is feeling a bit better today than he did when he first came in. His chest x-ray was consistent with either CHF and/or pneumonia. A CT angiogram was negative for pulmonary embolism. His N-terminal proBNP was 4210. He's currently not receiving any IV fluids. His primary care provider is Dr. Carcamo. He also sees Dr. Muñiz for his heart, Dr. Robertson the sort line worker for his diabetes, and one of the vascular surgeon. His medical history includes coronary disease, st [facility] post triple vessel bypass grafting, 1996, diabetes, diabetic neuropathy, GERD, hyperlipidemia, hypertension, pulmonary embolism, and hypothyroidism. The patient has also had previous PCI with stent placement. White count 13.9, with a normal hemoglobin, hematocrit, and platelet count. D-dimer was 0.97. Sodium 144, potassium 4.7, chloride 107, CO2 26, BUN 27, creatinine 1.29. Lactic acid initially was 3.2. Repeat was 2.0. Testing for caballero virus was negative. Troponin was normal. Chest x-ray my opinion showed bilateral airspace disease more so on the right side, which could be consistent with asymmetric pulmonary edema, or pneumonia, right lung. There is cardiomegaly. CT angiogram was negative for pulmonary embolism. The CT was consistent with possible right- sided pneumonia, and right paratracheal and right hilar reactive adenopathy. The patient is seen today 07/07/2022 on the regular medical floor. He is currently sitting up in a chair at the bedside. Awake and alert in no acute distress. Breathing a bit easier today compared to yesterday. Maintaining good O2 saturations in the 90s on 4 L/m per nasal cannula. Still with some significant lower extremity edema. Chest x-ray shows improving bibasilar infiltrates. Blood cultures revealing no growth to date. Sputum culture pending. Sodium 139. Potassium 4.5. Bicarb 18. BUN 36. Creatinine 1.33. Glucose 412. Hemoglobin A1c 7.9. Urinalysis negative. Pro-calcitonin 0.41. ProBNP 4210. Legionella antigen negative. He is continued on Symbicort, albuterol, IV Solu-Medrol. On oral diuretics. Antibiotics in the form of ceftriaxone and azithromycin. The patient is seen today 07/08/2022 in follow-up on the regular medical floor. He is awake and alert in no acute distress. She at the bedside. Breathing better today compared to yesterday. No worsening shortness of breath, cough or congestion. Maintaining good O2 saturations in the 90s on 3 L/m per nasal cannula. Afebrile. Hemodynamically stable. Blood cultures revealed no growth. Sputum culture revealed no growth. Sodium 139. Potassium 4.5. BUN 39. Creatinine 1.4. Glucose 134. He is continued on ceftriaxone. Remains on bronchodilators. Remains on IV diuretics. No accurate I&O. On today's evaluation 07/09/2022, the patient is being seen for a follow-up. Patient is feeling well. The patient is currently on 5 L of oxygen by nasal cannula. The patient is on bronchodilators with albuterol updrafts [id number] every 4 hours, Symbicort 2 puffs twice a day. The patient on Lasix 40 mg IV every 12 hours and the patient is also on IV Rocephin as an empiric antibiotic coverage. Blood work from today shows a sodium level of 138 with a potassium level of 4.6, BUN is at 40 with a creatinine of 1.2. Glucose at 137. Mother the patient an elevated proBNP level at time of admission at 4210 and the pro calcitonin level was at 0.41. 07/10/2022, the patient is being seen for a follow-up. He is currently on oxygen at 5 L/m nasal cannula. Is ambulating. Echocardiogram was completed yesterday and the patient has an ejection fraction of 50-55%, moderate LV wall thickness, RVSP of 49, moderate to severe RV dilatation, moderate tricuspid regurgitation. The rest of the labs show a sodium level of 138, potassium is at 4, BUN is at 34 with a creatinine of 1.0. The patient remains on bronchodilators. The patient is on Symbicort. The patient on DuoNeb neb blotchiness on the clock. The patient is on a prednisone burst taper. He is also taken Lasix at a dose of 40 mg IV is overall fluid balance has been -1.4 L over the past 24 hours. He remains on empiric antibiotic coverage with Rocephin. Objective - Vital Signs Vital signs: Vital Signs Temp 98.6 F 07/10/22 06:50 Pulse 57 L 07/10/22 07:55 Resp 19 07/10/22 06:50 BP 146/78 07/10/22 06:50 Pulse Ox 97 07/10/22 07:39 FiO2 100 07/06/22 06:41 Intake & Output 07/09/22 07/10/22 07/10/22 18:59 06:59 18:59 Intake Total 480 50 Output Total 1875 350 Balance -1395 -300 Weight 120.7 kg Intake: Intake, IV Titration 50 Amount cefTRIAXone 2 gm In 50 Sodium Chloride 0.9% 50 ml @ 100 mls/hr IVPB Q24HR [facility] Rx#:[id number] Oral 480 Output: Urine 1875 350 Other: Voiding Method Toilet - Exam GENERAL EXAM: Alert, obese, 76-year-old male, up in a chair at the bedside, on 5 L nasal cannula, comfortable in no apparent distress. HEAD: Normocephalic. EYES: Normal reaction of pupils, equal size. NOSE: Clear with pink turbinates. THROAT: No erythema or exudates. NECK: No masses, no JVD. CHEST: No chest wall deformity. LUNGS: Equal air entry with faint end expiratory wheeze, crackles in the left lung base. CVS: S1 and S2 normal with no audible murmur, regular rhythm. ABDOMEN: No hepatosplenomegaly, normal bowel sounds, no guarding or rigidity. SPINE: No scoliosis or deformity SKIN: No rashes CENTRAL NERVOUS SYSTEM: No focal deficits, tone is normal in all 4 extremities. EXTREMITIES: There is 2+ peripheral edema with changes of chronic venous stasis. No clubbing, no cyanosis. Peripheral pulses are intact. - Labs CBC & Chem 7: 07/06/22 06:42 07/10/22 05:56 Labs: Abnormal Lab Results - Last 24 Hours (Table) 07/09/22 07/09/22 07/09/22 Range/Units 11:29 16:35 19:54 BUN (9.0-27.0) mg/dL BUN/Creatinine Ratio (12.00-20.00) Ratio Glucose (70-110) mg/dL POC Glucose (mg/dL) 137 H 183 H 240 H (70-110) mg/dL 07/10/22 07/10/22 Range/Units 05:56 05:57 BUN 34.5 H (9.0-27.0) mg/dL BUN/Creatinine Ratio 34.50 H (12.00-20.00) Ratio Glucose 145 H (70-110) mg/dL POC Glucose (mg/dL) 148 H (70-110) mg/dL Microbiology - Last 24 Hours (Table) 07/06/22 07:44 Blood Culture - Preliminary Blood No Growth after 96 hours 07/06/22 07:45 Blood Culture - Preliminary Blood No Growth after 96 hours 07/06/22 20:58 Gram Stain - Final Sputum Sputum Culture - Final Assessment and Plan Plan: Acute hypoxemic respiratory failure, likely multifactorial, in part related to pneumonia, right lung, possible asymmetric pulmonary edema, as well as possible COPD exacerbation. Procalcitonin 0.41. ProBNP 4210. Remains on antibiotics and diuretics. The patient is responding very nicely to diuretics. He is in a negative fluid balance of 1.4 L. He is on oxygen at 5 L/m nasal cannula. His presentation is typical of CHF/COPD Hemoptysis, possibly related to underlying pneumonia. Recovered. CABG, 1996. Diabetes with diabetic neuropathy. History of hypertension. 40 years of tobacco use, rule out COPD. History of hyperlipidemia. Hypothyroidism. Previous history of PCI with stent placement. Osteoarthritis. Gastroesophageal reflux disease. Morbid obesity. Plan: Wean down FiO2 and currently is been brought down to 3 L. Repeat chest x-ray in the morning Prednisone burst taper Continue the current antibiotic regimen Clinically improving Continue the current treatment plan Titrate the FiO2 as tolerated Increase his activity as tolerated We'll continue to follow
[2022-07-10] MEDS: METOPROLOL TARTRATE 25 MG TAB PO SCH (11:08)
[2022-07-10 11:45] LABS: Glucose,Whole Blood 93 mg/dL (70-110)
--- NOTE | 2022-07-10 16:22 | P.PN ---
Subjective Progress Note Date: 07/10/22 This is a pleasant 76 year old male with medical history of coronary artery disease with prior PCI, CABG, diabetes, hypertension, pulmonary embolism, gerd, copd, former smoker. Patient presents to the emergency room with shortness of breath and left sided shoulder pain with acute onset. Patient does not wear oxygen at home and is currently requiring oxygen via nasal cannula at 4L. Patient denies fever/chills. Denies cough at this time. Currently no reports of chest pain, shoulder pain. He reported pain about 9/10 with acute onset in the left shoulder blade with radiation to the back. No associated diaphoresis, no palpitations, no dizziness or lightheadedness. Pain is gone. Patient also reports increase in peripheral edema states he is supposed to be taking lasix twice a day currently on daily. Initial work up reveals white count of 13.9, D- Dimer of 0.97, creatinine is mildly elevated at 1.29. Lactic acid of 3.2. Patient has elevated blood glucose in the 400s. Had procalcitonin of 0.41. Chest CT angiography was done and showing no central pulmonary embolism. There is limited evaluation of the segmental and subsegmental branches. There is evidence of patchy nodular opacities and consolidation with groundglass opacities throughout the right lung findings concerning for pneumonia. There is enlarged right paratracheal and right hilar lymph nodes likely reactive. Cardiomegaly. Dilation of the main pulmonary artery which likely represents pulmonary arterial hypertension. There is a small hiatal hernia with eccentric wall thickening. Direct visualization is recommended to exclude malignancy. Legionella atigen and covid are negative. Patient is admitted to the medical floor with pulmonary on consultation. Patient has been started on steroids IV ceftriaxone IV azithromycin. Sputum culture is pending at this time. Patient was noted to have heart rate in the 40s overnight with 1st degree AV block EKG is done showing prolonged QT interval of 544. This will be monitored closely and all QT prolonging medications will be dcd including azithromycin. 07/08/2022 Patient evaluated today on the medical floor. Sitting up in chair no acute events overnight. Blood glucose down to 100s. Insulin is decreased. Now on oral steroids and continues on updrafts. Continues to require oxygen at 2 to 3L. Lung sounds are diminished. No wheezing noted on exam. On IV lasix and continues with lower extremity edema. Recommend to elevate while sitting. Continues on IV ceftriaxone. EKG done today and QT/QTc 516/484, continue holding metoprolol. Sputum culture pending. 07/09/2022 Patient is continued on nasal cannula requiring 3L of oxygen. He reports improvement in breathing however continues to report blood tinged sputum. Patient has been started on IV lasix 40 Q12 which continues. Creatinine has improved to 1.2. Continues with extensive bilateral lower extremity edema. Patient has been taken off metoprolol and repeat EKG has been done showing sinus bradycardia with 1 degree AV block. Prolonged QT. Cardiology has been consulted. 07/10/2022 Patient evaluated today sitting up in chair. Continues on oxygen support. He continues on IV lasix Q12 with documented output of negative 2.6 L in the last 24 hours. Cardiology evaluted the patient and recommending to continue on metoprolol at this time. Echocardiogram has been completed showing an EF of 50- 55% moderate to severe right ventricular dilation with mild right ventricular hypokinesis, moderately dilated left atrium, mild mitral regurgitation, mild to moderate tricuspid regurgitation, no pericardial effusion. Creatinine down to 1.0 today. Review of Systems Constitutional: Denied any fatigue denied any fever. Cardio vascular: denied any chest pain, palpitations Gastrointestinal: denied any nausea, vomiting, diarrhea Pulmonary: Denied any shortness of breath cough Neurologic denied any new focal deficits All inpatient medications were reviewed and appropriate changes in these medications as dictated in the interval history and assessment and plan. PHYSICAL EXAMINATION: GENERAL: The patient is alert and oriented x3, not in any acute distress. Well developed, well nourished. Obese. on 4L nasal cannula. HEENT: Pupils are round and equally reacting to light. EOMI. No scleral icterus. No conjunctival pallor. Normocephalic, atraumatic. No pharyngeal erythema. No thyromegaly. CARDIOVASCULAR: S1 and S2 present. No murmurs, rubs, or gallops. PULMONARY: Chest is clear to auscultation, no wheezing or crackles. Diminished. ABDOMEN: Soft, nontender, nondistended, normoactive bowel sounds. No palpable organomegaly. MUSCULOSKELETAL: No joint swelling or deformity. EXTREMITIES: No cyanosis, clubbing, or pedal edema. +2 non pitting peripheral edema NEUROLOGICAL: Gross neurological examination did not reveal any focal deficits. SKIN: No rashes. Assessment and Plan Assessment Acute hypoxic respiratory failure likely from acute COPD exacerbation and possible right lung pneumonia. Component of volume overload/pulmonary edema. Lactic acidosis resolved Elevated D-Dimer with no pulmonary embolism Sinus bradycardia with 1 degree AV block/sinus arrythmia with prolonged QT interval Acute kidney injury improved Pulmonary hypertension Steroid induced hyperglycemia improved Hiatal hernia with wall thickening recommend direct visualization for further evaluation History of hypertension Diabetes mellitus type 2 History of pulmonary embolism Coronary artery disease with prior PCI, CABG Diabetic neuropathy Obesity Former smoker GI Prophylaxis DVT Prophylaxis Plan Metoprolol resumed by cardiology Titrate oxygen as tolerated IV lasix 40 Q12 with strict intake and output monitoring PT/OT evaluation recommend home on discharge The impression and plan of care has been dictated by Aundrea Gilliland, Nurse Practitioner as directed. Dr. Rachna MD I have performed a history and physical examination and medical decision making of this patient, discussed the same with the dictator, and agree with the dictators assessment and plan as written, documented as a scribe. Based on total visit time, I have performed more than 50% of this visit. Objective - Vital Signs Vital signs: Vital Signs Temp 98.6 F 07/10/22 06:50 Pulse 66 07/10/22 11:56 Resp 20 07/10/22 11:03 BP 150/83 07/10/22 11:03 Pulse Ox 98 07/10/22 11:03 FiO2 100 07/06/22 06:41 Intake & Output 07/09/22 07/10/22 07/10/22 18:59 06:59 18:59 Intake Total 480 290 Output Total 1875 350 Balance -1395 -60 Weight 120.7 kg Intake: Intake, IV Titration 50 Amount cefTRIAXone 2 gm In 50 Sodium Chloride 0.9% 50 ml @ 100 mls/hr IVPB Q24HR [facility] Rx#:[id number] Oral 480 240 Output: Urine 1875 350 Other: Voiding Method Toilet - Labs CBC & Chem 7: 07/06/22 06:42 07/10/22 05:56 Labs: Abnormal Lab Results - Last 24 Hours (Table) 07/09/22 07/09/22 07/10/22 Range/Units 16:35 19:54 05:56 BUN 34.5 H (9.0-27.0) mg/dL BUN/Creatinine Ratio 34.50 H (12.00-20.00) Ratio Glucose 145 H (70-110) mg/dL POC Glucose (mg/dL) 183 H 240 H (70-110) mg/dL 07/10/22 Range/Units 05:57 BUN (9.0-27.0) mg/dL BUN/Creatinine Ratio (12.00-20.00) Ratio Glucose (70-110) mg/dL POC Glucose (mg/dL) 148 H (70-110) mg/dL Microbiology - Last 24 Hours (Table) 07/06/22 07:44 Blood Culture - Preliminary Blood No Growth after 96 hours 07/06/22 07:45 Blood Culture - Preliminary Blood No Growth after 96 hours 07/06/22 20:58 Gram Stain - Final Sputum Sputum Culture - Final Assessment and Plan Time with Patient: Less than 30
[2022-07-10 16:53] LABS: Glucose,Whole Blood 269 mg/dL (70-110)
[2022-07-10] MEDS: ATORVASTATIN 80 MG TAB PO SCH (17:34)
[2022-07-10] MEDS: glipiZIDE 10 MG TAB PO SCH (17:34)
[2022-07-10 20:40] LABS: Glucose,Whole Blood 284 mg/dL (70-110)
[2022-07-10] MEDS: METOPROLOL TARTRATE 12.5 MG TAB PO SCH (21:28)
[2022-07-10] MEDS: INSULIN DETEMIR (LEVEMIR) 100 UNIT/ML SYR SQ SCH (21:28)
[2022-07-10] MEDS: PIOGLITAZONE 30 MG TAB PO SCH (21:28)
[2022-07-11 06:13] LABS: Glucose,Whole Blood 139 mg/dL (70-110)
[2022-07-11] MEDS: INSULIN ASPART (NovoLOG) 100 UNIT/ML VIAL SQ SCH ×7 (06:41→20:42)
[2022-07-11] MEDS: FUROSEMIDE 10 MG/ML 4 ML VIAL IV SCH ×2 (06:42→18:14)
[2022-07-11] MEDS: LEVOTHYROXINE 75 MCG TAB PO SCH (06:42)
[2022-07-11] MEDS: IPRATROPIUM 0.5 MG/2.5 ML NEBU INHALATION SCH ×3 (07:57→21:10)
[2022-07-11] MEDS: ALBUTEROL NEBULIZED 2.5 MG/3 ML INHALATION SCH ×3 (07:57→21:10)
[2022-07-11] MEDS: SYMBICORT 160-4.5 MCG INHALER INHALATION SCH ×2 (07:57→21:10)
[2022-07-11] MEDS: predniSONE 20 MG TAB PO SCH (08:54)
[2022-07-11] MEDS: TAMSULOSIN 0.4 MG CAP.ER.24H PO SCH (08:54)
[2022-07-11] MEDS: DAPAGLIFLOZIN PROPANEDIOL 10 MG TABLET PO SCH (08:54)
[2022-07-11] MEDS: METOPROLOL TARTRATE 25 MG TAB PO SCH (08:54)
[2022-07-11] MEDS: CLOPIDOGREL 75 MG TAB PO SCH (08:54)
[2022-07-11] MEDS: PANTOPRAZOLE 40 MG TABLET PO SCH (08:54)
[2022-07-11 09:07] LABS: African American GFR (CKD) 61.4 (60.0-200.0); Anion Gap 10.4 mmol/L (10.00-18.00); BUN/Creat Ratio 31.77 Ratio (12.00-20.00); Blood Urea Nitrogen 41.3 mg/dL (9.0-27.0); Calcium 8.7 mg/dL (8.7-10.3); Carbon Dioxide 27.6 mmol/L (20.0-27.5); Potassium 4.2 mmol/L (3.5-5.5)
--- NOTE | 2022-07-11 09:42 | P.PN ---
Subjective Progress Note Date: 07/11/22 HISTORY OF PRESENT ILLNESS: This is a 76-year-old male with a past medical history significant for coronary artery disease with previous 2 vessel CABG and subsequent stenting, hypert ension, hyperlipidemia, diabetes, sleep apnea and morbid obesity. Patient follows in the office with Dr. Muñiz. We have been asked to see the patient in consultation for prolonged QT, bradycardia, and CHF. Patient examined this morning. he is sitting up in the chair. Patient states he presented to the hospital because he began having shortness of breath on Saturday. Patient is being treated for pneumonia and COPD exacerbation. Patient currently denies any chest pain or pressure. He reports improvement in his shortness of breath since coming to the hospital. The patient is receiving IV Lasix 40 mg every 12 hours. He continues to have lower extremity edema. Per nursing, the patient is ref using Rashid wraps to his lower extremities. Telemetry reveals sinus mechanism. EKG performed yesterday revealed sinus bradycardia with borderline prolonged QT. The patient's metoprolol was discontinued per primary medicine. The patient denies any dizziness or lightheadedness. He denies any episodes of syncope. * EKG reveals sinus mechanism with no signs of acute ischemia. Borderline prolonged QT interval. Previous EKG reveals sinus mechanism with ventricular ectopy * Chest xray from July 07 reveals improving bibasilar infiltrates * Laboratory data: WBC 13.9. Hemoglobin 14.0. Platelet count 171. Sodium 138. Potassium 4.0. BUN 34. Creatinine 1.0. ProBNP 4210. * Current home cardiac medications include lisinopril 10 mg daily, metoprolol tartrate 25 mg in the morning and 12.5 mg at night, Lasix 40 mg daily, Plavix 75 mg daily, and Lipitor 80 mg at night * Most recent echocardiogram obtained in June 2022 revealed ejection fraction 50-55%, moderate to severe right ventricular dilation with mild right ventricular hypokinesis, RVSP 49. Moderately dilated left atrium, mild MR, [id number] TR, no pericardial effusion. * Cardiac catheterization history: December 2019 with stenting of first obtuse marginal branch of circumflex, stenting of the mid circumflex, and stenting of LAD. Patient also underwent Implella placement. 07/11/2022 Patient examined this morning. He is sitting up in the chair. He denies chest pain or pressure. Reports shortness of breath is near his baseline. He is in relating to the bathroom with a walker without difficulty. He remains on IV Lasix 40 mg every 12 hours. He continues to have lower extremity edema. He is wearing knee-high BARRERA hose. Patient reports he has been urinating quite frequently. Fluid balance over the last 24 hours is -1015 mL. Creatinine this morning 1.3. Echocardiogram completed revealing ejection fraction 50-55%, moderate to severe right ventricular dilatation. Moderate pulmonary hypertension. RVSP 49. Moderately dilated left atrium. Mild mitral regurgitation. [id number] tricuspid regurgitation. PHYSICAL EXAM: VITAL SIGNS: Reviewed. GENERAL: Well-developed in no acute distress. HEENT: Head is normocephalic. Pupils are equal, round. Sclerae anicteric. Mucous membranes of the mouth are moist. Neck supple. No JVD or thyromegaly LUNGS: Respirations even and unlabored. Lungs essentially clear to auscultation bilaterally. HEART: Regular rate and rhythm. S1 and S2 heard. ABDOMEN: Soft. Nondistended. Nontender. EXTREMITIES: Normal range of motion. No clubbing or cyanosis. Peripheral pulses intact. 2+ bilateral lower extremity edema NEUROLOGIC: Awake and alert. Oriented x 3. ASSESSMENT: Shortness of breath Pneumonia Sinus bradycardia with borderline prolonged QT, asymptomatic Coronary artery disease with previous 2 vessel CABG and subsequent stenting Hypertension Hyperlipidemia Diabetes Sleep apnea Chronic lower extremity edema, suspect secondary to venous insufficiency Moderate to severe right ventricular dilatation Moderate pulmonary hypertension, RVSP 49 PLAN: Continue current cardiac medications Continue telemetry monitoring Avoid QT prolonging medications Continue IV lasix for lower extremity edema. May transition to oral upon discharge. Begin Sildenafil 20mg TID. Patient instructed not to take sublingual nitro with this medication. He verbalized understanding. Continue to hold Lisinopril at discharge Patient may be discharged home today from a cardiac standpoint Follow up outpatient with Dr. Muñiz Nurse practitioner note has been reviewed by physician. Signing provider agrees with the documented findings, assessment, and plan of care. Objective - Vital Signs Vital signs: Vital Signs Temp 97.6 F 07/11/22 07:00 Pulse 80 07/11/22 08:17 Resp 18 07/11/22 07:00 BP 118/64 07/11/22 07:00 Pulse Ox 95 07/11/22 07:57 FiO2 21 07/11/22 07:57 Intake & Output 03/07/11/22 07/11/22 18:59 06:59 18:59 Intake Total 290 240 Output Total 725 820 Balance -435 -580 Intake: Intake, IV Titration 50 Amount cefTRIAXone 2 gm In 50 Sodium Chloride 0.9% 50 ml @ 100 mls/hr IVPB Q24HR [facility] Rx#:[id number] Oral 240 240 Output: Urine 725 820 Other: Voiding Method Toilet # Voids 1 - Labs CBC & Chem 7: 07/06/22 06:42 07/11/22 04:51 Labs: Abnormal Lab Results - Last 24 Hours (Table) 07/10/22 07/10/22 07/10/22 Range/Units 05:56 16:51 20:39 Carbon Dioxide (20.0-27.5) mmol/L BUN 34.5 H (9.0-27.0) mg/dL Est GFR (CKD-EPI)NonAf (60.0-200.0) BUN/Creatinine Ratio 34.50 H (12.00-20.00) Ratio Glucose 145 H (70-110) mg/dL POC Glucose (mg/dL) 269 H 284 H (70-110) mg/dL 07/11/22 07/11/22 Range/Units 04:51 06:12 Carbon Dioxide 27.6 H (20.0-27.5) mmol/L BUN 41.3 H (9.0-27.0) mg/dL Est GFR (CKD-EPI)NonAf 53.0 L (60.0-200.0) BUN/Creatinine Ratio 31.77 H (12.00-20.00) Ratio Glucose 169 H (70-110) mg/dL POC Glucose (mg/dL) 139 H (70-110) mg/dL Microbiology - Last 24 Hours (Table) 07/06/22 07:44 Blood Culture - Preliminary Blood No Growth after 96 hours 07/06/22 07:45 Blood Culture - Preliminary Blood No Growth after 96 hours
[2022-07-11] MEDS: SILDENAFIL 20 MG TAB PO SCH ×3 (10:16→20:43)
[2022-07-11 11:04] LABS: Glucose,Whole Blood 95 mg/dL (70-110)
--- NOTE | 2022-07-11 11:41 | P.PN ---
Subjective Progress Note Date: 07/11/22 76-year-old male brought into the emergency room on July 06, at 620 1 in the morning, complaining of shortness of breath, and chest heaviness. The patient is seen today, in the ER, room 23. He's currently on 4 L of oxygen. He is feeling a bit better today than he did when he first came in. His chest x-ray was consistent with either CHF and/or pneumonia. A CT angiogram was negative for pulmonary embolism. His N-terminal proBNP was 4210. He's currently not receiving any IV fluids. His primary care provider is Dr. Carcamo. He also sees Dr. Muñiz for his heart, Dr. Robertson the bat person for his diabetes, and one of the vascular surgeon. His medical history includes coronary disease, st atus post triple vessel bypass grafting, 1996, diabetes, diabetic neuropathy, GERD, hyperlipidemia, hypertension, pulmonary embolism, and hypothyroidism. The patient has also had previous PCI with stent placement. White count 13.9, with a normal hemoglobin, hematocrit, and platelet count. D-dimer was 0.97. Sodium 144, potassium 4.7, chloride 107, CO2 26, BUN 27, creatinine 1.29. Lactic acid initially was 3.2. Repeat was 2.0. Testing for caballero virus was negative. Troponin was normal. Chest x-ray my opinion showed bilateral airspace disease more so on the right side, which could be consistent with asymmetric pulmonary edema, or pneumonia, right lung. There is cardiomegaly. CT angiogram was negative for pulmonary embolism. The CT was consistent with possible right- sided pneumonia, and right paratracheal and right hilar reactive adenopathy. The patient is seen today 07/07/2022 on the regular medical floor. He is currently sitting up in a chair at the bedside. Awake and alert in no acute distress. Breathing a bit easier today compared to yesterday. Maintaining good O2 saturations in the 90s on 4 L/m per nasal cannula. Still with some significant lower extremity edema. Chest x-ray shows improving bibasilar infiltrates. Blood cultures revealing no growth to date. Sputum culture pending. Sodium 139. Potassium 4.5. Bicarb 18. BUN 36. Creatinine 1.33. Glucose 412. Hemoglobin A1c 7.9. Urinalysis negative. Pro-calcitonin 0.41. ProBNP 4210. Legionella antigen negative. He is continued on Symbicort, albuterol, IV Solu-Medrol. On oral diuretics. Antibiotics in the form of ceftriaxone and azithromycin. The patient is seen today 07/08/2022 in follow-up on the regular medical floor. He is awake and alert in no acute distress. She at the bedside. Breathing better today compared to yesterday. No worsening shortness of breath, cough or congestion. Maintaining good O2 saturations in the 90s on 3 L/m per nasal cannula. Afebrile. Hemodynamically stable. Blood cultures revealed no growth. Sputum culture revealed no growth. Sodium 139. Potassium 4.5. BUN 39. Creatinine 1.4. Glucose 134. He is continued on ceftriaxone. Remains on bronchodilators. Remains on IV diuretics. No accurate I&O. On today's evaluation 07/09/2022, the patient is being seen for a follow-up. Patient is feeling well. The patient is currently on 5 L of oxygen by nasal cannula. The patient is on bronchodilators with albuterol updrafts [id number] every 4 hours, Symbicort 2 puffs twice a day. The patient on Lasix 40 mg IV every 12 hours and the patient is also on IV Rocephin as an empiric antibiotic coverage. Blood work from today shows a sodium level of 138 with a potassium level of 4.6, BUN is at 40 with a creatinine of 1.2. Glucose at 137. Mother the patient an elevated proBNP level at time of admission at 4210 and the pro calcitonin level was at 0.41. 07/10/2022, the patient is being seen for a follow-up. He is currently on oxygen at 5 L/m nasal cannula. Is ambulating. Echocardiogram was completed yesterday and the patient has an ejection fraction of 50-55%, moderate LV wall thickness, RVSP of 49, moderate to severe RV dilatation, moderate tricuspid regurgitation. The rest of the labs show a sodium level of 138, potassium is at 4, BUN is at 34 with a creatinine of 1.0. The patient remains on bronchodilators. The patient is on Symbicort. The patient on DuoNeb neb blotchiness on the clock. The patient is on a prednisone burst taper. He is also taken Lasix at a dose of 40 mg IV is overall fluid balance has been -1.4 L over the past 24 hours. He remains on empiric antibiotic coverage with Rocephin. On 07/11/2022, the patient is complaining of his known being cold. Otherwise, is on room air oxygen. Is feeling better. He has a preserved LV function with an ejection fraction of 50-55%. Is on Symbicort, DuoNeb nebulizer treatments [id number] and he was started on prednisone burst taper. He is also on diuretics with Lasix. On today's blood work, the sodium is at 142 with a potassium level of 4.2, currently 14 with a bicarb of 27 with a BUN of 41 with a creatinine of 1.3. Anomalous Objective - Vital Signs Vital signs: Vital Signs Temp 97.6 F 07/11/22 07:00 Pulse 80 07/11/22 11:19 Resp 18 07/11/22 08:00 BP 118/64 07/11/22 07:00 Pulse Ox 95 07/11/22 07:57 FiO2 21 07/11/22 07:57 Intake & Output 07/10/22 07/11/22 07/11/22 18:59 06:59 18:59 Intake Total 290 240 Output Total 725 820 300 Balance -435 580 -300 Intake: Intake, IV Titration 50 Amount cefTRIAXone 2 gm In 50 Sodium Chloride 0.9% 50 ml @ 100 mls/hr IVPB Q24HR [facility] Rx#:[id number] Oral 240 240 Output: Urine 725 820 300 Other: Voiding Method Toilet Toilet # Voids 1 - Exam GENERAL EXAM: Alert, obese, 76-year-old male, up in a chair at the bedside, on RA, comfortable in no apparent distress. HEAD: Normocephalic. EYES: Normal reaction of pupils, equal size. NOSE: Clear with pink turbinates. THROAT: No erythema or exudates. NECK: No masses, no JVD. CHEST: No chest wall deformity. LUNGS: Equal air entry with faint end expiratory wheeze, crackles in the left lung base. CVS: S1 and S2 normal with no audible murmur, regular rhythm. ABDOMEN: No hepatosplenomegaly, normal bowel sounds, no guarding or rigidity. SPINE: No scoliosis or deformity SKIN: No rashes CENTRAL NERVOUS SYSTEM: No focal deficits, tone is normal in all 4 extremities. EXTREMITIES: There is 2+ peripheral edema with changes of chronic venous stasis. No clubbing, no cyanosis. Peripheral pulses are intact. - Labs CBC & Chem 7: 07/06/22 06:42 07/11/22 04:51 Labs: Abnormal Lab Results - Last 24 Hours (Table) 07/10/22 07/10/22 07/11/22 Range/Units 16:51 20:39 04:51 Carbon Dioxide 27.6 H (20.0-27.5) mmol/L BUN 41.3 H (9.0-27.0) mg/dL Est GFR (CKD-EPI)NonAf 53.0 L (60.0-200.0) BUN/Creatinine Ratio 31.77 H (12.00-20.00) Ratio Glucose 169 H (70-110) mg/dL POC Glucose (mg/dL) 269 H 284 H (70-110) mg/dL 07/11/22 Range/Units 06:12 Carbon Dioxide (20.0-27.5) mmol/L BUN (9.0-27.0) mg/dL Est GFR (CKD-EPI)NonAf (60.0-200.0) BUN/Creatinine Ratio (12.00-20.00) Ratio Glucose (70-110) mg/dL POC Glucose (mg/dL) 139 H (70-110) mg/dL Microbiology - Last 24 Hours (Table) 07/06/22 07:45 Blood Culture - Preliminary Blood No Growth after 120 hours 07/06/22 07:44 Blood Culture - Preliminary Blood No Growth after 120 hours Assessment and Plan Plan: Acute hypoxemic respiratory failure, likely multifactorial, in part related to pneumonia, right lung, possible asymmetric pulmonary edema, as well as possible COPD exacerbation. Procalcitonin 0.41. ProBNP 4210. Patient has improved significantly and the patient is currently on room air oxygen. The patient remains on IV Lasix 40 mg every 12 hours with adequate diuresis. The patient was taken off the IV Solu-Medrol regarding his COPD exacerbation and placed on a prednisone burst taper. He is on bronchodilators. Hemoptysis, possibly related to underlying pneumonia. Recovered. CABG, 1996. Diabetes with diabetic neuropathy. History of hypertension. 40 years of tobacco use, rule out COPD. History of hyperlipidemia. Hypothyroidism. Previous history of PCI with stent placement. Osteoarthritis. Gastroesophageal reflux disease. Morbid obesity. Plan: Patient is currently on room air oxygen all Continue IV Lasix Prednisone burst taper Continue the current antibiotic regimen Clinically improving Continue the current treatment plan Increase his activity as tolerated We'll continue to follow
--- NOTE | 2022-07-11 14:49 | P.PN ---
Subjective Progress Note Date: 07/11/22 This is a pleasant 76 year old male with medical history of coronary artery disease with prior PCI, CABG, diabetes, hypertension, pulmonary embolism, gerd, copd, former smoker. Patient presents to the emergency room with shortness of breath and left sided shoulder pain with acute onset. Patient does not wear oxygen at home and is currently requiring oxygen via nasal cannula at 4L. Patient denies fever/chills. Denies cough at this time. Currently no reports of chest pain, shoulder pain. He reported pain about 9/10 with acute onset in the left shoulder blade with radiation to the back. No associated diaphoresis, no palpitations, no dizziness or lightheadedness. Pain is gone. Patient also reports increase in peripheral edema states he is supposed to be taking lasix twice a day currently on daily. Initial work up reveals white count of 13.9, D- Dimer of 0.97, creatinine is mildly elevated at 1.29. Lactic acid of 3.2. Patient has elevated blood glucose in the 400s. Had procalcitonin of 0.41. Chest CT angiography was done and showing no central pulmonary embolism. There is limited evaluation of the segmental and subsegmental branches. There is evidence of patchy nodular opacities and consolidation with groundglass opacities throughout the right lung findings concerning for pneumonia. There is enlarged right paratracheal and right hilar lymph nodes likely reactive. Cardiomegaly. Dilation of the main pulmonary artery which likely represents pulmonary arterial hypertension. There is a small hiatal hernia with eccentric wall thickening. Direct visualization is recommended to exclude malignancy. Legionella atigen and covid are negative. Patient is admitted to the medical floor with pulmonary on consultation. Patient has been started on steroids IV ceftriaxone IV azithromycin. Sputum culture is pending at this time. Patient was noted to have heart rate in the 40s overnight with 1st degree AV block EKG is done showing prolonged QT interval of 544. This will be monitored closely and all QT prolonging medications will be dcd including azithromycin. 07/08/2022 Patient evaluated today on the medical floor. Sitting up in chair no acute events overnight. Blood glucose down to 100s. Insulin is decreased. Now on oral steroids and continues on updrafts. Continues to require oxygen at 2 to 3L. Lung sounds are diminished. No wheezing noted on exam. On IV lasix and continues with lower extremity edema. Recommend to elevate while sitting. Continues on IV ceftriaxone. EKG done today and QT/QTc 516/484, continue holding metoprolol. Sputum culture pending. 07/09/2022 Patient is continued on nasal cannula requiring 3L of oxygen. He reports improvement in breathing however continues to report blood tinged sputum. Patient has been started on IV lasix 40 Q12 which continues. Creatinine has improved to 1.2. Continues with extensive bilateral lower extremity edema. Patient has been taken off metoprolol and repeat EKG has been done showing sinus bradycardia with 1 degree AV block. Prolonged QT. Cardiology has been consulted. 07/10/2022 Patient evaluated today sitting up in chair. Continues on oxygen support. He continues on IV lasix Q12 with documented output of negative 2.6 L in the last 24 hours. Cardiology evaluted the patient and recommending to continue on metoprolol at this time. Echocardiogram has been completed showing an EF of 50- 55% moderate to severe right ventricular dilation with mild right ventricular hypokinesis, moderately dilated left atrium, mild mitral regurgitation, mild to moderate tricuspid regurgitation, no pericardial effusion. Creatinine down to 1.0 today. 07/11/2022 Patient has been evaluated today sitting up in chair. At rest he has been taken off oxygen with saturations of 97%. Patient was ambulated at pulse oximeter was dropping to 60% on room air and 85% on 3L with slow recovery. We will continue patient on IV lasix and oral prednisone. AM chest xray to be performed. Patient was cleared by cardiology for discharge today. Patient continues to have significant lower extremity edema. Review of Systems Constitutional: Denied any fatigue denied any fever. Cardio vascular: denied any chest pain, palpitations Gastrointestinal: denied any nausea, vomiting, diarrhea Pulmonary: Denied any shortness of breath reports hemoptysis Neurologic denied any new focal deficits All inpatient medications were reviewed and appropriate changes in these medications as dictated in the interval history and assessment and plan. PHYSICAL EXAMINATION: GENERAL: The patient is alert and oriented x3, not in any acute distress. Well developed, well nourished. Obese. on room air at rest. HEENT: Pupils are round and equally reacting to light. EOMI. No scleral icterus. No conjunctival pallor. Normocephalic, atraumatic. No pharyngeal erythema. No thyromegaly. CARDIOVASCULAR: S1 and S2 present. No murmurs, rubs, or gallops. PULMONARY: Chest is clear to auscultation, no wheezing or crackles. Diminished. ABDOMEN: Soft, nontender, nondistended, normoactive bowel sounds. No palpable organomegaly. MUSCULOSKELETAL: No joint swelling or deformity. EXTREMITIES: No cyanosis, clubbing, or pedal edema. +2 non pitting peripheral edema NEUROLOGICAL: Gross neurological examination did not reveal any focal deficits. SKIN: No rashes. Assessment and Plan Assessment Acute hypoxic respiratory failure likely from acute COPD exacerbation and po ssible right lung pneumonia. Component of volume overload/pulmonary edema. Lactic acidosis resolved Elevated D-Dimer with no pulmonary embolism Sinus bradycardia with 1 degree AV block/sinus arrythmia with prolonged QT interval Acute kidney injury improved Pulmonary hypertension Steroid induced hyperglycemia improved Hiatal hernia with wall thickening recommend direct visualization for further evaluation History of hypertension Diabetes mellitus type 2 History of pulmonary embolism Coronary artery disease with prior PCI, CABG Diabetic neuropathy Obesity Former smoker GI Prophylaxis DVT Prophylaxis Plan Metoprolol resumed by cardiology Titrate oxygen as tolerated patient failed home oxygen test with 56-60% oxygenation on room air with activity Recommend to continue IV lasix Q12 AM chest xray and AM labs Patient has completed course of antibiotics with IV ceftriaxone. PT/OT evaluation recommend home on discharge The impression and plan of care has been dictated by Aundrea Gilliland, Nurse Practitioner as directed. Dr. Rachna MD I have performed a history and physical examination and medical decision making of this patient, discussed the same with the dictator, and agree with the dictators assessment and plan as written, documented as a scribe. Based on total visit time, I have performed more than 50% of this visit. Objective - Vital Signs Vital signs: Vital Signs Temp 97.5 F L 07/11/22 13:42 Pulse 60 07/11/22 13:42 Resp 18 07/11/22 13:42 BP 132/74 07/11/22 13:42 Pulse Ox 98 07/11/22 13:42 FiO2 21 07/11/22 07:57 Intake & Output 07/10/22 07/11/22 07/11/22 18:59 06:59 18:59 Intake Total 290 240 Output Total 725 820 300 Balance -435 580 -300 Intake: Intake, IV Titration 50 Amount cefTRIAXone 2 gm In 50 Sodium Chloride 0.9% 50 ml @ 100 mls/hr IVPB Q24HR [facility] Rx#:[id number] Oral 240 240 Output: Urine 725 820 300 Other: Voiding Method Toilet Toilet # Voids 1 - Labs CBC & Chem 7: 07/06/22 06:42 07/11/22 04:51 Labs: Abnormal Lab Results - Last 24 Hours (Table) 07/10/22 07/10/22 07/11/22 Range/Units 16:51 20:39 04:51 Carbon Dioxide 27.6 H (20.0-27.5) mmol/L BUN 41.3 H (9.0-27.0) mg/dL Est GFR (CKD-EPI)NonAf 53.0 L (60.0-200.0) BUN/Creatinine Ratio 31.77 H (12.00-20.00) Ratio Glucose 169 H (70-110) mg/dL POC Glucose (mg/dL) 269 H 284 H (70-110) mg/dL 07/11/22 Range/Units 06:12 Carbon Dioxide (20.0-27.5) mmol/L BUN (9.0-27.0) mg/dL Est GFR (CKD-EPI)NonAf (60.0-200.0) BUN/Creatinine Ratio (12.00-20.00) Ratio Glucose (70-110) mg/dL POC Glucose (mg/dL) 139 H (70-110) mg/dL Microbiology - Last 24 Hours (Table) 07/06/22 07:45 Blood Culture - Preliminary Blood No Growth after 120 hours 07/06/22 07:44 Blood Culture - Preliminary Blood No Growth after 120 hours Assessment and Plan Time with Patient: Less than 30
[2022-07-11 16:37] LABS: Glucose,Whole Blood 229 mg/dL (70-110)
[2022-07-11] MEDS: ATORVASTATIN 80 MG TAB PO SCH (17:24)
[2022-07-11] MEDS: glipiZIDE 10 MG TAB PO SCH (17:24)
[2022-07-11 20:09] LABS: Glucose,Whole Blood 305 mg/dL (70-110)
[2022-07-11] MEDS: INSULIN DETEMIR (LEVEMIR) 100 UNIT/ML SYR SQ SCH (20:42)
[2022-07-11] MEDS: HEPARIN SODIUM,PORCINE/PF 5,000 UNIT/0.5 ML SYRINGE SQ SCH (20:42)
[2022-07-11] MEDS: METOPROLOL TARTRATE 12.5 MG TAB PO SCH (20:43)
[2022-07-11] MEDS: PIOGLITAZONE 30 MG TAB PO SCH (20:43)
[2022-07-12 05:19] LABS: Glucose,Whole Blood 67 mg/dL (70-110)
[2022-07-12] MEDS: INSULIN ASPART (NovoLOG) 100 UNIT/ML VIAL SQ SCH ×4 (05:20→12:56)
[2022-07-12 06:13] LABS: Glucose,Whole Blood 105 mg/dL (70-110)
[2022-07-12] MEDS: FUROSEMIDE 10 MG/ML 4 ML VIAL IV SCH (06:37)
[2022-07-12] MEDS: LEVOTHYROXINE 75 MCG TAB PO SCH (06:37)
[2022-07-12] MEDS: IPRATROPIUM 0.5 MG/2.5 ML NEBU INHALATION SCH ×2 (07:43→11:42)
[2022-07-12] MEDS: SYMBICORT 160-4.5 MCG INHALER INHALATION SCH (07:43)
[2022-07-12] MEDS: ALBUTEROL NEBULIZED 2.5 MG/3 ML INHALATION SCH ×2 (07:43→11:42)
[2022-07-12 07:57] LABS: African American GFR (CKD) 74 (>60 ml/min/1.73 sqM); Anion Gap 8 mmol/L; Blood Urea Nitrogen 46 mg/dL (9-20); Calcium 8.3 mg/dL (8.4-10.2); Carbon Dioxide 28 mmol/L (22-30); Chloride 101 mmol/L (98-107); Glucose 74 mg/dL (74-99); Magnesium 2.2 mg/dL (1.6-2.3); Non-African American GFR(CKD) 64 (>60 ml/min/1.73 sqM); Sodium 137 mmol/L (137-145)
--- NOTE | 2022-07-12 08:34 | XR ---
EXAMINATION TYPE: XR chest 2V DATE OF EXAM: 07/12/2022 COMPARISON: 07/07/2022 INDICATION: Hypoxia TECHNIQUE: Frontal and lateral views of the chest are obtained. FINDINGS: The heart size is normal. The pulmonary vasculature is normal. There is a mild infiltrate in the right minor fissure. Correlate for Atelectasis. IMPRESSION: 1. Infiltrate in the minor fissure region suggestive for some underlying atelectasis. Pneumonia could be considered. Follow-up can be performed.
[2022-07-12] MEDS: HEPARIN SODIUM,PORCINE/PF 5,000 UNIT/0.5 ML SYRINGE SQ SCH (08:40)
[2022-07-12] MEDS: SILDENAFIL 20 MG TAB PO SCH (08:40)
[2022-07-12] MEDS: predniSONE 20 MG TAB PO SCH (08:40)
[2022-07-12] MEDS: DAPAGLIFLOZIN PROPANEDIOL 10 MG TABLET PO SCH (08:40)
[2022-07-12] MEDS: CLOPIDOGREL 75 MG TAB PO SCH (08:41)
[2022-07-12] MEDS: PANTOPRAZOLE 40 MG TABLET PO SCH (08:42)
[2022-07-12] MEDS: TAMSULOSIN 0.4 MG CAP.ER.24H PO SCH (08:43)
--- NOTE | 2022-07-12 09:54 | P.PN ---
Subjective Progress Note Date: 07/12/22 HISTORY OF PRESENT ILLNESS: This is a 76-year-old male with a past medical history significant for coronary artery disease with previous 2 vessel CABG and subsequent stenting, hypert ension, hyperlipidemia, diabetes, sleep apnea and morbid obesity. Patient follows in the office with Dr. Muñiz. We have been asked to see the patient in consultation for prolonged QT, bradycardia, and CHF. Patient examined this morning. he is sitting up in the chair. Patient states he presented to the hospital because he began having shortness of breath on Saturday. Patient is being treated for pneumonia and COPD exacerbation. Patient currently denies any chest pain or pressure. He reports improvement in his shortness of breath since coming to the hospital. The patient is receiving IV Lasix 40 mg every 12 hours. He continues to have lower extremity edema. Per nursing, the patient is ref using Rashid wraps to his lower extremities. Telemetry reveals sinus mechanism. EKG performed yesterday revealed sinus bradycardia with borderline prolonged QT. The patient's metoprolol was discontinued per primary medicine. The patient denies any dizziness or lightheadedness. He denies any episodes of syncope. * EKG reveals sinus mechanism with no signs of acute ischemia. Borderline prolonged QT interval. Previous EKG reveals sinus mechanism with ventricular ectopy * Chest xray from July 07 reveals improving bibasilar infiltrates * Laboratory data: WBC 13.9. Hemoglobin 14.0. Platelet count 171. Sodium 138. Potassium 4.0. BUN 34. Creatinine 1.0. ProBNP 4210. * Current home cardiac medications include lisinopril 10 mg daily, metoprolol tartrate 25 mg in the morning and 12.5 mg at night, Lasix 40 mg daily, Plavix 75 mg daily, and Lipitor 80 mg at night * Most recent echocardiogram obtained in June 2022 revealed ejection fraction 50-55%, moderate to severe right ventricular dilation with mild right ventricular hypokinesis, RVSP 49. Moderately dilated left atrium, mild MR, [id number]-[id number] TR, no pericardial effusion. * Cardiac catheterization history: December 2019 with stenting of first obtuse marginal branch of circumflex, stenting of the mid circumflex, and stenting of LAD. Patient also underwent Implella placement. 07/11/2022 Patient examined this morning. He is sitting up in the chair. He denies chest pain or pressure. Reports shortness of breath is near his baseline. He is in relating to the bathroom with a walker without difficulty. He remains on IV Lasix 40 mg every 12 hours. He continues to have lower extremity edema. He is wearing knee-high BARRERA hose. Patient reports he has been urinating quite frequently. Fluid balance over the last 24 hours is -1015 mL. Creatinine this morning 1.3. Echocardiogram completed revealing ejection fraction 50-55%, moderate to severe right ventricular dilatation. Moderate pulmonary hypertension. RVSP 49. Moderately dilated left atrium. Mild mitral regurgitation. [id number]-neblmunn tricuspid regurgitation. 07/12/2022 patient examined this morning at the bedside. Patient denies chest pain or pressure. He denies shortness of breath. Patient continues to have lower extremity edema, although improved. He is currently wearing knee-high BARRERA hose.vital signs are stable. PHYSICAL EXAM: VITAL SIGNS: Reviewed. GENERAL: Well-developed in no acute distress. HEENT: Head is normocephalic. Pupils are equal, round. Sclerae anicteric. Mucous membranes of the mouth are moist. Neck supple. No JVD or thyromegaly LUNGS: Respirations even and unlabored. Lungs essentially clear to auscultation bilaterally. HEART: Regular rate and rhythm. S1 and S2 heard. ABDOMEN: Soft. Nondistended. Nontender. EXTREMITIES: Normal range of motion. No clubbing or cyanosis. Peripheral pul ses intact. 2+ bilateral lower extremity edema NEUROLOGIC: Awake and alert. Oriented x 3. ASSESSMENT: Shortness of breath Pneumonia Sinus bradycardia with borderline prolonged QT, asymptomatic Coronary artery disease with previous 2 vessel CABG and subsequent stenting Hypertension Hyperlipidemia Diabetes Sleep apnea Chronic lower extremity edema, suspect secondary to venous insufficiency Moderate to severe right ventricular dilatation Moderate pulmonary hypertension, RVSP 49 PLAN: Continue current cardiac medications Continue telemetry monitoring Avoid QT prolonging medications Continue IV lasix for lower extremity edema. May transition to oral upon discharge. Continue to hold Lisinopril at discharge Patient may be discharged home today from a cardiac standpoint Follow up outpatient with Dr. Muñiz Nurse practitioner note has been reviewed by physician. Signing provider agrees with the documented findings, assessment, and plan of care. Objective - Vital Signs Vital signs: Vital Signs Temp 97.4 F L 07/12/22 07:05 Pulse 72 07/12/22 08:12 Resp 18 07/12/22 07:05 BP 154/78 07/12/22 07:05 Pulse Ox 98 07/12/22 07:51 FiO2 21 07/11/22 07:57 Intake & Output 07/11/22 07/12/22 07/12/22 18:59 06:59 18:59 Output Total 300 Balance -300 Weight 119.3 kg Output: Urine 300 Other: Voiding Method Toilet Toilet # Voids 1 1 - Labs CBC & Chem 7: 07/06/22 06:42 07/12/22 06:52 Labs: Abnormal Lab Results - Last 24 Hours (Table) 07/11/22 07/11/22 07/12/22 Range/Units 16:36 20:07 05:16 BUN (9-20) mg/dL POC Glucose (mg/dL) 229 H 305 H 67 L (70-110) mg/dL Calcium (8.4-10.2) mg/dL 07/12/22 Range/Units 06:52 BUN 46 H (9-20) mg/dL POC Glucose (mg/dL) (70-110) mg/dL Calcium 8.3 L (8.4-10.2) mg/dL Microbiology - Last 24 Hours (Table) 07/06/22 07:45 Blood Culture - Preliminary Blood No Growth after 120 hours 07/06/22 07:44 Blood Culture - Preliminary Blood No Growth after 120 hours
[2022-07-12] MEDS: METOPROLOL TARTRATE 25 MG TAB PO SCH (10:34)
[2022-07-12 10:36] LABS: Basophils # (A) 0.01 X 10*3/uL (0.00-0.10); Basophils % (A) 0.1 %; Eosinophils # (A) 0.04 X 10*3/uL (0.04-0.35); Eosinophils % (A) 0.4 %; HCT 39.9 % (39.6-50.0); HGB 12.4 g/dL (13.0-17.0); Immature Grans, Automated 1.1 %; Lymphocytes % (A) 9.3 %; MCHC 31.1 g/dL (32.0-37.0); MCV 96.4 fL (80.0-97.0); Monocytes # (A) 0.61 X 10*3/uL (0.20-1.00); Monocytes % (A) 6.3 %; NRBC Per 100 WBC 0 /100 WBCS (0.0-0.0); Neutrophils # (A) 8.05 X 10*3/uL (1.80-7.70); Neutrophils % (A) 82.8 %; Platelet Count 168 X 10*3/uL (140-440); RBC 4.14 X 10*6/uL (4.40-5.60); RDW 13.5 % (11.5-14.5); WBC 9.72 X 10*3/uL (4.50-10.00)
[2022-07-12 11:01] LABS: Glucose,Whole Blood 91 mg/dL (70-110)
--- NOTE | 2022-07-12 12:01 | P.PN ---
Subjective Progress Note Date: 07/12/22 76-year-old male brought into the emergency room on July 06, at 620 1 in the morning, complaining of shortness of breath, and chest heaviness. The patient is seen today, in the ER, room 23. He's currently on 4 L of oxygen. He is feeling a bit better today than he did when he first came in. His chest x-ray was consistent with either CHF and/or pneumonia. A CT angiogram was negative for pulmonary embolism. His N-terminal proBNP was 4210. He's currently not receiving any IV fluids. His primary care provider is Dr. Carcamo. He also sees Dr. Muñiz for his heart, Dr. Robertson the electrical prospecting observer for his diabetes, and one of the vascular surgeon. His medical history includes coronary disease, st atus post triple vessel bypass grafting, 1996, diabetes, diabetic neuropathy, GERD, hyperlipidemia, hypertension, pulmonary embolism, and hypothyroidism. The patient has also had previous PCI with stent placement. White count 13.9, with a normal hemoglobin, hematocrit, and platelet count. D-dimer was 0.97. Sodium 144, potassium 4.7, chloride 107, CO2 26, BUN 27, creatinine 1.29. Lactic acid initially was 3.2. Repeat was 2.0. Testing for caballero virus was negative. Troponin was normal. Chest x-ray my opinion showed bilateral airspace disease more so on the right side, which could be consistent with asymmetric pulmonary edema, or pneumonia, right lung. There is cardiomegaly. CT angiogram was negative for pulmonary embolism. The CT was consistent with possible right- sided pneumonia, and right paratracheal and right hilar reactive adenopathy. The patient is seen today 07/07/2022 on the regular medical floor. He is currently sitting up in a chair at the bedside. Awake and alert in no acute distress. Breathing a bit easier today compared to yesterday. Maintaining good O2 saturations in the 90s on 4 L/m per nasal cannula. Still with some significant lower extremity edema. Chest x-ray shows improving bibasilar infiltrates. Blood cultures revealing no growth to date. Sputum culture pending. Sodium 139. Potassium 4.5. Bicarb 18. BUN 36. Creatinine 1.33. Glucose 412. Hemoglobin A1c 7.9. Urinalysis negative. Pro-calcitonin 0.41. ProBNP 4210. Legionella antigen negative. He is continued on Symbicort, albuterol, IV Solu-Medrol. On oral diuretics. Antibiotics in the form of ceftriaxone and azithromycin. The patient is seen today 07/08/2022 in follow-up on the regular medical floor. He is awake and alert in no acute distress. She at the bedside. Breathing better today compared to yesterday. No worsening shortness of breath, cough or congestion. Maintaining good O2 saturations in the 90s on 3 L/m per nasal cannula. Afebrile. Hemodynamically stable. Blood cultures revealed no growth. Sputum culture revealed no growth. Sodium 139. Potassium 4.5. BUN 39. Creatinine 1.4. Glucose 134. He is continued on ceftriaxone. Remains on bronchodilators. Remains on IV diuretics. No accurate I&O. On today's evaluation 07/09/2022, the patient is being seen for a follow-up. Patient is feeling well. The patient is currently on 5 L of oxygen by nasal cannula. The patient is on bronchodilators with albuterol updrafts [id number] every 4 hours, Symbicort 2 puffs twice a day. The patient on Lasix 40 mg IV every 12 hours and the patient is also on IV Rocephin as an empiric antibiotic coverage. Blood work from today shows a sodium level of 138 with a potassium level of 4.6, BUN is at 40 with a creatinine of 1.2. Glucose at 137. Mother the patient an elevated proBNP level at time of admission at 4210 and the pro calcitonin level was at 0.41. 07/10/2022, the patient is being seen for a follow-up. He is currently on oxygen at 5 L/m nasal cannula. Is ambulating. Echocardiogram was completed yesterday and the patient has an ejection fraction of 50-55%, moderate LV wall thickness, RVSP of 49, moderate to severe RV dilatation, moderate tricuspid regurgitation. The rest of the labs show a sodium level of 138, potassium is at 4, BUN is at 34 with a creatinine of 1.0. The patient remains on bronchodilators. The patient is on Symbicort. The patient on DuoNeb neb blotchiness on the clock. The patient is on a prednisone burst taper. He is also taken Lasix at a dose of 40 mg IV is overall fluid balance has been -1.4 L over the past 24 hours. He remains on empiric antibiotic coverage with Rocephin. On 07/11/2022, the patient is complaining of his known being cold. Otherwise, is on room air oxygen. Is feeling better. He has a preserved LV function with an ejection fraction of 50-55%. Is on Symbicort, DuoNeb nebulizer treatments [id number] and he was started on prednisone burst taper. He is also on diuretics with Lasix. On today's blood work, the sodium is at 142 with a potassium level of 4.2, currently 14 with a bicarb of 27 with a BUN of 41 with a creatinine of 1.3. 07/12/2022, the patient remains on room air oxygen. Doing extremely well. No significant respiratory distress on today's evaluation. He was diuresed adequately. He is currently on Symbicort as maintenance, the 12th just a [id number] as needed in addition to 4 times a day, the patient is also on Lasix 40 mg IV 12 hours. The overall fluid balance has been negative in addition to 1.4 L over the past 24 hours. The blood work from today shows a sodium level of 137, BUN is 46 with a creatinine of 1.1, WBC count of 9.7 with a hemoglobin 12.4 platelet count of 168. No other complaints otherwise for now. Sputum Gram stain and culture is negative. Repeat chest x-ray from today shows improvement and there is some atelectasis in the minor fissure on the right. No indication for any consolidation or airspace disease. In comparison, there is marked improvement in the chest x-ray findings and pulmonary edema. Objective - Vital Signs Vital signs: Vital Signs Temp 97.4 F L 07/12/22 07:05 Pulse 58 L 07/12/22 11:44 Resp 18 07/12/22 07:05 BP 154/78 07/12/22 07:05 Pulse Ox 96 07/12/22 10:30 FiO2 21 07/11/22 07:57 Intake & Output 07/11/22 07/12/22 07/12/22 18:59 06:59 18:59 Output Total 300 Balance -300 Weight 119.3 kg Output: Urine 300 Other: Voiding Method Toilet Toilet # Voids 1 1 - Exam GENERAL EXAM: Alert, obese, 76-year-old male, up in a chair at the bedside, on RA, comfortable in no apparent distress. HEAD: Normocephalic. EYES: Normal reaction of pupils, equal size. NOSE: Clear with pink turbinates. THROAT: No erythema or exudates. NECK: No masses, no JVD. CHEST: No chest wall deformity. LUNGS: Equal air entry with faint end expiratory wheeze, crackles in the left lung base. CVS: S1 and S2 normal with no audible murmur, regular rhythm. ABDOMEN: No hepatosplenomegaly, normal bowel sounds, no guarding or rigidity. SPINE: No scoliosis or deformity SKIN: No rashes CENTRAL NERVOUS SYSTEM: No focal deficits, tone is normal in all 4 extremities. EXTREMITIES: There is 2+ peripheral edema with changes of chronic venous stasis. No clubbing, no cyanosis. Peripheral pulses are intact. - Labs CBC & Chem 7: 07/12/22 06:52 07/12/22 06:52 Labs: Abnormal Lab Results - Last 24 Hours (Table) 07/11/22 07/11/22 07/12/22 Range/Units 16:36 20:07 05:16 RBC (4.40-5.60) X 10*6/uL Hgb (13.0-17.0) g/dL MCHC (32.0-37.0) g/dL Immature Gran # (0.00-0.04) X 10*3/uL Neutrophils # (1.80-7.70) X 10*3/uL BUN (9-20) mg/dL POC Glucose (mg/dL) 229 H 305 H 67 L (70-110) mg/dL Calcium (8.4-10.2) mg/dL Procalcitonin (0.02-0.09) ng/mL 07/12/22 07/12/22 07/12/22 Range/Units 06:52 06:52 06:52 RBC 4.14 L (4.40-5.60) X 10*6/uL Hgb 12.4 L (13.0-17.0) g/dL MCHC 31.1 L (32.0-37.0) g/dL Immature Gran # 0.11 H (0.00-0.04) X 10*3/uL Neutrophils # 8.05 H (1.80-7.70) X 10*3/uL BUN 46 H (9-20) mg/dL POC Glucose (mg/dL) (70-110) mg/dL Calcium 8.3 L (8.4-10.2) mg/dL Procalcitonin 0.10 H (0.02-0.09) ng/mL Microbiology - Last 24 Hours (Table) 07/06/22 07:45 Blood Culture - Final Blood No Growth after 144 hours 07/06/22 07:44 Blood Culture - Final Blood No Growth after 144 hours Assessment and Plan Plan: Acute hypoxemic respiratory failure, likely multifactorial, in part related to pneumonia, right lung, possible asymmetric pulmonary edema, as well as possible COPD exacerbation. Procalcitonin 0.41. ProBNP 4210. Patient has improved significantly and the patient is currently on room air oxygen. The patient evelin ins on IV Lasix 40 mg every 12 hours with adequate diuresis. The patient was taken off the IV Solu-Medrol regarding his COPD exacerbation and placed on a prednisone burst taper. He is on bronchodilators. Hemoptysis, possibly related to underlying pneumonia. Recovered. CABG, 1996. Diabetes with diabetic neuropathy. History of hypertension. 40 years of tobacco use, rule out COPD. History of hyperlipidemia. Hypothyroidism. Previous history of PCI with stent placement. Osteoarthritis. Gastroesophageal reflux disease. Morbid obesity. Plan: Chest x-rays improved significantly and the patient's acute pulmonary edema as a cover the patient is currently on room air oxygen Discontinue IV Lasix Start the patient on oral Lasix and the patient takes 40 mg twice a day Continue the current treatment plan Increase his activity as tolerated We'll continue to follow Possible home today
[2022-07-12 14:13] VITALS: BP 130/79; PULSE 69; RESP 16; TEMP 97.8
[2022-07-12] MEDS ORDERED: FUROSEMIDE 40 MG TAB PO SCH (16:00)
--- NOTE | 2022-07-12 22:22 | P.DS ---
Providers Date of admission: 07/06/22 10:12 Attending physician: Jossue Mar Consults: 07/06/22 09:55 Consult Physician Routine Consulting Provider: Jourdan Urbina Consult Reason/Comments: Pneumonia, acute respiratory distress Do you want consulting provider notified?: Yes 07/09/22 12:43 Consult Physician Routine Consulting Provider: Earl Oconnor Consult Reason/Comments: prolonged QT, sinus romel 1st degree AV block, CHF Do you want consulting provider notified?: Yes Primary care physician: [facility] Course: Diagnoses: Acute hypoxic respiratory failure likely from acute COPD exacerbation and possible right lung pneumonia (finished the treatment with antibiotic). Component of volume overload/pulmonary edema. Lactic acidosis resolved Elevated D-Dimer with no pulmonary embolism Sinus bradycardia with 1 degree AV block/sinus arrythmia with prolonged QT interval Acute kidney injury improved Pulmonary hypertension Steroid induced hyperglycemia improved Hiatal hernia History of hypertension Diabetes mellitus type 2 History of pulmonary embolism Coronary artery disease with prior PCI, CABG Diabetic neuropathy Obesity Former smoker Hospital course: This is a pleasant 76 year old male with medical history of coronary artery disease with prior PCI, CABG, diabetes, hypertension, pulmonary embolism, gerd, copd, former smoker. Patient presents to the emergency room with shortness of breath and left sided shoulder pain with acute onset. Patient has been evaluated by cardiology and pulmonary service, he was found to have right lower lobe pneumonia, acute COPD exacerbation and acute CHF with ejection fraction preserved 50-55%. Also with evidence of chronic kidney disease stage II pulmonary hypertension with RVSP 49. He was treated with antibiotics and he fin ished a course of antibiotics, not repeat chest x-ray today showing no consolidation as well as no fever no leukocytosis and protest calcitonin is low, patient does not need further antibiotics upon discharge and risks more benefits. Also he was treated for fluid overload and acute COPD exacerbation with IV Lasix and prednisone and showed interval improvement. Patient wished oral Lasix and prednisone burst July when discharge. Patient himself is fully awake and oriented. Working in the room with no difficulty using his walker. He denies chest pain or dyspnea. No fever. No change in urine or bowel habits. And patient agreeable to go home today. Patient was cleared for discharge by both cartilage and pulmonary service Patient was instructed to discontinue Actos as it might contribute to his fluid overload and CHF and he agrees, stated he was placed on small dose of Levemir and it was lowered from 10 down to 8 because of getting low numbers video coordinator and switch the dose and today the anesthetic of at bedtime. Also continued with NovoLog 3 units with meals and I had lengthy discussion about the patient to monitor his sugar. Also informed about the possibility of requiring less insulin. He is tapering down his prednisone and he verbalized understanding and acceptance. Lisinopril was held upon discharge for chronic kidney disease stage II. Problems and management plan were discussed with the patient and he verbalized understanding and acceptance Patient was found stable and can be discharged home in guarded prognosis however he needs follow-up as an outpatient. Patient was instructed to follow up with PCP Dr. Carcamo within one week and patient agrees Patient was instructed to follow up with his territory sales representative Dr. Muñiz in 1-2 weeks and with mud engineer Dr. Cha in 2 weeks and he agrees to call and make appointment. Also with his hand nailer Dr. Robertson in 1 week and he agrees to make this appointment as well Patient qualify for home oxygen upon discharge Physical exam Gen: patient is a AAOx3, no distress CVS: S1-S2, RRR, no murmur -Lungs: B/L CTA, no wheezing. Nasal cannula oxygen Abdomen: soft, no distention, no tenderness, positive bowel sounds Extremity: no leg edema or induration Time spent more than 35 minutes Patient Condition at Discharge: Poor Plan - Discharge Summary Discharge Rx Participant: No New Discharge Prescriptions: New predniSONE 0 mg PO DIRECTED 13 Days #25 tab Budesonide-Formot 160-4.5 Mcg [Symbicort 160-4.5 Mcg Inhaler] 2 puff INHALATION RT-BID #1 each Albuterol Inhaler [Ventolin Hfa Inhaler] 1 puff INHALATION QID PRN #8 gm PRN Reason: Shortness Of Breath Or Wheezing Insulin Detemir (Levemir) [Levemir] 8 unit SQ DAILY #10 ml Sildenafil [Revatio] 20 mg PO TID #90 tab INSULIN ASPART (NovoLOG) [NovoLOG (formulary)] 3 unit SQ AC-TID #8 ml Continue Levothyroxine Sodium [Synthroid] 75 mcg PO AC-BRKFST Omeprazole 20 mg PO DAILY Tamsulosin [Flomax] 0.4 mg PO DAILY Atorvastatin [Lipitor] 80 mg PO W/SUPPER Empagliflozin [Jardiance] 25 mg PO DAILY Clopidogrel [Plavix] 75 mg PO DAILY@1100 Metoprolol Tartrate [Lopressor] 12.5 mg PO HS Metoprolol Tartrate [Lopressor] 25 mg PO DAILY glipiZIDE [Glucotrol] 10 mg PO W/SUPPER Changed Furosemide [Lasix] 40 mg PO BID #60 tab Discontinued lisinopriL [Prinivil] 10 mg PO DAILY #30 tab Pioglitazone [Actos] 30 mg PO HS Discharge Medication List Levothyroxine Sodium [Synthroid] 75 mcg PO AC-BRKFST 06/09/17 [History] Omeprazole 20 mg PO DAILY 06/09/17 [History] Tamsulosin [Flomax] 0.4 mg PO DAILY 11/19/18 [History] Atorvastatin [Lipitor] 80 mg PO W/SUPPER 03/06/21 [History] Metoprolol Tartrate [Lopressor] 12.5 mg PO HS 03/06/21 [History] Clopidogrel [Plavix] 75 mg PO DAILY@1100 07/06/22 [History] Empagliflozin [Jardiance] 25 mg PO DAILY 07/06/22 [History] Metoprolol Tartrate [Lopressor] 25 mg PO DAILY 07/06/22 [History] glipiZIDE [Glucotrol] 10 mg PO W/SUPPER 07/06/22 [History] Albuterol Inhaler [Ventolin Hfa Inhaler] 1 puff INHALATION QID PRN #8 gm 07/11/22 [Rx] Budesonide-Formot 160-4.5 Mcg [Symbicort 160-4.5 Mcg Inhaler] 2 puff INHALATION RT-BID #1 each 07/11/22 [Rx] Furosemide [Lasix] 40 mg PO BID #60 tab 07/11/22 [Rx] Sildenafil [Revatio] 20 mg PO TID #90 tab 07/11/22 [Rx] predniSONE 0 mg PO DIRECTED 13 Days #25 tab 07/11/22 [Rx] INSULIN ASPART (NovoLOG) [NovoLOG (formulary)] 3 unit SQ AC-TID #8 ml 07/12/22 [Rx] Insulin Detemir (Levemir) [Levemir] 8 unit SQ DAILY #10 ml 07/12/22 [Rx] Follow up Appointment(s)/Referral(s): Cornell Muñiz MD [STAFF PHYSICIAN] - 07/23/22 3:15 pm Main Rivas MD [REFERRING] - 1 Week (hand nailer for your diabetes mellitus management ) [facility] [NON-STAFF] - As Needed (Oxygen. Please call to have oxygen concentrator and portable tanks delivered to home.) Jourdan Urbina DO [Doctor of Osteopathic Medicine] - 08/03/22 10:00 am () Osei Carcamo DO [Primary Care Provider] - 07/18/22 9:45 am Lilly Robertson MD [STAFF PHYSICIAN] - 1 Week (hand nailer for your diabetes mellitus management ) JOBA Visiting Nurse, [NON-STAFF] - As Needed Ambulatory/Diagnostic Orders: Basic Metabolic Panel [LAB.AMB] Time Frame: 3 Days, Location: None Selected Complete Blood Count w/diff [LAB.AMB] Time Frame: 3 Days, Location: None Selected Patient Instructions/Handouts: COPD (Chronic Obstructive Pulmonary Disease) (DC) Activity/Diet/Wound Care/Special Instructions: Recommend close follow up with primary provider on discharge Discontinue lisinopril on discharge Continue sildenafil three times a day do not use sublingual nitroglycerin while taking this medication Lasix has been increased to twice a day. Continue to elevate lower extremities while sitting and continue to use compression stockings Continue on metoprolol even if heart rate is less than 60 beats per minute Notify provider if symptoms of lightheadedness or dizziness occur. complete oral steroid taper Continue on symbicort inhaler twice a day Albuterol inhaler every 4 to 6 hours as needed for shortness of breath and wheezing. Repeat labs in 2 to 3 days Follow up with cardiology and pulmonary on discharge heart healthy diet , low carbohydrate diet 1800 k zac per day activity is restricted till you see your doctor we recommend to check your glucose 4 times a day before each meal and at bed time , keep the results in a log book and bring it to your doctor upon your appointment date if your glucose is less than 70 or more than 400 then call 911 and come to emergency room Discharge Disposition: HOME SELF-CARE
== END 2022-07-12 15:30 | disposition home or self-care (01) | DRG 193 ==
LOC: EC 06:21 → 4SSUR 10:12
PROVIDERS: ADMIT Hospitalist; ATTEND Hospitalist
PROC: 5A09357 Assistance with Respiratory Ventilation, Less than 24 Consecutive Hours, Continuous Positive Airway Pressure (ICD-10-PCS; principal; 2022-07-06)
DX: J18.9 Pneumonia, unspecified organism (principal); I50.33 Acute on chronic diastolic (congestive) heart failure; J96.01 Acute respiratory failure with hypoxia; N17.9 Acute kidney failure, unspecified; E87.20 Acidosis, unspecified; J44.0 Chronic obstructive pulmonary disease with (acute) lower respiratory infection; R04.2 Hemoptysis; I13.0 Hypertensive heart and chronic kidney disease with heart failure and stage 1 through stage 4 chronic kidney disease, or unspecified chronic kidney disease; I27.21 Secondary pulmonary arterial hypertension; E11.40 Type 2 diabetes mellitus with diabetic neuropathy, unspecified; E11.22 Type 2 diabetes mellitus with diabetic chronic kidney disease; E11.65 Type 2 diabetes mellitus with hyperglycemia; E66.01 Morbid (severe) obesity due to excess calories; E03.9 Hypothyroidism, unspecified; Z68.38 Body mass index [BMI] 38.0-38.9, adult; I08.1 Rheumatic disorders of both mitral and tricuspid valves; M79.89 Other specified soft tissue disorders; R79.89 Other specified abnormal findings of blood chemistry; I44.0 Atrioventricular block, first degree; I25.10 Atherosclerotic heart disease of native coronary artery without angina pectoris; M25.512 Pain in left shoulder; I87.2 Venous insufficiency (chronic) (peripheral); K44.9 Diaphragmatic hernia without obstruction or gangrene; I49.3 Ventricular premature depolarization; N18.2 Chronic kidney disease, stage 2 (mild); T38.0X5A Adverse effect of glucocorticoids and synthetic analogues, initial encounter; K21.9 Gastro-esophageal reflux disease without esophagitis; E78.5 Hyperlipidemia, unspecified; M19.90 Unspecified osteoarthritis, unspecified site; G47.30 Sleep apnea, unspecified; Z20.822 Contact with and (suspected) exposure to COVID-19; Z95.5 Presence of coronary angioplasty implant and graft; Z95.1 Presence of aortocoronary bypass graft; Z86.711 Personal history of pulmonary embolism; Z82.49 Family history of ischemic heart disease and other diseases of the circulatory system; Z87.891 Personal history of nicotine dependence; Z88.8 Allergy status to other drugs, medicaments and biological substances; Z79.899 Other long term (current) drug therapy; Z79.84 Long term (current) use of oral hypoglycemic drugs; Z79.02 Long term (current) use of antithrombotics/antiplatelets; Z79.890 Hormone replacement therapy; Z28.311 Partially vaccinated for COVID-19; Z80.1 Family history of malignant neoplasm of trachea, bronchus and lung
CPT/HCPCS: 36415; 71045; 71046; 71275; 80048; 80053; 81003; 82009; 83036; 83605; 83735; 83880; 84145; 84484; 85025; 85379; 85610; 85730; 87040; 87070; 87205; 87449; 87635; 93005; 93306; 94640; 94660; 94760; 96365; 96366; 96367; 96375; 99285; 99291

== ENCOUNTER → 2023-07-02 | Outpatient (CLI) | payer MEDICARE ==
[2023-07-02 17:43] LABS: ALT 20 U/L (10-49); AST 17 U/L (14-35); Albumin 4.2 g/dL (3.8-4.9); Alkaline Phosphatase 128 U/L (41-126); BUN/Creat Ratio 19.43 Ratio (12.00-20.00); Blood Urea Nitrogen 27.2 mg/dL (9.0-27.0); Carbon Dioxide 21.5 mmol/L (21.6-31.8); Chloride 103 mmol/L (96-109); Chol/HDL Ratio 4.58 Ratio; Globulin 2.8 g/dL (1.6-3.3); Glucose 273 mg/dL (70-110); LDL Cholesterol,Calculated 61.4 mg/dL (0.0-131.0); Potassium 4.4 mmol/L (3.5-5.5); Sodium 139 mmol/L (135-145); Total Bilirubin 0.4 mg/dL (0.3-1.2)
[2023-07-02 19:20] LABS: Urine Creatinine 32.6 mg/dL (39.0-259.0)
== END | disposition home or self-care (01) ==
LOC: LABWHC1 11:05
PROVIDERS: ATTEND Internal Medicine Endocrinology, Diabetes & Metabolism
DX: E11.65 Type 2 diabetes mellitus with hyperglycemia (principal)
CPT/HCPCS: 36415; 80053; 80061; 82043; 82570; 83036; 84443

== ENCOUNTER → 2024-02-03 | Outpatient (CLI) | payer MEDICARE | END | disposition home or self-care (01) | LOC: LABWHC1 11:38 | PROVIDERS: ATTEND Physician Assistant | DX: E11.65 Type 2 diabetes mellitus with hyperglycemia (principal) | CPT/HCPCS: 36415; 84681 ==